=== PATIENT | male | born 1940 | race Caucasian/White ===

== ENCOUNTER → 2016-06-11 | Outpatient (CLI) | payer BC ==
[~2016-06-11] MED LIST: ACET325T96 PO; AMOX1TAB43 PO; AMOX500C3 PO; ASPI81TA28 PO; CPR500 PO; CRDCD300 PO; DIGO0.2518 PO; DIPH50CA PO; ERGO1CAP41 PO; FURO80TA63 PO; LISI-729 PO; LISI10TA PO; LNX25 PO; METO1TAB71 PO; SENN-65 PO; WARF2.5T8 PO; WARF5TAB7 PO
--- NOTE | 2016-06-11 13:11 | DIAGNOSTIC IMAGING REPORT ---
RIGHT KNEE 2 VIEWS CLINICAL HISTORY: Right knee pain. FINDINGS: AP and lateral views of the right knee are obtained. No prior studies are available for comparison at the time of dictation. The skeletal structures are osteopenic. No fracture is seen. There is mild tricompartmental degenerative joint space narrowing, greatest at the patellofemoral articulation. There are large patellar enthesophytes. A calcified fabella is incidentally noted. No joint effusion is identified. An 11 mm joint body is suspected inferior to the patella. Prepatellar soft tissue edema is noted. Advanced atherosclerotic calcification is noted in the popliteal artery. IMPRESSION: 1. Soft tissue edema with no acute bony abnormality seen in the right knee. 2. Osteopenia and mild arthritic change as above. 3. Suspect an 11 mm calcified joint body. Electronically signed by: Jake Maurice M.D. 06/11/2016 1:10 PM Dictated Date/Time: 06/11/2016 1:08 PM
--- NOTE | 2016-06-11 13:13 | DIAGNOSTIC IMAGING REPORT ---
LEFT HIP UNILATERAL 2 VIEWS CLINICAL HISTORY: Bilateral hip pain. COMPARISON STUDY: None. FINDINGS: No acute fracture or dislocation within the left hip. Soft tissues are unremarkable. There are surgical clips in the left inguinal region. This visualized pelvic bones are intact. Mild vascular calcifications. Moderate to severe cartilage space narrowing within the left hip. There are are marginal osteophytes at the left hip. IMPRESSION: 1. No fracture or dislocation within the left hip. 2. Moderate to severe left hip osteoarthritis. Electronically signed by: Al Madrid M.D. 06/11/2016 1:11 PM Dictated Date/Time: 06/11/2016 1:09 PM
--- NOTE | 2016-06-11 13:14 | DIAGNOSTIC IMAGING REPORT ---
LEFT KNEE 2 VIEWS HISTORY: BILATERAL KNEE PAIN COMPARISON: None. FINDINGS: There is no fracture or dislocation. Soft tissues are unremarkable. No radiopaque foreign bodies. Mild cartilage space narrowing within the medial compartment of the knee. Vascular calcifications are noted. No significant knee effusion. There is also mild cartilage space narrowing and small marginal osteophytes at the patellofemoral joint. Tiny marginal osteophytes at the lateral compartment of the knee. IMPRESSION: No fractures. Mild left knee osteoarthritis. Electronically signed by: Al Madrid M.D. 06/11/2016 1:13 PM Dictated Date/Time: 06/11/2016 1:11 PM
--- NOTE | 2016-06-11 13:17 | DIAGNOSTIC IMAGING REPORT ---
RIGHT HIP 2 VIEWS HISTORY: Right hip pain. COMPARISON: None. FINDINGS: There is no fracture or dislocation. Soft tissues are unremarkable. There is a right total hip arthroplasty. The hardware appears intact. There is there are 2 metallic anchors at the greater trochanter. Surgical clips seen within the right groin. The visualized pelvic bones are intact. There appears be a 1.6 cm focal lucency within the superior acetabulum. IMPRESSION: 1. No fracture or dislocation within the right hip. 2. Right total hip arthroplasty. The hardware appears intact. 3. A 1.6 cm focal lucency within the superior aspect of the acetabulum. This may represent foreign body reaction. Electronically signed by: Al Madrid M.D. 06/11/2016 1:15 PM Dictated Date/Time: 06/11/2016 1:13 PM
--- NOTE | 2016-06-11 13:24 | DIAGNOSTIC IMAGING REPORT ---
LUMBAR SPINE RADIOGRAPHS, INCLUDING FLEXION AND EXTENSION CLINICAL HISTORY: Ankylosing spondylitis. Lower back and bilateral hip pain. COMPARISON: None FINDINGS: There is mild levoscoliosis of the lumbar spine. No acute fracture is identified. There is slight retrolisthesis of L3 on L4 and slight anterolisthesis of L4 on L5 in neutral position. This does not significantly change with flexion or extension. There is moderate multilevel degenerative disc disease and severe multilevel facet arthrosis of the lumbar spine. A right hip arthroplasty is partially imaged. IMPRESSION: 1. Mild levoscoliosis of the lumbar spine, slight retrolisthesis of L3 on L4 and slight anterolisthesis of L4 and L5 with no change during flexion or extension. No evidence for lumbar spine instability. 2. Moderate multilevel degenerative disc disease and severe multilevel facet arthrosis. 3. No fracture. Electronically signed by: Johnny Trejo M.D. 06/11/2016 1:22 PM Dictated Date/Time: 06/11/2016 1:20 PM
[2016-06-11 17:19] LABS: PROSTATE SPECIFIC ANTIGEN < 0.010 ng/ml (0.000-4.000)
--- NOTE | 2016-06-17 06:52 | CODING QUERY MEDICAL NECESSITY ---
SUPPORTING DIAGNOSIS NEEDED Dr. Lowe, A supporting diagnosis is required for the test/procedure performed on this patient in order for us to be reimbursed by the patient's insurance. Please provide a supporting diagnosis for the following test/procedure listed below next to the test name along with your signature. *If there is no additional diagnosis for this patient that would support the following test/procedure please document that below next to the test/procedure. Test(s)/Procedure(s) that require a supporting diagnosis: * ([id number]) VITAMIN D ASSAY DIAGNOSIS: * [id number] PSA DIAGNOSIS: DATE OF SERVICE: 06/11/16 Provider Signature: Date: Thank you Barrett Buckner [facility] Once completed, please kindly fax back to [phone] For questions please call [phone]
== END | disposition home or self-care (01) ==
LOC: C.LABBC 12:18
PROVIDERS: ATTEND Internal Medicine
DX: M25.561 Pain in right knee (principal); M25.562 Pain in left knee; M45.9 Ankylosing spondylitis of unspecified sites in spine; M62.81 Muscle weakness (generalized)

== ENCOUNTER 2016-11-09 13:24 | Inpatient (IN) | payer BC, OTHER ==
[~2016-11-09] VITALS: Ht 185.4 cm; Wt 91.0 kg
[~2016-11-09 13:24] MED LIST changes: -AMOX1TAB43 PO; -ASPI81TA28 PO; -CPR500 PO; -CRDCD300 PO; -ERGO1CAP41 PO; -LISI-729 PO; -LNX25 PO; -SENN-65 PO
[2016-11-09] MEDS ORDERED: XYLOCAINE 1%/SOD BICARB 20 ML VIAL INFIL ONE (14:00)
[2016-11-09] MEDS ORDERED: SODIUM CHLORIDE 0.9% 1000ML 1,000 ML IV STA (14:18)
--- NOTE | 2016-11-09 14:18 | EMERGENCY ROOM VISIT NOTE ---
ED Visit Note First contact with patient: 13:42 This Patient was discussed with the physician Stitch Bonding Machine Operator, Di Bynum PA-C. The pertinent historical and physical exam findings were confirmed. I agree with the studies ordered and with the interpretations of these studies. I agree with the disposition and care plan.
[2016-11-09 15:09] LABS: BASO % 0.2 %; BASO ABS # 0.02 K/uL (0-0.2); COMPLETE YES; EOS % 2.2 %; HEMATOCRIT 39.8 % (42-52); IG% 0.2 %; LYMPH % 10.2 %; LYMPH ABS # 0.83 K/uL (1.2-3.4); MEAN CELL VOLUME 97.3 fL (80-100); MEAN CORPUSCULAR HEMOGLOBIN 34.5 pg (25-34); MEAN CORPUSCULAR HGB CONC 35.4 g/dl (32-36); MEAN PLATELET VOLUME 11.4 fL (7.4-10.4); MONO % 11.3 %; NEUT % 75.9 %; PLATELET COUNT 230 K/uL (130-400); RED BLOOD COUNT 4.09 M/uL (4.7-6.1); WHITE BLOOD COUNT 8.12 K/uL (4.8-10.8)
[2016-11-09 15:24] LABS: INR 2.6 (0.9-1.1); PARTIAL THROMBOPLASTIN RATIO 1.8; PROTHROMBIN TIME (PATIENT) 28.6 SECONDS (9.0-12.0)
[2016-11-09 15:27] LABS: BUN/CREATININE RATIO 21.9 (10-20); CALCIUM 8.7 mg/dl (8.5-10.1); CREATININE 0.98 mg/dl (0.60-1.40); POTASSIUM 3.3 mmol/L (3.5-5.1)
--- NOTE | 2016-11-09 15:33 | DIAGNOSTIC IMAGING REPORT ---
LEFT TIBIA/FIBULA 2 VIEWS ROUTINE CLINICAL HISTORY: left leg pain, swelling, redness, drainage COMPARISON: None. DISCUSSION: There is diffuse soft tissue swelling. No fractures are visualized. No destructive lesions are evident. Degenerative changes are present within the knee. Vascular calcifications are visualized. IMPRESSION: 1. Diffuse soft tissue edema 2. No evidence of fracture. No conventional radiographic evidence of osteomyelitis Electronically signed by: Wilmer Weinstein M.D. 11/09/2016 3:32 PM Dictated Date/Time: 11/09/2016 3:31 PM
--- NOTE | 2016-11-09 15:34 | DIAGNOSTIC IMAGING REPORT ---
LEFT FOOT MIN 3 VIEWS ROUTINE CLINICAL HISTORY: left foot pain, swelling, redness, drainage COMPARISON: None. DISCUSSION: Findings of osteopenia and potential bony destructive change involving the distal aspects of the fourth and fifth metatarsals. Cortical early similar changes base proximal phalanx fifth toe. Generalized degenerative change and osteopenia throughout all remaining osseous structures. Soft tissue vascular calcification. Soft tissue edema. IMPRESSION: Soft tissue edema and degenerative change. Diffuse osteopenia. Potential early osteomyelitis distal aspects of the fourth fifth and possibly distal third metatarsals. Potential early osteomyelitis proximal phalanx fifth toe. Electronically signed by: Sin Bryson M.D. 11/09/2016 3:33 PM Dictated Date/Time: 11/09/2016 3:31 PM
[2016-11-09] MEDS ORDERED: ERGO1CAP41 PO (16:01)
[2016-11-09] MEDS ORDERED: LNX25 PO (16:01)
[2016-11-09] MEDS ORDERED: SENN-65 PO (16:01)
[2016-11-09] MEDS ORDERED: LISI-729 PO (16:01)
[2016-11-09 16:37] LABS: URINE APPEARANCE CLEAR (CLEAR); URINE BILIRUBIN NEG (NEG); URINE COLOR YELLOW; URINE NITRITE NEG (NEG); URINE PH 5.5 (4.5-7.5); URINE SPECIFIC GRAVITY 1.013 (1.000-1.030); UROBILINOGEN NEG (NEG); ZZUR CULT IF INDIC CLEAN CATCH NO
[2016-11-09 16:41] LABS: MANUAL MICROSCOPIC REQUIRED? NO; REVIEW REQ? NO
[2016-11-09] MEDS ORDERED: DIPHTHERIA/TETANUS/PERTUSSIS 0.5 ML SYR/VIAL IM. ONE (16:45)
--- NOTE | 2016-11-09 17:58 | History and Physical ---
History & Physical Date & Time of Service: Nov 09, 2016 at 17:14 Chief Complaint: Feet Bleeding Primary Care Physician: Sharif Lowe M.D. History of Present Illness Source: patient, clinic records, hospital records This patient is a 76-year-old male that presented to the emergency department with a main complaint of bleeding from his left foot that started this morning. He is unsure of where it was coming from in particular. He was unable to control the bleeding at home, which prompted him to call his son to bring him to the emergency department. He denies any injury. The patient has a history of chronic venous insufficiency. His legs are significantly swollen. He reports that he takes Lasix 80 mg daily, which she has been taking as prescribed. The patient also notes a wound on the anterior aspect of the left renee. He denies any injury to the area. He denies any fever or chills. The left leg is somewhat painful. Of note, the patient is also complaining of diarrhea over the last week. He denies any nausea or abdominal pain. He denies any blood in his stool or dark stools. He was reportedly covered in feces upon arrival to the ED Past Medical/Surgical History chronic venous insufficiency diastolic CHF hx of bacterial endocarditis in 2016 with penicillin sensitive strep Sepsis 2016 from noted above Paroxysmal A. fib History of prostate cancer History of cataract surgery in the hip replacement Family History Hypertension Social History Smoking Status: Never Smoker Drug Use: none Marital Status: Housing status: lives with significant other Occupational Status: employed Immunizations History of Influenza Vaccine: N/A History of Tetanus Vaccine?: Yes History of Pneumococcal: No History of Hepatitis B Vaccine: No Multi-Drug Resistant Organisms History of MDRO: No Allergies Coded Allergies: Ceftriaxone (Verified Allergy, Unknown, UNKNOWN, 06/06/16) ROCEPHIN AND VANCO ALLERGY PER [facility] ORDER FORM FROM 09/25/15 Vancomycin (Verified Allergy, Unknown, UNKNOWN, 06/06/16) ROCEPHIN AND VANCO ALLERGY PER [facility] ORDER FORM FROM 09/25/15 Home Medications Scheduled Acetaminophen Tab (Tylenol), 650 MG PO DIRECTED Amoxicillin (Amoxil), 4 CAP PO DIRECTED Aspirin (Aspirin Ec), 81 MG PO DAILY Digoxin (Digoxin), 0.25 MG PO DAILY Diltiazem HCl (Diltiazem Cd), 300 MG PO DAILY Diphenhydramine Hcl (Diphenhydramine Hcl), 25 MG PO DIRECTED Ergocalciferol (Vitamin D 86808 Unit), 1 TAB PO WK Furosemide (Lasix), 80 MG PO QAM Lisinopril (Zestril), 5 MG PO DAILY Metoprolol Succinate (Toprolxl (Toprol-Xl), 200 MG PO DAILY Senna/Docusate Sod (Senokot S), 1 TAB PO DAILY Warfarin Sod ([place]), 5 MG PO TUESDAY Warfarin Sod ([place]), 2.5 MG PO DAILY Review of Systems 10 system review performed and negative unless noted in HPI or below Physical Exam Vital Signs Date Time Temp Pulse Resp B/P (MAP) Pulse Ox O2 Delivery O2 Flow Rate FiO2 11/09/16 16:37 57 20 139/96 95 Room Air 11/09/16 16:19 70 11/09/16 15:54 69 20 149/99 95 Room Air 11/09/16 13:28 36.3 89 20 145/93 97 Room Air General Appearance: no apparent distress Head: normocephalic Eyes: EOMI Neck: no JVD Respiratory/Chest: lungs clear Cardiovascular: + pertinent finding (occasionally irregular. No murmur auscultated.) Abdomen/GI: normal bowel sounds, non tender, soft Extremities/Musculoskelatal: + pertinent finding (nonpitting edema noted in the lower extremities bilaterally. Significant erythema, tenderness and warmth noted in the left lower extremity starting from the knee progressing distally to the toes. Foot is warm to touch. No open wounds noted on the foot. There is an approximately 4 cm x 3 cm circular superficial wound on the anterior aspect of the renee oozing serous fluid. Right lower extremity is not erythematous or warm.) Neurologic/Psych: no motor/sensory deficits, oriented x 3 Skin: warm/dry Diagnostics Laboratory Results Results Past 24 Hours Test 11/09/16 14:35 11/09/16 16:19 Range/Units White Blood Count 8.12 4.8-10.8 K/uL Red Blood Count 4.09 4.7-6.1 M/uL Hemoglobin 14.1 14.0-18.0 g/dL Hematocrit 39.8 42-52 % Mean Corpuscular Volume 97.3 80-100 fL Mean Corpuscular Hemoglobin 34.5 25-34 pg Mean Corpuscular Hemoglobin Concent 35.4 32-36 g/dl Platelet Count 230 130-400 K/uL Mean Platelet Volume 11.4 7.4-10.4 fL Neutrophils (%) (Auto) 75.9 % Lymphocytes (%) (Auto) 10.2 % Monocytes (%) (Auto) 11.3 % Eosinophils (%) (Auto) 2.2 % Basophils (%) (Auto) 0.2 % Neutrophils # (Auto) 6.15 1.4-6.5 K/uL Lymphocytes # (Auto) 0.83 1.2-3.4 K/uL Monocytes # (Auto) 0.92 0.11-0.59 K/uL Eosinophils # (Auto) 0.18 0-0.5 K/uL Basophils # (Auto) 0.02 0-0.2 K/uL RDW Standard Deviation 44.6 36.4-46.3 fL RDW Coefficient of Variation 12.7 11.5-14.5 % Immature Granulocyte % (Auto) 0.2 % Immature Granulocyte # (Auto) 0.02 0.00-0.02 K/uL Prothrombin Time 28.6 9.0-12.0 SECONDS Prothromb Time International Ratio 2.6 0.9-1.1 Activated Partial Thromboplast Time 46.1 21.0-31.0 SECONDS Partial Thromboplastin Ratio 1.8 Sodium Level 139 136-145 mmol/L Potassium Level 3.3 3.5-5.1 mmol/L Chloride Level 101 98-107 mmol/L Carbon Dioxide Level 31 21-32 mmol/L Anion Gap 7.0 3-11 mmol/L Blood Urea Nitrogen 21 7-18 mg/dl Creatinine 0.98 0.60-1.40 mg/dl Est Creatinine Clear Calc Drug Dose 74.7 ml/min Estimated GFR () 87.7 Estimated GFR (Non- 75.6 BUN/Creatinine Ratio 21.9 10-20 Random Glucose 110 70-99 mg/dl Calcium Level 8.7 8.5-10.1 mg/dl Total Bilirubin 0.7 0.2-1 mg/dl Aspartate Amino Transf (AST/SGOT) 18 15-37 U/L Alanine Aminotransferase (ALT/SGPT) 23 12-78 U/L Alkaline Phosphatase 112 45-117 U/L Total Protein 7.5 6.4-8.2 gm/dl Albumin 3.7 3.4-5.0 gm/dl Globulin 3.8 2.5-4.0 gm/dl Albumin/Globulin Ratio 1.0 0.9-2 Urine Color YELLOW Urine Appearance CLEAR CLEAR Urine pH 5.5 4.5-7.5 Urine Specific [place] 1.013 1.000-1.030 Urine Protein NEG NEG Urine Glucose (UA) NEG NEG Urine Ketones NEG NEG Urine Occult Blood NEG NEG Urine Nitrite NEG NEG Urine Bilirubin NEG NEG Urine Urobilinogen NEG NEG Urine Leukocyte Esterase NEG NEG Microbiology Results 11/09/16 Blood Culture, Received Pending 11/09/16 Blood Culture, Received Pending 11/09/16 Gram Stain, Received Pending 11/09/16 Wound Culture, Received Pending Diagnostic Radiology Patient: ARMEN COX Address1: [facility] Rec: [id number] Address2: Acct ID: [id number] [facility] Zip: [place] [address] Date: 1940 Sex: M Room/Bed: Ref Phy: Sharif Lowe M.D. SC: NATALIA Att Phy: Report #: [id number] Fidelina Phy: Sharif Lowe M.D. Test: TF Admit Phy: Identification Officer: LIZETTE Interpreting Phy: Wilmer Weinstein M.D. Diagnosis: FEET BLEEDING Ordering Phy: Ella Bynum PA-C Service Date: 11/09/16 Admit Date: 11/09/16 MNE: [id number] CONF: DICTATED BY: Wilmer Weinstein M.D.]] CC: Denys Romero, Sharif Prasad M.D. Royer, Elizabeth A., PA-C Endcc: [~ rep ct add3]] LEFT TIBIA/FIBULA 2 VIEWS ROUTINE CLINICAL HISTORY: left leg pain, swelling, redness, drainage COMPARISON: None. DISCUSSION: There is diffuse soft tissue swelling. No fractures are visualized. No destructive lesions are evident. Degenerative changes are present within the knee. Vascular calcifications are visualized. IMPRESSION: 1. Diffuse soft tissue edema 2. No evidence of fracture. No conventional radiographic evidence of osteomyelitis Electronically signed by: Wilmer Weinstein M.D. 11/09/2016 3:32 PM Dictated Date/Time: 11/09/2016 3:31 PM The status of this report is Signed. Draft = Not yet reviewed or approved by Radiologist. Signed = Reviewed and approved by Radiologist. <AttendingPhy></AttendingPhy> <FamilyPhy>Sharif Lowe M.D.</FamilyPhy> < PrimaryPhy>Sharif Lowe M.D.</PrimaryPhy> <UnitNumber>[id number]</UnitNumber> <VisitNumber>[id number]</VisitNumber> <PatientName>ARMEN COX</PatientName> <DateOfBirth>1940</DateOfBirth> <Location>[facility]</Location> <ServiceDate></ServiceDate> <MNE>ESINDI</ Patient: ARMEN COX Address1: [address] [address] [facility] Rec: [id number] Address2: Acct ID: [id number] [facility] Zip: [place] [address] Date: 1940 Sex: M Room/Bed: Ref Phy: Sharif Lowe M.D. SC: NATALIA Att Phy: Report #: [id number] Fidelina Phy: Sharif Lowe M.D. Test: FT Admit Phy: Identification Officer: LIZETTE Interpreting Phy: Sin Bryson M.D. Diagnosis: FEET BLEEDING Ordering Phy: Ella Bynum PA-C Service Date: 11/09/16 Admit Date: 11/09/16 MNE: [id number] CONF: DICTATED BY: Sin Bryson M.D.]] CC: Denys Romero, Sharif Prasad M.D. Royer, Elizabeth A., PA-C Endcc: [~ rep ct add3]] LEFT FOOT MIN 3 VIEWS ROUTINE CLINICAL HISTORY: left foot pain, swelling, redness, drainage COMPARISON: None. DISCUSSION: Findings of osteopenia and potential bony destructive change involving the distal aspects of the fourth and fifth metatarsals. Cortical early similar changes base proximal phalanx fifth toe. Generalized degenerative change and osteopenia throughout all remaining osseous structures. Soft tissue vascular calcification. Soft tissue edema. IMPRESSION: Soft tissue edema and degenerative change. Diffuse osteopenia. Potential early osteomyelitis distal aspects of the fourth fifth and possibly distal third metatarsals. Potential early osteomyelitis proximal phalanx fifth toe. Electronically signed by: Sin Bryson M.D. 11/09/2016 3:33 PM Dictated Date/Time: 11/09/2016 3:31 PM The status of this report is Signed. Draft = Not yet reviewed or approved by Radiologist. Impression Assessment and Plan 76-year-old male presented to emergency department with complaints of bleeding coming from somewhere on his left foot. The patient was apparently found to be soaked in feces from the knees down. Patient has a history of sepsis, endocarditis with penicillin strap in 2016. This was thought to be secondary to his chronic venous insufficiency in his legs. Foot x-rays consistent with early osteomyelitis. 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 However, in the setting of the patient's hip prosthesis we will start broad-spectrum antibiotics with aztreonam, daptomycin and Flagyl -Follow up blood cultures -Lymphedema/wound consult -Infectious disease consult -NPO after midnight in case of orthopedic procedure in the AM Diarrhea-r/o infectious cause -C diff, stool cx, stool WBC, FOB ordered Paroxysmal atrial fibrillation -Continue digoxin 250 g daily, diltiazem extended release 300 mg daily, metoprolol succinate 200 mg daily -Continue warfarin. Patient's typical home dose is 5 mg on and 2.5 mg every other day. We will start the patient on 2.5 mg daily given the amount of antibiotics will be initiated. History of diastolic CHF -Continue Lasix 80 mg daily for now DVT prophylaxis -Lovenox 40 mg subQ daily -TEDS, SCDs CODE STATUS -LEVEL I FULL CODE This chart was completed in part utilizing [employer] Speech Voice Recognition software. Attempts were made to minimize the grammatical errors, random word insertions, pronoun errors and incomplete sentences. Any formal questions or concerns about the content, text or information contained within the body of this dictation should be directly addressed to the provider for clarification. I personally and independently interviewed and examined the patient I reviewed labs and imaging I agree with above mentioned physical exam, History and ROS I discussed and formulated the assessment and plan with Mrs. Zhong 76-year-old male P/W B/L infected lower ext cellulitis/lymphedema rest of ROS is negative PE as above assessment: B/L infected lower ext cellulitis/lymphedema suspected left lower ext osteomyelitis A fib on coumadin Plan: wound care ID and ortho consult US lower ext R/O DVT despite of coumadin with therapeutic INR continue home meds Demetri [place] [facility] [place] Level of Care Med/Surg VTE Prophylaxis VTE Risk Assessment Done? Y/N: Yes Risk Level: Moderate Given or contraindicated: Enoxaparin (Lovenox)SQ, T.E.D. Stockings, SCD's
[2016-11-09] MEDS ORDERED: ONDANSETRON INJ 2 MG/ML 2 ML VIAL IV PRN (18:00)
[2016-11-09] MEDS ORDERED: MAGNESIUM HYDROXIDE SUSP 30 ML UDC PO PRN (18:00)
[2016-11-09] MEDS ORDERED: ENOXAPARIN 40 MG/0.4 ML SYR SQ SCH (18:00)
[2016-11-09] MEDS ORDERED: POLYETHYLENE (MIRALAX) 17 GM PACK PO PRN (18:00)
[2016-11-09] MEDS ORDERED: POTASSIUM CHLORIDE 10 MEQ TABCR ONE (18:27)
[2016-11-09 18:43] VITALS: BP 149/89; PULSE 77; TEMP 36.7; O2SAT 96
[2016-11-09 18:45] VITALS: BP 149/89; PULSE 77; TEMP 36.7; Ht 185.4 cm; Wt 91.0 kg
[2016-11-09] MEDS ORDERED: METRONIDAZOLE CONSULT ACTIVE PRN (20:00)
[2016-11-09] MEDS ORDERED: POTASSIUM CHLORIDE 10 MEQ TABCR PO ONE (20:00)
[2016-11-09] MEDS ORDERED: AZTREONAM CONSULT ACTIVE PRN ×2 (20:00)
--- NOTE | 2016-11-09 20:16 | DIAGNOSTIC IMAGING REPORT ---
BILATERAL LOWER EXTREMITY VENOUS DOPPLER HISTORY: bilateral LE edema venous insuff r/o DVT COMPARISON STUDY: None. FINDINGS: There is normal compressibility, flow, and augmentation within the bilateral lower extremity deep venous systems. IMPRESSION: No DVT within the right or left lower extremity. Electronically signed by: Al Madrid M.D. 11/09/2016 8:15 PM Dictated Date/Time: 11/09/2016 8:14 PM
--- NOTE | 2016-11-09 21:21 | EMERGENCY ROOM VISIT NOTE ---
History First contact with patient: 13:42 Chief Complaint: BLEEDING Stated Complaint: OSTEOMYELITIS OF ANKLE OR FOOT History of Present Illness The patient is a 76 year old male who presents to the Emergency Room with complaints of bleeding from the left leg and foot. The patient states that his foot began to bleed today. He does not know what the bleeding is coming from but states there was a significant amount of blood in his shoe. The patient denies any injury. The patient states that he got concerned and called his son who brought him to the emergency department. The patient reports significant lower extremity swelling and drainage. He states that this appears to be his baseline. When asked if his foot was not bleeding if he would have presented to the emergency department he states he would not have. He denies any fevers. He denies any pain in his chest or trouble breathing. He denies any abdominal pain, nausea or vomiting. The patient does not believe his tetanus is up to date. The patient stated he was concerned because in the past he has had infection in his leg which was thought to have caused bacterial endocarditis in 2015. The patient does have a history of atrial fibrillation and takes digitoxin and Coumadin. Review of Systems A 10 system review of systems was completed with positives and pertinent negatives listed in the HPI. Past Medical/Surgical History Medical Problems: (1) Cellulitis (2) Infectious endocarditis (3) Leukocytosis (4) Osteomyelitis of ankle or foot (5) SIRS (systemic inflammatory response syndrome) (6) Streptococcal sepsis Family History Hypertension Social History Smoking Status: Never Smoker Drug Use: none Marital Status: Housing Status: lives with family Occupation Status: employed Current/Historical Medications Scheduled Acetaminophen Tab (Tylenol), 650 MG PO DIRECTED Amoxicillin (Amoxil), 4 CAP PO DIRECTED Aspirin (Aspirin Ec), 81 MG PO DAILY Digoxin (Digoxin), 0.25 MG PO DAILY Diltiazem HCl (Diltiazem Cd), 300 MG PO DAILY Diphenhydramine Hcl (Diphenhydramine Hcl), 25 MG PO DIRECTED Ergocalciferol (Vitamin D 51680 Unit), 1 TAB PO WK Furosemide (Lasix), 80 MG PO QAM Lisinopril (Zestril), 5 MG PO DAILY Metoprolol Succinate (Toprolxl (Toprol-Xl), 200 MG PO DAILY Senna/Docusate Sod (Senokot S), 1 TAB PO DAILY Warfarin Sod (Jantoven), 5 MG PO TUESDAY Warfarin Sod ([place]), 2.5 MG PO DAILY Allergies Coded Allergies: Ceftriaxone (Verified Allergy, Unknown, UNKNOWN, 06/06/16) ROCEPHIN AND VANCO ALLERGY PER [facility] ORDER FORM FROM 09/25/15 Vancomycin (Verified Allergy, Unknown, UNKNOWN, 06/06/16) ROCEPHIN AND VANCO ALLERGY PER [facility] ORDER FORM FROM 09/25/15 Physical Exam Vital Signs Date Time Temp Pulse Resp B/P (MAP) Pulse Ox O2 Delivery O2 Flow Rate FiO2 11/09/16 18:45 36.7 77 16 149/89 Room Air 11/09/16 18:43 36.7 77 16 149/89 (109) 96 Room Air 11/09/16 18:37 63 20 163/84 94 Room Air 11/09/16 17:44 71 20 157/85 95 Room Air 11/09/16 16:37 57 20 139/96 95 Room Air 11/09/16 16:19 70 11/09/16 15:54 69 20 149/99 95 Room Air 11/09/16 13:28 36.3 89 20 145/93 97 Room Air Pain Rating (0-10): 3.0 Physical Exam VITALS: Vitals are noted on the nurse's note and reviewed by myself. Vital signs stable. The patient is afebrile. GENERAL: This is a 76-year-old male, in no acute distress, nondiaphoretic, well- developed well-nourished. SKIN: There are significant and severe venous stasis changes to the bilateral lower extremities. There is 3+ pitting edema to the lower extremities bilaterally from the feet to the knees. There is an open blister to the left anterior lower extremity that is draining serous sanguinous drainage. When the patient's feet were evaluated, they are incredibly malodorous. They were very dirty and seemed to be covered with fecal material. The bleeding seemed to be coming from the patient's left great toenail which seemed to be slightly disrupted but there was no obvious laceration or bleeding varicosity. HEAD: Normocephalic atraumatic. EARS: External auditory canals clear, tympanic membranes pearly baird without erythema or effusion bilaterally. EYES: Pupils equal round and reactive to light and accommodation. Conjunctivae without injection, sclerae without icterus. Extraocular movements intact. NOSE: Patent, turbinates without inflammation or discharge. MOUTH: Mucous membranes moist. Tonsils are not enlarged. Pharynx without erythema or exudate. Uvula midline. Airway patent. Tongue does not deviate. NECK: Supple without nuchal rigidity. No lymphadenopathy. No thyromegaly. Cervical spine is nontender. HEART: Irregularly irregular LUNGS: Diminished throughout. MUSCULOSKELETAL: Venous stasis changes and skin changes as above. Normal gait. Strength 5/5 throughout. NEURO: Patient was alert and oriented to person place and time. No focal neurological deficits. Medical Decision & Procedures ER Provider Diagnostic Interpretation: LEFT FOOT MIN 3 VIEWS ROUTINE CLINICAL HISTORY: left foot pain, swelling, redness, drainage COMPARISON: None. DISCUSSION: Findings of osteopenia and potential bony destructive change involving the distal aspects of the fourth and fifth metatarsals. Cortical early similar changes base proximal phalanx fifth toe. Generalized degenerative change and osteopenia throughout all remaining osseous structures. Soft tissue vascular calcification. Soft tissue edema. IMPRESSION: Soft tissue edema and degenerative change. Diffuse osteopenia. Potential early osteomyelitis distal aspects of the fourth fifth and possibly distal third metatarsals. Potential early osteomyelitis proximal phalanx fifth toe. Laboratory Results 11/09/16 14:35 Red Blood Count 4.09, Mean Corpuscular Volume 97.3, Mean Corpuscular Hemoglobin 34.5, Mean Corpuscular Hemoglobin Concent 35.4, Mean Platelet Volume 11.4, Neutrophils (%) (Auto) 75.9, Lymphocytes (%) (Auto) 10.2, Monocytes (%) (Auto) 11.3, Eosinophils (%) (Auto) 2.2, Basophils (%) (Auto) 0.2, Neutrophils # (Auto ) 6.15, Lymphocytes # (Auto) 0.83, Monocytes # (Auto) 0.92, Eosinophils # (Auto ) 0.18, Basophils # (Auto) 0.02 11/09/16 14:35 Test 11/09/16 14:35 11/09/16 16:19 White Blood Count 8.12 K/uL (4.8-10.8) Red Blood Count 4.09 M/uL (4.7-6.1) Hemoglobin 14.1 g/dL (14.0-18.0) Hematocrit 39.8 % (42-52) Mean Corpuscular Volume 97.3 fL (80-100) Mean Corpuscular Hemoglobin 34.5 pg (25-34) Mean Corpuscular Hemoglobin Concent 35.4 g/dl (32-36) Platelet Count 230 K/uL (130-400) Mean Platelet Volume 11.4 fL (7.4-10.4) Neutrophils (%) (Auto) 75.9 % Lymphocytes (%) (Auto) 10.2 % Monocytes (%) (Auto) 11.3 % Eosinophils (%) (Auto) 2.2 % Basophils (%) (Auto) 0.2 % Neutrophils # (Auto) 6.15 K/uL (1.4-6.5) Lymphocytes # (Auto) 0.83 K/uL (1.2-3.4) Monocytes # (Auto) 0.92 K/uL (0.11-0.59) Eosinophils # (Auto) 0.18 K/uL (0-0.5) Basophils # (Auto) 0.02 K/uL (0-0.2) RDW Standard Deviation 44.6 fL (36.4-46.3) RDW Coefficient of Variation 12.7 % (11.5-14.5) Immature Granulocyte % (Auto) 0.2 % Immature Granulocyte # (Auto) 0.02 K/uL (0.00-0.02) Prothrombin Time 28.6 SECONDS (9.0-12.0) Prothromb Time International Ratio 2.6 (0.9-1.1) Activated Partial Thromboplast Time 46.1 SECONDS (21.0-31.0) Partial Thromboplastin Ratio 1.8 Anion Gap 7.0 mmol/L (3-11) Est Creatinine Clear Calc Drug Dose 74.7 ml/min Estimated GFR () 87.7 Estimated GFR (Non- 75.6 BUN/Creatinine Ratio 21.9 (10-20) Calcium Level 8.7 mg/dl (8.5-10.1) Total Bilirubin 0.7 mg/dl (0.2-1) Aspartate Amino Transf (AST/SGOT) 18 U/L (15-37) Alanine Aminotransferase (ALT/SGPT) 23 U/L (12-78) Alkaline Phosphatase 112 U/L (45-117) Total Creatine Kinase 91 U/L (39-308) Total Protein 7.5 gm/dl (6.4-8.2) Albumin 3.7 gm/dl (3.4-5.0) Globulin 3.8 gm/dl (2.5-4.0) Albumin/Globulin Ratio 1.0 (0.9-2) Urine Color YELLOW Urine Appearance CLEAR (CLEAR) Urine pH 5.5 (4.5-7.5) Urine Specific [place] 1.013 (1.000-1.030) Urine Protein NEG (NEG) Urine Glucose (UA) NEG (NEG) Urine Ketones NEG (NEG) Urine Occult Blood NEG (NEG) Urine Nitrite NEG (NEG) Urine Bilirubin NEG (NEG) Urine Urobilinogen NEG (NEG) Urine Leukocyte Esterase NEG (NEG) Medications Administered Medications (Trade) Dose Ordered Sig/Sam Route Start Time Stop Time Status Last Admin Dose Admin Sodium Chloride 1,000 ml @ 125 mls/hr Q8H STAT IV 11/09/16 14:18 11/09/16 19:46 DC 11/09/16 15:33 125 MLS/HR Diphtheria/ Pertussis/Tetanus Vacc (Adacel Inj) 0.5 ml ONCE ONCE IM. 11/09/16 16:45 11/09/16 16:46 DC 11/09/16 17:25 0.5 ML Potassium Chloride (Klor-Con M10) 40 meq STK-MED ONCE .ROUTE 11/09/16 18:27 11/09/16 18:28 DC 11/09/16 18:30 40 MEQ ED Course The patient was seen and examined. Previous visits were reviewed. The patient does not have a fever or leukocytosis. He is not tachycardic or hypotensive. He does not have any significant electrolyte abnormalities. INR is 2.6. The patient does take Coumadin. Urinalysis is negative. The patient was very gently hydrated with normal saline He was given Adacel injection X-rays were obtained as above and are suspicious for osteomyelitis of the left foot and toes The patient presents to the emergency department with bleeding of the left lower extremity. He seemed to have some bleeding coming from beneath the left great toe. The nail seemed to be slightly dislodged there was no suturable laceration or varicosities.. The patient has significant onychomycosis of all of his nails. The patient seemed to have feces all over the bottom of both of his feet and between his toenails. When I asked the patient about this, he states that when he stands to urinate he often has incontinence of diarrhea. This is likely the cause of what appears to be fecal material on both of his feet. The patient's feet were cleaned as best as possible. Once the feet were cleaned, there didn't appear to be erythema to the bilateral lower extremities, left worse than right. The patient also has severe venous stasis changes in bilateral lower extremity edema. There is question of osteomyelitis on x-ray of the left foot. The patient's blood cultures are pending. A wound culture is pending. I had ordered a lactic acid. I was told that it was rejected by the machine and it would be redrawn. Upon review after the patient left the emergency department, it did not seem to be redrawn. I discussed the case with the hospitalist service and they will evaluate the patient. I did discuss choice of antibiotic within the emergency Department pharmacist and the hospitalist service. The hospitalist would like to defer antibiotics at this time until appropriate cultures are obtained. The patient was also seen and examined by Dr. Romero who agrees with the assessment and treatment plan. Medication Reconciliation: I attest that I have personally reviewed the patient' s current medication list. Blood pressure screening: The patient was found to have an elevated blood pressure and was referred to their primary care doctor for recheck and further treatment Medical Decision The differential diagnosis includes cellulitis, osteomyelitis, bleeding varicosity, CHF, DVT, PE, sepsis, among others Impression Primary Impression: Osteomyelitis of ankle or foot Departure Information Dispostion Admitted as an inpatient Condition FAIR Referrals Sharif Lowe M.D. (PCP) Forms HOME CARE DOCUMENTATION FORM, IMPORTANT VISIT INFORMATION Patient Instructions My [facility]
[2016-11-09] MEDS: METRONIDAZOLE / NSS 500 MG in PREMIXED NSS 100 ML IV SCH (21:42)
[2016-11-09] MEDS: KETOCONAZOLE 2% CR 15 GM TUBE EXT SCH (21:48)
[2016-11-09 22:52] VITALS: BP 162/80; PULSE 80; TEMP 36.6; O2SAT 95
[2016-11-09] MEDS: DAPTOmycin IV 500 MG in SODIUM CHLORIDE 0.9% 50ML 50 ML IV SCH (22:57)
[2016-11-09] MEDS: AZTREONAM IV 2,000 MG in DEXTROSE 5% 100ML 100 ML IV SCH (22:57)
[2016-11-09] MEDS ORDERED: ASPI81TA28 PO (22:58)
[2016-11-09] MEDS ORDERED: CRDCD300 PO (23:01)
[2016-11-10] MEDS: ACETAMINOPHEN 325 MG TAB PO PRN (00:15)
[2016-11-10] MEDS: AZTREONAM IV 2,000 MG in DEXTROSE 5% 100ML 100 ML IV SCH ×3 (04:28→22:03)
[2016-11-10] MEDS: METRONIDAZOLE / NSS 500 MG in PREMIXED NSS 100 ML IV SCH ×3 (04:28→22:03)
[2016-11-10 06:02] LABS: BASO % 0.1 %; BASO ABS # 0.01 K/uL (0-0.2); COMPLETE YES; EOS % 1.7 %; IG% 0.1 %; LYMPH % 11.4 %; LYMPH ABS # 0.93 K/uL (1.2-3.4); MEAN CELL VOLUME 98.9 fL (80-100); MEAN CORPUSCULAR HEMOGLOBIN 34.7 pg (25-34); MEAN CORPUSCULAR HGB CONC 35.1 g/dl (32-36); MEAN PLATELET VOLUME 10.7 fL (7.4-10.4); MONO % 20.3 %; NEUT % 66.4 %; PLATELET COUNT 185 K/uL (130-400); RED BLOOD COUNT 3.54 M/uL (4.7-6.1); WHITE BLOOD COUNT 8.14 K/uL (4.8-10.8)
[2016-11-10 06:11] LABS: INR 2.1 (0.9-1.1); PROTHROMBIN TIME (PATIENT) 23.7 SECONDS (9.0-12.0)
[2016-11-10 06:43] LABS: BUN/CREATININE RATIO 17.7 (10-20); CALCIUM 8.5 mg/dl (8.5-10.1); CREATININE 0.75 mg/dl (0.60-1.40); POTASSIUM 3.1 mmol/L (3.5-5.1)
[2016-11-10 07:43] VITALS: BP 151/68; PULSE 56; TEMP 36.3; O2SAT 98
[2016-11-10 08:21] VITALS: BP 161/78; PULSE 75
[2016-11-10] MEDS: KETOCONAZOLE 2% CR 15 GM TUBE EXT SCH ×2 (08:41→22:04)
--- NOTE | 2016-11-10 08:41 | Hospitalist Progress Note ---
Hospitalist Progress Note Date of Service Nov 10, 2016. (Marietta Stratton PA-C) Subjective Pt evaluation today including: conversation w/ patient, conversation w/ family , physical exam, chart review, lab review, review of studies Pain: None PO Intake: NPO Voiding: no voiding problems The patient was seen and examined this morning. Pt reports doing better today, and that he essentially has no pain. He notes the swelling in his bilateral LE is much imiproved today compared to yesterday. He has been ambulating with walker and denies much difficulty, he also notes his home is small and that he typically does not use anything to help him get around the home. Denies fevers , sweats or chills. Constitutional: No fever, No chills, No fatigue Eyes: No discharge, No diplopia ENT: No sore throat, No trouble swallowing Respiratory: No cough, No sputum, No wheezing, No shortness of breath Cardiovascular: No chest pain, No palpitations Abdomen: No pain, No nausea, No vomiting, No diarrhea, No constipation Musculoskeletal: No muscle pain, No swelling Male : No dysuria Neurologic: No weakness, No numbness/tingling Endo: No fatigue Skin: No rash, No itch (Marietta Stratton PA-C) Objective Vital Signs Date Time Temp Pulse Resp B/P (MAP) Pulse Ox O2 Delivery O2 Flow Rate FiO2 11/10/16 08:21 75 161/78 (105) 11/10/16 07:43 36.3 56 20 151/68 (95) 98 Room Air 11/10/16 00:05 Room Air 11/09/16 22:52 36.6 80 16 162/80 (107) 95 Room Air 11/09/16 18:45 36.7 77 16 149/89 Room Air 11/09/16 18:43 36.7 77 16 149/89 (109) 96 Room Air 11/09/16 18:37 63 20 163/84 94 Room Air 11/09/16 17:44 71 20 157/85 95 Room Air 11/09/16 16:37 57 20 139/96 95 Room Air 11/09/16 16:19 70 11/09/16 15:54 69 20 149/99 95 Room Air 11/09/16 13:28 36.3 89 20 145/93 97 Room Air (Marietta Stratton PA-C) Physical Exam General Appearance: WD/WN, no apparent distress Eyes: PERRL, EOMI ENT: hearing grossly normal, pharynx normal Neck: supple, no JVD Respiratory/Chest: chest non-tender, lungs clear, normal breath sounds Cardiovascular: no murmur, + irregularly irregular Abdomen: normal bowel sounds, non tender, soft, no organomegaly Extremities: non-tender, + pedal edema (2+ pitting edema, chronic venous stasis changes bilaterally, +erythema color up to level of knees bilaterally, Left foot appears red with foul smell, + blood blister over anterior tibial region.), + 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9 % 66.4 % Lymphocytes (%) (Auto) 10.2 % 11.4 % Monocytes (%) (Auto) 11.3 % 20.3 % Eosinophils (%) (Auto) 2.2 % 1.7 % Basophils (%) (Auto) 0.2 % 0.1 % Neutrophils # (Auto) 6.15 K/uL 5.40 K/uL Lymphocytes # (Auto) 0.83 K/uL 0.93 K/uL Monocytes # (Auto) 0.92 K/uL 1.65 K/uL Eosinophils # (Auto) 0.18 K/uL 0.14 K/uL Basophils # (Auto) 0.02 K/uL 0.01 K/uL RDW Standard Deviation 44.6 fL 46.1 fL RDW Coefficient of Variation 12.7 % 12.8 % Immature Granulocyte % (Auto) 0.2 % 0.1 % Immature Granulocyte # (Auto) 0.02 K/uL 0.01 K/uL Prothrombin Time 28.6 SECONDS 23.7 SECONDS Prothromb Time International Ratio 2.6 2.1 Activated Partial Thromboplast Time 46.1 SECONDS Partial Thromboplastin Ratio 1.8 Sodium Level 139 mmol/L 140 mmol/L Potassium Level 3.3 mmol/L 3.1 mmol/L Chloride Level 101 mmol/L 104 mmol/L Carbon Dioxide Level 31 mmol/L 29 mmol/L Anion Gap 7.0 mmol/L 7.0 mmol/L Blood Urea Nitrogen 21 mg/dl 13 mg/dl Creatinine 0.98 mg/dl 0.75 mg/dl Est Creatinine Clear Calc Drug Dose 74.7 ml/min 97.6 ml/min Estimated GFR () 87.7 104.7 Estimated GFR (Non- 75.6 90.4 BUN/Creatinine Ratio 21.9 17.7 Random Glucose 110 mg/dl 118 mg/dl Calcium Level 8.7 mg/dl 8.5 mg/dl Total Bilirubin 0.7 mg/dl Aspartate Amino Transf (AST/SGOT) 18 U/L Alanine Aminotransferase (ALT/SGPT) 23 U/L Alkaline Phosphatase 112 U/L Total Creatine Kinase 91 U/L Total Protein 7.5 gm/dl Albumin 3.7 gm/dl Globulin 3.8 gm/dl Albumin/Globulin Ratio 1.0 Urine Color YELLOW Urine Appearance CLEAR Urine pH 5.5 Urine Specific [place] 1.013 Urine Protein NEG Urine Glucose (UA) NEG Urine Ketones NEG Urine Occult Blood NEG Urine Nitrite NEG Urine Bilirubin NEG Urine Urobilinogen NEG Urine Leukocyte Esterase NEG (Marietta Stratton PA-C) Assessment and Plan 76 yo M with PMHX of diastolic CHF, paroxysmal afib on anticoagulation, hx of sepsis, endocarditis with staph in 2016 found to have early osteomyelitis of the left foot Cellulitis/osteomyelitis of the left foot likely chronic in nature -Orthopedic consult -ID on board and agree with broad spectrum abx including: aztreonam, daptomycin and Flagyl, in the setting of the patient's hip prosthesis -blood cultures in process -Lymphedema/wound consult -Infectious disease consult -Orderer MRI left foot to determine the level of osteomyelitis, will allow the pt a diet today and can make NPO after 2400 if need for procedure. Diarrhea-r/o infectious cause -C diff, stool cx, stool WBC, FOB ordered - Pt denies association with the types of foods he's eating. Paroxysmal atrial fibrillation - Currently irregular, rate controlled - Continue digoxin 250 g daily, diltiazem extended release 300 mg daily, metoprolol succinate 200 mg daily - Continue warfarin. Patient's typical home dose is 5 mg on and 2.5 mg every other day. We will start the patient on 2.5 mg daily given the amount of antibiotics will be initiated. History of diastolic CHF -Continue Lasix 80 mg daily for now DVT prophylaxis -Lovenox 40 mg subQ daily, -TEDS, SCDs CODE STATUS: LEVEL I FULL CODE Disposition: From home, lives with , anticipated discharge after possible surgical procedure in ?2 days. (Marietta Stratton, PARomainC) Attending Attestation: Chart reviewed in detail. Care plan d/w DHIRAJ Stratton. I agree w/ the montelongo components of her documentation. I attempted to see the patient several times this evening without success. Staff reported he was in MRI. Will see the patient tomorrow during bedside rounds. Naeem Coates MD (Naeem Coates MD)
[2016-11-10] MEDS: ASPIRIN 81 MG ECTAB PO SCH (08:42)
[2016-11-10] MEDS: DILTIAZEM HCL 300 MG CAPCR PO SCH (08:42)
[2016-11-10] MEDS: DIGOXIN 0.25 MG TAB PO SCH (08:42)
[2016-11-10] MEDS: METOPROLOL SUCC 50MG EXT REL TAB PO SCH (08:42)
[2016-11-10] MEDS ORDERED: POTASSIUM CHLORIDE 20 MEQ TABCR PO SCH (08:45)
[2016-11-10] MEDS ORDERED: NURSING VERBAL MED ORDER ONE ×2 (08:45→10:30)
[2016-11-10] MEDS ORDERED: POTASSIUM CHLORIDE 10 MEQ TABCR PO ONE (09:15)
--- NOTE | 2016-11-10 10:30 | Medical Consult ---
Consultation Date of Consultation: Nov 10, 2016. Attending Physician: Naeem Coates MD Reason for Consultation: Osteo L foot, hx endocarditis History of Present Illness Patient is a 76 yo male with history of chronic venous insufficiency of the bilateral lower extremities who presented to the ED with complaints of bleeding from his left foot. The patient states that he has chronic edema and dark discoloration of the bilateral lower extremities. Over the past 1 month, he states that the swelling in his left leg has gotten worse, and he has noted some drainage and odor to the leg as well. He began to have bleeding from his left leg though [employer] and his son recommended evaluation in the ED. Upon evaluation, the patient was noted to have nonpitting edema of the bilateral lower extremities and mild erythema of the left lower extremity. He was also noted to have drainage from his LLE and mild warmth to palpation. X-Ray of the left foot was completed and showed soft tissue edema and concern for early osteomyelitis of the 3rd thru 5th distal metatarsals along with possible osteo of the proximal 5th phalanx. Wound culture is pending, but gram stain shows GPB , GPC, and GNB. Blood cultures are also pending. This patient does also have history of endocarditis in 08/2015 with Group G Beta Strep. His WBC count on admission was 8.12. He was placed on IV Daptomycin, Aztreonam, and Flagyl. Past Medical/Surgical History Medical Problems: (1) [address] Status: Acute (2) Dizziness Status: Acute (3) Encephalitis Status: Acute (4) Multiple open wounds of lower extremity Status: Acute Medical Problems: (1) Cellulitis (2) Infectious endocarditis (3) Leukocytosis (4) Osteomyelitis of ankle or foot (5) SIRS (systemic inflammatory response syndrome) (6) Streptococcal sepsis Family History Hypertension Noncontributory Social History Smoking Status: Never Smoker Drug Use: none Marital Status: Housing Status: lives with family Occupation Status: employed Allergies Coded Allergies: Ceftriaxone (Verified Allergy, Unknown, UNKNOWN, 06/06/16) ROCEPHIN AND VANCO ALLERGY PER [facility] ORDER FORM FROM 09/25/15 Vancomycin (Verified Allergy, Unknown, UNKNOWN, 06/06/16) ROCEPHIN AND VANCO ALLERGY PER [facility] ORDER FORM FROM 09/25/15 Home Medications Reported Home Medications Medications Dose Route/Sig Max Daily Dose Days Date Category Dose Instructions Vitamin D 91463 Unit (Ergocalciferol) 50,000 Unit Cap 1 Tab PO WK 11/09/16 Reported Senokot S (Senna/Docusate Sodium) 1 Tab Tab 1 Tab PO DAILY 11/09/16 Reported Zestril (Lisinopril) 5 Mg Tab 5 Mg PO DAILY 11/09/16 Reported Digoxin 0.25 Mg Tab 0.25 Mg PO DAILY 11/09/16 Reported Amoxil (Amoxicillin) 500 Mg Cap 4 Cap PO DIRECTED 06/06/16 Reported TAKES FOUR CAPS PRIOR TO DENTAL APT Toprol-Xl (Metoprolol Succinate) 200 Mg Tabcr 200 Mg PO DAILY 06/06/16 Reported Lasix (Furosemide) 80 Mg Tab 80 Mg PO QAM 06/06/16 Reported Diphenhydramine Hcl 50 Mg Cap 25 Mg PO DIRECTED 30 09/28/15 Reported Tylenol (Acetaminophen) 325 Mg Tab 650 Mg PO DIRECTED 09/28/15 Reported Jantoven (Warfarin Sodium) 2.5 Mg Tab 2.5 Mg PO DAILY 09/28/15 Reported Jantoven (Warfarin Sodium) 5 Mg Tab 5 Mg PO Tuesday09/28/15 Reported Diltiazem Cd (Diltiazem HCl) 300 Mg Capcr 300 Mg PO DAILY 09/08/15 Reported Aspirin Ec (Aspirin) 81 Mg Tab 81 Mg PO DAILY 09/08/15 Reported Current Inpatient Medications Current Inpatient Medications Medications (Trade) Dose Ordered Sig/Sam Route Start Time Stop Time Status Last Admin Dose Admin Aztreonam 2000 mg/ Dextrose 110 ml @ 100 mls/hr Q8H IV 11/09/16 21:00 11/19/16 20:59 11/10/16 04:28 100 MLS/HR Metronidazole 500 mg/Prmx 100 ml @ 100 mls/hr Q8H IV 11/09/16 20:00 12/21/16 19:59 11/10/16 04:28 100 MLS/HR Daptomycin 500 mg/ Sodium Chloride 60 ml @ 100 mls/hr DAILY@2200 IV 11/09/16 22:00 12/21/16 21:59 11/09/16 22:57 100 MLS/HR Aspirin (Ecotrin Tab) 81 mg DAILY PO 11/10/16 09:00 12/10/16 08:59 11/10/16 08:42 81 MG Digoxin (Lanoxin Tab) 0.25 mg DAILY PO 11/10/16 09:00 12/10/16 08:59 11/10/16 08:42 0.25 MG Diltiazem HCl (Cardizem Cd Cap) 300 mg DAILY PO 11/10/16 09:00 12/10/16 08:59 11/10/16 08:42 300 MG Furosemide (Lasix Tab) 80 mg QAM PO 11/10/16 09:00 12/10/16 08:59 Future hold Lisinopril (Zestril Tab) 5 mg DAILY PO 11/10/16 09:00 12/10/16 08:59 Future hold Metoprolol Succinate (Toprol Xl Tab) 200 mg DAILY PO 11/10/16 09:00 12/10/16 08:59 11/10/16 08:42 200 MG Warfarin Sodium (Coumadin Tab) 2.5 mg DAILY@1600 PO 11/10/16 16:00 12/10/16 15:59 Acetaminophen (Tylenol Tab) 650 mg Q4H PRN PO 11/09/16 18:00 12/09/16 17:59 11/10/16 00:15 650 MG Magnesium Hydroxide (Milk Of Magnesia Susp) 30 ml Q6H PRN PO 11/09/16 18:00 12/09/16 17:59 Polyethylene (Miralax Powder Packet) 17 gm DAILY PRN PO 11/09/16 18:00 12/09/16 17:59 Ondansetron HCl (Zofran Inj) 4 mg Q6H PRN IV 11/09/16 18:00 12/09/16 17:59 Ketoconazole (Nizoral 2% Crm) 1 appln BID EXT 11/09/16 21:00 01/04/17 20:59 11/10/16 08:41 1 APPLN Aztreonam (Consult) 1 ea UD PRN N/A 11/09/16 20:00 12/09/16 19:59 Metronidazole (Consult) 1 ea UD PRN N/A 11/09/16 20:00 12/09/16 19:59 Review of Systems Constitutional: No fever, No chills, No sweats, No fatigue Eyes: No worsening of vision ENT: No hearing loss Respiratory: No cough, No shortness of breath Cardiovascular: + problem reported (Hx Afib), No chest pain, No palpitations Abdomen: + diarrhea, No pain, No vomiting Musculoskeletal: + swelling (b/l LE, L>R. Increased for last 1 month, chronic venous stasis) Genitourinary - Male: No hematuria, No dysuria, No urinary frequency Integumentary: + color change (increased erythema of LLE), No rash, No itch Physical Exam Date Time Temp Pulse Resp B/P (MAP) Pulse Ox O2 Delivery O2 Flow Rate FiO2 11/10/16 08:42 75 11/10/16 08:21 75 161/78 (105) 11/10/16 07:50 Room Air 11/10/16 07:43 36.3 56 20 151/68 (95) 98 Room Air 11/10/16 00:05 Room Air 11/09/16 22:52 36.6 80 16 162/80 (107) 95 Room Air 11/09/16 18:45 36.7 77 16 149/89 Room Air 11/09/16 18:43 36.7 77 16 149/89 (109) 96 Room Air 11/09/16 18:37 63 20 163/84 94 Room Air 11/09/16 17:44 71 20 157/85 95 Room Air 11/09/16 16:37 57 20 139/96 95 Room Air 11/09/16 16:19 70 11/09/16 15:54 69 20 149/99 95 Room Air 11/09/16 13:28 36.3 89 20 145/93 97 Room Air General Appearance: WD/WN, no apparent distress Head: normocephalic, atraumatic Eyes: normal inspection, sclerae normal ENT: hearing grossly normal Neck: supple, trachea midline Respiratory/Chest: chest non-tender, lungs clear, normal breath sounds, no respiratory distress, no accessory muscle use Cardiovascular: + systolic murmur (soft), + irregularly irregular Abdomen/GI: normal bowel sounds, non tender, + distended Back: normal inspection Extremities/Musculoskelatal: + swelling (b/l LE appears to have chronic edema, L>R. ) Neurologic/Psych: alert, normal mood/affect Skin: + pertinent finding (chronic bilateral lower extremity darkened skin, mild erythema of the LLE and foot. Drainage from multiple small wounds on LLE.) Laboratory Results Item Value Date Time Blood Culture Received 11/09/16 1445 Blood Pending Blood Culture Received 11/09/16 1435 Blood Pending Gram Stain - Final Resulted 11/09/16 1315 Cellulitis Foot Left LEFT FOOT MIN 3 VIEWS ROUTINE CLINICAL HISTORY: left foot pain, swelling, redness, drainage COMPARISON: None. DISCUSSION: Findings of osteopenia and potential bony destructive change involving the distal aspects of the fourth and fifth metatarsals. Cortical early similar changes base proximal phalanx fifth toe. Generalized degenerative change and osteopenia throughout all remaining osseous structures. Soft tissue vascular calcification. Soft tissue edema. IMPRESSION: Soft tissue edema and degenerative change. Diffuse osteopenia. Potential early osteomyelitis distal aspects of the fourth fifth and possibly distal third metatarsals. Potential early osteomyelitis proximal phalanx fifth toe. Last 24 Hours Test 11/09/16 14:35 11/09/16 16:19 11/10/16 05:43 11/10/16 09:12 White Blood Count 8.12 K/uL 8.14 K/uL Red Blood Count 4.09 M/uL 3.54 M/uL Hemoglobin 14.1 g/dL 12.3 g/dL Hematocrit 39.8 % 35.0 % Mean Corpuscular Volume 97.3 fL 98.9 fL Mean Corpuscular Hemoglobin 34.5 pg 34.7 pg Mean Corpuscular Hemoglobin Concent 35.4 g/dl 35.1 g/dl Platelet Count 230 K/uL 185 K/uL Mean Platelet Volume 11.4 fL 10.7 fL Neutrophils (%) (Auto) 75.9 % 66.4 % Lymphocytes (%) (Auto) 10.2 % 11.4 % Monocytes (%) (Auto) 11.3 % 20.3 % Eosinophils (%) (Auto) 2.2 % 1.7 % Basophils (%) (Auto) 0.2 % 0.1 % Neutrophils # (Auto) 6.15 K/uL 5.40 K/uL Lymphocytes # (Auto) 0.83 K/uL 0.93 K/uL Monocytes # (Auto) 0.92 K/uL 1.65 K/uL Eosinophils # (Auto) 0.18 K/uL 0.14 K/uL Basophils # (Auto) 0.02 K/uL 0.01 K/uL RDW Standard Deviation 44.6 fL 46.1 fL RDW Coefficient of Variation 12.7 % 12.8 % Immature Granulocyte % (Auto) 0.2 % 0.1 % Immature Granulocyte # (Auto) 0.02 K/uL 0.01 K/uL Prothrombin Time 28.6 SECONDS 23.7 SECONDS Prothromb Time International Ratio 2.6 2.1 Activated Partial Thromboplast Time 46.1 SECONDS Partial Thromboplastin Ratio 1.8 Sodium Level 139 mmol/L 140 mmol/L Potassium Level 3.3 mmol/L 3.1 mmol/L Chloride Level 101 mmol/L 104 mmol/L Carbon Dioxide Level 31 mmol/L 29 mmol/L Anion Gap 7.0 mmol/L 7.0 mmol/L Blood Urea Nitrogen 21 mg/dl 13 mg/dl Creatinine 0.98 mg/dl 0.75 mg/dl Est Creatinine Clear Calc Drug Dose 74.7 ml/min 97.6 ml/min Estimated GFR () 87.7 104.7 Estimated GFR (Non- 75.6 90.4 BUN/Creatinine Ratio 21.9 17.7 Random Glucose 110 mg/dl 118 mg/dl Calcium Level 8.7 mg/dl 8.5 mg/dl Total Bilirubin 0.7 mg/dl Aspartate Amino Transf (AST/SGOT) 18 U/L Alanine Aminotransferase (ALT/SGPT) 23 U/L Alkaline Phosphatase 112 U/L Total Creatine Kinase 91 U/L Total Protein 7.5 gm/dl Albumin 3.7 gm/dl Globulin 3.8 gm/dl Albumin/Globulin Ratio 1.0 Urine Color YELLOW Urine Appearance CLEAR Urine pH 5.5 Urine Specific [place] 1.013 Urine Protein NEG Urine Glucose (UA) NEG Urine Ketones NEG Urine Occult Blood NEG Urine Nitrite NEG Urine Bilirubin NEG Urine Urobilinogen NEG Urine Leukocyte Esterase NEG Magnesium Level 2.2 mg/dl Assessment & Plan Patient with Hx Afib and endocarditis (08/2015) now with probable early osteomyelitis of the left 3rd thru 5th distal metatarsals. He is currently on IV Daptomycin, Aztreonam, and Metronidazole. This is appropriate coverage pending wound culture and blood culture results. Recommend MRI of the left foot if he is able to have one- discussed this briefly with Eden Evans PA-C, and if not able, then recommend CT scan. Ortho consult pending. Patient likely will need long-term IV abx therapy and wound care for the LLE. Note C. Diff toxin pending with diarrhea x 1 month- await collection. We will follow. Case reviewed and agree with above assessment.
[2016-11-10 14:58] VITALS: BP 129/71; PULSE 52; TEMP 36.6; O2SAT 97
[2016-11-10] MEDS: WARFARIN SOD 2.5 MG TAB PO SCH (17:07)
--- NOTE | 2016-11-10 20:09 | CONSULTATION REPORT ---
DATE OF CONSULTATION: 11/10/2016 REASON FOR CONSULT: Osteomyelitis, left foot. HISTORY OF PRESENT ILLNESS: The patient is a 76-year-old white male who was admitted on 11/09/2016. He did initially had come into the Emergency Room because he was thought to have bleeding from his left foot. The patient states currently that he has several scabbed areas that were bleeding at home and were running down into his shoe which prompted a lot of it to come out from his shoe. He was seen by the ER staff and x-rays were taken where he had his scabbed areas over the tibia and there was no fracture; however, he had x-rays taken of his left foot which shows soft tissue edema, osteopenia and early osteomyelitis of the distal aspects of the fourth, fifth and possibly the third metatarsals and possibly early osteomyelitis of the proximal phalanx of the fifth toe. We have been asked to see this gentleman for this reason. PAST MEDICAL HISTORY: Chronic venous insufficiency, diastolic CHF, history of bacterial endocarditis in 2016 with penicillin sensitive strep, sepsis as noted from the 2016 visit from his endocarditis, paroxysmal atrial fibrillation on Coumadin therapy, history of prostate carcinoma. PAST SURGICAL HISTORY: Cataract surgery, total hip replacement on the right side done by Dr. Castro GREEN in 1998, corneal implants in 1992 and 1973. FAMILY HISTORY: Hypertension. SOCIAL HISTORY: Nonsmoker, who does not use alcohol, and is . MEDICATIONS: Tylenol 650 mg p.o. as directed, amoxicillin 4 caps p.o. as directed, aspirin 81 mg p.o. daily, digoxin 0.25 mg p.o. daily, diltiazem CD 300 mg p.o. daily, diphenhydramine 25 mg p.o. as directed, vitamin D 50,000 units 1 tab p.o. weekly, furosemide 80 mg p.o. q.a.m., lisinopril 20 mg p.o. daily, metoprolol XL 200 mg p.o. daily, Senokot-S 1 tab p.o. daily, warfarin 5 mg p.o. on and then 2.5 mg p.o. on the other days. REVIEW OF SYSTEMS: As per admitting history and physical. PHYSICAL EXAMINATION: EXTREMITIES: Focusing on the left lower extremity, he has noted chronic venous stasis changes and also what appears to be cellulitis. I removed the waffle boot from his left foot and I can find no areas of open sores and cuts, etc. There is an odor to the foot itself and he has moderate edema that goes from the foot up to the upper extremity and is just distal to the knee. He is able to move his foot and ankle with some discomfort but is not overly sensitive on palpation. Distal pulses are difficult to assess due to moderate edema. He does have 1 large area over the left anterior renee that is scabbed or crusted, that he states was draining or bleeding prior to him coming into the hospital. This wound has been seen by wound care and has been taken care of and has been addressed accordingly. NEUROLOGIC: No gross motor or sensory deficits seen at this time. X-RAY REVIEW: The patient's left foot was reviewed and noted of the mild osteomyelitis of the distal aspects of the fourth and fifth metatarsals and possibly the distal third with the question of proximal phalanx of the fifth toe. ASSESSMENT: Question osteomyelitis of 3-5 metatarsals with possible osteomyelitis of the proximal phalanx 5th toe. PLAN: The patient to continue IV antibiotics as per recommendations of medicine service and infectious disease service to help calm down his cellulitis and control his edema as much as possible as well. An MRI was ordered today of the left foot and we will review that to see what osteomyelitis he may have ongoing with his metatarsals and make recommendations at that point. The patient is currently on Coumadin and today's INR was 2.1. I discussed this with Eden Stratton PA-C, who will make plans to hold the Coumadin at this point in time pending the possible need for surgery. I will plan to discuss this case with Dr. Cowart as well, our foot and ankle specialist, for any further reconsiderations over the next several days. MAGALY
[2016-11-10] MEDS ORDERED: GADAVIST IV PRN (22:00)
[2016-11-10] MEDS: EUCERIN CR 120 GM JAR EXT SCH (22:03)
--- NOTE | 2016-11-10 22:13 | DIAGNOSTIC IMAGING REPORT ---
MRI OF THE LEFT MID AND FOREFOOT WITHOUT AND WITH GADOLINIUM CLINICAL HISTORY: Left foot pain, swelling, redness, drainage. Possible osteomyelitis. Abnormal conventional radiographs COMPARISON STUDY: Conventional radiographic study dated 11/09/2016 FINDINGS: Imaging was performed in sagittal, coronal, and axial planes. Imaging before and after administration of 9 cc of intravenous Gadavist was performed There are no areas of marrow edema to indicate osteomyelitis. There are no fluid collections to indicate a deep abscess. There is moderate dorsal soft tissue edema, consistent with a cellulitis. No intramuscular masses are visualized. The examination is moderately limited from a technical standpoint due to motion artifact. IMPRESSION: 1. Technically limited study secondary to motion artifact 2. No evidence of osteomyelitis 3. Soft tissue edema, consistent with the clinical history of cellulitis Electronically signed by: Wilmer Weinstein M.D. 11/10/2016 10:12 PM Dictated Date/Time: 11/10/2016 10:08 PM
[2016-11-10 23:02] VITALS: BP 140/69; PULSE 70; TEMP 36.8; O2SAT 97
[2016-11-10] MEDS: DAPTOmycin IV 500 MG in SODIUM CHLORIDE 0.9% 50ML 50 ML IV SCH (23:25)
[2016-11-11] VITALS (8 sets, daily range): BP systolic 146–170; BP diastolic 71–86; PULSE 62–85; TEMP 36.6–36.9; O2SAT 95–97
[2016-11-11] MEDS: METRONIDAZOLE / NSS 500 MG in PREMIXED NSS 100 ML IV SCH ×3 (04:10→20:25)
[2016-11-11] MEDS: AZTREONAM IV 2,000 MG in DEXTROSE 5% 100ML 100 ML IV SCH ×3 (05:31→20:28)
[2016-11-11 06:54] LABS: BASO % 0.2 %; BASO ABS # 0.02 K/uL (0-0.2); COMPLETE YES; EOS % 0.8 %; HEMATOCRIT 34.8 % (42-52); IG% 0.2 %; LYMPH % 7.7 %; LYMPH ABS # 1.01 K/uL (1.2-3.4); MEAN CELL VOLUME 98.3 fL (80-100); MEAN CORPUSCULAR HGB CONC 35.6 g/dl (32-36); MEAN PLATELET VOLUME 10.5 fL (7.4-10.4); MONO % 6.5 %; NEUT % 84.6 %; PLATELET COUNT 190 K/uL (130-400); RED BLOOD COUNT 3.54 M/uL (4.7-6.1); WHITE BLOOD COUNT 13.08 K/uL (4.8-10.8)
[2016-11-11 07:01] LABS: INR 1.9 (0.9-1.1); PROTHROMBIN TIME (PATIENT) 20.5 SECONDS (9.0-12.0)
[2016-11-11 07:31] LABS: BUN/CREATININE RATIO 19.1 (10-20); CALCIUM 8.2 mg/dl (8.5-10.1); CREATININE 0.67 mg/dl (0.60-1.40); POTASSIUM 3.2 mmol/L (3.5-5.1)
--- NOTE | 2016-11-11 07:37 | Hospitalist Progress Note ---
Hospitalist Progress Note Date of Service Nov 11, 2016. (Marietta Stratton PA-C) Subjective Pt evaluation today including: conversation w/ patient, physical exam, chart review, lab review, review of studies Pain: None PO Intake: Good Voiding: no voiding problems The patient was seen and examined this morning. Pt reports doing well today and that he has not acute complaints. He does mention the MRI overnight "took way too long, and that my back was killing me". After this though he was able to fall asleep. He denies difficulty with ambulating with the left foot. Swelling does not appear to have changed much to him today. He denies any fevers , sweats or chills. ROS: 6 point ROS reviewed and negative other than listed per HPI. (Marietta Stratton PA-C) Objective Vital Signs Date Time Temp Pulse Resp B/P (MAP) Pulse Ox O2 Delivery O2 Flow Rate FiO2 11/11/16 04:00 85 155/71 (99) 11/11/16 03:00 85 162/86 (111) 11/11/16 02:30 85 170/83 (112) 11/10/16 23:25 Room Air 11/10/16 23:02 36.8 70 16 140/69 (92) 97 Room Air 11/10/16 16:00 Room Air 11/10/16 14:58 36.6 52 18 129/71 (90) 97 Room Air 11/10/16 08:42 75 11/10/16 08:21 75 161/78 (105) 11/10/16 07:50 Room Air 11/10/16 07:43 36.3 56 20 151/68 (95) 98 Room Air (Marietta Stratton PA-C) Physical Exam Notes: General Appearance: WD/WN, no apparent distress Eyes: PERRL, EOMI ENT: hearing grossly normal, pharynx normal Neck: supple, no JVD Respiratory/Chest: chest non-tender, lungs clear, normal breath sounds Cardiovascular: no murmur, + irregularly irregular Abdomen: normal bowel sounds, non tender, soft, no organomegaly Extremities: non-tender, + pedal edema (2+ pitting edema, chronic venous stasis changes bilaterally, +erythema color up to level of knees bilaterally, Left foot appears red with foul smell, + blood blister over anterior tibial region.), + 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) Neurologic/Psychiatric: it professional II-XII nml as tested, alert, oriented x 3 Skin: normal color, warm/dry (Marietta Stratton PA-C) Laboratory Results Last 24 Hours Test 11/10/16 09:12 11/11/16 06:48 Magnesium Level 2.2 mg/dl White Blood Count 13.08 K/uL Red Blood Count 3.54 M/uL Hemoglobin 12.4 g/dL Hematocrit 34.8 % Mean Corpuscular Volume 98.3 fL Mean Corpuscular Hemoglobin 35.0 pg Mean Corpuscular Hemoglobin Concent 35.6 g/dl Platelet Count 190 K/uL Mean Platelet Volume 10.5 fL Neutrophils (%) (Auto) 84.6 % Lymphocytes (%) (Auto) 7.7 % Monocytes (%) (Auto) 6.5 % Eosinophils (%) (Auto) 0.8 % Basophils (%) (Auto) 0.2 % Neutrophils # (Auto) 11.06 K/uL Lymphocytes # (Auto) 1.01 K/uL Monocytes # (Auto) 0.85 K/uL Eosinophils # (Auto) 0.11 K/uL Basophils # (Auto) 0.02 K/uL RDW Standard Deviation 46.2 fL RDW Coefficient of Variation 12.7 % Immature Granulocyte % (Auto) 0.2 % Immature Granulocyte # (Auto) 0.03 K/uL Prothrombin Time 20.5 SECONDS Prothromb Time International Ratio 1.9 Sodium Level 139 mmol/L Potassium Level 3.2 mmol/L Chloride Level 107 mmol/L Carbon Dioxide Level 25 mmol/L Anion Gap 7.0 mmol/L Blood Urea Nitrogen 13 mg/dl Creatinine 0.67 mg/dl Est Creatinine Clear Calc Drug Dose 109.3 ml/min Estimated GFR () 109.7 Estimated GFR (Non- 94.7 BUN/Creatinine Ratio 19.1 Random Glucose 128 mg/dl Calcium Level 8.2 mg/dl (Marietta Stratton PA-C) Assessment and Plan 76 yo M with PMHX of diastolic CHF, paroxysmal afib on anticoagulation, hx of sepsis, endocarditis with staph in 2016 found to have early osteomyelitis of the left foot Cellulitis/osteomyelitis of the left foot likely chronic in nature - MRI of the foot w/wo Contrast 11/10/16 completed but ruled out osteomyelitis: so will plan on conservative treatment with IV antibiotics vs surgical procedure. Coumadin was held last night due to possibility of surgical procedure. Can resume today. IMPRESSION: 1. Technically limited study secondary to motion artifact 2. No evidence of osteomyelitis 3. Soft tissue edema, consistent with the clinical history of cellulitis -Orthopedic consult- appreciate -ID on board -appreciate recs- cont broad spectrum abx including: aztreonam, daptomycin and Flagyl, in the setting of the patient's hip prosthesis -blood cultures in process, wound culture growing G- rods, will follow -Lymphedema/wound consult Diarrhea-r/o infectious cause - C diff, stool cx, stool WBC, FOB ordered - follow results. - Pt denies complaints of loose stools today. - Pt denies association with the types of foods he's eating. Paroxysmal atrial fibrillation - Currently irregular, rate controlled - Continue digoxin 250 g daily, diltiazem extended release 300 mg daily, metoprolol succinate 200 mg daily - Held warfarin last night, can resume today at 2.5 dosing. Patient's typical home dose is 5 mg on and 2.5 mg every other day. History of diastolic CHF -Continue Lasix 80 mg daily for now DVT prophylaxis -Lovenox 40 mg subQ daily, -TEDS, SCDs CODE STATUS: LEVEL I FULL CODE Disposition: From home, lives with , dc in ~1-2 days pending ID recs for abx therapy. (Marietta Stratton, PRAKASH) Attending Attestation & Admission Note: Pt seen/examined, chart reviewed, and care plan d/w DHIRAJ Stratton. I agree w/ the montelongo components of her documentation except patient is NOT on lovenox for DVT proph. Pt c/o abdominal bloating and incomplete evacuation of bowel movements. C/o back pain. denies dyspnea. no fever. VSS afebrile o2 sats acceptable gen - nad neck - JVD present heart - RRR, s1, s2 lungs - scant rales bases abd - markedly distended with high-pitched bowel sounds, minimal tenderness to palpation, no HSM ext - significant stasis changes b/l vascular - pulses left foot<1+, right foot about 1+, popliteal pulses 2+ b/l cap refill left foot >2 sec both shins wrapped in large dressings cbc with mild leukocytosis bmp nl wound cx- GNR (2 types), bacillus, coag neg staph A/P: 1. cellulitis, LLE, along with wound of left renee - cont current antibiotics. follow cx. MRI left foot with NO osteomyelitis. appreciate wound care consult, ID consult, orthopedics. His exam is suspicious for PAD of distal LLE. ABIs support such. Arterial dopplers ordered. If this is abnormal then vascular consultation. 2. abdominal distension - check abdominal x-rays, r/o SBO, r/o ileus. 3. hypokalemia - replace, repeat BMP am. 4. chronic diastolic CHF - may be decompensated given his JVD. Check cxr. ON BB, lasix, etc. 5. HTN - controlled. 6. PAF - cont coumadin, daily INR, BB, dig, CCB. PT, OT consults Naeem Coates MD (Naeem Coates MD)
[2016-11-11] MEDS: EUCERIN CR 120 GM JAR EXT SCH ×2 (08:20→20:26)
[2016-11-11] MEDS: KETOCONAZOLE 2% CR 15 GM TUBE EXT SCH ×2 (08:20→20:26)
[2016-11-11] MEDS: ASPIRIN 81 MG ECTAB PO SCH (08:21)
[2016-11-11] MEDS: FUROSEMIDE 80 MG TAB PO SCH (08:23)
[2016-11-11] MEDS: DIGOXIN 0.25 MG TAB PO SCH (08:23)
[2016-11-11] MEDS: METOPROLOL SUCC 50MG EXT REL TAB PO SCH (08:24)
[2016-11-11] MEDS: LISINOPRIL 5 MG TAB PO SCH (08:24)
[2016-11-11] MEDS: DILTIAZEM HCL 300 MG CAPCR PO SCH (09:22)
[2016-11-11] MEDS: ACETAMINOPHEN 325 MG TAB PO PRN (13:08)
[2016-11-11] MEDS: POTASSIUM CHLORIDE 20 MEQ TABCR PO SCH ×2 (13:09→20:26)
--- NOTE | 2016-11-11 13:55 | Orthopedic Progress Note ---
Orthopedic Progress Note Date of Service Nov 11, 2016. Subjective Reports: feeling well Additional Notes: Pt awake, alert. No complaints. Feels that his feet look better today considering the swelling etc. Discussed that the MRI was negative for Osteomyelitis. Objective N/V intact, A&O x3, toes mobile Swelling seems to be down a bit on both feet compared to yesterday. He has a little less erythema. Multiple small dressings on the shins that don't appear to be draining through. Date Time Temp Pulse Resp B/P (MAP) Pulse Ox O2 Delivery O2 Flow Rate FiO2 11/11/16 08:23 74 11/11/16 08:15 97 Room Air 11/11/16 07:51 97 Room Air 11/11/16 07:47 36.8 72 18 156/72 (100) 97 Room Air 11/11/16 04:00 85 155/71 (99) 11/11/16 03:00 85 162/86 (111) 11/11/16 02:30 85 170/83 (112) 11/10/16 23:25 Room Air 11/10/16 23:02 36.8 70 16 140/69 (92) 97 Room Air 11/10/16 16:00 Room Air 11/10/16 14:58 36.6 52 18 129/71 (90) 97 Room Air Laboratory Results 24 Hours: Test 11/11/16 06:48 White Blood Count 13.08 K/uL Red Blood Count 3.54 M/uL Hemoglobin 12.4 g/dL Hematocrit 34.8 % Mean Corpuscular Volume 98.3 fL Mean Corpuscular Hemoglobin 35.0 pg Mean Corpuscular Hemoglobin Concent 35.6 g/dl Platelet Count 190 K/uL Mean Platelet Volume 10.5 fL Neutrophils (%) (Auto) 84.6 % Lymphocytes (%) (Auto) 7.7 % Monocytes (%) (Auto) 6.5 % Eosinophils (%) (Auto) 0.8 % Basophils (%) (Auto) 0.2 % Neutrophils # (Auto) 11.06 K/uL Lymphocytes # (Auto) 1.01 K/uL Monocytes # (Auto) 0.85 K/uL Eosinophils # (Auto) 0.11 K/uL Basophils # (Auto) 0.02 K/uL Prothromb Time International Ratio 1.9 Prothrombin Time 20.5 SECONDS Additional Notes: MRI RESULTS IMPRESSION: 1. Technically limited study secondary to motion artifact 2. No evidence of osteomyelitis 3. Soft tissue edema, consistent with the clinical history of cellulitis Assessment & Plan Assessment: Cellulitis bilateral LE's , Left > Right Plan: No Osteomyelitis noted on MRI. No need for any type of surgical intervention upon our part. Ok to restart Coumadin Antibx as per Med Service/ ID Service Ortho will sign off for now. Please call with any questions.
--- NOTE | 2016-11-11 16:37 | Infectious Disease Progress Nt ---
Progress Note Date of Service Nov 11, 2016. Subjective Pt evaluation today including: conversation w/ patient, physical exam, chart review, lab review, review of studies, conversation w/ corporate learning consultant, review of inpatient medication list The patient is feeling slightly improved today. He feels that his legs are looking slightly improved as well. He did an MRI of the lower extremity which showed tissue edema consistent with cellulitis, but no evidence of osteomyelitis. The patient's wound culture is growing gram-negative bacilli x2 , coag-negative, and bacillus species. Blood cultures are showing no growth. Stool culture is pending. The patient's white blood cell count today was 13.08. His creatinine was 0.67. He has been afebrile. I did discuss this patient briefly with Billy Dickson PA-C in ortho. All Other Systems: Reviewed and Negative Medications Current Inpatient Medications Medications (Trade) Dose Ordered Sig/Sam Route Start Time Stop Time Status Last Admin Dose Admin Aztreonam 2000 mg/ Dextrose 110 ml @ 100 mls/hr Q8H IV 11/09/16 21:00 12/21/16 20:59 11/11/16 13:54 100 MLS/HR Metronidazole 500 mg/Prmx 100 ml @ 100 mls/hr Q8H IV 11/09/16 20:00 12/21/16 19:59 11/11/16 12:19 100 MLS/HR Daptomycin 500 mg/ Sodium Chloride 60 ml @ 100 mls/hr DAILY@2200 IV 11/09/16 22:00 12/21/16 21:59 11/10/16 23:25 100 MLS/HR Aspirin (Ecotrin Tab) 81 mg DAILY PO 11/10/16 09:00 12/10/16 08:59 11/11/16 08:21 81 MG Digoxin (Lanoxin Tab) 0.25 mg DAILY PO 11/10/16 09:00 12/10/16 08:59 11/11/16 08:23 0.25 MG Diltiazem HCl (Cardizem Cd Cap) 300 mg DAILY PO 11/10/16 09:00 12/10/16 08:59 11/11/16 09:22 300 MG Furosemide (Lasix Tab) 80 mg QAM PO 11/10/16 09:00 12/10/16 08:59 Future hold 11/11/16 08:23 80 MG Lisinopril (Zestril Tab) 5 mg DAILY PO 11/10/16 09:00 12/10/16 08:59 Future hold 11/11/16 08:24 5 MG Metoprolol Succinate (Toprol Xl Tab) 200 mg DAILY PO 11/10/16 09:00 12/10/16 08:59 11/11/16 08:24 200 MG Warfarin Sodium (Coumadin Tab) 2.5 mg DAILY@1600 PO 11/10/16 16:00 12/10/16 15:59 Future hold 11/10/16 17:07 2.5 MG Acetaminophen (Tylenol Tab) 650 mg Q4H PRN PO 11/09/16 18:00 12/09/16 17:59 11/11/16 13:08 650 MG Magnesium Hydroxide (Milk Of Magnesia Susp) 30 ml Q6H PRN PO 11/09/16 18:00 12/09/16 17:59 Polyethylene (Miralax Powder Packet) 17 gm DAILY PRN PO 11/09/16 18:00 12/09/16 17:59 Ondansetron HCl (Zofran Inj) 4 mg Q6H PRN IV 11/09/16 18:00 12/09/16 17:59 Ketoconazole (Nizoral 2% Crm) 1 appln BID EXT 11/09/16 21:00 01/04/17 20:59 11/11/16 08:20 1 APPLN Aztreonam (Consult) 1 ea UD PRN N/A 11/09/16 20:00 12/09/16 19:59 Metronidazole (Consult) 1 ea UD PRN N/A 11/09/16 20:00 12/09/16 19:59 Multi-Ingredient Ointment (Eucerin Unscented Cr) 1 appln BID EXT 11/10/16 21:00 12/10/16 20:59 11/11/16 08:20 1 APPLN Gadobutrol (Gadavist) 9 mmol UD PRN IV 11/10/16 22:00 11/14/16 21:59 Potassium Chloride (Klor-Con Tab) 40 meq TID PO 11/11/16 14:00 12/11/16 13:59 11/11/16 13:09 40 MEQ Objective Vital Signs Date Time Temp Pulse Resp B/P (MAP) Pulse Ox O2 Delivery O2 Flow Rate FiO2 11/11/16 16:20 36.9 62 17 156/71 (99) 96 Room Air 11/11/16 08:23 74 11/11/16 08:15 97 Room Air 11/11/16 07:51 97 Room Air 11/11/16 07:47 36.8 72 18 156/72 (100) 97 Room Air 11/11/16 04:00 85 155/71 (99) 11/11/16 03:00 85 162/86 (111) 11/11/16 02:30 85 170/83 (112) 11/10/16 23:25 Room Air 11/10/16 23:02 36.8 70 16 140/69 (92) 97 Room Air Physical Exam General Appearance: WD/WN, no apparent distress Eyes: normal inspection, sclerae normal ENT: hearing grossly normal Neck: supple, trachea midline Respiratory/Chest: chest non-tender, lungs clear, no respiratory distress, no accessory muscle use Cardiovascular: + pertinent finding (regular rate) Abdomen: normal bowel sounds, non tender, soft Extremities: + swelling (moderately severe edema of the b/l LE. ) Neurologic/Psychiatric: alert, normal mood/affect Skin: + pertinent finding (Continued weeping of the left lower extremity. Erythema appears to be resolving. Continued foul odor) Laboratory Results MRI OF THE LEFT MID AND FOREFOOT WITHOUT AND WITH GADOLINIUM CLINICAL HISTORY: Left foot pain, swelling, redness, drainage. Possible osteomyelitis. Abnormal conventional radiographs COMPARISON STUDY: Conventional radiographic study dated 11/09/2016 FINDINGS: Imaging was performed in sagittal, coronal, and axial planes. Imaging before and after administration of 9 cc of intravenous Gadavist was performed There are no areas of marrow edema to indicate osteomyelitis. There are no fluid collections to indicate a deep abscess. There is moderate dorsal soft tissue edema, consistent with a cellulitis. No intramuscular masses are visualized. The examination is moderately limited from a technical standpoint due to motion artifact. IMPRESSION: 1. Technically limited study secondary to motion artifact 2. No evidence of osteomyelitis 3. Soft tissue edema, consistent with the clinical history of cellulitis Item Value Date Time C.difficile Toxin B Gene (PCR) - Final Complete 11/11/16 1155 Stool No C. difficile toxin B gene detected WBC Smear Received 11/11/16 1155 Stool Pending Blood Culture - Preliminary Resulted 11/09/16 1445 Blood NO GROWTH TO DATE. Blood Culture - Preliminary Resulted 11/09/16 1435 Blood NO GROWTH TO DATE. Gram Stain - Final Resulted 11/09/16 1315 Cellulitis Foot Left Last 24 Hours Test 11/11/16 06:48 11/11/16 12:15 White Blood Count 13.08 K/uL Red Blood Count 3.54 M/uL Hemoglobin 12.4 g/dL Hematocrit 34.8 % Mean Corpuscular Volume 98.3 fL Mean Corpuscular Hemoglobin 35.0 pg Mean Corpuscular Hemoglobin Concent 35.6 g/dl Platelet Count 190 K/uL Mean Platelet Volume 10.5 fL Neutrophils (%) (Auto) 84.6 % Lymphocytes (%) (Auto) 7.7 % Monocytes (%) (Auto) 6.5 % Eosinophils (%) (Auto) 0.8 % Basophils (%) (Auto) 0.2 % Neutrophils # (Auto) 11.06 K/uL Lymphocytes # (Auto) 1.01 K/uL Monocytes # (Auto) 0.85 K/uL Eosinophils # (Auto) 0.11 K/uL Basophils # (Auto) 0.02 K/uL RDW Standard Deviation 46.2 fL RDW Coefficient of Variation 12.7 % Immature Granulocyte % (Auto) 0.2 % Immature Granulocyte # (Auto) 0.03 K/uL Prothrombin Time 20.5 SECONDS Prothromb Time International Ratio 1.9 Sodium Level 139 mmol/L Potassium Level 3.2 mmol/L Chloride Level 107 mmol/L Carbon Dioxide Level 25 mmol/L Anion Gap 7.0 mmol/L Blood Urea Nitrogen 13 mg/dl Creatinine 0.67 mg/dl Est Creatinine Clear Calc Drug Dose 109.3 ml/min Estimated GFR () 109.7 Estimated GFR (Non- 94.7 BUN/Creatinine Ratio 19.1 Random Glucose 128 mg/dl Calcium Level 8.2 mg/dl Stool Occult Blood NEGATIVE Assessment and Plan Patient with Hx 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 He is currently on IV Daptomycin, Aztreonam, and Metronidazole. This is appropriate coverage pending wound culture. Osteomyelitis was not identified on left lower extremity MRI. Therefore, will continue IV antibiotic therapy pending wound culture results. I feel that this patient likely will need at least 1-2 weeks of IV antibiotic therapy until further improvement is seen. Will determine final antibiotics pending culture results. We will follow. Case reviewed and agree with above assessment.
[2016-11-11] MEDS: WARFARIN SOD 2.5 MG TAB PO SCH (17:10)
[2016-11-11] MEDS: DAPTOmycin IV 500 MG in SODIUM CHLORIDE 0.9% 50ML 50 ML IV SCH (22:24)
--- NOTE | 2016-11-11 22:24 | DIAGNOSTIC IMAGING REPORT ---
PA CHEST WITH ABDOMINAL SERIES CLINICAL HISTORY: Generalized abdominal pain. FINDINGS: A PA chest radiograph is compared to study dated 06/06/2016 and correlated with chest CT dated 09/09/2015. The examination is degraded by patient rotation. The heart is markedly enlarged and there is atherosclerotic calcification of the thoracic aorta. There is mild pulmonary vascular congestion. There is chronic elevation of the left hemidiaphragm and bibasilar airspace opacities. No large pleural effusion or pneumothorax is seen. The skeletal structures are osteopenic. Degenerative change is noted throughout the thoracic spine. Supine and erect abdominal radiographs are obtained. No prior studies are available for comparison at the time of dictation. Numerous surgical clips are seen in the pelvis. There is marked gaseous distention of the small bowel and colon. Scattered air-fluid levels are noted on the upright view. No evidence of intraperitoneal free air is seen. There are no abnormal abdominal calcifications. Advanced lumbosacral spondylosis and scoliosis is observed. A right hip arthroplasty is in place. IMPRESSION: 1. Cardiomegaly with evidence of mild congestive failure. 2. Bibasilar airspace opacities likely represent atelectasis. Cortical clinically for evidence of superimposed pneumonia. 3. There is marked gaseous distention of the small bowel and colon with scattered air-fluid levels. This could represent ileus or possibly colonic obstruction. Clinical correlation will be required. 4. No intraperitoneal free air is seen. Electronically signed by: Jake Maurice M.D. 11/11/2016 10:22 PM Dictated Date/Time: 11/11/2016 10:18 PM
[2016-11-12] MEDS: ACETAMINOPHEN 325 MG TAB PO PRN (00:04)
--- NOTE | 2016-11-12 00:14 | DIAGNOSTIC IMAGING REPORT ---
ULTRASOUND BILATERAL LOWER EXTREMITY ARTERIAL CLINICAL HISTORY: Peripheral vascular disease. Osteomyelitis. Nonhealing left renee ulcer. COMPARISON STUDY: No priors. TECHNIQUE: Real-time, grayscale, and color Doppler sonography of the arteries of the right and left lower extremities performed from the inguinal crease to the foot. Ankle-brachial indices could not be assessed due to lower extremity bandaging. FINDINGS: Right lower extremity: There is advanced atherosclerotic plaque and irregularity seen throughout the arteries of the right lower extremity. There are triphasic waveforms seen in the right common femoral artery with velocities measuring up to 56 cm/s. The right profunda femoris artery is patent with velocities measuring up to 41 cm/s. There are triphasic arterial waveforms seen throughout the superficial femoral artery. Velocities within the superficial femoral artery measure up to 66 cm/s. There are biphasic to triphasic waveforms seen in the right popliteal artery with velocities measuring up to 62 cm/s. There is three-vessel runoff to the foot. There are markedly elevated velocities within the right posterior tibial artery proximally measuring up to 187 cm/s. The distal arterial waveforms appear blunted. There are markedly elevated velocities in the proximal right anterior tibial artery measuring up to 251 cm/s. Velocities in the peroneal artery measure up to 77 cm/s. The dorsalis pedis artery cannot be assessed due to bandaging. Left lower externally: There are advanced atherosclerotic plaque and irregularity seen throughout the arteries of the left lower extremity. There are triphasic arterial waveforms in the left common femoral artery with velocities measuring up to 65 cm/s. The left profunda femoris artery is patent with velocities measuring up to 48 cm/s. There are triphasic waveforms seen in the superficial femoral artery. Velocities throughout the superficial femoral artery measure up to 109 cm/s. There are monophasic to biphasic arterial waveforms in the left popliteal artery with velocities measuring up to 51 cm/s. There is three-vessel runoff to the foot. Markedly elevated velocities are seen within the peroneal artery measuring up to 355 cm/s. There is blunting of the distal arterial waveforms. Markedly elevated velocities are seen within the anterior tibial artery which measure up to 272 cm/s. There is blunting of the distal arterial waveforms. Velocities throughout the posterior tibial artery measure up to 78 cm/s. IMPRESSION: 1. Advanced atherosclerotic plaque. No focal vessel cut-off is identified in the right or left lower extremity. 2. There are markedly elevated velocities with blunted distal arterial waveforms seen within several of the right and left lower extremity calf vessels as detailed above suggesting high-grade stenosis. Dictated: 11/11/2016 10:34 PM Transcribed: 11/12/2016 12:14 AM [place] Electronically signed by: Jake Maurice M.D. 11/12/2016 9:06 AM Dictated Date/Time: 11/11/2016 10:34 PM
[2016-11-12] MEDS: METRONIDAZOLE / NSS 500 MG in PREMIXED NSS 100 ML IV SCH (03:28)
[2016-11-12] MEDS: AZTREONAM IV 2,000 MG in DEXTROSE 5% 100ML 100 ML IV SCH (04:34)
[2016-11-12 06:55] LABS: BASO % 0.3 %; BASO ABS # 0.03 K/uL (0-0.2); COMPLETE YES; EOS % 4.1 %; HEMATOCRIT 37.6 % (42-52); IG% 0.3 %; LYMPH % 6.1 %; LYMPH ABS # 0.72 K/uL (1.2-3.4); MEAN CELL VOLUME 98.9 fL (80-100); MEAN CORPUSCULAR HEMOGLOBIN 34.2 pg (25-34); MEAN CORPUSCULAR HGB CONC 34.6 g/dl (32-36); MEAN PLATELET VOLUME 10.8 fL (7.4-10.4); MONO % 9.7 %; NEUT % 79.5 %; PLATELET COUNT 206 K/uL (130-400); WHITE BLOOD COUNT 11.81 K/uL (4.8-10.8)
[2016-11-12 06:59] LABS: INR 1.8 (0.9-1.1)
[2016-11-12 07:15] VITALS: BP 145/82; PULSE 70; TEMP 36.6; O2SAT 95
[2016-11-12 07:26] LABS: BUN/CREATININE RATIO 19.5 (10-20); CALCIUM 8.8 mg/dl (8.5-10.1); CREATININE 0.77 mg/dl (0.60-1.40); POTASSIUM 3.4 mmol/L (3.5-5.1)
[2016-11-12 07:35] VITALS: O2SAT 95
[2016-11-12] MEDS: METOPROLOL SUCC 50MG EXT REL TAB PO SCH (09:17)
[2016-11-12] MEDS: EUCERIN CR 120 GM JAR EXT SCH ×2 (09:17→21:07)
[2016-11-12] MEDS: KETOCONAZOLE 2% CR 15 GM TUBE EXT SCH ×2 (09:17→21:07)
[2016-11-12] MEDS: FUROSEMIDE 80 MG TAB PO SCH (09:18)
[2016-11-12] MEDS: DIGOXIN 0.25 MG TAB PO SCH (09:19)
[2016-11-12] MEDS: POTASSIUM CHLORIDE 20 MEQ TABCR PO SCH ×3 (09:19→21:04)
[2016-11-12] MEDS: DILTIAZEM HCL 300 MG CAPCR PO SCH (09:20)
[2016-11-12] MEDS: ASPIRIN 81 MG ECTAB PO SCH (09:20)
[2016-11-12] MEDS: LISINOPRIL 5 MG TAB PO SCH (09:20)
--- NOTE | 2016-11-12 11:05 | Hospitalist Progress Note ---
Hospitalist Progress Note Date of Service Nov 12, 2016. (Marietta Stratton PA-C) Subjective Pt evaluation today including: conversation w/ patient, physical exam, chart review, lab review, review of studies Pain: None PO Intake: Good Voiding: no voiding problems The patient was seen and examined this morning. Pt reports having multiple bowel movements yesterday after initiation of bowel movements. He was put on clears for bowel ileus found on KUB. Pt denies any abdominal pain, nausea, vomiting, and is tolerating a clear liquid diet without difficulty. He denies any fever, sweats or chills. He denies any pain in his lower legs or difficulty with ambulation. His swelling is improved and legs were re-bandaged overnight. We discussed getting up and walking more, and he is agreeable to this. He denies any chest pain, tightness or shortness of breath. Additional Comments: ROS: 6 point ROS reviewed and otherwise negative. (Marietta Stratton PA-C) Objective Vital Signs Date Time Temp Pulse Resp B/P (MAP) Pulse Ox O2 Delivery O2 Flow Rate FiO2 11/12/16 09:19 78 11/12/16 07:35 95 Room Air 11/12/16 07:15 36.6 70 16 145/82 (103) 95 Room Air 11/12/16 00:00 Room Air 11/11/16 22:52 36.6 73 18 146/79 (101) 95 Room Air 11/11/16 16:20 36.9 62 17 156/71 (99) 96 Room Air 11/11/16 16:10 Room Air (Marietta Stratton PA-C) Physical Exam Notes: General Appearance: WD/WN, no apparent distress Eyes: PERRL, EOMI ENT: hearing grossly normal, pharynx normal Neck: supple, no JVD Respiratory/Chest: chest non-tender, lungs clear, normal breath sounds Cardiovascular: no murmur, + irregularly irregular Abdomen: + pertinent finding (+tinkling bowel sounds in the LUQ and LLQ, + distension, non tender to palpation.) Extremities: non-tender, + pedal edema (1+ pitting edema, chronic venous stasis changes bilaterally, +erythema color up to level of knees bilaterally, Left foot appears red with foul smell, + blood blister over anterior tibial region, bandages are C/D/I, pulses in BLE weak, pedal pulses worse in L compared to R) + 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) Neurologic/Psychiatric: last model maker II-XII nml as tested, alert, oriented x 3 Skin: normal color, warm/dry (Marietta Stratton PA-C) Laboratory Results Last 24 Hours Test 11/11/16 12:15 11/12/16 06:38 11/12/16 06:45 Stool Occult Blood NEGATIVE White Blood Count 11.81 K/uL Red Blood Count 3.80 M/uL Hemoglobin 13.0 g/dL Hematocrit 37.6 % Mean Corpuscular Volume 98.9 fL Mean Corpuscular Hemoglobin 34.2 pg Mean Corpuscular Hemoglobin Concent 34.6 g/dl Platelet Count 206 K/uL Mean Platelet Volume 10.8 fL Neutrophils (%) (Auto) 79.5 % Lymphocytes (%) (Auto) 6.1 % Monocytes (%) (Auto) 9.7 % Eosinophils (%) (Auto) 4.1 % Basophils (%) (Auto) 0.3 % Neutrophils # (Auto) 9.40 K/uL Lymphocytes # (Auto) 0.72 K/uL Monocytes # (Auto) 1.15 K/uL Eosinophils # (Auto) 0.48 K/uL Basophils # (Auto) 0.03 K/uL RDW Standard Deviation 46.4 fL RDW Coefficient of Variation 12.7 % Immature Granulocyte % (Auto) 0.3 % Immature Granulocyte # (Auto) 0.03 K/uL Prothrombin Time 20.0 SECONDS Prothromb Time International Ratio 1.8 Sodium Level 141 mmol/L Potassium Level 3.4 mmol/L Chloride Level 106 mmol/L Carbon Dioxide Level 26 mmol/L Anion Gap 9.0 mmol/L Blood Urea Nitrogen 15 mg/dl Creatinine 0.77 mg/dl Est Creatinine Clear Calc Drug Dose 95.1 ml/min Estimated GFR () 103.6 Estimated GFR (Non- 89.4 BUN/Creatinine Ratio 19.5 Random Glucose 108 mg/dl Calcium Level 8.8 mg/dl (Marietta Stratton PA-C) Assessment and Plan 76 yo M with PMHX of diastolic CHF, paroxysmal afib on anticoagulation, hx of sepsis, endocarditis with staph in 2016 found to have early osteomyelitis of the left foot Cellulitis/osteomyelitis of the left foot likely chronic in nature - MRI of the foot w/wo contrast 11/10/16 completed but ruled out osteomyelitis: so will plan on conservative treatment with IV antibiotics vs surgical procedure. - ID on board -appreciate recs- cont broad spectrum abx including: aztreonam, daptomycin and Flagyl, in the setting of the patient's hip prosthesis Discussed antibiotic regimen with Trena Chambers PA-C; will do combination cipro/bactrim x 10 day course of antibiotics with planned 1 week f/u in the clinic. - Wound culture growing out proteus vulgaris and citrobacter koseri. - Lymphedema/wound consult - Vascular ultrasound on BLE completed last evening with impression below. Will consult vascular surg to assess and see if vascular intervention is warranted for wound healing. IMPRESSION: 1. Advanced atherosclerotic plaque. No focal vessel cut-off is identified in the right or left lower extremity. 2. There are markedly elevated velocities with blunted distal arterial waveforms seen within several of the right and left lower extremity calf vessels as detailed above suggesting high-grade stenosis. Bowel ileus - Pt had not had BM x 2 days, then developed ileus as per KUB with air fluid levels. He does have tinkling bowel sounds in the LUQ and LLQ. Abdomen is distended, but nontender to palpation and the pt is not symptomatic. He has multiple small and one large bowel movement last evening. - Cont clear liquid diet for now, likely can transition to regular diet later today or tomorrow if he continues to improve. - Diarrhea at time of admission is resolved - C diff negative. Other stool cultures still in process. Paroxysmal atrial fibrillation - Currently irregular, rate controlled - Continue digoxin 250 g daily, diltiazem extended release 300 mg daily, metoprolol succinate 200 mg daily - Held warfarin last night, can resume today at 2.5 dosing. Patient's typical home dose is 5 mg on and 2.5 mg every other day. History of diastolic CHF -Continue Lasix 80 mg daily for now DVT prophylaxis -Lovenox 40 mg subQ daily, -TEDS, SCDs CODE STATUS: LEVEL I FULL CODE Disposition: From home, lives with , dc in ~1 days pending ileus resolves (Marietta Stratton, PRAKASH) Attending Attestation & Admission Note: Pt seen/examined, chart reviewed, and care plan d/w DHIRAJ Stratton. I agree w/ the montelongo components of her documentation except patient is NOT on lovenox for DVT proph. No complaints today Passing several bowel movements; tolerating clears; no nausea/emesis VSS afebrile gen - nad neck - JVD improved today heart - RRR, s1, s2 lungs - CTA b/l abd - markedly distended with high-pitched bowel sounds, no tenderness to palpation, no HSM ext - significant stasis changes b/l vascular - pulses left foot<1+, right foot about 1+ both shins wrapped in large dressings K 3.4 wound cx- multiple pathogens A/P: 1. cellulitis, LLE, along with wound of left renee - defer abx selection to ID MRI left foot with NO osteomyelitis. appreciate wound care consult, ID consult, orthopedics. vascular consult done today - no intervention to arteries needed. they recommended treating his venous insufficiency. 2. ileus - 2nd to hypokalemia? clears repeat KUB x-rays in am replace K ambulate 3. hypokalemia - replace, repeat BMP am. 4. chronic diastolic CHF - appears compensated today. 5. HTN - controlled. 6. PAF - cont coumadin, daily INR, BB, dig, CCB. PT, OT consults appreciated likely can return home at d/c Naeem Coates MD (Naeem Coates MD)
--- NOTE | 2016-11-12 12:12 | Infectious Disease Progress Nt ---
Progress Note Date of Service Nov 12, 2016. Subjective Pt evaluation today including: conversation w/ patient, physical exam, chart review, lab review, review of studies, conversation w/ storage management consultant, review of inpatient medication list Patient continues to feel further improved today. His white blood cell count this morning was 11.81. His creatinine was 0.77. He continues on IV daptomycin , aztreonam, and Flagyl. He did have a chest/abdominal x-ray completed yesterday which showed marked gaseous distension of the small bowel and colon with scattered air-fluid levels consistent with possible ileus or colonic obstruction. Culture is growing Pansensitive Proteus vulgaris, Citrobacter Koseri, OIL DRILLER, Bacillus non-anthracis. Blood cultures continue to show no growth to date. C diff toxin was negative, and stool cultures negative. The patient has been afebrile. I did discuss this patient with Eden Evans PA-C. All Other Systems: Reviewed and Negative Medications Current Inpatient Medications Medications (Trade) Dose Ordered Sig/Sam Route Start Time Stop Time Status Last Admin Dose Admin Aspirin (Ecotrin Tab) 81 mg DAILY PO 11/10/16 09:00 12/10/16 08:59 11/12/16 09:20 81 MG Digoxin (Lanoxin Tab) 0.25 mg DAILY PO 11/10/16 09:00 12/10/16 08:59 11/12/16 09:19 0.25 MG Diltiazem HCl (Cardizem Cd Cap) 300 mg DAILY PO 11/10/16 09:00 12/10/16 08:59 11/12/16 09:20 300 MG Furosemide (Lasix Tab) 80 mg QAM PO 11/10/16 09:00 12/10/16 08:59 Future hold 11/12/16 09:18 80 MG Lisinopril (Zestril Tab) 5 mg DAILY PO 11/10/16 09:00 12/10/16 08:59 Future hold 11/12/16 09:20 5 MG Metoprolol Succinate (Toprol Xl Tab) 200 mg DAILY PO 11/10/16 09:00 12/10/16 08:59 11/12/16 09:17 200 MG Warfarin Sodium (Coumadin Tab) 2.5 mg DAILY@1600 PO 11/10/16 16:00 12/10/16 15:59 Future hold 6/23/17 15:36 2.5 MG Acetaminophen (Tylenol Tab) 650 mg Q4H PRN PO 11/09/16 18:00 12/09/16 17:59 11/12/16 00:04 650 MG Magnesium Hydroxide (Milk Of Magnesia Susp) 30 ml Q6H PRN PO 11/09/16 18:00 12/09/16 17:59 Polyethylene (Miralax Powder Packet) 17 gm DAILY PRN PO 11/09/16 18:00 12/09/16 17:59 Ondansetron HCl (Zofran Inj) 4 mg Q6H PRN IV 11/09/16 18:00 12/09/16 17:59 Ketoconazole (Nizoral 2% Crm) 1 appln BID EXT 11/09/16 21:00 01/04/17 20:59 11/12/16 09:17 1 APPLN Multi-Ingredient Ointment (Eucerin Unscented Cr) 1 appln BID EXT 11/10/16 21:00 12/10/16 20:59 11/12/16 09:17 1 APPLN Gadobutrol (Gadavist) 9 mmol UD PRN IV 11/10/16 22:00 11/14/16 21:59 Potassium Chloride (Klor-Con Tab) 40 meq TID PO 11/11/16 14:00 12/11/16 13:59 11/12/16 14:11 40 MEQ Amoxicillin/ Clavulanate Potassium (Augmentin Tab) 875 mg BIDM PO 11/12/16 17:45 11/22/16 17:44 Ciprofloxacin (Cipro Tab) 500 mg BID PO 11/12/16 21:00 11/22/16 20:59 Objective Vital Signs Date Time Temp Pulse Resp B/P (MAP) Pulse Ox O2 Delivery O2 Flow Rate FiO2 11/12/16 09:19 78 11/12/16 07:35 95 Room Air 11/12/16 07:15 36.6 70 16 145/82 (103) 95 Room Air 11/12/16 00:00 Room Air 11/11/16 22:52 36.6 73 18 146/79 (101) 95 Room Air 11/11/16 16:20 36.9 62 17 156/71 (99) 96 Room Air 11/11/16 16:10 Room Air Physical Exam General Appearance: WD/WN, no apparent distress Eyes: normal inspection, sclerae normal ENT: hearing grossly normal Neck: supple, trachea midline Respiratory/Chest: no respiratory distress, no accessory muscle use Cardiovascular: regular rate, rhythm Extremities: + pertinent finding (b/l LE wrapped with clean dressings. Continued mild to moderate edema of the LE's and feet) Neurologic/Psychiatric: alert, normal mood/affect Skin: warm/dry, no rash Laboratory Results Item Value Date Time C.difficile Toxin B Gene (PCR) - Final Complete 11/11/16 1155 Stool No C. difficile toxin B gene detected WBC Smear - Final Resulted 11/11/16 1155 Stool Blood Culture - Preliminary Resulted 11/09/16 1445 Blood NO GROWTH TO DATE. Blood Culture - Preliminary Resulted 11/09/16 1435 Blood NO GROWTH TO DATE. Last 24 Hours Test 11/11/16 12:15 11/12/16 06:38 11/12/16 06:45 Stool Occult Blood NEGATIVE White Blood Count 11.81 K/uL Red Blood Count 3.80 M/uL Hemoglobin 13.0 g/dL Hematocrit 37.6 % Mean Corpuscular Volume 98.9 fL Mean Corpuscular Hemoglobin 34.2 pg Mean Corpuscular Hemoglobin Concent 34.6 g/dl Platelet Count 206 K/uL Mean Platelet Volume 10.8 fL Neutrophils (%) (Auto) 79.5 % Lymphocytes (%) (Auto) 6.1 % Monocytes (%) (Auto) 9.7 % Eosinophils (%) (Auto) 4.1 % Basophils (%) (Auto) 0.3 % Neutrophils # (Auto) 9.40 K/uL Lymphocytes # (Auto) 0.72 K/uL Monocytes # (Auto) 1.15 K/uL Eosinophils # (Auto) 0.48 K/uL Basophils # (Auto) 0.03 K/uL RDW Standard Deviation 46.4 fL RDW Coefficient of Variation 12.7 % Immature Granulocyte % (Auto) 0.3 % Immature Granulocyte # (Auto) 0.03 K/uL Prothrombin Time 20.0 SECONDS Prothromb Time International Ratio 1.8 Sodium Level 141 mmol/L Potassium Level 3.4 mmol/L Chloride Level 106 mmol/L Carbon Dioxide Level 26 mmol/L Anion Gap 9.0 mmol/L Blood Urea Nitrogen 15 mg/dl Creatinine 0.77 mg/dl Est Creatinine Clear Calc Drug Dose 95.1 ml/min Estimated GFR () 103.6 Estimated GFR (Non- 89.4 BUN/Creatinine Ratio 19.5 Random Glucose 108 mg/dl Calcium Level 8.8 mg/dl Assessment and Plan Patient with Hx 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 He is currently on IV Daptomycin, Aztreonam, and Metronidazole. Cultures now growing Pansensitive Citrobacter, Proteus, and Coag negative staph along with bacillus species, not anthracis. Feel that he has had improvement over the past few days and likely can transition to PO Cipro and Augmentin x 10 days. We will follow up as outpatient prior to D/C of abx therapy. Thanks Case reviewed and agree iwth above assessment.
--- NOTE | 2016-11-12 13:35 | Surgery Consultation ---
Consultation Date of Service Nov 12, 2016. (Denisa Del Rio, PRAKASH) Chief Complaint BLE ulcers, PAD (Denisa Del Rio, PRAKASH) History of Present Illness The patient is a 76 year old male with hx of CAD, HTN, A fib, admitted to [facility] with possible osteomyelitis and ulcers of BLE, seen in consultation today for BLE calf and renee ulcerations and arterial disease. Pt known to Dr Cabrera, was seen in office within past 6 months to 1 year for arterial disease, although did not have ulcerations at that time. Pt states he has had some ulcerations for 2 months or so, but has not sought regular care for them. Has had difficulty with bathing and dressing wounds d/t back problems. Has not been wearing compression to BLE, although was given an rx for them at last appt with us. Denies injury, rest pain, or claudication. Denies MENDOZA, fever, chills, chest pain, SOB, abd pain, N/V, other complaints. Arterial US results demonstrate diffuse arterial disease without focal stenosis or occlusion. (Denisa Del Rio, INOCENTEC) Vitals Vital Signs Past 12 Hours Date Time Temp Pulse Resp B/P (MAP) Pulse Ox O2 Delivery O2 Flow Rate FiO2 11/12/16 09:19 78 11/12/16 07:35 95 Room Air 11/12/16 07:15 36.6 70 16 145/82 (103) 95 Room Air (Denisa Del Rio, DHIRAJ-C) Allergies Coded Allergies: Ceftriaxone (Verified Allergy, Unknown, UNKNOWN, 06/06/16) ROCEPHIN AND VANCO ALLERGY PER [facility] ORDER FORM FROM 09/25/15 Vancomycin (Verified Allergy, Unknown, UNKNOWN, 06/06/16) ROCEPHIN AND VANCO ALLERGY PER [facility] ORDER FORM FROM 09/25/15 Home Medications Scheduled Acetaminophen Tab (Tylenol), 650 MG PO DIRECTED Amoxicillin (Amoxil), 4 CAP PO DIRECTED Aspirin (Aspirin Ec), 81 MG PO DAILY Digoxin (Digoxin), 0.25 MG PO DAILY Diltiazem HCl (Diltiazem Cd), 300 MG PO DAILY Diphenhydramine Hcl (Diphenhydramine Hcl), 25 MG PO DIRECTED Ergocalciferol (Vitamin D 78225 Unit), 1 TAB PO WK Furosemide (Lasix), 80 MG PO QAM Lisinopril (Zestril), 5 MG PO DAILY Metoprolol Succinate (Toprolxl (Toprol-Xl), 200 MG PO DAILY Senna/Docusate Sod (Senokot S), 1 TAB PO DAILY Warfarin Sod ([place]), 5 MG PO TUESDAY Warfarin Sod ([place]), 2.5 MG PO DAILY Problem List Medical Problems: (1) Cellulitis (2) Infectious endocarditis (3) Leukocytosis (4) Osteomyelitis of ankle or foot (5) SIRS (systemic inflammatory response syndrome) (6) Streptococcal sepsis (Denisa Del Rio, INOCENTEC) Surgical / Medical History Hx Cardiac Surgery: No Hx Abdominal Surgery: No Hx Cancer Surgery: Yes (ptrostatectomy ) Hx Thoracic Surgery: No Hx Orthopedic: Yes (r. hip replacement, left knee ) Hx Urinary Tract Surgery: Yes (ptrostatectomy ) HX Other Surgery: Yes (tonsillectomy ) Past Medical/Surgical History: Heart Disease, High Cholesterol, Hypertension (Denisa Del Rio, INOCENTEC) Family History Hypertension (Denisa Del Rio, INOCENTEC) Hypertension (Pierce Cabrera M.D.) Social History Smoking Status: Never Smoker Hx Tobacco Use In Past Year?: No Hx Alcohol Use - Type & Amnt: Yes Hx Substance Use -Type & Amnt: No (Denisa Del Rio, DHIRAJ-C) Review of Systems Constitutional: No chills, No fever, No malaise Skin: + change in color Eyes: No visual changes ENMT: No sore throat Respiratory: No cough, No SHARP, No hemoptysis, No short of breath Cardiovascular: + edema, No chest pain, No palpitations, No intermittent claudication Gastrointestinal: No abdominal pain, No nausea, No vomiting Musculoskeletal: + back pain Neurologic: No weakness, No lethargy, No numbness, No tingling (Denisa Del Rio, PA-C) Physical Exam Constitutional: General Apperance: well-nourished, well-developed Level of Distress: NAD, chronically ill Psychiatric: Mental Status: active & alert, normal mood, normal affect Orientation: oriented except where noted, to time, to place, to person Memory: recent memory normal (vague, poor historian), remote memory normal Head: normocephalic, atraumatic Eyes: EOM: EOMI ENMT: normal ENT inspection, hearing grossly normal Neck: supple, trachea midline Lungs: Respiratory effort: no dyspnea Auscultation: no rales/crackles, no rhonchi, decreased breath sounds Cardiovascular: Apical Impulse: not displaced Heart Auscultation: no rubs, no gallops, pertinent finding (irregular) Peripheral Pulses: Pulses: full and equal, in all extremities except if noted Bruits: none appreciated Carotid Pulse: normal on the left, normal on the right Radial Pulse: normal on the left Femoral Pulse: normal on the left, normal on the right Posterior Tibialis Pulse: pertinent finding (+1 BLE) Dorsalis Pedis Pulse: pertinent finding (+1 BLE) Abdomen: Bowel Sounds: normal Inspection & Palpation: soft, non-distended, no tenderness, guarding & rebound Musculoskeletal: normal strength (5/5 throughout), normal tone Extremities: Upper Right: no cyanosis, no edema, no varicosities Upper Left: no cyanosis, no edema, no varicosities Lower Right: no cyanosis, no varicosities, edema (+2, improved from prior visit in office), ulcers (shallow ulcerations with pink base, serous drainage. feet with foul smell BL, appear soiled) Lower Left: no cyanosis, no varicosities, edema (+2, improved from prior office visit.), ulcers (shallow ulcers with pink base.), pertinent finding ( thickened skin with dark brown discoloration consistent with severe long standing venous insufficiency to BLE) Neurologic: Cranial Nerves: grossly intact Sensation: grossly intact (Denisa Del Rio, PA-C) Assessment and Plan ASSESSMENT and PLAN: Venous ulcerations Venous insufficiency PAD Pt with multiple venous ulcerations to BLE, recommend continued local wound care, including wound clinic referral as outpatient. Pt has difficulty caring for wounds at home d/t chronic problems, recommend home nursing for regular dressing changes in between wound clinic visits. Also recommend BLE at least knee high compression at 10-20mmHg, if able to be obtained, in order to control edema. Could also use ROEL hose if unable to obtain regular compression during this hospital stay, and obtain 10-20mmHg compression as outpt. Pt asymptomatic from PAD and US does not demonstrate any focal treatable lesions which would benefit pt for healing. No vascular surgical intervention recommended at this time. Please call if needed. (Denisa Del Rio, PA-C) Patient was seen, examined, and chart reviewed. Agree with exam and treatment plan of the Vascular PA. Thank you very much for letting me participate in the care of this patient. (Pierce Cabrera M.D.)
[2016-11-12 15:05] VITALS: BP 146/76; PULSE 71; TEMP 36.7; O2SAT 95
[2016-11-12] MEDS: WARFARIN SOD 2.5 MG TAB PO SCH (15:36)
[2016-11-12 15:40] VITALS: O2SAT 95
--- NOTE | 2016-11-12 17:50 | Orthopedic Progress Note ---
Orthopedic Progress Note Date of Service Nov 12, 2016. Subjective Denies: nausea / vomiting, light headedness Additional Notes: Left foot pain improved per the patient. No active fever or chills. Objective A&O x3 B LE edema. Dry Kerlix bandages L LE. No fluctuance or purulence left foot. Chronic venous stasis changes B LE. Date Time Temp Pulse Resp B/P (MAP) Pulse Ox O2 Delivery O2 Flow Rate FiO2 11/12/16 15:40 95 Room Air 11/12/16 15:05 36.7 71 16 146/76 (99) 95 Room Air 11/12/16 09:19 78 11/12/16 07:35 95 Room Air 11/12/16 07:15 36.6 70 16 145/82 (103) 95 Room Air 11/12/16 00:00 Room Air 11/11/16 22:52 36.6 73 18 146/79 (101) 95 Room Air Laboratory Results 24 Hours: Test 11/12/16 06:38 11/12/16 06:45 White Blood Count 11.81 K/uL Red Blood Count 3.80 M/uL Hemoglobin 13.0 g/dL Hematocrit 37.6 % Mean Corpuscular Volume 98.9 fL Mean Corpuscular Hemoglobin 34.2 pg Mean Corpuscular Hemoglobin Concent 34.6 g/dl Platelet Count 206 K/uL Mean Platelet Volume 10.8 fL Neutrophils (%) (Auto) 79.5 % Lymphocytes (%) (Auto) 6.1 % Monocytes (%) (Auto) 9.7 % Eosinophils (%) (Auto) 4.1 % Basophils (%) (Auto) 0.3 % Neutrophils # (Auto) 9.40 K/uL Lymphocytes # (Auto) 0.72 K/uL Monocytes # (Auto) 1.15 K/uL Eosinophils # (Auto) 0.48 K/uL Basophils # (Auto) 0.03 K/uL Prothromb Time International Ratio 1.8 Prothrombin Time 20.0 SECONDS Assessment & Plan Assessment: Cellulitis bilateral LE's , Left > Right-improving Currently nonoperative Plan: No Osteomyelitis noted on MRI. No need for any type of surgical intervention upon our part. Ok to restart Coumadin Antibx as per Med Service/ ID Service Nonoperative management currently F/U as outpatient prn Ortho will sign off. Please call with any questions. Thank you Bonita Cowart
[2016-11-12] MEDS: AMOXICILLIN/CLAVULANATE TAB 875 MG TAB PO SCH (17:58)
[2016-11-12] MEDS: CIPROFLOXACIN 500 MG TAB PO SCH (21:04)
[2016-11-12 23:04] VITALS: BP 169/80; PULSE 69; TEMP 36.4; O2SAT 94
[2016-11-13 06:35] LABS: CREATININE 0.57 mg/dl (0.60-1.40)
[2016-11-13 07:15] VITALS: BP 164/75; PULSE 72; TEMP 36.6; O2SAT 92
[2016-11-13 07:20] VITALS: O2SAT 94
[2016-11-13 07:33] LABS: POTASSIUM 3.8 mmol/L (3.5-5.1)
[2016-11-13] MEDS: EUCERIN CR 120 GM JAR EXT SCH ×2 (08:48→21:44)
[2016-11-13] MEDS: AMOXICILLIN/CLAVULANATE TAB 875 MG TAB PO SCH ×2 (08:48→17:44)
[2016-11-13] MEDS: DILTIAZEM HCL 300 MG CAPCR PO SCH (08:49)
[2016-11-13] MEDS: KETOCONAZOLE 2% CR 15 GM TUBE EXT SCH ×2 (08:49→21:45)
[2016-11-13] MEDS: CIPROFLOXACIN 500 MG TAB PO SCH ×2 (08:49→21:45)
[2016-11-13] MEDS: ASPIRIN 81 MG ECTAB PO SCH (08:49)
[2016-11-13] MEDS: FUROSEMIDE 80 MG TAB PO SCH (08:50)
[2016-11-13] MEDS: POTASSIUM CHLORIDE 20 MEQ TABCR PO SCH ×3 (08:50→21:46)
[2016-11-13] MEDS: METOPROLOL SUCC 50MG EXT REL TAB PO SCH (08:50)
[2016-11-13] MEDS: LISINOPRIL 5 MG TAB PO SCH (08:51)
[2016-11-13] MEDS: DIGOXIN 0.25 MG TAB PO SCH (08:51)
[2016-11-13] MEDS: ACETAMINOPHEN 325 MG TAB PO PRN (09:50)
--- NOTE | 2016-11-13 09:51 | DIAGNOSTIC IMAGING REPORT ---
ABDOMEN 2 VIEWS CLINICAL HISTORY: Ileus. FINDINGS: Supine and erect abdominal radiographs are compared to study dated 11/11/2016. There is unchanged appearance of distended and gas-filled loops of small bowel and colon as compared to 11/11/2016. Numerous air-fluid levels are identified on the upright view. No evidence of intraperitoneal free air is seen. Surgical clips are present in the pelvis. Skeletal structures are osteopenic. There is lumbar sacral spondylosis and scoliosis. A right hip arthroplasty is again noted. The heart is enlarged. IMPRESSION: 1. No significant change in the appearance of marked gaseous distention involving loops of both small bowel and colon with air-fluid levels. Differential considerations remain ileus versus colonic obstruction. 2. No evidence of intraperitoneal free air is seen. Electronically signed by: Jake Maurice M.D. 11/13/2016 9:50 AM Dictated Date/Time: 11/13/2016 9:47 AM
[2016-11-13] MEDS ORDERED: OPTIRAY 320 IV PRN (11:15)
--- NOTE | 2016-11-13 12:28 | DIAGNOSTIC IMAGING REPORT ---
CT SCAN OF THE ABDOMEN AND PELVIS WITH IV CONTRAST CLINICAL HISTORY: Abdominal distention. Clinical concern for ileus. COMPARISON STUDY: Abdominal radiographs dated 11/11/2016 and 11/13/2016. TECHNIQUE: Following the IV administration of 94 cc of Optiray 320, CT scan of the abdomen and pelvis is performed from the lung bases to the proximal femora. Images are reviewed in the axial, sagittal, and coronal planes. IV contrast was administered without complication. Automated dose control exposure was utilized. CT DOSE: 621.97 mGy.cm FINDINGS: Lung bases: The heart is markedly enlarged and without pericardial effusion. The coronary arteries are densely calcified. There is a tiny hiatal hernia. There are small pleural effusions with bibasilar atelectasis. Liver: The contrast-enhanced liver is normal in size, contour, and attenuation. There is no intrahepatic biliary ductal dilatation. The hepatic veins and portal veins are patent. Gallbladder: Unremarkable. Spleen: Normal in size and attenuation. Pancreas: Atrophic and grossly unremarkable. Adrenal glands: Unremarkable. Kidneys: The contrast enhanced kidneys demonstrate cortical atrophy and are without hydronephrosis. The kidneys enhance symmetrically. A 10 mm cyst is noted in the right kidney. Abdominal vasculature: The abdominal aorta is normal in course and caliber noting advanced atherosclerotic calcification. Bowel: There is diffuse gaseous distention of the colon which demonstrates air-fluid levels. No colonic wall thickening is identified and there is no pericolonic inflammation. There is only mild distention of the small bowel loops. There is a 2.5 cm focus of narrowing identified in the sigmoid colon on axial image #296. Mild wall thickening and hyperemia is suggested in the proximal duodenum. There is trace periduodenal fluid. The appendix is not identified. Peritoneum: There is no intraperitoneal free air or abdominal ascites. Lymphadenopathy: There are numerous subcentimeter upper abdominal and retroperitoneal lymph nodes. These are not clearly pathologically enlarged by size criteria.. Pelvic viscera: Evaluation of the pelvis is degraded by streak artifact from a right hip arthroplasty. The bladder is normal as visualized. The prostate gland is surgically absent. Numerous surgical clips are present in the pelvis. There is a tiny fat-containing right inguinal hernia. There is asymmetric atrophy of the right iliopsoas musculature as compared to left. Skeletal structures: The skeletal structures are osteopenic. There is moderate to advanced lumbosacral spondylosis. No lytic or blastic lesions are seen. A right hip arthroplasty is in place. Advanced arthritic changes seen in the left hip. Degenerative change and partial fusion is seen involving the sacroiliac joints and pubic symphysis. Soft tissues: There is mild body wall edema. IMPRESSION: 1. There is marked gaseous distention of the colon which demonstrates several air-fluid levels. There is no colonic wall thickening or pericolonic inflammation. There is only mild distention of the small bowel loops. This may represent ileus as clinically queried. 2. There is a 2.5 cm focus of narrowing suggested in the sigmoid colon. This may simply represent underdistention, with stricture or an obstructing mass lesion not excluded as this is not well assessed by CT. Clinical correlation will be required. Consider follow-up with colonoscopy when the patient is clinically able. 3. The proximal duodenum appears mildly thick-walled and hyperemic and there is trace periduodenal fluid. There is nonspecific. Correlate clinically for evidence of duodenitis or possibly ulcer disease. Endoscopy could be considered for further assessment. 4. Marked cardiomegaly and small pleural effusions. 5. Additional findings as above. Electronically signed by: Jake Maurice M.D. 11/13/2016 12:27 PM Dictated Date/Time: 11/13/2016 12:16 PM
[2016-11-13 14:59] VITALS: BP 175/87; PULSE 69; TEMP 36.4; O2SAT 94
[2016-11-13] MEDS: WARFARIN SOD 2.5 MG TAB PO SCH (15:45)
[2016-11-13 17:13] VITALS: BP 150/87; PULSE 74
[2016-11-13 22:44] VITALS: BP 157/88; PULSE 74; TEMP 36.6; O2SAT 95
--- NOTE | 2016-11-14 00:04 | Progress Note ---
Subjective Date of Service: Nov 13, 2016. Subjective Pt evaluation today including: conversation w/ patient, physical exam, chart review, lab review, review of studies (abd x-rays, CT abd/pelvis), conversation w/ senior product consultant (GI), review of inpatient medication list Pain: abd distension/bloating but no pain PO Intake: tolerating clears Voiding: no voiding problems patient with ongoing passage of flatus and stool but no change in the size of his abdominal girth denies cough or dyspnea overall feels good except for abdomen Problem List Medical Problems: (1) 55431 Status: Acute (2) Dizziness Status: Acute (3) Encephalitis Status: Acute (4) Multiple open wounds of lower extremity Status: Acute Review of Systems Constitutional: No fever Respiratory: No shortness of breath, No dyspnea on exertion Cardiac: No chest pain, No orthopnea Abdomen: + see HPI, No nausea, No vomiting Objective Vital Signs Date Time Temp Pulse Resp B/P (MAP) Pulse Ox O2 Delivery O2 Flow Rate FiO2 11/13/16 22:44 36.6 74 18 157/88 (111) 95 Room Air 11/13/16 17:13 74 150/87 (108) 11/13/16 15:30 Room Air 11/13/16 14:59 36.4 69 16 175/87 (116) 94 Room Air 11/13/16 08:51 72 11/13/16 07:20 94 Room Air 11/13/16 07:15 36.6 72 17 164/75 (104) 92 Room Air Physical Exam General Appearance: no apparent distress ENT: pharynx normal Neck: no JVD Respiratory/Chest: lungs clear, no respiratory distress, no accessory muscle use Cardiovascular: regular rate, rhythm, no gallop, no murmur Abdomen: no organomegaly, + abnormal bowel sounds (high pitched), + distended ( marked), + tenderness (scant ) Extremities: + pedal edema Neurologic/Psychiatric: alert, oriented x 3 Skin: + pertinent finding (large dressings in place from just below the knees to the feet ) Comments: pulses both feet <1+ b/l Laboratory Results Last 24 Hours Test 11/13/16 05:25 Potassium Level 3.8 mmol/L Creatinine 0.57 mg/dl Est Creatinine Clear Calc Drug Dose 128.5 ml/min Estimated GFR () 117.2 Estimated GFR (Non- 101.2 Magnesium Level 2.0 mg/dl Assessment and Plan 76yo male with: 1. cellulitis, LLE, along with wound of left renee - now on cipro & augmentin per recommendations of ID. Improving. MRI left foot with NO osteomyelitis. appreciate wound care consult, ID consult, orthopedics, and vascular consultations. 2. ileus - despite replacement of K, diet restriction, and time his exam and abdominal x-rays have not changed. CT abd/pelvis obtained - most of his ileus appears to be colonic in nature. There is a narrowing in the sigmoid colon on CT - could be a stricture, mass, etc. Spoke with Dr. Pittman from GI who will consult. will need colonoscopy. 3. hypokalemia - resolved; d/c supplementation. 4. chronic diastolic CHF - compensated; cont lasix, BB, etc. 5. HTN - controlled. 6. PAF - INR in am; hold coumadin in anticipation of upcoming colonoscopy. Cont BB, CCB, and digoxin. 7. DVT proph - to date - coumadin. 8. venous insuff - compression. 9. FEN - allow full liquids; repeat BMP am. update son tomorrow Continued [facility] stay due to: inadequate po fluid intake, multiple IV medications needed Discharge planning: home with home health
[2016-11-14 07:01] LABS: INR 2.6 (0.9-1.1); PROTHROMBIN TIME (PATIENT) 28.8 SECONDS (9.0-12.0)
[2016-11-14 07:20] VITALS: BP 168/87; PULSE 7; TEMP 36.4; O2SAT 94
[2016-11-14 07:34] LABS: BUN/CREATININE RATIO 22.6 (10-20); CREATININE 0.51 mg/dl (0.60-1.40); POTASSIUM 3.5 mmol/L (3.5-5.1)
[2016-11-14 07:51] LABS: CALCIUM 8.9 mg/dl (8.5-10.1)
[2016-11-14] MEDS: FUROSEMIDE 80 MG TAB PO SCH (08:44)
[2016-11-14] MEDS: AMOXICILLIN/CLAVULANATE TAB 875 MG TAB PO SCH ×2 (08:44→18:14)
[2016-11-14] MEDS: DILTIAZEM HCL 300 MG CAPCR PO SCH (08:44)
[2016-11-14] MEDS: CIPROFLOXACIN 500 MG TAB PO SCH ×2 (08:45→20:15)
[2016-11-14] MEDS: ASPIRIN 81 MG ECTAB PO SCH (08:45)
[2016-11-14] MEDS: METOPROLOL SUCC 50MG EXT REL TAB PO SCH (08:46)
[2016-11-14] MEDS: DIGOXIN 0.25 MG TAB PO SCH (08:48)
[2016-11-14] MEDS ORDERED: PHYTONADIONE 5 MG TAB PO STA (11:12)
[2016-11-14] MEDS: KETOCONAZOLE 2% CR 15 GM TUBE EXT SCH ×2 (11:16→20:07)
[2016-11-14] MEDS: EUCERIN CR 120 GM JAR EXT SCH ×2 (11:16→20:07)
[2016-11-14] MEDS: LISINOPRIL 10 MG TAB PO SCH (13:15)
[2016-11-14 15:10] VITALS: BP 144/84; PULSE 66; TEMP 36.5; O2SAT 95
--- NOTE | 2016-11-14 15:49 | GASTROINTESTINAL CONSULTATION ---
DATE OF CONSULTATION: 11/14/2016 AGE: 76. SEX: Male. RACE: . ATTENDING PHYSICIAN: Dr. Coates. CONSULTING PHYSICIAN: Dr. Pittman. REASON FOR CONSULTATION: Colonic ileus, questionable sigmoid colon narrowing and abnormal CT scan. HISTORY OF PRESENT ILLNESS: Arron Buckner is 76-year-old male who presented to the Department of Emergency Medicine on November 09 with complaints of left lower extremity pain. He was noted to have cellulitis of the left lower extremity. He also complained of diarrhea prior to his admission for the previous week. Stool studies thus far have been negative for C. diff or any enteric pathogens. He has been noted over the past few days to have abdominal distention and did undergo radiographic imaging on November 11 with an abdominal series, which showed marked gaseous distention of the small bowel and colon with scattered air fluid levels and a CT scan of the abdomen and pelvis on November 13 raised the possibility of a sigmoid narrowing with stricture versus an obstructing mass lesion versus ileus. We were asked to see the patient in consultation. I saw the patient at his bedside today. He was sitting up in his chair. He states that he has had significant abdominal distention over the past week and states "my stomach is much greater than usual." He states he has never undergone a colonoscopy in the past. He denies any significant abdominal pain, fevers, chills, nausea, vomiting, hematemesis, melena or hematochezia. Laboratory studies throughout this hospitalization have shown only a slight anemia with normocytic indices. His stool occult blood was negative on November 11. He has not received any narcotic analgesics throughout this hospitalization and denies any narcotic analgesic use at home. He has no other complaints including jaundice, acholic stools, dark urine, pruritus, or fatigue. He does note that his appetite has been decreased over the past week as well, though cannot tell me whether he has lost any weight or not. He denies any further complaints. PAST MEDICAL HISTORY: Significant for chronic venous insufficiency, diastolic heart failure, history of bacterial endocarditis in 2016, paroxysmal atrial fibrillation, and a history of prostate cancer. PAST SURGICAL HISTORY: Includes cataract surgery as well as hip replacement. ALLERGIES: CEFTRIAXONE AND VANCOMYCIN. MEDICATIONS: At the present time include Zestril 10 mg p.o. daily, Cipro 500 mg p.o. b.i.d., Augmentin 875 mg p.o. b.i.d., aspirin 81 mg p.o. daily, digoxin 0.25 mg p.o. daily, diltiazem 300 mg p.o. daily, Lasix 80 mg p.o. q.a.m., metoprolol 200 mg p.o. daily, milk of magnesia 30 mL p.o. q. 6 hours p.r.n. constipation, MiraLax 17 grams p.o. daily p.r.n. constipation, Zofran 4 mg IV q. 6 hours p.r.n. nausea, and Tylenol 650 mg p.o. q. 4 hours p.r.n. pain. SOCIAL HISTORY: He is . He denies any tobacco, alcohol or illicit drug use. FAMILY HISTORY: Negative for GI malignancy or inflammatory bowel disease. REVIEW OF SYSTEMS: Negative x10 system review other than pertinent positives listed in the HPI. PHYSICAL EXAMINATION: VITAL SIGNS: Temp 36.4, pulse 74, respirations 18, blood pressure 168/87, and pulse ox 94% on room air. GENERAL: Awake and cooperative, in no acute distress. HEAD: Normocephalic and atraumatic. EYES: Pupils equally round. Extraocular muscles are intact. ENT: External evaluation of ears and nose are normal. Oropharynx is clear. NECK: Soft and supple. There is no JVD or lymphadenopathy. CHEST: Clear to auscultation bilaterally. CARDIOVASCULAR SYSTEM: Regular rate and rhythm. ABDOMEN: Soft, distended, and nontender. There are tinkling bowel sounds. There is no appreciable hepatosplenomegaly or stigmata of chronic liver disease. EXTREMITIES: No clubbing, cyanosis, or edema. LABORATORY STUDIES: Today include a white blood cell count of 11.81, hemoglobin 13.0, hematocrit 37.6 and a platelet count of 206. His sodium is 140, potassium 3.5, chloride 109, bicarbonate 22, BUN 12, creatinine 0.5, and blood glucose 107. IMPRESSION: A 76-year-old male presenting with left lower extremity cellulitis. He was also noted to have diarrhea and abnormal CT imaging with questionable stricture versus mass in the sigmoid colon and has never undergone a colonoscopy in the past. PLAN: At the present time, I would recommend continuing current antibiotic coverage as per the primary team regarding his left lower extremity cellulitis. C. diff testing has been negative thus far. The patient will receive a GoLYTELY bowel prep tonight. He will be kept on clear liquids today and will be kept n.p.o. after midnight. I would recommend that he undergo colonoscopy tomorrow for further evaluation of his symptoms and to exclude a sigmoid stricture versus mass. I will make further recommendations following the above noted testing. Once again, thanks for allowing me to participate in the care of this patient. If you have any further questions, please do not hesitate in contacting me.
[2016-11-14] MEDS ORDERED: LAVAGE SOLUTION 4000ML PO SCH (20:00)
[2016-11-14] MEDS: ACETAMINOPHEN 325 MG TAB PO PRN (20:19)
--- NOTE | 2016-11-14 21:04 | Progress Note ---
Subjective Date of Service: Nov 14, 2016. Subjective Pt evaluation today including: conversation w/ patient, physical exam, chart review, lab review, review of studies (CT abd/pelvis), conversation w/ construction consultant (GI) Pain: no abdominal pain; no LE pain PO Intake: tolerating full liquids Voiding: no voiding problems having passage of flatus and stool but still very distended on physical exam no vomiting or nausea denies chest pain some mild dyspnea "because my belly is so bloated" Problem List Medical Problems: (1) 34254 Status: Acute (2) Dizziness Status: Acute (3) Encephalitis Status: Acute (4) Multiple open wounds of lower extremity Status: Acute Review of Systems Constitutional: No fever Respiratory: + see HPI, No cough Cardiac: No chest pain, No orthopnea Abdomen: No pain, No nausea, No vomiting Objective Vital Signs Date Time Temp Pulse Resp B/P (MAP) Pulse Ox O2 Delivery O2 Flow Rate FiO2 11/14/16 15:10 36.5 66 18 144/84 (104) 95 Room Air 11/14/16 08:48 84 11/14/16 07:58 Room Air 11/14/16 07:20 36.4 7 168/87 (114) 94 Room Air 11/14/16 00:45 Room Air 11/13/16 22:44 36.6 74 18 157/88 (111) 95 Room Air Physical Exam General Appearance: no apparent distress ENT: pharynx normal Neck: no JVD Respiratory/Chest: lungs clear, no respiratory distress, no accessory muscle use Cardiovascular: no gallop, no murmur, + irregularly irregular Abdomen: no organomegaly, + abnormal bowel sounds (high-pitched), + distended Extremities: + pedal edema (trace b/l ), + pertinent finding (significant stasis changes/hyperpigmentation both legs extending from feet to just below both knees) Neurologic/Psychiatric: alert, oriented x 3 Skin: + pertinent finding (3cm x 2cm ulceration on anterior renee, left leg - clean, pink base; 3 other ulcerations on left leg (2 on lateral aspect and 1 on medial aspect - all with pink base); 1 ulceration on right leg - also with pink base; none of the ulcers have purulent drainage) Comments: tinea pedis both feet Laboratory Results Last 24 Hours Test 11/14/16 06:10 11/14/16 19:00 Prothrombin Time 28.8 SECONDS Prothromb Time International Ratio 2.6 Sodium Level 140 mmol/L Potassium Level 3.5 mmol/L Chloride Level 109 mmol/L Carbon Dioxide Level 22 mmol/L Anion Gap 9.0 mmol/L Blood Urea Nitrogen 12 mg/dl Creatinine 0.51 mg/dl Est Creatinine Clear Calc Drug Dose 143.6 ml/min Estimated GFR () 122.7 Estimated GFR (Non- 105.9 BUN/Creatinine Ratio 22.6 Random Glucose 107 mg/dl Calcium Level 8.9 mg/dl Assessment and Plan 76yo male with: 1. cellulitis, LLE, along with multiple wounds of left renee - now on cipro & augmentin per recommendations of ID. Day #3 of each. Plan 10 days in total of cipro/augmentin. Improving. No signs of cellulitis on exam today. MRI left foot with NO osteomyelitis. appreciate wound care consult, ID consult, orthopedics, and vascular consultations. 2. ileus - despite replacement of K, diet restriction, and time his exam and abdominal x-rays have not changed. CT abd/pelvis obtained - most of his ileus appears to be colonic in nature. There is a narrowing in the sigmoid colon on CT - could be a stricture, mass, etc. Spoke with Dr. Pittman from GI who will perform colonoscopy tomorrow. INR is 2.6 today - give vitamin K now, repeat INR later tonight and give additional vitamin K if needed. 3. hypokalemia - resolved. 4. chronic diastolic CHF - compensated; cont lasix, BB, etc. 5. HTN - uncontrolled; increase lisinopril to 10mg daily. 6. PAF - holding coumadin in anticipation of upcoming colonoscopy. Cont BB, CCB, and digoxin. See above re: vitamin K. 7. DVT proph - coumadin. 8. venous insuff - compression. 9. FEN - clears today, NPO after MN tonight, lytes stable; repeat BMP am. 10. tinea pedis - ketoconazole cream BID. 11. PAD - b/l legs - vascular has seen - no Rx needed at this time. attempted to call pt's son at # listed in chart - no success in connecting with him Continued [facility] stay due to: inadequate po fluid intake, other (colonic ileus) Discharge planning: home with home health
[2016-11-14 21:16] LABS: INR 2.5 (0.9-1.1); PROTHROMBIN TIME (PATIENT) 28.1 SECONDS (9.0-12.0)
[2016-11-14] MEDS ORDERED: PHYTONADIONE 5 MG TAB PO ONE (22:00)
[2016-11-14 22:21] VITALS: TEMP 36.7
[2016-11-14 23:17] VITALS: BP 154/97; PULSE 83; TEMP 36.1; O2SAT 96
[2016-11-15 05:11] LABS: HEMATOCRIT 39.4 % (42-52); MEAN CELL VOLUME 96.6 fL (80-100); MEAN CORPUSCULAR HEMOGLOBIN 34.8 pg (25-34); MEAN PLATELET VOLUME 10.5 fL (7.4-10.4); PLATELET COUNT 258 K/uL (130-400); RED BLOOD COUNT 4.08 M/uL (4.7-6.1); WHITE BLOOD COUNT 8.03 K/uL (4.8-10.8)
[2016-11-15 05:19] LABS: INR 1.9 (0.9-1.1); PROTHROMBIN TIME (PATIENT) 21.4 SECONDS (9.0-12.0)
[2016-11-15 05:38] LABS: BUN/CREATININE RATIO 16.2 (10-20); CALCIUM 8.9 mg/dl (8.5-10.1); CREATININE 0.77 mg/dl (0.60-1.40); POTASSIUM 3.2 mmol/L (3.5-5.1)
[2016-11-15] MEDS: AMOXICILLIN/CLAVULANATE TAB 875 MG TAB PO SCH ×2 (06:53→17:32)
[2016-11-15] MEDS: ASPIRIN 81 MG ECTAB PO SCH (06:54)
[2016-11-15] MEDS: FUROSEMIDE 80 MG TAB PO SCH (06:54)
[2016-11-15] MEDS: CIPROFLOXACIN 500 MG TAB PO SCH ×2 (06:54→20:31)
[2016-11-15] MEDS: KETOCONAZOLE 2% CR 15 GM TUBE EXT SCH ×2 (07:52→20:31)
[2016-11-15] MEDS: METOPROLOL SUCC 50MG EXT REL TAB PO SCH (07:52)
[2016-11-15] MEDS: EUCERIN CR 120 GM JAR EXT SCH ×2 (07:52→20:31)
[2016-11-15] MEDS: DILTIAZEM HCL 300 MG CAPCR PO SCH (07:53)
[2016-11-15] MEDS: LISINOPRIL 10 MG TAB PO SCH (07:53)
[2016-11-15 07:55] VITALS: BP 133/74; PULSE 85; O2SAT 96
[2016-11-15] MEDS: DIGOXIN 0.25 MG TAB PO SCH (07:56)
[2016-11-15 08:27] VITALS: TEMP 36.3
[2016-11-15 10:35] VITALS: BP 133/74; PULSE 85; TEMP 36.3; O2SAT 96
[2016-11-15] MEDS ORDERED: ATROPINE SULFATE 0.1 MG/ML 5ML SYR IV PRN (11:00)
[2016-11-15] MEDS ORDERED: EpHEDrine SULFATE INJ 50 MG/ML AMP IV PRN (11:00)
--- NOTE | 2016-11-15 11:39 | Gastroenterology Progress Note ---
Progress Note Date of Service: Nov 15, 2016 Subjective Pt evaluation today including: conversation w/ patient, physical exam, chart review, lab review Patient tolerated bowel prep overnight. States his abdomen is less distended. Denies fevers, chills, nausea, vomiting, diarrhea, melena or hematochezia. No further complaints. Medications Current Inpatient Medications Medications (Trade) Dose Ordered Sig/Sam Route Start Time Stop Time Status Last Admin Dose Admin Aspirin (Ecotrin Tab) 81 mg DAILY PO 11/10/16 09:00 12/10/16 08:59 11/14/16 08:45 81 MG Digoxin (Lanoxin Tab) 0.25 mg DAILY PO 11/10/16 09:00 12/10/16 08:59 11/15/16 07:56 0.25 MG Diltiazem HCl (Cardizem Cd Cap) 300 mg DAILY PO 11/10/16 09:00 12/10/16 08:59 11/15/16 07:53 300 MG Furosemide (Lasix Tab) 80 mg QAM PO 11/10/16 09:00 12/10/16 08:59 Future hold 11/14/16 08:44 80 MG Metoprolol Succinate (Toprol Xl Tab) 200 mg DAILY PO 11/10/16 09:00 12/10/16 08:59 11/15/16 07:52 200 MG Warfarin Sodium (Coumadin Tab) 2.5 mg DAILY@1600 PO 11/10/16 16:00 12/10/16 15:59 Future Hold 11/13/16 15:45 2.5 MG Acetaminophen (Tylenol Tab) 650 mg Q4H PRN PO 11/09/16 18:00 12/09/16 17:59 11/14/16 20:19 650 MG Magnesium Hydroxide (Milk Of Magnesia Susp) 30 ml Q6H PRN PO 11/09/16 18:00 12/09/16 17:59 Polyethylene (Miralax Powder Packet) 17 gm DAILY PRN PO 11/09/16 18:00 12/09/16 17:59 Ondansetron HCl (Zofran Inj) 4 mg Q6H PRN IV 11/09/16 18:00 12/09/16 17:59 Ketoconazole (Nizoral 2% Crm) 1 appln BID EXT 11/09/16 21:00 01/04/17 20:59 11/15/16 07:52 1 APPLN Multi-Ingredient Ointment (Eucerin Unscented Cr) 1 appln BID EXT 11/10/16 21:00 12/10/16 20:59 11/15/16 07:52 1 APPLN Amoxicillin/ Clavulanate Potassium (Augmentin Tab) 875 mg BIDM PO 11/12/16 17:45 11/22/16 17:44 11/14/16 18:14 875 MG Ciprofloxacin (Cipro Tab) 500 mg BID PO 11/12/16 21:00 11/22/16 20:59 11/14/16 20:15 500 MG Ioversol (Optiray 320) 125 ml UD PRN IV 11/13/16 11:15 11/17/16 11:14 Lisinopril (Zestril Tab) 10 mg DAILY PO 11/14/16 09:15 12/14/16 09:14 11/14/16 13:15 10 MG Ephedrine Sulfate (EpHEDrine SULFATE INJ) 5 mg Q5M PRN IV 11/15/16 11:00 11/16/16 10:59 Atropine Sulfate (Atropine Sulfate 0.1MG/Ml Inj) 0.5 mg Q1M PRN IV 11/15/16 11:00 11/16/16 10:59 Objective Vital Signs Date Time Temp Pulse Resp B/P (MAP) Pulse Ox O2 Delivery O2 Flow Rate FiO2 11/15/16 10:46 36.6 82 20 159/79 (105) 97 Room Air 11/15/16 10:35 36.3 85 18 133/74 96 Room Air 11/15/16 08:28 Room Air 11/15/16 08:27 36.3 18 11/15/16 07:56 85 11/15/16 07:55 85 133/74 (93) 96 Room Air 11/14/16 23:40 Room Air 11/14/16 23:17 36.1 83 18 154/97 (116) 96 Room Air 11/14/16 22:21 36.7 11/14/16 16:30 Room Air 11/14/16 15:10 36.5 66 18 144/84 (104) 95 Room Air Physical Exam General Appearance: no apparent distress Respiratory/Chest: lungs clear, normal breath sounds Cardiovascular: regular rate, rhythm Abdomen: non tender, soft Laboratory Results Last 24 Hours Test 11/14/16 19:00 11/15/16 05:05 Prothrombin Time 28.1 SECONDS 21.4 SECONDS Prothromb Time International Ratio 2.5 1.9 White Blood Count 8.03 K/uL Red Blood Count 4.08 M/uL Hemoglobin 14.2 g/dL Hematocrit 39.4 % Mean Corpuscular Volume 96.6 fL Mean Corpuscular Hemoglobin 34.8 pg Mean Corpuscular Hemoglobin Concent 36.0 g/dl RDW Standard Deviation 43.7 fL RDW Coefficient of Variation 12.3 % Platelet Count 258 K/uL Mean Platelet Volume 10.5 fL Sodium Level 143 mmol/L Potassium Level 3.2 mmol/L Chloride Level 107 mmol/L Carbon Dioxide Level 29 mmol/L Anion Gap 7.0 mmol/L Blood Urea Nitrogen 12 mg/dl Creatinine 0.77 mg/dl Est Creatinine Clear Calc Drug Dose 95.1 ml/min Estimated GFR () 103.6 Estimated GFR (Non- 89.4 BUN/Creatinine Ratio 16.2 Random Glucose 110 mg/dl Calcium Level 8.9 mg/dl Assessment and Plan Assessment: 76 yo CM who has an abnormal CT abd showing questionable stricture/mass in the sigmoid colon for colonoscopy. Plan: Proceed with colonoscopy.
[2016-11-15] MEDS ORDERED: LIDOCAINE HCL 2% 2 ML VIAL (20MG/ML) ONE (11:55)
[2016-11-15] MEDS ORDERED: PROPOFOL IV EMULSION 10 MG/ML 20 ML VIAL IV ONE (11:55)
--- NOTE | 2016-11-15 11:56 | GI REPORT ---
Procedure Date: 11/15/2016 11:31 AM Procedure: Colonoscopy Indications: Abnormal CT of the GI tract Medicines: Monitored Anesthesia Care Complications: No immediate complications. Estimated Blood Loss: Estimated blood loss: none. Procedure: Pre-Anesthesia Assessment: - Prior to the procedure, a History and Physical was performed, and patient medications and allergies were reviewed. The patient's tolerance of previous anesthesia was also reviewed. The risks and benefits of the procedure and the sedation options and risks were discussed with the patient. All questions were answered, and informed consent was obtained. Prior Anticoagulants: The patient last took Coumadin (warfarin) 2 days prior to the procedure and last took aspirin on the day of the procedure. ASA Grade Assessment: IV - A patient with severe systemic disease that is a constant threat to life. After reviewing the risks and benefits, the patient was deemed in satisfactory condition to undergo the procedure. After I obtained informed consent, the scope was passed under direct vision. Throughout the procedure, the patient's blood pressure, pulse, and oxygen saturations were monitored continuously. The scope was introduced through the anus and advanced to the terminal ileum. The colonoscopy was performed without difficulty. The patient tolerated the procedure well. The quality of the bowel preparation was good. The terminal ileum, ileocecal valve, appendiceal orifice, and rectum were photographed. Findings: Non-bleeding internal hemorrhoids were found during retroflexion. The hemorrhoids were medium-sized. The exam was otherwise without abnormality. Impression: - Non-bleeding internal hemorrhoids. - The examination was otherwise normal. - No specimens collected. Recommendation: - [facility]. - Advance diet as tolerated. - Continue present medications. - No repeat colonoscopy due to age and the absence of advanced adenomas. Jose Daniel Pittman DO 11/15/2016 11:55:44 AM This report has been signed electronically. Note Initiated On: 11/15/2016 11:31 AM I attest to the content of the Intraoperative Record and orders documented therein, exceptions below
[2016-11-15] MEDS ORDERED: CPR500 PO (12:21)
[2016-11-15] MEDS ORDERED: AMOX1TAB43 PO (12:21)
--- NOTE | 2016-11-15 12:21 | Anesthesiology Progress Note ---
Anesthesia Post Op Note Date & Time Nov 15, 2016 at 12:21 Vital Signs Pain Intensity: 0 Vital Signs Past 12 Hours Date Time Temp Pulse Resp B/P (MAP) Pulse Ox O2 Delivery O2 Flow Rate FiO2 11/15/16 12:15 60 20 131/73 (92) 98 Room Air 11/15/16 12:00 66 20 118/59 (78) 98 Room Air 11/15/16 10:46 36.6 82 20 159/79 (105) 97 Room Air 11/15/16 10:35 36.3 85 18 133/74 96 Room Air 11/15/16 08:28 Room Air 11/15/16 08:27 36.3 18 11/15/16 07:56 85 11/15/16 07:55 85 133/74 (93) 96 Room Air Notes Mental Status: alert / awake / arousable, participated in evaluation Pt Amnestic to Procedure: Yes Nausea / Vomiting: adequately controlled Pain: adequately controlled Airway Patency, RR, SpO2: stable & adequate BP & HR: stable & adequate Hydration State: stable & adequate Anesthetic Complications: no major complications apparent
--- NOTE | 2016-11-15 12:28 | Discharge Instructions ---
Discharge Instructions Date of Service Nov 15, 2016. Admission Reason for Admission: Osteomyelitis Of Ankle Or Foot Discharge Discharge Diagnosis / Problem: cellulitis -- fortunately no osteomyelitis/bone infection Discharge Goals Goal(s): Diagnostic testing, Therapeutic intervention Activity Recommendations Activity Limitations: resume your previous activity . Instructions / Follow-Up Instructions / Follow-Up the cellulitis is improving, fortunately, despite initial concerns, there was no evidence of bone infection (osteomyelitis) once it was evaluated further -the infectious disease team would like you take another week (to round out about 10 days total) of antibiotics with cipro and augmentin -augmentin is usually tolerated well - the most common side effect is just an upset stomach, if you take it with food, this minimizes the chances of having problems -cipro is similarly tolerated to augmentin (again if it upsets your stomach take it with food), as an odd, more rare side effect, it can make you more prone to tendonitis or even tendon rupture - so we recommend you refrain from heavy lifting/overhead lifting/etc for the next month or so the questionable stricture in your colon was not seen on scope - making the CT more than likely a false positive, and the bowel distention either an ileus (a nonspecific entity where your bowels "go on strike" -- which could've happened simply from being sick) versus just a false positive CT from constipation -to protect against future constipation, try to have a bowel movement about once a day --> if you haven't, then consider using a dose of miralax ( polyethelyne glycol) once a day up to twice a day in order to get things moving. if you're having adequate bowel movements then you wouldn't need to use it at all Current Hospital Diet Patient's current hospital diet: Clear Liquid Diet Discharge Diet Recommended Diet: Regular Diet Procedures Procedures Performed: Colonoscopy Pending Studies Studies pending at discharge: no Medical Emergencies . Who to Call and When: Medical Emergencies: If at any time you feel your situation is an emergency, please call 911 immediately. . Non-Emergent Contact Non-Emergency issues call your: Primary Care Provider . . "Provider Documentation" section prepared by Marcos Hammonds. . VTE Core Measure Inpt VTE Proph given/why not?: Enoxaparin (Lovenox)JOSE, TVeronica Marino, SCD's
[2016-11-15 13:50] VITALS: O2SAT 78
--- NOTE | 2016-11-15 14:45 | Infectious Disease Progress Nt ---
Progress Note Date of Service Nov 15, 2016. Subjective Pt evaluation today including: conversation w/ patient, physical exam, chart review, lab review, review of studies, review of inpatient medication list Patient is feeling well today. He is s/p colonoscopy which upon review of the operative report was relatively unremarkable other than findings of internal hemorrhoids. The patient states that he has had many watery bowel movements over the past few days. He continues on PO Cipro and Augmetnin. WBC count today kimberly 8.03. Creatinine was 0.77. Abdominal/Pelvic CT scan over the weekend showed marked gaseous distention of the colon with several air-fluid levels along with concern for stricture or obstructing mass which is why the patient has colonoscopy. Final wound culture grew Proteus, Citrobacter, POULTRY PACKER, Bacillus species, and Clostridium. All Other Systems: Reviewed and Negative Medications Current Inpatient Medications Medications (Trade) Dose Ordered Sig/Sam Route Start Time Stop Time Status Last Admin Dose Admin Aspirin (Ecotrin Tab) 81 mg DAILY PO 11/10/16 09:00 12/10/16 08:59 11/14/16 08:45 81 MG Digoxin (Lanoxin Tab) 0.25 mg DAILY PO 11/10/16 09:00 12/10/16 08:59 11/15/16 07:56 0.25 MG Diltiazem HCl (Cardizem Cd Cap) 300 mg DAILY PO 11/10/16 09:00 12/10/16 08:59 11/15/16 07:53 300 MG Furosemide (Lasix Tab) 80 mg QAM PO 11/10/16 09:00 12/10/16 08:59 Future hold 11/14/16 08:44 80 MG Metoprolol Succinate (Toprol Xl Tab) 200 mg DAILY PO 11/10/16 09:00 12/10/16 08:59 11/15/16 07:52 200 MG Warfarin Sodium (Coumadin Tab) 2.5 mg DAILY@1600 PO 11/10/16 16:00 12/10/16 15:59 Future Hold 11/13/16 15:45 2.5 MG Acetaminophen (Tylenol Tab) 650 mg Q4H PRN PO 11/09/16 18:00 12/09/16 17:59 11/14/16 20:19 650 MG Magnesium Hydroxide (Milk Of Magnesia Susp) 30 ml Q6H PRN PO 11/09/16 18:00 12/09/16 17:59 Polyethylene (Miralax Powder Packet) 17 gm DAILY PRN PO 11/09/16 18:00 12/09/16 17:59 Ondansetron HCl (Zofran Inj) 4 mg Q6H PRN IV 11/09/16 18:00 12/09/16 17:59 Ketoconazole (Nizoral 2% Crm) 1 appln BID EXT 11/09/16 21:00 01/04/17 20:59 11/15/16 07:52 1 APPLN Multi-Ingredient Ointment (Eucerin Unscented Cr) 1 appln BID EXT 11/10/16 21:00 12/10/16 20:59 11/15/16 07:52 1 APPLN Amoxicillin/ Clavulanate Potassium (Augmentin Tab) 875 mg BIDM PO 11/12/16 17:45 11/22/16 17:44 11/14/16 18:14 875 MG Ciprofloxacin (Cipro Tab) 500 mg BID PO 11/12/16 21:00 11/22/16 20:59 11/14/16 20:15 500 MG Ioversol (Optiray 320) 125 ml UD PRN IV 11/13/16 11:15 11/17/16 11:14 Lisinopril (Zestril Tab) 10 mg DAILY PO 11/14/16 09:15 12/14/16 09:14 11/14/16 13:15 10 MG Ephedrine Sulfate (EpHEDrine SULFATE INJ) 5 mg Q5M PRN IV 11/15/16 11:00 11/16/16 10:59 Atropine Sulfate (Atropine Sulfate 0.1MG/Ml Inj) 0.5 mg Q1M PRN IV 11/15/16 11:00 11/16/16 10:59 Objective Vital Signs Date Time Temp Pulse Resp B/P (MAP) Pulse Ox O2 Delivery O2 Flow Rate FiO2 11/15/16 12:25 62 20 129/67 (87) 98 Room Air 11/15/16 12:15 60 20 131/73 (92) 98 Room Air 11/15/16 12:00 66 20 118/59 (78) 98 Room Air 11/15/16 10:46 36.6 82 20 159/79 (105) 97 Room Air 11/15/16 10:35 36.3 85 18 133/74 96 Room Air 11/15/16 08:28 Room Air 11/15/16 08:27 36.3 18 11/15/16 07:56 85 11/15/16 07:55 85 133/74 (93) 96 Room Air 11/14/16 23:40 Room Air 11/14/16 23:17 36.1 83 18 154/97 (116) 96 Room Air 11/14/16 22:21 36.7 11/14/16 16:30 Room Air 11/14/16 15:10 36.5 66 18 144/84 (104) 95 Room Air Physical Exam General Appearance: WD/WN, no apparent distress Eyes: normal inspection, sclerae normal ENT: hearing grossly normal Neck: supple, trachea midline Respiratory/Chest: lungs clear, normal breath sounds, no respiratory distress, no accessory muscle use Cardiovascular: + normal peripheral pulses (regular rate) Extremities: normal range of motion, + swelling (moderate edema of the b/l LE. Wrapped- C/D/I) Neurologic/Psychiatric: alert, normal mood/affect Skin: warm/dry, no rash Laboratory Results RUN DATE: 11/13/16 [facility] PAGE 1 RUN TIME: 829 Specimen Inquiry PATIENT: ARMEN COX LOC: JO U # : [id number] AGE/SX: 76/M ROOM: [facility] REG : 11/09/[address]: Naeem Coates MD : [id number] BED: 1 DIS : STATUS: ADM IN TLOC: SPEC #: [id number] VADIM: 11/09/16 STATUS: COMP REQ #: [id number] RECD: 11/09/[address]: Ella Bynum PA-C SOURCE: CELLULITIS ENTR: 11/09/[address]: Denys Moore M.D. SPDESC: FOOT LEFT Denys Romero DO Guillard, Paul, M.D. Moustafa Hussein, Wesam H., MD ORDERED: CARLEEN MCKEON CUL/KIN COMMENTS: Has Specimen Been Obtained/Collected? Y Procedure Result Verified Site GRAM STAIN Final 11/10/16 RESULT FEW EPITHELIAL CELLS MANY GRAM POSITIVE BACILLI FEW GRAM POSITIVE COCCI FEW GRAM NEGATIVE BACILLI NO WBCs SEEN CORRECTED REPORT Report corrected on 11/10/16 at 0707 by NICK. FEW GRAM NEGATIVE BACILLI previously reported as FEW GRAM VARIABLE BACILLI. Phoned corrected report to CHINA OSORIO on 11/10/16 at 0707 by Mindy Covarrubias. Results were verbalized back to NICK. * This is a corrected result. * A prior result that was reported as final has been changed. DEEP WOUND CULTURE Final 11/13/16-829 Organism 1 PROTEUS VULGARIS QUANITY MANY SENS SENSITIVITY TO FOLLOW Organism 2 CITROBACTER KOSERI QUANITY FEW SENS SENSITIVITY TO FOLLOW Organism 3 COAG NEG STAPHYLOCOCCUS QUANITY MODERATE SENS SENSITIVITY TO FOLLOW Organism 4 BACILLUS SPECIES NOT ANTHRACIS QUANITY RARE SENS NO SENSITIVITY TO FOLLOW Organism 5 CLOSTRIDIUM CLOSTRIDIIFORME QUANITY RARE SENS NO SENSITIVITY TO FOLLOW CONTINUED ON NEXT PAGE RUN DATE: 11/13/16 [facility] PAGE 2 RUN TIME: 829 Specimen Inquiry SPEC: [id number] PATIENT: ARMEN COX [id number] ( Continued) Procedure Result Verified Site DEEP WOUND CULTURE Final (continued) 11/13/16-829 PRO MARIA INES BOSWELL POULTRY PACKER M.I.C. RX M.I.C. RX M.I.C. RX --------- ------ --------- ------ --------- ------ TRIMET/SULFA <=2/38 S <=2/38 S <=0.5/9.5 S * OXACILLIN <=0.25 S AMPICILLIN/SUL <=8/4 S <=8/4 S CEFAZOLIN <=8 S CEFOTAXIME <=2 S <=2 S CEFTRIAXONE <=1 S <=1 S CEFEPIME <=4 S <=4 S CEFUROXIME 8 S IMIPENEM 2 I <=1 S VANCOMYCIN 2 S GENTAMICIN <=4 S <=4 S TOBRAMYCIN <=4 S <=4 S ERYTHROMYCIN <=0.5 S TETRACYCLINE <=4 S AMIKACIN <=16 S <=16 S CIPROFLOXACIN <=1 S <=1 S LEVOFLOXACIN <=2 S <=2 S CLINDAMYCIN <=0.5 S ERTAPENEM <=1 S <=1 S DAPTOMYCIN <=0.5 S PIP/TAZO <=16 S <=16 S 1. PROTEUS VULGARIS Target Route Dose RX AB Cost M.I.C. IQ ------ ----- ------ -- ------ -------- - ------ TRIMET/SULFA S <=2/38 AMPICILLIN/SUL S <=8/4 CEFOTAXIME S <=2 CEFTRIAXONE S <=1 CEFEPIME S <=4 IMIPENEM I 2 GENTAMICIN S <=4 TOBRAMYCIN S <=4 AMIKACIN S <=16 CIPROFLOXACIN S <=1 LEVOFLOXACIN S <=2 ERTAPENEM S <=1 PIP/TAZO S <=16 2. CITROBACTER KOSERI Target Route Dose RX AB Cost M.I.C. IQ ------ ----- ------ -- ------ -------- - ------ TRIMET/SULFA S <=2/38 AMPICILLIN/SUL S <=8/4 CEFAZOLIN S <=8 CEFOTAXIME S <=2 CONTINUED ON NEXT PAGE RUN DATE: 11/13/16 [facility] PAGE 3 RUN TIME: 0830 Specimen Inquiry SPEC: [id number] PATIENT: ARMEN COX [id number] ( Continued) Procedure Result Verified Site DEEP WOUND CULTURE Final (continued) 11/13/16-829 2. CITROBACTER KOSERI (continued) Target Route Dose RX AB Cost M.I.C. IQ ------ ----- ------ -- ------ -------- - ------ CEFTRIAXONE S <=1 CEFEPIME S <=4 CEFUROXIME S 8 IMIPENEM S <=1 GENTAMICIN S <=4 TOBRAMYCIN S <=4 AMIKACIN S <=16 CIPROFLOXACIN S <=1 LEVOFLOXACIN S <=2 ERTAPENEM S <=1 PIP/TAZO S <=16 3. COAG NEG STAPHYLOCOCCUS Target Route Dose RX AB Cost M.I.C. IQ ------ ----- ------ -- ------ -------- - ------ TRIMET/SULFA S <=0.5/ 9.5 * OXACILLIN S <=0.25 VANCOMYCIN S 2 ERYTHROMYCIN S <=0.5 TETRACYCLINE S <=4 CLINDAMYCIN S <=0.5 DAPTOMYCIN S <=0.5 S = SENSITIVE I = INTERMEDIATE R = RESISTANT CT SCAN OF THE ABDOMEN AND PELVIS WITH IV CONTRAST CLINICAL HISTORY: Abdominal distention. Clinical concern for ileus. COMPARISON STUDY: Abdominal radiographs dated 11/11/2016 and 11/13/2016. TECHNIQUE: Following the IV administration of 94 cc of Optiray 320, CT scan of the abdomen and pelvis is performed from the lung bases to the proximal femora. Images are reviewed in the axial, sagittal, and coronal planes. IV contrast was administered without complication. Automated dose control exposure was utilized. CT DOSE: 621.97 mGy.cm FINDINGS: Lung bases: The heart is markedly enlarged and without pericardial effusion. The coronary arteries are densely calcified. There is a tiny hiatal hernia. There are small pleural effusions with bibasilar atelectasis. Liver: The contrast-enhanced liver is normal in size, contour, and attenuation. There is no intrahepatic biliary ductal dilatation. The hepatic veins and portal veins are patent. Gallbladder: Unremarkable. Spleen: Normal in size and attenuation. Pancreas: Atrophic and grossly unremarkable. Adrenal glands: Unremarkable. Kidneys: The contrast enhanced kidneys demonstrate cortical atrophy and are without hydronephrosis. The kidneys enhance symmetrically. A 10 mm cyst is noted in the right kidney. Abdominal vasculature: The abdominal aorta is normal in course and caliber noting advanced atherosclerotic calcification. Bowel: There is diffuse gaseous distention of the colon which demonstrates air-fluid levels. No colonic wall thickening is identified and there is no pericolonic inflammation. There is only mild distention of the small bowel loops. There is a 2.5 cm focus of narrowing identified in the sigmoid colon on axial image #296. Mild wall thickening and hyperemia is suggested in the proximal duodenum. There is trace periduodenal fluid. The appendix is not identified. Peritoneum: There is no intraperitoneal free air or abdominal ascites. Lymphadenopathy: There are numerous subcentimeter upper abdominal and retroperitoneal lymph nodes. These are not clearly pathologically enlarged by size criteria.. Pelvic viscera: Evaluation of the pelvis is degraded by streak artifact from a right hip arthroplasty. The bladder is normal as visualized. The prostate gland is surgically absent. Numerous surgical clips are present in the pelvis. There is a tiny fat-containing right inguinal hernia. There is asymmetric atrophy of the right iliopsoas musculature as compared to left. Skeletal structures: The skeletal structures are osteopenic. There is moderate to advanced lumbosacral spondylosis. No lytic or blastic lesions are seen. A right hip arthroplasty is in place. Advanced arthritic changes seen in the left hip. Degenerative change and partial fusion is seen involving the sacroiliac joints and pubic symphysis. Soft tissues: There is mild body wall edema. IMPRESSION: 1. There is marked gaseous distention of the colon which demonstrates several air-fluid levels. There is no colonic wall thickening or pericolonic inflammation. There is only mild distention of the small bowel loops. This may represent ileus as clinically queried. 2. There is a 2.5 cm focus of narrowing suggested in the sigmoid colon. This may simply represent underdistention, with stricture or an obstructing mass lesion not excluded as this is not well assessed by CT. Clinical correlation will be required. Consider follow-up with colonoscopy when the patient is clinically able. 3. The proximal duodenum appears mildly thick-walled and hyperemic and there is trace periduodenal fluid. There is nonspecific. Correlate clinically for evidence of duodenitis or possibly ulcer disease. Endoscopy could be considered for further assessment. 4. Marked cardiomegaly and small pleural effusions. 5. Additional findings as above. Last 24 Hours Test 11/14/16 19:00 11/15/16 05:05 Prothrombin Time 28.1 SECONDS 21.4 SECONDS Prothromb Time International Ratio 2.5 1.9 White Blood Count 8.03 K/uL Red Blood Count 4.08 M/uL Hemoglobin 14.2 g/dL Hematocrit 39.4 % Mean Corpuscular Volume 96.6 fL Mean Corpuscular Hemoglobin 34.8 pg Mean Corpuscular Hemoglobin Concent 36.0 g/dl RDW Standard Deviation 43.7 fL RDW Coefficient of Variation 12.3 % Platelet Count 258 K/uL Mean Platelet Volume 10.5 fL Sodium Level 143 mmol/L Potassium Level 3.2 mmol/L Chloride Level 107 mmol/L Carbon Dioxide Level 29 mmol/L Anion Gap 7.0 mmol/L Blood Urea Nitrogen 12 mg/dl Creatinine 0.77 mg/dl Est Creatinine Clear Calc Drug Dose 95.1 ml/min Estimated GFR () 103.6 Estimated GFR (Non- 89.4 BUN/Creatinine Ratio 16.2 Random Glucose 110 mg/dl Calcium Level 8.9 mg/dl Assessment and Plan Patient with Hx 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 He is currently on PO Augmentin and Cipro and tolerating them well. I feel that this patient likely will need at least 10-14 more days of therapy since he is healing slowly. He should follow up with ID as an outpatient prior to discontinuation. Thanks Case reviewed and agree with above assessment.
--- NOTE | 2016-11-15 15:48 | Progress Note ---
Subjective Date of Service: Nov 15, 2016. Subjective Pt evaluation today including: conversation w/ patient, physical exam, chart review, lab review, review of inpatient medication list feeling better - notes bowel prep helped a lot. seen post colo as well on 2nd visit - feeling better eating well notes leg infection basically gone initially talks about wanting to go home but later notes he's OK w going to SNF for PT/OT purposes ROS otherwise negative except for as above Problem List Medical Problems: (1) 35697 Status: Acute (2) Dizziness Status: Acute (3) Encephalitis Status: Acute (4) Multiple open wounds of lower extremity Status: Acute Review of Systems ROS otherwise negative except for as above Objective Vital Signs Date Time Temp Pulse Resp B/P (MAP) Pulse Ox O2 Delivery O2 Flow Rate FiO2 11/15/16 15:25 Room Air 11/15/16 13:50 78 11/15/16 12:25 62 20 129/67 (87) 98 Room Air 11/15/16 12:15 60 20 131/73 (92) 98 Room Air 11/15/16 12:00 66 20 118/59 (78) 98 Room Air 11/15/16 10:46 36.6 82 20 159/79 (105) 97 Room Air 11/15/16 10:35 36.3 85 18 133/74 96 Room Air 11/15/16 08:28 Room Air 11/15/16 08:27 36.3 18 11/15/16 07:56 85 11/15/16 07:55 85 133/74 (93) 96 Room Air 11/14/16 23:40 Room Air 11/14/16 23:17 36.1 83 18 154/97 (116) 96 Room Air 11/14/16 22:21 36.7 11/14/16 16:30 Room Air Physical Exam General Appearance: no apparent distress Eyes: EOMI ENT: hearing grossly normal Neck: trachea midline Respiratory/Chest: no respiratory distress, no accessory muscle use Abdomen: non tender, soft Neurologic/Psychiatric: provider enrollment specialist II-XII nml as tested, alert, normal mood/affect Laboratory Results Last 24 Hours Test 11/14/16 19:00 11/15/16 05:05 Prothrombin Time 28.1 SECONDS 21.4 SECONDS Prothromb Time International Ratio 2.5 1.9 White Blood Count 8.03 K/uL Red Blood Count 4.08 M/uL Hemoglobin 14.2 g/dL Hematocrit 39.4 % Mean Corpuscular Volume 96.6 fL Mean Corpuscular Hemoglobin 34.8 pg Mean Corpuscular Hemoglobin Concent 36.0 g/dl RDW Standard Deviation 43.7 fL RDW Coefficient of Variation 12.3 % Platelet Count 258 K/uL Mean Platelet Volume 10.5 fL Sodium Level 143 mmol/L Potassium Level 3.2 mmol/L Chloride Level 107 mmol/L Carbon Dioxide Level 29 mmol/L Anion Gap 7.0 mmol/L Blood Urea Nitrogen 12 mg/dl Creatinine 0.77 mg/dl Est Creatinine Clear Calc Drug Dose 95.1 ml/min Estimated GFR () 103.6 Estimated GFR (Non- 89.4 BUN/Creatinine Ratio 16.2 Random Glucose 110 mg/dl Calcium Level 8.9 mg/dl Assessment and Plan 1. cellulitis, LLE, along with multiple wounds of left renee - now on cipro & augmentin per recommendations of ID. -fortunately no osteo on MRI -finish out 10 days abx (PO) -stable 2. ileus / sigmoid stricture? -fortunately scope was negative --- no stricture. improved with bowel prep - so quite possibly all constipation vs simple ileus that has since resolved. 3. hypokalemia - resolved. 4. chronic diastolic CHF - compensated; cont lasix, beta livia 5. HTN - better controlled, continue current meds 6. PAF - holding coumadin in anticipation of upcoming colonoscopy. Cont BB, CCB, and digoxin. See above re: vitamin K. 7. DVT proph - coumadin. 8. venous insuff - compression. 9. FEN - clears today, NPO after MN tonight, lytes stable; repeat BMP am. 10. tinea pedis - ketoconazole cream BID. 11. PAD - b/l legs - vascular has seen - no Rx needed at this time. Continued [facility] stay due to: inadequate po fluid intake, other (colonic ileus) Discharge planning: home with home health
[2016-11-15 23:25] VITALS: BP 147/81; PULSE 75; TEMP 36.6; O2SAT 95
[2016-11-16] MEDS: ACETAMINOPHEN 325 MG TAB PO PRN (00:02)
[2016-11-16 03:45] VITALS: BP 139/78; PULSE 66; TEMP 36.4; O2SAT 93
[2016-11-16 07:20] VITALS: BP 158/80; PULSE 61; TEMP 36.3; O2SAT 96
--- NOTE | 2016-11-16 08:38 | Gastroenterology Progress Note ---
Progress Note Date of Service: Nov 16, 2016 Subjective Pt evaluation today including: conversation w/ patient, physical exam, lab review Doing well today. Had a BM this AM. Tolerating PO intake. No further complaints. Review of Systems Constitutional: No fever, No chills Respiratory: No shortness of breath Cardiac: No chest pain Abdomen: No nausea, No vomiting, No diarrhea, No GI bleeding Medications Current Inpatient Medications Medications (Trade) Dose Ordered Sig/Sam Route Start Time Stop Time Status Last Admin Dose Admin Aspirin (Ecotrin Tab) 81 mg DAILY PO 11/10/16 09:00 12/10/16 08:59 11/14/16 08:45 81 MG Digoxin (Lanoxin Tab) 0.25 mg DAILY PO 11/10/16 09:00 12/10/16 08:59 11/15/16 07:56 0.25 MG Diltiazem HCl (Cardizem Cd Cap) 300 mg DAILY PO 11/10/16 09:00 12/10/16 08:59 11/15/16 07:53 300 MG Furosemide (Lasix Tab) 80 mg QAM PO 11/10/16 09:00 12/10/16 08:59 Future hold 11/14/16 08:44 80 MG Metoprolol Succinate (Toprol Xl Tab) 200 mg DAILY PO 11/10/16 09:00 12/10/16 08:59 11/15/16 07:52 200 MG Warfarin Sodium (Coumadin Tab) 2.5 mg DAILY@1600 PO 11/10/16 16:00 12/10/16 15:59 Future Hold 11/13/16 15:45 2.5 MG Acetaminophen (Tylenol Tab) 650 mg Q4H PRN PO 11/09/16 18:00 12/09/16 17:59 11/16/16 00:02 650 MG Magnesium Hydroxide (Milk Of Magnesia Susp) 30 ml Q6H PRN PO 11/09/16 18:00 12/09/16 17:59 Polyethylene (Miralax Powder Packet) 17 gm DAILY PRN PO 11/09/16 18:00 12/09/16 17:59 Ondansetron HCl (Zofran Inj) 4 mg Q6H PRN IV 11/09/16 18:00 12/09/16 17:59 Ketoconazole (Nizoral 2% Crm) 1 appln BID EXT 11/09/16 21:00 01/04/17 20:59 11/15/16 20:31 1 APPLN Multi-Ingredient Ointment (Eucerin Unscented Cr) 1 appln BID EXT 11/10/16 21:00 12/10/16 20:59 11/15/16 20:31 1 APPLN Amoxicillin/ Clavulanate Potassium (Augmentin Tab) 875 mg BIDM PO 11/12/16 17:45 11/22/16 17:44 11/15/16 17:32 875 MG Ciprofloxacin (Cipro Tab) 500 mg BID PO 11/12/16 21:00 11/22/16 20:59 11/15/16 20:31 500 MG Ioversol (Optiray 320) 125 ml UD PRN IV 11/13/16 11:15 11/17/16 11:14 Lisinopril (Zestril Tab) 10 mg DAILY PO 11/14/16 09:15 12/14/16 09:14 11/14/16 13:15 10 MG Ephedrine Sulfate (EpHEDrine SULFATE INJ) 5 mg Q5M PRN IV 11/15/16 11:00 11/16/16 10:59 Atropine Sulfate (Atropine Sulfate 0.1MG/Ml Inj) 0.5 mg Q1M PRN IV 11/15/16 11:00 11/16/16 10:59 Objective Vital Signs Date Time Temp Pulse Resp B/P (MAP) Pulse Ox O2 Delivery O2 Flow Rate FiO2 11/16/16 07:40 Room Air 11/16/16 07:20 36.3 61 19 158/80 (106) 96 Room Air 11/16/16 03:45 36.4 66 18 139/78 (98) 93 Room Air 11/15/16 23:55 Room Air 11/15/16 23:25 36.6 75 16 147/81 (103) 95 Room Air 11/15/16 15:25 Room Air 11/15/16 13:50 78 11/15/16 12:25 62 20 129/67 (87) 98 Room Air 11/15/16 12:15 60 20 131/73 (92) 98 Room Air 11/15/16 12:00 66 20 118/59 (78) 98 Room Air 11/15/16 10:46 36.6 82 20 159/79 (105) 97 Room Air 11/15/16 10:35 36.3 85 18 133/74 96 Room Air Physical Exam General Appearance: no apparent distress Respiratory/Chest: lungs clear Cardiovascular: regular rate, rhythm Abdomen: non tender, soft Assessment and Plan Assessment: 76 yo CM who has an abnormal CT abd showing questionable stricture/mass in the sigmoid colon for colonoscopy. Plan: Colonoscopy showed no evidence of stricture or mass in sigmoid colon. Patient feeling much better at this time. Recommend Metamucil 1 teaspoonful in 8 oz glass of water daily. Will sign off at this time. Please do not hesitate to contact me if you have any further questions.
[2016-11-16] MEDS: CIPROFLOXACIN 500 MG TAB PO SCH ×2 (08:49→21:03)
[2016-11-16] MEDS: AMOXICILLIN/CLAVULANATE TAB 875 MG TAB PO SCH ×2 (08:49→17:38)
[2016-11-16] MEDS: EUCERIN CR 120 GM JAR EXT SCH ×2 (08:49→21:02)
[2016-11-16] MEDS: LISINOPRIL 10 MG TAB PO SCH (08:49)
[2016-11-16] MEDS: ASPIRIN 81 MG ECTAB PO SCH (08:50)
[2016-11-16] MEDS: FUROSEMIDE 80 MG TAB PO SCH (08:50)
[2016-11-16] MEDS: DIGOXIN 0.25 MG TAB PO SCH (08:52)
[2016-11-16] MEDS: DILTIAZEM HCL 300 MG CAPCR PO SCH (08:52)
[2016-11-16] MEDS: METOPROLOL SUCC 50MG EXT REL TAB PO SCH (08:53)
[2016-11-16] MEDS: KETOCONAZOLE 2% CR 15 GM TUBE EXT SCH ×2 (08:53→21:03)
[2016-11-16 15:45] VITALS: BP 108/67; PULSE 60; TEMP 36.6; O2SAT 99
--- NOTE | 2016-11-16 19:01 | Progress Note ---
Subjective Date of Service: Nov 16, 2016. Subjective Pt evaluation today including: conversation w/ patient, physical exam, chart review, lab review, review of inpatient medication list feeling better belly ok just hasn't had BM nromal since colo foot doing ok for juniper tomorrow Problem List Medical Problems: (1) 22961 Status: Acute (2) Dizziness Status: Acute (3) Encephalitis Status: Acute (4) Multiple open wounds of lower extremity Status: Acute Review of Systems ROS otherwise negative except for as above Objective Vital Signs Date Time Temp Pulse Resp B/P (MAP) Pulse Ox O2 Delivery O2 Flow Rate FiO2 11/16/16 15:45 36.6 60 16 108/67 (81) 99 Room Air 11/16/16 08:52 68 11/16/16 07:40 Room Air 11/16/16 07:20 36.3 61 19 158/80 (106) 96 Room Air 11/16/16 03:45 36.4 66 18 139/78 (98) 93 Room Air 11/15/16 23:55 Room Air 11/15/16 23:25 36.6 75 16 147/81 (103) 95 Room Air Physical Exam General Appearance: no apparent distress Eyes: EOMI ENT: hearing grossly normal Neck: trachea midline Respiratory/Chest: no respiratory distress, no accessory muscle use Neurologic/Psychiatric: kelp gatherer II-XII nml as tested, alert Skin: normal color Assessment and Plan 1. cellulitis, LLE, along with multiple wounds of left renee - now on cipro & augmentin per recommendations of ID. -fortunately no osteo on MRI -finish out 10 days abx (PO) -stable 2. ileus / sigmoid stricture? -fortunately scope was negative --- no stricture. improved with bowel prep - so quite possibly all constipation vs simple ileus that has since resolved. 3. hypokalemia - resolved. 4. chronic diastolic CHF - compensated; cont lasix, beta livia 5. HTN - better controlled, continue current meds 6. PAF - holding coumadin in anticipation of upcoming colonoscopy. Cont BB, CCB, and digoxin. See above re: vitamin K. 7. DVT proph - coumadin. 8. venous insuff - compression. 9. FEN - clears today, NPO after MN tonight, lytes stable; repeat BMP am. 10. tinea pedis - ketoconazole cream BID. 11. PAD - b/l legs - vascular has seen - no Rx needed at this time. anticipate [facility] tomorrow
[2016-11-16 22:55] VITALS: BP 135/69; PULSE 68; TEMP 36.6; O2SAT 95
[2016-11-17 07:48] VITALS: BP 156/79; PULSE 68; TEMP 36.4; O2SAT 97
[2016-11-17] MEDS: AMOXICILLIN/CLAVULANATE TAB 875 MG TAB PO SCH (08:36)
[2016-11-17] MEDS: EUCERIN CR 120 GM JAR EXT SCH (08:36)
[2016-11-17] MEDS: KETOCONAZOLE 2% CR 15 GM TUBE EXT SCH (08:36)
[2016-11-17] MEDS: DILTIAZEM HCL 300 MG CAPCR PO SCH (08:36)
[2016-11-17] MEDS: DIGOXIN 0.25 MG TAB PO SCH (08:37)
[2016-11-17] MEDS: ASPIRIN 81 MG ECTAB PO SCH (08:37)
[2016-11-17] MEDS: CIPROFLOXACIN 500 MG TAB PO SCH (08:37)
[2016-11-17] MEDS: LISINOPRIL 10 MG TAB PO SCH (08:37)
[2016-11-17] MEDS: METOPROLOL SUCC 50MG EXT REL TAB PO SCH (08:38)
[2016-11-17] MEDS: FUROSEMIDE 80 MG TAB PO SCH (08:38)
--- NOTE | 2016-11-17 10:10 | Discharge Instructions ---
Discharge Instructions Date of Service Nov 17, 2016. Admission Reason for Admission: Osteomyelitis Of Ankle Or Foot Discharge Discharge Diagnosis / Problem: cellulitis (fortunately no osteomyelitis) Discharge Goals Goal(s): Diagnostic testing, Therapeutic intervention Activity Recommendations Activity Level: Assistance Required Therapies: Physical Therapy, Occupational Therapy . Additional Information Patient informed of condition: Yes Advance Directives: No DNR: No Level of Care: Skilled (rehab emphasis) Communicable Disease: No Prognosis: Improving Instructions / Follow-Up Instructions / Follow-Up finish out course of cipro and augmentin (10 more doses of both)(can extend course further if clinically warranted but 10 more doses//5 more days would complete 10 days total abx) had appearance of sigmoid obstruction on CT - had colo with no stricture/ stenosis/mass --> with hindsight likely was atypical appearance of constipation - so would simply be aggressive with bowel regimen Current Hospital Diet Patient's current hospital diet: Regular Diet Discharge Diet Recommended Diet: Regular Diet Procedures Procedures Performed: Colonoscopy Pending Studies Studies pending at discharge: no Medical Emergencies . Who to Call and When: Medical Emergencies: If at any time you feel your situation is an emergency, please call 911 immediately. . Non-Emergent Contact Non-Emergency issues call your: Primary Care Provider . . "Provider Documentation" section prepared by Marcos Hammonds. . Core Measure Problem Core Measures: None
[2016-11-17 10:49] VITALS: BP 156/79; PULSE 68; TEMP 36.4; O2SAT 97
--- NOTE | 2016-11-17 18:01 | Discharge Summary ---
Discharge Summary Date of Service Nov 17, 2016. Discharge Summary Admission Date: Nov 09, 2016 at 19:35 Discharge Date: Nov 15, 2016 [facility] Principal Diagnosis: foot cellulitis Immunizations: Have You Had Influenza Vaccine: N/A History of Tetanus Vaccine?: Yes History of Pneumococcal: No History of Hepatitis B Vaccine: No Procedures: Procedure Date: 11/15/2016 11:31 AM Procedure: Colonoscopy Indications: Abnormal CT of the GI tract Medicines: Monitored Anesthesia Care Complications: No immediate complications. Estimated Blood Loss: Estimated blood loss: none. Procedure: Pre-Anesthesia Assessment: - Prior to the procedure, a History and Physical was performed, and patient medications and allergies were reviewed. The patient's tolerance of previous anesthesia was also reviewed. The risks and benefits of the procedure and the sedation options and risks were discussed with the patient. All questions were answered, and informed consent was obtained. Prior Anticoagulants: The patient last took Coumadin (warfarin) 2 days prior to the procedure and last took aspirin on the day of the procedure. ASA Grade Assessment: IV - A patient with severe systemic disease that is a constant threat to life. After reviewing the risks and benefits, the patient was deemed in satisfactory condition to undergo the procedure. After I obtained informed consent, the scope was passed under direct vision. Throughout the procedure, the patient's blood pressure, pulse, and oxygen saturations were monitored continuously. The scope was introduced through the anus and advanced to the terminal ileum. The colonoscopy was performed without difficulty. The patient tolerated the procedure well. The quality of the bowel preparation was good. The terminal ileum, ileocecal valve, appendiceal orifice, and rectum were photographed. Findings: Non-bleeding internal hemorrhoids were found during retroflexion. The hemorrhoids were medium-sized. The exam was otherwise without abnormality. Impression: - Non-bleeding internal hemorrhoids. - The examination was otherwise normal. - No specimens collected. Recommendation: - [facility]. - Advance diet as tolerated. - Continue present medications. - No repeat colonoscopy due to age and the absence of advanced adenomas. Jose Daniel Pittman DO 11/15/2016 11:55:44 AM This report has been signed electronically. Note Initiated On: 11/15/2016 11:31 AM I attest to the content of the Intraoperative Record and orders documented therein, exceptions below CT SCAN OF THE ABDOMEN AND PELVIS WITH IV CONTRAST CLINICAL HISTORY: Abdominal distention. Clinical concern for ileus. COMPARISON STUDY: Abdominal radiographs dated 11/11/2016 and 11/13/2016. TECHNIQUE: Following the IV administration of 94 cc of Optiray 320, CT scan of the abdomen and pelvis is performed from the lung bases to the proximal femora. Images are reviewed in the axial, sagittal, and coronal planes. IV contrast was administered without complication. Automated dose control exposure was utilized. CT DOSE: 621.97 mGy.cm FINDINGS: Lung bases: The heart is markedly enlarged and without pericardial effusion. The coronary arteries are densely calcified. There is a tiny hiatal hernia. There are small pleural effusions with bibasilar atelectasis. Liver: The contrast-enhanced liver is normal in size, contour, and attenuation. There is no intrahepatic biliary ductal dilatation. The hepatic veins and portal veins are patent. Gallbladder: Unremarkable. Spleen: Normal in size and attenuation. Pancreas: Atrophic and grossly unremarkable. Adrenal glands: Unremarkable. Kidneys: The contrast enhanced kidneys demonstrate cortical atrophy and are without hydronephrosis. The kidneys enhance symmetrically. A 10 mm cyst is noted in the right kidney. Abdominal vasculature: The abdominal aorta is normal in course and caliber noting advanced atherosclerotic calcification. Bowel: There is diffuse gaseous distention of the colon which demonstrates air-fluid levels. No colonic wall thickening is identified and there is no pericolonic inflammation. There is only mild distention of the small bowel loops. There is a 2.5 cm focus of narrowing identified in the sigmoid colon on axial image #296. Mild wall thickening and hyperemia is suggested in the proximal duodenum. There is trace periduodenal fluid. The appendix is not identified. Peritoneum: There is no intraperitoneal free air or abdominal ascites. Lymphadenopathy: There are numerous subcentimeter upper abdominal and retroperitoneal lymph nodes. These are not clearly pathologically enlarged by size criteria.. Pelvic viscera: Evaluation of the pelvis is degraded by streak artifact from a right hip arthroplasty. The bladder is normal as visualized. The prostate gland is surgically absent. Numerous surgical clips are present in the pelvis. There is a tiny fat-containing right inguinal hernia. There is asymmetric atrophy of the right iliopsoas musculature as compared to left. Skeletal structures: The skeletal structures are osteopenic. There is moderate to advanced lumbosacral spondylosis. No lytic or blastic lesions are seen. A right hip arthroplasty is in place. Advanced arthritic changes seen in the left hip. Degenerative change and partial fusion is seen involving the sacroiliac joints and pubic symphysis. Soft tissues: There is mild body wall edema. IMPRESSION: 1. There is marked gaseous distention of the colon which demonstrates several air-fluid levels. There is no colonic wall thickening or pericolonic inflammation. There is only mild distention of the small bowel loops. This may represent ileus as clinically queried. 2. There is a 2.5 cm focus of narrowing suggested in the sigmoid colon. This may simply represent underdistention, with stricture or an obstructing mass lesion not excluded as this is not well assessed by CT. Clinical correlation will be required. Consider follow-up with colonoscopy when the patient is clinically able. 3. The proximal duodenum appears mildly thick-walled and hyperemic and there is trace periduodenal fluid. There is nonspecific. Correlate clinically for evidence of duodenitis or possibly ulcer disease. Endoscopy could be considered for further assessment. 4. Marked cardiomegaly and small pleural effusions. 5. Additional findings as above. Electronically signed by: Jake Maurice M.D. 11/13/2016 12:27 PM Dictated Date/Time: 11/13/2016 12:16 PM MRI OF THE LEFT MID AND FOREFOOT WITHOUT AND WITH GADOLINIUM CLINICAL HISTORY: Left foot pain, swelling, redness, drainage. Possible osteomyelitis. Abnormal conventional radiographs COMPARISON STUDY: Conventional radiographic study dated 11/09/2016 FINDINGS: Imaging was performed in sagittal, coronal, and axial planes. Imaging before and after administration of 9 cc of intravenous Gadavist was performed There are no areas of marrow edema to indicate osteomyelitis. There are no fluid collections to indicate a deep abscess. There is moderate dorsal soft tissue edema, consistent with a cellulitis. No intramuscular masses are visualized. The examination is moderately limited from a technical standpoint due to motion artifact. IMPRESSION: 1. Technically limited study secondary to motion artifact 2. No evidence of osteomyelitis 3. Soft tissue edema, consistent with the clinical history of cellulitis Electronically signed by: Wilmer Weinstein M.D. 11/10/2016 10:12 PM Dictated Date/Time: 11/10/2016 10:08 PM ULTRASOUND BILATERAL LOWER EXTREMITY ARTERIAL CLINICAL HISTORY: Peripheral vascular disease. Osteomyelitis. Nonhealing left renee ulcer. COMPARISON STUDY: No priors. TECHNIQUE: Real-time, grayscale, and color Doppler sonography of the arteries of the right and left lower extremities performed from the inguinal crease to the foot. Ankle-brachial indices could not be assessed due to lower extremity bandaging. FINDINGS: Right lower extremity: There is advanced atherosclerotic plaque and irregularity seen throughout the arteries of the right lower extremity. There are triphasic waveforms seen in the right common femoral artery with velocities measuring up to 56 cm/s. The right profunda femoris artery is patent with velocities measuring up to 41 cm/s. There are triphasic arterial waveforms seen throughout the superficial femoral artery. Velocities within the superficial femoral artery measure up to 66 cm/s. There are biphasic to triphasic waveforms seen in the right popliteal artery with velocities measuring up to 62 cm/s. There is three-vessel runoff to the foot. There are markedly elevated velocities within the right posterior tibial artery proximally measuring up to 187 cm/s. The distal arterial waveforms appear blunted. There are markedly elevated velocities in the proximal right anterior tibial artery measuring up to 251 cm/s. Velocities in the peroneal artery measure up to 77 cm/s. The dorsalis pedis artery cannot be assessed due to bandaging. Left lower externally: There are advanced atherosclerotic plaque and irregularity seen throughout the arteries of the left lower extremity. There are triphasic arterial waveforms in the left common femoral artery with velocities measuring up to 65 cm/s. The left profunda femoris artery is patent with velocities measuring up to 48 cm/s. There are triphasic waveforms seen in the superficial femoral artery. Velocities throughout the superficial femoral artery measure up to 109 cm/s. There are monophasic to biphasic arterial waveforms in the left popliteal artery with velocities measuring up to 51 cm/s. There is three-vessel runoff to the foot. Markedly elevated velocities are seen within the peroneal artery measuring up to 355 cm/s. There is blunting of the distal arterial waveforms. Markedly elevated velocities are seen within the anterior tibial artery which measure up to 272 cm/s. There is blunting of the distal arterial waveforms. Velocities throughout the posterior tibial artery measure up to 78 cm/s. IMPRESSION: 1. Advanced atherosclerotic plaque. No focal vessel cut-off is identified in the right or left lower extremity. 2. There are markedly elevated velocities with blunted distal arterial waveforms seen within several of the right and left lower extremity calf vessels as detailed above suggesting high-grade stenosis. Dictated: 11/11/2016 10:34 PM Transcribed: 11/12/2016 12:14 AM [place] BILATERAL LOWER EXTREMITY VENOUS DOPPLER HISTORY: bilateral LE edema venous insuff r/o DVT COMPARISON STUDY: None. FINDINGS: There is normal compressibility, flow, and augmentation within the bilateral lower extremity deep venous systems. IMPRESSION: No DVT within the right or left lower extremity. Electronically signed by: Al Madrid M.D. 11/09/2016 8:15 PM Dictated Date/Time: 11/09/2016 8:14 PM Last Resulted CBC 11/15/16 05:05 Last Resulted BMP 11/15/16 05:05 Consultations: GI ID vascular surgery Medication Reconciliation New Medications: Amoxicillin & Pot Clavulanate (Amoxicillin/Clavulanate P) 1 Tab Tab 875 MG PO BIDM, #14 TAB Ciprofloxacin (Ciprofloxacin HCl) 500 Mg Tab 500 MG PO BID, #14 TAB Continued Medications: Acetaminophen Tab (Tylenol) 325 Mg Tab 650 MG PO DIRECTED, TAB Amoxicillin (Amoxil) 500 Mg Cap 4 CAP PO DIRECTED, #21 CAP TAKES FOUR CAPS PRIOR TO DENTAL APT Aspirin (Aspirin Ec) 81 Mg Tab 81 MG PO DAILY Digoxin (Digoxin) 0.25 Mg Tab 0.25 MG PO DAILY Diltiazem HCl (Diltiazem Cd) 300 Mg Capcr 300 MG PO DAILY Diphenhydramine Hcl (Diphenhydramine Hcl) 50 Mg Cap 25 MG PO DIRECTED for 30 Days, #30 CAP 1 Refill Ergocalciferol (Vitamin D 09817 Unit) 50,000 Unit Cap 1 TAB PO WK, CAP Furosemide (Lasix) 80 Mg Tab 80 MG PO QAM, TAB Lisinopril (Zestril) 5 Mg Tab 5 MG PO DAILY, TAB Metoprolol Succinate (Toprolxl (Toprol-Xl) 200 Mg Tabcr 200 MG PO DAILY, TAB Senna/Docusate Sod (Senokot S) 1 Tab Tab 1 TAB PO DAILY, TAB Warfarin Sod (Jantoven) 5 Mg Tab 5 MG PO TUESDAY, TAB Warfarin Sod (Jantoven) 2.5 Mg Tab 2.5 MG PO DAILY, TAB Discharge Exam Physical Exam: General Appearance: no apparent distress Eyes: EOMI ENT: hearing grossly normal Neck: trachea midline Respiratory/Chest: no respiratory distress, no accessory muscle use Extremities: + pertinent finding (feet with chronic appearing skin discoloration and changes, no erythema no open lesions, onochomycosis) 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 cellulitis, LLE, along with multiple wounds of left renee - now on cipro & augmentin per recommendations of ID. -fortunately no osteo on MRI -finish out 10 days abx (PO) -local skin care 2. ileus / sigmoid stricture? -fortunately scope was negative --- no stricture. improved with bowel prep - so quite possibly all constipation vs simple ileus that has since resolved. bowel regimen 3. hypokalemia - resolved. 4. chronic diastolic CHF - compensated; cont lasix, beta livia 5. HTN - better controlled, continue current meds 6. PAF - resume coumadin (was held for colo --> so will need to follow INR more closely as it's restarted) Cont BB, CCB, and digoxin. 7. DVT proph - coumadin. 8. venous insuff - compression. (ok w vascular sugery - per consult note: Pt with multiple venous ulcerations to BLE, recommend continued local wound care, including wound clinic referral as outpatient. Pt has difficulty caring for wounds at home d/t chronic problems, recommend home nursing for regular dressing changes in between wound clinic visits. Also recommend BLE at least knee high compression at 10-20mmHg, if able to be obtained, in order to control edema. Could also use ROEL hose if unable to obtain regular compression during this hospital stay, and obtain 10-20mmHg compression as outpt. Pt asymptomatic from PAD and US does not demonstrate any focal treatable lesions which would benefit pt for healing. No vascular surgical intervention recommended at this time. Please call if needed. ) 9. FEN - tolerating PO 10. tinea pedis - ketoconazole cream BID. 11. PAD - b/l legs - vascular has seen - no interventions (see above) ongoign med management; could consider moderate to high potency statin as outpt for rehab at [facility] Total Time Spent: Less than 30 minutes This includes examination of the patient, discharge planning, medication reconciliation, and communication with other providers. Discharge Instructions Please refer to the electronic Patient Visit Report (Discharge Instructions) for additional information. Additional Copies To Denys Moore M.D.; Sharif Lowe M.D.
== END 2016-11-17 11:08 | DRG 603 ==
LOC: C.EDB 13:25 → ENRESERV 18:19 → C.MSW 19:35
PROVIDERS: ADMIT Internal Medicine; ATTEND Family Medicine
PROC: 0DJD8ZZ Inspection of Lower Intestinal Tract, Via Natural or Artificial Opening Endoscopic (ICD-10-PCS; principal; 2016-11-15 10:38)
DX: L03.116 Cellulitis of left lower limb (principal); I50.32 Chronic diastolic (congestive) heart failure; K56.7 Ileus, unspecified; I87.2 Venous insufficiency (chronic) (peripheral); I48.0 Paroxysmal atrial fibrillation; R19.7 Diarrhea, unspecified; I89.0 Lymphedema, not elsewhere classified; E87.6 Hypokalemia; I11.0 Hypertensive heart disease with heart failure; B35.3 Tinea pedis; I73.9 Peripheral vascular disease, unspecified; Z82.49 Family history of ischemic heart disease and other diseases of the circulatory system; Z85.46 Personal history of malignant neoplasm of prostate; Z96.649 Presence of unspecified artificial hip joint; Z79.82 Long term (current) use of aspirin; Z79.01 Long term (current) use of anticoagulants; B96.89 Other specified bacterial agents as the cause of diseases classified elsewhere

== ENCOUNTER → 2016-12-16 | Outpatient (CLI) | payer BC, OTHER ==
[~2016-12-16] MED LIST changes: +AMOX1TAB43 PO; +ASPI81TA28 PO; +CPR500 PO; +CRDCD300 PO; -DIGO0.2518 PO; +ERGO1CAP41 PO; +LISI-729 PO; -LISI10TA PO; +LNX25 PO; +SENN-65 PO
--- NOTE | 2016-12-16 12:50 | DIAGNOSTIC IMAGING REPORT ---
KUB CLINICAL HISTORY: ABD BLOATING distention COMPARISON STUDY: 11/13/2016 FINDINGS: Generalized colonic distention. This pattern is similar compared to the prior study. Maximum diameter of the ascending colon is 9 cm with maximum diameter of transverse colon at 10 cm. No significant distention of the rectum or cecal region. No evidence for pneumatosis or secondary signs of free air. IMPRESSION: Air distention of the colon similar in pattern compared to the prior study. No evidence for free air or pneumatosis. The above report was generated using voice recognition software. It may contain grammatical, syntax or spelling errors. Electronically signed by: Sin Bryson M.D. 12/16/2016 12:48 PM Dictated Date/Time: 12/16/2016 12:46 PM
[2016-12-16 14:04] LABS: BLOOD UREA NITROGEN 35 mg/dl (7-18); BUN/CREATININE RATIO 34.7 (10-20); CALCIUM 9.2 mg/dl (8.5-10.1); CARBON DIOXIDE 27 mmol/L (21-32); CHLORIDE 106 mmol/L (98-107); GLUCOSE 114 mg/dl (70-99); POTASSIUM 3.8 mmol/L (3.5-5.1); SODIUM 143 mmol/L (136-145)
== END | disposition home or self-care (01) ==
LOC: C.LABBC 12:03
PROVIDERS: ATTEND Physician Assistant Medical
DX: R14.0 Abdominal distension (gaseous) (principal)

== ENCOUNTER → 2017-01-31 | Outpatient (CLI) | payer BC ==
--- NOTE | 2017-01-31 16:02 | DIAGNOSTIC IMAGING REPORT ---
LEFT HAND MIN 3 VIEWS ROUTINE CLINICAL HISTORY: ANKYLOSING SPONDYLITIS, GENERALIZED OSTEOARTHRITIS COMPARISON: None. DISCUSSION: The bones are mildly osteopenic. There are no acute fractures. Moderate arthritic changes are present within the wrist. There are prominent subcutaneous chondral cysts involving the radius, navicular, trapezium, capitate, and lunate. There is joint space narrowing most pronounced at the level of the first and second metacarpal phalangeal joints, first carpometacarpal joint, and radiocarpal joint.. There is no evidence for soft tissue swelling. IMPRESSION: 1. Mild osteopenia 2. Moderate arthritic changes with prominent subchondral cyst within the carpal bones. There is joint space narrowing most pronounced the level of the first and second metacarpal phalangeal joints, first carpal metacarpal joint, and radiocarpal joint. Electronically signed by: Wilmer Weinstein M.D. 01/31/2017 4:01 PM Dictated Date/Time: 01/31/2017 3:54 PM
--- NOTE | 2017-01-31 16:03 | DIAGNOSTIC IMAGING REPORT ---
C-SPINE ROUTINE 4 OR 5 VIEWS HISTORY: Pain ANKYLOSING SPONDYLISTIS, GERNEALIZD OSTEOARTHRITIS COMPARISON: None. FINDINGS: The cervical spine is visualized from C1 through the superior endplate of T1. There is no fracture. There is evidence for degenerative fusion of the C4-C6 vertebral bodies. Extensive anterior and posterior calcification is present. There is no evidence for a compression deformity. C1-C2 complex is intact. There is osteophytic narrowing of the bulk of the neuroforamina bilaterally. Prevertebral soft tissues and the atlantodens interval are intact. 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 No evidence for an acute compression deformity. The above report was generated using voice recognition software. It may contain grammatical, syntax or spelling errors. Electronically signed by: Sin Bryson M.D. 01/31/2017 4:01 PM Dictated Date/Time: 01/31/2017 3:55 PM
--- NOTE | 2017-01-31 16:06 | DIAGNOSTIC IMAGING REPORT ---
RIGHT HAND MIN 3 VIEWS ROUTINE CLINICAL HISTORY: ANKYLOSING SPONDYLITIS, GERMANIZED OSTEOARTHRITIS Right pain COMPARISON: None. DISCUSSION: Severe degenerative change of the radiocarpal and ulnar carpal components. Severe degenerative change of the intercarpal as well as carpometacarpal joints. Degenerative sclerotic change of the bulk of the articular services. Moderate soft tissue edematous change. Moderate degenerative change of the interphalangeal joints. There is no evidence for soft tissue swelling. IMPRESSION: Severe degenerative change of the radiocarpal and intercarpal joints. 2. Moderate degenerative change of the interphalangeal joints. 3. Moderate soft tissue edema about the carpal region. The above report was generated using voice recognition software. It may contain grammatical, syntax or spelling errors. Electronically signed by: Sin Bryson M.D. 01/31/2017 4:04 PM Dictated Date/Time: 01/31/2017 4:02 PM
[2017-01-31 17:16] LABS: RHEUMATOID FACTOR < 10.0 U/mL (0-15); TOTAL IRON BINDING CAPACITY 298 mcg/dl (250-450)
== END | disposition home or self-care (01) ==
LOC: C.RAD1850 15:24
PROVIDERS: ATTEND Internal Medicine Rheumatology
DX: M45.9 Ankylosing spondylitis of unspecified sites in spine (principal); M15.9 Polyosteoarthritis, unspecified

== ENCOUNTER → 2017-07-05 | Outpatient (CLI) | payer BC ==
[~2017-07-05] MED LIST changes: +ACET-1693 PO; -ACET325T96 PO; -CRDCD300 PO; +DILT300C64 PO; -ERGO1CAP41 PO; +ERGO500011 PO; -METO1TAB71 PO; +METO200T32 PO
[2017-07-05 13:52] LABS: BASO % 0.4 %; BASO ABS # 0.03 K/uL (0-0.2); EOS % 1.5 %; EOS ABS # 0.12 K/uL (0-0.5); HEMATOCRIT 43.2 % (42-52); HEMOGLOBIN 15.7 g/dL (14.0-18.0); IG# 0.01 K/uL (0.00-0.02); LYMPH % 12.4 %; LYMPH ABS # 0.96 K/uL (1.2-3.4); MEAN CELL VOLUME 97.1 fL (80-100); MEAN CORPUSCULAR HEMOGLOBIN 35.3 pg (25-34); MEAN CORPUSCULAR HGB CONC 36.3 g/dl (32-36); MEAN PLATELET VOLUME 12.1 fL (7.4-10.4); MONO % 11.6 %; NEUT ABS # 5.73 K/uL (1.4-6.5); PLATELET COUNT 188 K/uL (130-400); RED CELL DISTRIBUTION WIDTH CV 12.7 % (11.5-14.5); WHITE BLOOD COUNT 7.75 K/uL (4.8-10.8)
[2017-07-05 15:36] LABS: ALBUMIN 4.4 gm/dl (3.4-5.0); ALT/SGPT 38 U/L (12-78); AST/SGOT 30 U/L (15-37); BLOOD UREA NITROGEN 16 mg/dl (7-18); CALCIUM 9.2 mg/dl (8.5-10.1); CARBON DIOXIDE 28 mmol/L (21-32); CREATININE 0.96 mg/dl (0.60-1.40); GLUCOSE 97 mg/dl (70-99); POTASSIUM 3.7 mmol/L (3.5-5.1); SODIUM 140 mmol/L (136-145)
[2017-07-05 15:47] LABS: ALKALINE PHOSPHATASE 94 U/L (45-117); CHOLESTEROL 143 mg/dl (0-200); LDL CHOLESTEROL CALCULATED 63 mg/dl; TOTAL PROTEIN 7.8 gm/dl (6.4-8.2)
== END | disposition home or self-care (01) ==
LOC: C.LABBC 12:05
PROVIDERS: ATTEND Internal Medicine
DX: I10 Essential (primary) hypertension (principal); I87.2 Venous insufficiency (chronic) (peripheral); I73.9 Peripheral vascular disease, unspecified; M15.9 Polyosteoarthritis, unspecified; I48.91 Unspecified atrial fibrillation; Z79.01 Long term (current) use of anticoagulants; G31.84 Mild cognitive impairment of uncertain or unknown etiology

== ENCOUNTER 2017-12-27 13:24 | Emergency (ER) | payer BC ==
[~2017-12-27] VITALS: Ht 182.9 cm; Wt 92.0 kg
[2017-12-27 13:26] VITALS: TEMP 36.7; Ht 182.9 cm; Wt 92.0 kg
[2017-12-27] MEDS ORDERED: LACTULOSE SYRUP 20 GM/30 ML UDC PO STA (13:37)
--- NOTE | 2017-12-27 13:43 | EMERGENCY ROOM VISIT NOTE ---
History Report prepared by Ever[place]: Maurizio Mccauley Under the Supervision of: Dr. Modesto Lorenzana M.D. First contact with patient: 13:29 Chief Complaint: CONSTIPATION Stated Complaint: NO BOWEL MOVEMENT History of Present Illness The patient is a 77 year old male with a past medical history of cellulitis, infectious endocarditis, leukocytosis, osteomyelitis of ankle or foot, SIRS, streptococcal sepsis who presents to the ED with a cc of constipation beginning the past two days. The patient states that his last bowel movement was two days ago and that he usually has one per day. He notes that there has been no recent changes in his diet or medications. He states that he has been drinking a lot of water to try to help the issue but he reports it is not working. Positive for flatulence. Negative for vomiting, abdominal pain, past abdominal surgeries Source of History: patient Onset: two days ago Position: abdomen Quality: other (constipation) Modifying Factors (Relieving): other (Flatulence) Associated Symptoms: No nausea, No vomiting, No abdominal pain Review of Systems See HPI for pertinent positives and negatives. A total of ten systems were reviewed and were otherwise negative. Past Medical & Surgical Medical Problems: (1) Cellulitis (2) Infectious endocarditis (3) Leukocytosis (4) Osteomyelitis of ankle or foot (5) SIRS (systemic inflammatory response syndrome) (6) Streptococcal sepsis Family History Hypertension Social History Smoking Status: Never Smoker Drug Use: none Marital Status: Housing Status: lives with family Occupation Status: employed Current/Historical Medications Scheduled Acetaminophen Tab (Tylenol), 650 MG PO DIRECTED Amoxicillin (Amoxil), 4 CAP PO DIRECTED Aspirin (Aspirin Ec), 81 MG PO DAILY Ciprofloxacin (Ciprofloxacin HCl), 500 MG PO BID Digoxin (Digoxin), 0.25 MG PO DAILY Diltiazem HCl (Diltiazem Cd), 300 MG PO DAILY Diphenhydramine Hcl (Diphenhydramine Hcl), 25 MG PO DIRECTED Ergocalciferol (Vitamin D 26215 Unit), 1 TAB PO WK Furosemide (Lasix), 80 MG PO QAM Lisinopril (Zestril), 5 MG PO DAILY Metoprolol Succinate (Toprolxl (Toprol-Xl), 200 MG PO DAILY Senna/Docusate Sod (Senokot S), 1 TAB PO DAILY Warfarin Sod (), 5 MG PO TUESDAY Warfarin Sod ([place]), 2.5 MG PO DAILY Allergies Coded Allergies: Ceftriaxone (Verified Allergy, Unknown, UNKNOWN, 06/06/16) ROCEPHIN AND VANCO ALLERGY PER [facility] ORDER FORM FROM 09/25/15 Vancomycin (Verified Allergy, Unknown, UNKNOWN, 06/06/16) ROCEPHIN AND VANCO ALLERGY PER [facility] ORDER FORM FROM 09/25/15 Physical Exam Vital Signs Date Time Temp Pulse Resp B/P (MAP) Pulse Ox O2 Delivery O2 Flow Rate FiO2 12/27/17 15:55 62 18 177/90 97 12/27/17 13:26 36.7 76 20 202/88 97 Room Air Physical Exam GENERAL: Awake, alert, well-appearing, NAD HENT: Normocephalic, atraumatic. EYES: Normal conjunctiva. Sclera non-icteric. PERRL. No anisocoria. NECK: Supple. No nuchal rigidity. FROM. RESPIRATORY: CTAB, no rhonchi, wheezing, crackles CARDIAC: RRR, no MRG ABDOMEN: Soft, NTND, BS+ MSK: No chest wall TTP, no LE edema NEURO: GCS 15, CN 2-12 intact, moves all 4s on command SKIN: No rash or jaundice noted. Vertical scar in lower abdomen. Medical Decision & Procedures ER Provider Diagnostic Interpretation: Radiology results as stated below per my review and radiologist interpretation: KUB CLINICAL HISTORY: Constipation. COMPARISON STUDY: CT of the abdomen and pelvis November 13, 2016 and KUB December 16, 2016. FINDINGS: Right hip arthroplasty is incidentally noted. There is no evidence for a bowel obstruction. A large amount of stool is noted within the rectum. A mild amount of stool is noted within the colon. IMPRESSION: 1. Large amount of stool within the rectum. Mild amount of stool within the colon. 2. No evidence for a bowel obstruction. Electronically signed by: Johnny Trejo M.D. 12/27/2017 2:20 PM Dictated Date/Time: 12/27/2017 2:19 PM Medications Administered Medications (Trade) Dose Ordered Sig/Sam Route Start Time Stop Time Status Last Admin Dose Admin Senna/Docusate Sodium (Senokot S Tab) 1 tab NOW ONCE PO 12/27/17 13:45 12/27/17 13:46 DC 12/27/17 13:58 1 TAB Lactulose (Chronulac Syrup) 30 gm NOW STAT PO 12/27/17 13:37 12/27/17 13:42 DC 12/27/17 13:58 30 GM Metoclopramide HCl (Reglan Tab) 10 mg NOW ONCE PO 12/27/17 13:45 12/27/17 13:46 DC 12/27/17 13:58 10 MG Miscellaneous (Soap Suds Enema) 1 ea ONE STAT CA 12/27/17 14:27 12/27/17 14:28 DC 12/27/17 14:49 1 EA ED Course 1331: The patient was evaluated in room C7. A complete history and physical exam was performed. 1427: I reevaluated the patient and he has yet to have a bowel movement, but he does feel fine. 1601: I reevaluated the patient. Discussed results and discharge instructions: He verbalized understanding and agreement. The patient is ready for discharge. Medical Decision Nursing notes reviewed. Ancillary studies and prior records reviewed. The patient is a 77 year old male with a past medical history of cellulitis, infectious endocarditis, leukocytosis, osteomyelitis of ankle or foot, SIRS, streptococcal sepsis who presents to the ED with a cc of constipation beginning the past two days. Differential diagnosis: Etiologies such as functional constipation, impaction, obstruction, volvulus, metabolic abnormality, infection, neurologic, as well as others were entertained. Patient was seen and evaluated the bedside. Patient states he has not had a bowel movement 2 days. Patient states he is not obstipated and is passing gas. Patient does state that he feels constipated and wants to use the restroom but he is not going. Patient denies any prior history of abdominal surgeries. The patient has a soft abdomen. Patient did have a KUB completed which did not show any evidence of bowel obstruction. I given the patient's well-appearing status, normal vital signs, and unremarkable abdominal exam I do not believe he requires any other imaging or blood work at this time. The patient was given medications to help move his bowels. Patient did not have a subsequent bowel movements the patient was given an enema. Patient was given strict follow-up, discharge, and return precautions. All questions were answered. Patient was deemed suitable for outpatient follow-up at this time. Patient agreed with the plan of care and was safely discharged home. Blood Pressure Screening Patient's blood pressure: Elevated blood pressure Blood pressure disposition: Referred to PCP Impression Primary Impression: Constipation Scribe Attestation The scribe's documentation has been prepared under my direction and personally reviewed by me in its entirety. I confirm that the note above accurately reflects all work, treatment, procedures, and medical decision making performed by me. Departure Information Dispostion Home / Self-Care Referrals No Doctor, Assigned (PCP) Forms HOME CARE DOCUMENTATION FORM, IMPORTANT VISIT INFORMATION Patient Instructions Diet High Fiber Dc, ED Constipation, My [facility] Additional Instructions Please return to the emergency department if you have worsening or recurrent symptoms not amenable to at-home treatment. Please call for a follow-up appointment with her primary care physician. Please take your medications as prescribed. If you have other concerns and/or complaints please feel free to also call your primary care physician's office or return the ED for further evaluation, management, and treatment. Take your medications as prescribed. For constipation please consider hydrating liberally with clear liquids, high- fiber diet, leafy greens. Please avoid antihistamines and narcotic medications. You may also consider stool softeners like docusate and senna, laxatives like magnesium citrate or lactulose, suppositories, and/or enemas. You have been examined and treated today on an emergency basis only. This is not a substitute for, or an effort to provide, complete comprehensive medical care. It is impossible to recognize and treat all injuries or illnesses in a single emergency department visit. It is therefore important that you follow up closely with [facility], your PCP, and/or your specialist(s). Call as soon as possible for an appointment. Thank you for your time and consideration. I look forward to speaking with you again soon. Please don't hesitate to call us if you have any questions. Problem Qualifiers Primary Impression: Constipation Constipation type: unspecified constipation type Qualified Codes: K59.00 - Constipation, unspecified
[2017-12-27] MEDS ORDERED: METOCLOPRAMIDE HCL 5 MG TAB PO ONE (13:45)
[2017-12-27] MEDS ORDERED: DOCUSATE SODIUM/SENNA 50/8.6MG TAB PO ONE (13:45)
--- NOTE | 2017-12-27 14:21 | DIAGNOSTIC IMAGING REPORT ---
AUDREY CLINICAL HISTORY: Constipation. COMPARISON STUDY: CT of the abdomen and pelvis November 13, 2016 and KUB December 16, 2016. FINDINGS: Right hip arthroplasty is incidentally noted. There is no evidence for a bowel obstruction. A large amount of stool is noted within the rectum. A mild amount of stool is noted within the colon. IMPRESSION: 1. Large amount of stool within the rectum. Mild amount of stool within the colon. 2. No evidence for a bowel obstruction. Electronically signed by: Johnny Trejo M.D. 12/27/2017 2:20 PM Dictated Date/Time: 12/27/2017 2:19 PM
[2017-12-27] MEDS ORDERED: SOAP SUDS ENEMA PR STA (14:27)
[2017-12-27 15:55] VITALS: BP 177/90; PULSE 62; O2SAT 97
== END 2017-12-27 16:01 | disposition home or self-care (01) ==
LOC: C.EDB 13:25 → C.EDC 16:01
DX: K59.00 Constipation, unspecified (principal); Z79.82 Long term (current) use of aspirin; Z79.01 Long term (current) use of anticoagulants; Z51.81 Encounter for therapeutic drug level monitoring; Z88.8 Allergy status to other drugs, medicaments and biological substances; Z79.899 Other long term (current) drug therapy

== ENCOUNTER 2017-12-31 22:19 | Emergency (ER) | payer BC ==
[~2017-12-31 22:19] MED LIST changes: -AMOX1TAB43 PO
[2017-12-31 22:21] VITALS: TEMP 36.5; Ht 182.9 cm
--- NOTE | 2017-12-31 22:41 | EMERGENCY ROOM VISIT NOTE ---
History Report prepared by Ever[place]: Galindo Hopkins Under the Supervision of: Dr. Dae Zamorano M.D. First contact with patient: 22:27 Chief Complaint: CONSTIPATION Stated Complaint: CONSTIPATION, ABDOMINAL PAIN History of Present Illness The patient is a 77 year old male who presents to the Emergency Room with complaints of constipation. The patient was seen here a x3 days ago for the same complaint. He states while here last time he was given medications, but is unsure what all he received. He also had an x-ray performed at that time. He notes he did have a manual disimpaction at that time, and was able to have a BM in the ED. He states he has not had a bowel movement since the one he had while he was here x3 days ago. He states he has no pain at this time. He denies a fever/chills. Source of History: patient Onset: 3 days Position: abdomen Symptom Intensity: moderate Timing: constant Associated Symptoms: No fevers, No chills, No chest pain, No SOB, No nausea , No vomiting, No diarrhea Review of Systems See HPI for pertinent positives & negatives. A total of 10 systems reviewed and were otherwise negative. Constitutional: No fever, No chills Respiratory: No shortness of breath Cardiovascular: No chest pain Abdomen: + constipation, No pain, No nausea, No vomiting, No diarrhea Integumentary: No rash Past Medical & Surgical Medical Problems: (1) Cellulitis (2) Infectious endocarditis (3) Leukocytosis (4) Osteomyelitis of ankle or foot (5) SIRS (systemic inflammatory response syndrome) (6) Streptococcal sepsis Family History Hypertension Social History Smoking Status: Never Smoker Drug Use: none Marital Status: Housing Status: lives with family Occupation Status: employed Current/Historical Medications Scheduled Aspirin (Aspirin Ec), 81 MG PO DAILY Digoxin (Digoxin), 0.25 MG PO DAILY Docusate Sodium (Colace), 1 CAP PO BID Furosemide (Lasix), 80 MG PO QAM Lisinopril (Zestril), 5 MG PO DAILY Metoprolol Succinate (Toprolxl (Toprol-Xl), 200 MG PO DAILY Potassium Chloride (K-Tab), 20 MEQ PO BID Sennosides (Senokot), 8.6 MG PO HS Warfarin Sod (Jantoven), 5 MG PO THURSDAY Warfarin Sod (Jantoven), 2.5 MG PO DAILY Scheduled PRN Acetaminophen Tab (Tylenol), 650 MG PO Q4 PRN for Mild Pain Amoxicillin (Amoxil), 4 CAP PO DIRECTED PRN for prior to dental or endoscopic Allergies Coded Allergies: Ceftriaxone (Verified Allergy, Unknown, UNKNOWN, 06/06/16) ROCEPHIN AND VANCO ALLERGY PER [facility] ORDER FORM FROM 09/25/15 Vancomycin (Verified Allergy, Unknown, UNKNOWN, 06/06/16) ROCEPHIN AND VANCO ALLERGY PER [facility] ORDER FORM FROM 09/25/15 Physical Exam Vital Signs Date Time Temp Pulse Resp B/P (MAP) Pulse Ox O2 Delivery O2 Flow Rate FiO2 01/01/18 02:53 55 18 155/87 97 Room Air 12/31/17 23:31 41 18 173/86 96 Room Air 12/31/17 23:05 49 12/31/17 22:21 36.5 69 18 214/97 95 Room Air Physical Exam GENERAL: Awake, alert, well-appearing, in no acute distress HENT: Normocephalic, atraumatic. Oropharynx unremarkable. EYES: Normal conjunctiva. Sclera non-icteric. NECK: Supple. No nuchal rigidity. FROM. No JVD. RESPIRATORY: Clear to auscultation. CARDIAC: Regular rate, normal rhythm. Extremities warm and well perfused. Pulses equal. ABDOMEN: Soft, non-distended. No tenderness to palpation. No rebound or guarding. No masses. RECTAL: Deferred. MUSCULOSKELETAL: Chest examination reveals no tenderness. The back is symmetrical on inspection without obvious abnormality. There is no CVA tenderness to palpation. No joint edema. LOWER EXTREMITIES: Calves are equal size bilaterally and non-tender. No edema. No discoloration. NEURO: Normal sensorium. No sensory or motor deficits noted. SKIN: No rash or jaundice noted. Medical Decision & Procedures ER Provider Diagnostic Interpretation: CT abdomen and pelvis with contrast: Comparison 11/13/2016 Findings: The lung bases are clear. The lingual liver and spleen are normal in size and free of mass lesions. The gallbladder, bile ducts and pancreas are normal. The adrenal gland are unremarkable. The kidneys are normal in size and contour. No lesion or hydronephrosis. Appendix is not adequately identified. There is significant retained stool noted in the rectum which is dilated 8.6 cm the findings may represent obstipation. Aorta is normal caliber. No adenopathy or extraluminal air. The osseous structures are normal Impression: Significant retained stool in the rectum which is dilated 8.6 cm. Findings are new compared to the prior study. CT of the head: Comparison 06/06/2016 Findings: No intracranial hemorrhage, abdominal intra-or extra-axial collections or parenchymal lesions are seen. There are involutional changes with prominence of the sulci, basal cisterns and ventricles. Scattered white matter hypoattenuation's are present, likely from small vessel disease. The baird-white differentiation is preserved. No evidence of mass-effect, midline shift or edema. The osseous structures are unremarkable. The visualized portions of the paranasal sinuses are clear. Impression: 1 no acute intracranial process. 2 involutional changes with small vessel disease. Stable appearance compared to prior study. Laboratory Results 12/31/17 22:45 Red Blood Count 4.25, Mean Corpuscular Volume 96.2, Mean Corpuscular Hemoglobin 34.8, Mean Corpuscular Hemoglobin Concent 36.2, Mean Platelet Volume 11.4, Neutrophils (%) (Auto) 71.4, Lymphocytes (%) (Auto) 15.4, Monocytes (%) (Auto) 10.9, Eosinophils (%) (Auto) 1.8, Basophils (%) (Auto) 0.4, Neutrophils # (Auto ) 5.28, Lymphocytes # (Auto) 1.14, Monocytes # (Auto) 0.81, Eosinophils # (Auto ) 0.13, Basophils # (Auto) 0.03 12/31/17 22:45 Test 12/31/17 22:45 01/01/18 01:10 White Blood Count 7.40 K/uL (4.8-10.8) Red Blood Count 4.25 M/uL (4.7-6.1) Hemoglobin 14.8 g/dL (14.0-18.0) Hematocrit 40.9 % (42-52) Mean Corpuscular Volume 96.2 fL (80-100) Mean Corpuscular Hemoglobin 34.8 pg (25-34) Mean Corpuscular Hemoglobin Concent 36.2 g/dl (32-36) Platelet Count 188 K/uL (130-400) Mean Platelet Volume 11.4 fL (7.4-10.4) Neutrophils (%) (Auto) 71.4 % Lymphocytes (%) (Auto) 15.4 % Monocytes (%) (Auto) 10.9 % Eosinophils (%) (Auto) 1.8 % Basophils (%) (Auto) 0.4 % Neutrophils # (Auto) 5.28 K/uL (1.4-6.5) Lymphocytes # (Auto) 1.14 K/uL (1.2-3.4) Monocytes # (Auto) 0.81 K/uL (0.11-0.59) Eosinophils # (Auto) 0.13 K/uL (0-0.5) Basophils # (Auto) 0.03 K/uL (0-0.2) RDW Standard Deviation 44.4 fL (36.4-46.3) RDW Coefficient of Variation 12.7 % (11.5-14.5) Immature Granulocyte % (Auto) 0.1 % Immature Granulocyte # (Auto) 0.01 K/uL (0.00-0.02) Prothrombin Time 38.1 SECONDS (9.0-12.0) Prothromb Time International Ratio 3.7 (0.9-1.1) Anion Gap 7.0 mmol/L (3-11) Estimated GFR () 105.8 Estimated GFR (Non- 91.3 BUN/Creatinine Ratio 21.1 (10-20) Calcium Level 8.4 mg/dl (8.5-10.1) Total Bilirubin 0.9 mg/dl (0.2-1) Direct Bilirubin 0.3 mg/dl (0-0.2) Aspartate Amino Transf (AST/SGOT) 31 U/L (15-37) Alanine Aminotransferase (ALT/SGPT) 38 U/L (12-78) Alkaline Phosphatase 74 U/L (45-117) Total Creatine Kinase 111 U/L (39-308) Creatine Kinase MB 2.8 ng/ml (0.5-3.6) Creatine Kinase MB Ratio 2.5 (0-3.0) Troponin I 0.017 ng/ml (0-0.045) Total Protein 7.2 gm/dl (6.4-8.2) Albumin 4.1 gm/dl (3.4-5.0) Lipase 165 U/L (73-393) Digoxin Level 0.8 ng/ml (0.8-2.0) Urine Color YELLOW Urine Appearance CLEAR (CLEAR) Urine pH 6.5 (4.5-7.5) Urine Specific [place] 1.021 (1.000-1.030) Urine Protein NEG (NEG) Urine Glucose (UA) NEG (NEG) Urine Ketones NEG (NEG) Urine Occult Blood NEG (NEG) Urine Nitrite NEG (NEG) Urine Bilirubin NEG (NEG) Urine Urobilinogen NEG (NEG) Urine Leukocyte Esterase NEG (NEG) Medications Administered Medications (Trade) Dose Ordered Sig/Sam Route Start Time Stop Time Status Last Admin Dose Admin Potassium Chloride (Klor-Con M10) 40 meq STK-MED ONCE .ROUTE 12/31/17 23:48 12/31/17 23:49 DC 12/31/17 23:52 40 MEQ Miscellaneous (Soap Suds Enema) 1 ea NOW STAT IN 01/01/18 02:27 01/01/18 02:30 DC 01/01/18 02:27 1 EA Magnesium Citrate (Citrate Of Magnesia Soln) 150 ml NOW STAT PO 01/01/18 02:27 01/01/18 02:30 DC 01/01/18 02:27 150 ML Procedure I performed a manual disimpaction of this patient. Patient tolerated the procedure well. 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 The patient does report he did have a bowel movement here in the emergency department but has since not had one. I reviewed the patient's recent visit and noted he had received a KUB. I recommended a CAT scan of the abdomen and pelvis to both patient and his son. The patient's son is concerned that the patient needs placement in a skilled nursing and for this reason I did get case management involved. They independently interviewed both the patient and son. They felt the patient could be returned home however with close follow-up with the primary care physician. The patient was sent for CAT scan the abdomen pelvis. This was concerning for significant amount of stool in the rectum. For this reason the patient was disimpacted by myself. I gave the patient several options including going home with magnesium [facility] along with enemas. The patient would like to have an enema here in the emergency department. I feel that this is reasonable. He was also started on magnesium [facility]. Medication Reconcilliation Current Medication List: was personally reviewed by me Blood Pressure Screening Patient's blood pressure: Elevated blood pressure Blood pressure disposition: Referred to PCP Impression Primary Impression: Constipation Additional Impression: Fecal impaction in rectum Scribe Attestation The scribe's documentation has been prepared under my direction and personally reviewed by me in its entirety. I confirm that the note above accurately reflects all work, treatment, procedures, and medical decision making performed by me. Departure Information Dispostion Home / Self-Care Prescriptions Docusate Sodium (COLACE) 100 Mg Cap 1 CAP PO BID for 30 Days, #60 CAP 2 Refills Prov: Dae Zamorano MD 01/01/18 Sennosides (SENOKOT) 8.6 Mg Tab 8.6 MG PO HS for 30 Days, #30 TAB Prov: Dae Zamorano MD 01/01/18 Referrals Sharif Lowe M.D. (PCP) Patient Instructions My [facility] Problem Qualifiers Primary Impression: Constipation Constipation type: unspecified constipation type Qualified Codes: K59.00 - Constipation, unspecified
[2017-12-31 22:56] LABS: BASO % 0.4 %; BASO ABS # 0.03 K/uL (0-0.2); EOS % 1.8 %; EOS ABS # 0.13 K/uL (0-0.5); HEMATOCRIT 40.9 % (42-52); HEMOGLOBIN 14.8 g/dL (14.0-18.0); IG# 0.01 K/uL (0.00-0.02); LYMPH % 15.4 %; LYMPH ABS # 1.14 K/uL (1.2-3.4); MEAN CELL VOLUME 96.2 fL (80-100); MEAN CORPUSCULAR HEMOGLOBIN 34.8 pg (25-34); MEAN CORPUSCULAR HGB CONC 36.2 g/dl (32-36); MEAN PLATELET VOLUME 11.4 fL (7.4-10.4); MONO % 10.9 %; MONO ABS # 0.81 K/uL (0.11-0.59); NEUT % 71.4 %; NEUT ABS # 5.28 K/uL (1.4-6.5); PLATELET COUNT 188 K/uL (130-400); RED CELL DISTRIBUTION WIDTH CV 12.7 % (11.5-14.5); RED CELL DISTRIBUTION WIDTH SD 44.4 fL (36.4-46.3)
--- NOTE | 2017-12-31 23:08 | DIAGNOSTIC IMAGING REPORT ---
SINGLE VIEW CHEST CLINICAL HISTORY: Change in mental status. FINDINGS: An AP, portable, upright chest radiograph is compared to study dated 11/11/2016 and correlated with chest CT dated 09/09/2015. The examination is degraded by portable technique and patient rotation. The heart is markedly enlarged and there is atherosclerotic calcification of the thoracic aorta. The pulmonary vasculature is noncongested. No focal airspace consolidation or large pleural effusion is identified. No pneumothorax is seen. The skeletal structures are osteopenic. The bony thorax is grossly intact. IMPRESSION: Cardiomegaly with no acute cardiopulmonary abnormality. Electronically signed by: Jake Maurice M.D. 12/31/2017 11:07 PM Dictated Date/Time: 12/31/2017 11:06 PM
[2017-12-31 23:18] LABS: ALBUMIN 4.1 gm/dl (3.4-5.0); ALKALINE PHOSPHATASE 74 U/L (45-117); ALT/SGPT 38 U/L (12-78); AST/SGOT 31 U/L (15-37); BLOOD UREA NITROGEN 15 mg/dl (7-18); CALCIUM 8.4 mg/dl (8.5-10.1); CARBON DIOXIDE 28 mmol/L (21-32); CKMB 2.8 ng/ml (0.5-3.6); CREATININE 0.72 mg/dl (0.60-1.40); GLUCOSE 109 mg/dl (70-99); LIPASE 165 U/L (73-393); POTASSIUM 3.3 mmol/L (3.5-5.1); SODIUM 139 mmol/L (136-145); TOTAL PROTEIN 7.2 gm/dl (6.4-8.2)
[2017-12-31] MEDS ORDERED: POTA1TAB97 PO (23:21)
[2017-12-31 23:26] LABS: INR 3.7 (0.9-1.1)
[2017-12-31] MEDS ORDERED: POTASSIUM CHLORIDE 20 MEQ TABCR PO STA (23:40)
[2017-12-31] MEDS ORDERED: POTASSIUM CHLORIDE 10 MEQ TABCR ONE (23:48)
[2018-01-01] MEDS ORDERED: OPTIRAY 320 IV PRN (00:45)
[2018-01-01] MEDS ORDERED: SOAP SUDS ENEMA PR STA (02:27)
[2018-01-01] MEDS ORDERED: MAGNESIUM CITRATE 296 ML/BTL PO STA (02:27)
[2018-01-01] MEDS ORDERED: SENN1TAB77 PO (02:41)
[2018-01-01] MEDS ORDERED: DOCU-94 PO (02:41)
[2018-01-01 02:53] VITALS: BP 155/87; PULSE 55; O2SAT 97
--- NOTE | 2018-01-01 07:33 | EMERGENCY ROOM VISIT NOTE ---
ED Visit Note 77 yr old male signed out to me by Dr Zamorano with planned discharge one he has enema. Large BM with this. On eval patient states feeling much better and wishes to go home. He was already given Mag Citrate and will finish this at home. Advised fluids, and reviewed symptoms requiring RTED. Stable and feeling well at discharge.
--- NOTE | 2018-01-01 07:43 | DIAGNOSTIC IMAGING REPORT ---
CT OF THE HEAD WITHOUT CONTRAST CLINICAL HISTORY: Altered mental status. COMPARISON STUDY: Head CT June 06, 2016. CT DOSE: 537.48 mGy.cm TECHNIQUE: Helical axial images of the head were obtained without IV contrast. Automated exposure control was utilized for the study. A dose lowering technique was utilized adhering to the principles of ALARA. 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 Ventricular system is stable. Basilar cisterns are patent. There are no extra axial collections. White matter hypodensity suggests small vessel disease or old infarct. These are unchanged. There are no findings to suggest acute dural sinus thrombosis or acute territorial infarct. There are no significant calvarial abnormalities. Visualized portions of the sinuses and mastoid air cells are clear. IMPRESSION: 1. 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 This may reflect a meningioma or schwannoma. An MRI of the brain IAC protocol is recommended on nonemergent basis. Findings discussed with Dr. Petty at time of dictation. 2. No acute intracranial findings. Electronically signed by: Johnny Trejo M.D. 01/01/2018 7:41 AM Dictated Date/Time: 01/01/2018 7:32 AM
--- NOTE | 2018-01-01 07:51 | DIAGNOSTIC IMAGING REPORT ---
CT OF THE ABDOMEN AND PELVIS WITH CONTRAST CLINICAL HISTORY: Diffuse abdominal pain. Constipation. COMPARISON STUDY: CT of the abdomen and pelvis November 13, 2016 and KUB December 27, 2017. TECHNIQUE: Following IV administration of 91 mL of Optiray-320, axial images of the abdomen and pelvis were obtained from the lung bases to the proximal femurs. Images were reviewed in the axial, sagittal, and coronal planes. IV contrast was administered without complication. A dose lowering technique was utilized adhering to the principles of ALARA. CT DOSE: 553.02 mGy.cm FINDINGS: Heart is moderately enlarged. No pneumatosis, free air or portal venous gas is present. Liver, spine spleen, adrenal glands, kidneys and pancreas are unremarkable with the exception of a cyst within the lower pole of the right kidney and several small left renal calculi. There is no hydronephrosis or hydroureter. There is no evidence for a bowel obstruction. Images of the pelvis are degraded by streak artifact from right hip arthroplasty. Large amount of stool is noted within the rectum. There is no suspicious osseous lesion. IMPRESSION: 1. Large amount of stool within the rectum. No evidence for a bowel obstruction. 2. Left-sided nephrolithiasis. No ureteral calculi or hydronephrosis. 3. Moderate distention of the bladder. Electronically signed by: Johnny Trejo M.D. 01/01/2018 7:49 AM Dictated Date/Time: 01/01/2018 7:44 AM
== END 2018-01-01 03:10 | disposition home or self-care (01) ==
LOC: C.EDB 22:20
DX: K56.41 Fecal impaction (principal); R03.0 Elevated blood-pressure reading, without diagnosis of hypertension; Z79.82 Long term (current) use of aspirin; Z79.01 Long term (current) use of anticoagulants; Z86.19 Personal history of other infectious and parasitic diseases; Z88.0 Allergy status to penicillin

== ENCOUNTER → 2018-01-12 | Outpatient (CLI) | payer BC ==
[~2018-01-12] MED LIST changes: -CPR500 PO; -DILT300C64 PO; -DIPH50CA PO; +DOCU-94 PO; -ERGO500011 PO; +GADAVIST IV PRN; +POTA1TAB97 PO; -SENN-65 PO; +SENN1TAB77 PO
--- NOTE | 2018-01-12 16:40 | DIAGNOSTIC IMAGING REPORT ---
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 TECHNIQUE: Multisequence, multiplanar MR imaging of the brain was performed before and after the administration of intravenous contrast. Dedicated sequences for evaluation of the internal auditory canals were also performed. IV contrast: 8.5 mL of Gadavist. COMPARISON: Noncontrast CT from 01/01/2018. FINDINGS: Localizer images: Unremarkable. T1 isointense, T2 isointense to slightly hyperintense mass centered at the right cerebellar pontine angle with a broad base interface with the dura. This minimally extends into the right internal auditory canal (series 6 image 7). The vast majority of the mass is not within the right IAC. There is associated contouring of the right brachium pontis and right aspect of the ferny. This results in slight medial displacement of the right 5th cranial nerve and posterior displacement of the right 7th and 8th nerves. There is avid homogenous enhancement of this mass on postcontrast imaging. The mass measures 20 x 12 x 20 mm. Proportional ventricular and sulcal prominence, likely age-related parenchymal volume loss. Periventricular and subcortical white matter T2/FLAIR hyperintensity, nonspecific but likely indicative of chronic small vessel ischemic change. No midline shift. No restricted diffusion to suggest acute ischemia. No hemorrhage. No extra-axial fluid collection. T2 skull base flow voids preserved. No abnormal parenchymal enhancement. Bone marrow signal intensity within the calvarium within normal limits. IMPRESSION: 1. Findings consistent with a 2 cm meningioma centered at the right cerebellar pontine angle with contouring and mass effect on surrounding structures as detailed above. 2. No acute intracranial pathology. Electronically signed by: Sharif Hennessy M.D. 01/12/2018 4:39 PM Dictated Date/Time: 01/12/2018 4:25 PM
== END | disposition home or self-care (01) ==
LOC: C.MRI 14:42
PROVIDERS: ATTEND Internal Medicine
DX: D32.0 Benign neoplasm of cerebral meninges (principal)

== ENCOUNTER 2018-06-26 18:02 | Inpatient (IN) ==
[2018-06-26 20:28] LABS: Basophils # (auto) 0.02 K/uL (0-0.2); Basophils % (auto) 0.2 %; Eosinophils # (auto) 0.23 K/uL (0-0.5); Eosinophils % (auto) 2.4 %; Hematocrit (blood only) 38.2 % (42-52); Hemoglobin 13.2 g/dL (14.0-18.0); Immature Granulocytes # (auto) 0.02 K/uL (0.00-0.02); Immature Granulocytes % (auto) 0.2 %; Lymphocytes # (auto) 0.82 K/uL (1.2-3.4); Lymphocytes % (auto) 8.6 %; Mean Corpuscular Hgb Conc 34.6 g/dL (32-36); Mean Corpuscular Volume 98.7 fL (80-100); Mean Platelet Volume 12.6 fL (7.4-10.4); Monocytes % (auto) 10.4 %; Neutrophils # (auto) 7.48 K/uL (1.4-6.5); Neutrophils % (auto) 78.2 %; Platelet Count 156 K/uL (130-400); RDW Coefficient of Variation 13.2 % (11.5-14.5); RDW Standard Deviation 46.9 fL (36.4-46.3); Red Blood Count 3.87 M/uL (4.7-6.1); White Blood Count 9.57 K/uL (4.8-10.8)
--- NOTE | 2018-06-26 20:30 | XRay Report ---
XR pelvis 1-2V routine, XR femur RT 2V routine HISTORY: 77 years-old Male fall acute pelvic and right hip pain status post fall COMPARISON: CT abdomen and pelvis 01/01/2018 TECHNIQUE: Single AP view the pelvis with 2 views of the right femur, right hip radiographs 06/11/2016 FINDINGS: PELVIS: Right hip total joint arthroplasty. Severe left hip osteoarthritis. Demineralized appearance of the b ones without acute fracture or dislocation. Surgical clips project of the central pelvis. Degenerativ e changes about the lumbar spine. RIGHT FEMUR: Linear corticated 1.7 cm ossification is noted on lateral aspect of the proximal femoral metadiaphys is which appears new from prior study suggesting a heterotopic ossification. Right hip total joint ar throplasty. No evidence of hardware complication, acute fracture or dislocation. Mid and distal porti ons of the right femur also appear intact. Degenerative changes about the right knee. Peripheral sarah rial calcifications are noted. IMPRESSION: 1. No acute fracture or dislocation. 2. Right hip total joint arthroplasty without evidence of hardware complication. The above report was generated using voice recognition software. It may contain grammatical, syntax o r spelling errors. Electronically signed by: Harrison Quevedo M.D. 06/26/2018 8:29 PM
[2018-06-26 20:34] LABS: INR 2.4 (0.9-1.1); Partial Thromboplastin Ratio 1.6; Partial Thromboplastin Time 40.9 Seconds (21.0-31.0)
[2018-06-26 20:37] LABS: Alanine Aminotransferase 31 U/L (12-78); Albumin Level 3.7 gm/dl (3.4-5.0); Aspartate Aminotransferase 30 U/L (15-37); BUN Creatinine Ratio 22.4 (10-20); Bilirubin Direct 0.2 mg/dl (0-0.2); Blood Urea Nitrogen 18 mg/dl (7-18); Calcium 8.7 mg/dl (8.5-10.1); Carbon Dioxide 30 mmol/L (21-32); Chloride 104 mmol/L (98-107); Est GFR (African American) 100.3; Est GFR (Non-African American) 86.5; Glucose 104 mg/dl (70-99); Potassium 3.3 mmol/L (3.5-5.1); Sodium 140 mmol/L (136-145)
[2018-06-26 20:42] LABS: Alkaline Phosphatase 84 U/L (45-117); Bilirubin,Total 0.8 mg/dl (0.2-1); NT Pro B Type Natriuretic Pept 2518 pg/ml (0-900); Total Protein 7.2 gm/dl (6.4-8.2); Troponin I 0.033 ng/ml (0-0.045)
--- NOTE | 2018-06-26 20:45 | XRay Report ---
XR chest 2V routine HISTORY: 77 years-old Male Chest Pain acute atypical chest pain with cough COMPARISON: Chest radiograph 12/31/2017 TECHNIQUE: Portable AP and lateral views of the chest FINDINGS: Cardiac silhouette is mildly enlarged. Lungs are hypoinflated with bronchovascular crowding. Calcific ation the thoracic aortic arch. Ill-defined opacity about the left lung apex redemonstrated measuring up to 2.3 cm, no correlate on the lateral view. Degenerative changes of the shoulders and spine. IMPRESSION: 1. Cardiomegaly without acute process. 2. Hypoinflation with bronchovascular crowding. 3. Ill-defined 2.3 cm opacity about the left lung apex may be secondary to summation artifact with ad jacent anterior left first rib. Underlying pulmonary nodule is considered less likely. This could be correlated with a follow-up nonemergent CT of the chest if of further clinical concern. The above report was generated using voice recognition software. It may contain grammatical, syntax o r spelling errors. Electronically signed by: Harrison Quevedo M.D. 06/26/2018 8:44 PM
[2018-06-26] MEDS ORDERED: FUROSEMIDE 40 MG/4 ML VIAL IV STA (20:51)
[2018-06-26] MEDS ORDERED: POTASSIUM CHLORIDE 20 MEQ TABCR PO STA (21:21)
[2018-06-26 21:28] LABS: Appearance Urine Clear (Clear); Bilirubin Urine Negative (Negative); Color Urine Yellow; Glucose Urine UA Negative (Negative); Ketones Urine Negative (Negative); Leukocyte Esterase Urine Negative (Negative); Nitrite Urine Negative (Negative); Protein Urine Negative (Negative); Specific Gravity Urine 1.017 (1.000-1.030); Urobilinogen Urine Negative (Negative); pH Urine 6.5 (4.5-7.5)
[2018-06-26 22:01] LABS: Magnesium 2.1 mg/dl (1.8-2.4)
--- NOTE | 2018-06-27 00:21 | Emergency Department Note ---
Entered by Liu Lobato acting as a scribe for Vincent Wade History of Present Illness General Chief complaint: Swelling/Edema to Extremity Stated complaint: SWELLING Time Seen by Provider: 06/26/18 19:07 Source: patient History of Present Illness Onset (ago): day(s) 3 Location: lower extremity, left and right Pain Consistency: + other (worsening) Quality: + other (swelling) Associated symptoms: + other (6lbs weight gain); no chest pain and no shortness of breath The patient is a 77 year old male who presents to the Emergency Room with complaints of worsening swelling to his bilateral lower extremities beginning three days ago. The patient states he fell on his right hip on Tuesday. He reports he had pain in his hip and was supposed to have an x-ray this week. The patient notes he developed swelling in his lower extremities that is worsening, and he has gained 6lbs since Tuesday. He states he takes Coumadin for his heart history. The patient reports he has chronic discoloration of his legs. He notes he is in assisted living. He denies chest pain, shortness of breath, hitting his head, and a history of CHF. Home Medications Home Medications Medication Instructions Recorded Confirmed Type acetaminophen [Tylenol] 650 mg PO Q4H PRN 06/26/18 06/26/18 History amoxicillin 2,000 mg PO UD 06/26/18 06/26/18 History aspirin [Aspir-81] 81 mg PO DAILY 06/26/18 06/26/18 History cholecalciferol (vitamin D3) 5,000 unit PO DAILY 06/26/18 06/26/18 History digoxin 0.25 mg PO DAILY 06/26/18 06/26/18 History docusate sodium 100 mg PO BID 06/26/18 06/26/18 History furosemide 80 mg PO QAM 06/26/18 06/26/18 History lisinopril 5 mg PO BID 06/26/18 06/26/18 History metoprolol succinate 200 mg PO DAILY 06/26/18 06/26/18 History sennosides-docusate sodium 2 tab PO QPM 06/26/18 06/26/18 History [Senna-S] warfarin 2.5 mg PO 2XWK 06/26/18 06/26/18 History warfarin 5 mg PO 5XWK 06/26/18 06/26/18 History Allergies Allergy/AdvReac Type Severity Reaction Status Date / Time ceftriaxone Allergy Unknown UNKNOWN Verified 06/26/18 21:30 vancomycin Allergy Unknown UNKNOWN Verified 06/06/16 09:06 Past Med/Surg History Medical History Stasis dermatitis of both legs (Chronic) SIRS (systemic inflammatory response syndrome) (Chronic) Streptococcal sepsis (Resolved) Family History Other FHx: hypertension Social History Feels Safe at Home: Yes Smoking Status: Never smoker Preferred Language: Khmer Review of Systems See HPI for pertinent positives & negatives. and A total of 10 systems reviewed and were otherwise negative Physical Exam Vital Signs Vital Signs - 24 hr 06/26/18 18:27 06/26/18 19:45 06/26/18 21:01 Temperature 36.9 C Temperature Source Oral Sepsis Recent Fever Within 48 Hours No Sepsis New/Unexplained Change in Mental Status No Sepsis Action Taken by Nursing No Action Required Pulse Rate 65 61 Pulse Rate [Apical] 66 61 Pulse Rhythm Regular Irregular Pulse Rhythm [Apical] Irregular Irregular Pulse Strength Normal Pulse Strength [Apical] Normal Normal Respiratory Rate 20 20 20 Respiratory Effort / Characteristics Non-Labored Spontaneous Non-Labored Spontaneous Non-Labored Spontaneous Respiratory Depth Normal Normal Normal Respiratory Pattern Regular Regular Regular Blood Pressure 180/83 H Blood Pressure [Left Arm] 174/84 H 157/79 H Blood Pressure Mean 115 Blood Pressure Mean [Left Arm] 114 105 Blood Pressure Position Sitting Blood Pressure Position [Left Arm] Sitting Sitting Pulse Oximetry 97 97 97 Oxygen Delivery Method Room Air Room Air Room Air 06/26/18 22:16 Temperature Temperature Source Sepsis Recent Fever Within 48 Hours Sepsis New/Unexplained Change in Mental Status Sepsis Action Taken by Nursing Pulse Rate Pulse Rate [Apical] 76 Pulse Rhythm Pulse Rhythm [Apical] Regular Pulse Strength Pulse Strength [Apical] Normal Respiratory Rate 20 Respiratory Effort / Characteristics Non-Labored Spontaneous Respiratory Depth Normal Respiratory Pattern Regular Blood Pressure Blood Pressure [Left Arm] 171/101 H Blood Pressure Mean Blood Pressure Mean [Left Arm] 124 Blood Pressure Position Blood Pressure Position [Left Arm] Sitting Pulse Oximetry 95 Oxygen Delivery Method Room Air GENERAL: He is oriented to person, place, and time. He appears well-developed and well-nourished. He does not appear distressed. HENT: Exam performed. Head: Normocephalic and atraumatic. Right Ear: External ear normal. No mastoid tenderness. Left Ear: External ear normal. No mastoid tenderness. Mouth/Throat: The oropharynx is clear and moist. No trismus in the jaw. No dental abscesses or uvula swelling. No oropharyngeal exudate or tonsillar abscesses. EYES: Conjunctivae and EOM are normal. Pupils are equal, round, and reactive to light. Right eye exhibits no discharge. Left eye exhibits no discharge. No scleral icterus. NECK: Normal range of motion. Neck supple. No JVD present. No spinous process tenderness present. No carotid bruit present. No rigidity. No tracheal deviation and normal range of motion present. No Brudzinski's sign and no Kernig 's sign noted. CV: Normal rate, regular rhythm, normal heart sounds and intact distal pulses. Palpable radial pulses bue. PULM/CHEST: Effort normal and breath sounds normal. No respiratory distress. No stridor. He has no wheezes. He has no rales. Chest Wall: He exhibits no tenderness. ABD: The abdomen is soft. Bowel sounds are normal. He has no distension. No mass is present. There is no tenderness. There is no rebound, no guarding, no Frost's sign and no tenderness at McBurney's point. Rovsig negative MUSC/SKEL: Normal range of motion. There is 2+ pitting edema to the bilateral lower extremities. There is no tenderness or deformity. Palpable DP/PT pulses bilaterally. LYMPH: No cervical adenopathy. NEURO: He is alert and oriented to person, place, and time. He has normal strength. No cranial nerve deficit or sensory deficit. Coordination and gait normal. GCS eye subscore is 4. GCS verbal subscore is 5. GCS motor subscore is 6. cerbellar tests wnl. SKIN: Skin is warm and dry. He is not diaphoretic. Stasis dermatitis. PSYCH: He has a normal mood and affect. His behavior is normal. Judgment and thought content normal. Course 1909: Past medical records reviewed. The patient was evaluated in room A09A, and a complete history and physical examination were performed. 2056: Vital signs stable. Imaging wnl. Labs wnl with the exception of a BNP of 2518. Patient and family state no history of CHF. Pt was given a dose of Lasix and will be admitted to the hospital. I reviewed the patient's case with Dr. Morin, [facility] Hospitalist. He will evaluate the patient for further management. Administered Medications Discontinued Medications Furosemide (Lasix) 40 mg IV NOW STA Stop: 06/26/18 20:52 Last Admin: 06/26/18 21:01 Dose: 40 mg Medical Decision Making Medical Records Attestation: I reviewed the patient's medical records. Home Medications Current Medication List: was personally reviewed by me Laboratory Data Attestation: I reviewed the patient's lab results. Result diagrams: 06/26/18 19:36 06/26/18 19:36 Lab Results 06/26/18 06/26/18 06/26/18 Range/Units 19:23 19:36 19:36 WBC 9.57 (4.8-10.8) K/uL RBC 3.87 L (4.7-6.1) M/uL Hgb 13.2 L (14.0-18.0) g/dL Hct 38.2 L (42-52) % MCV 98.7 (80-100) fL MCH 34.1 H (25-34) pg MCHC 34.6 (32-36) g/dL RDW Std Deviation 46.9 H (36.4-46.3) fL RDW Coeff of Elmo 13.2 (11.5-14.5) % Plt Count 156 (130-400) K/uL MPV 12.6 H (7.4-10.4) fL Immature Gran % (Auto) 0.2 % Neut % (Auto) 78.2 % Lymph % (Auto) 8.6 % Holmes % (Auto) 10.4 % Eos % (Auto) 2.4 % Baso % (Auto) 0.2 % Immature Gran # (Auto) 0.02 (0.00-0.02) K/uL Neut # (Auto) 7.48 H (1.4-6.5) K/uL Lymph # (Auto) 0.82 L (1.2-3.4) K/uL Holmes # (Auto) 1.00 H (0.11-0.59) K/uL Eos # (Auto) 0.23 (0-0.5) K/uL Baso # (Auto) 0.02 (0-0.2) K/uL PT (9.0-12.0) Seconds INR (0.9-1.1) APTT (21.0-31.0) Seconds PTT Ratio Sodium 140 (136-145) mmol/L Potassium 3.3 L (3.5-5.1) mmol/L Chloride 104 (98-107) mmol/L Carbon Dioxide 30 (21-32) mmol/L Anion Gap 7.0 (3-11) BUN 18 (7-18) mg/dl Creatinine 0.82 (0.6-1.4) mg/dl Est Cr Clr Drug Dosing Not Reportable Est GFR ( Amer) 100.3 Est GFR (Non-Af Amer) 86.5 BUN/Creatinine Ratio 22.4 H (10-20) Glucose 104 H (70-99) mg/dl Calcium 8.7 (8.5-10.1) mg/dl Magnesium 2.1 (1.8-2.4) mg/dl Total Bilirubin 0.8 (0.2-1) mg/dl Direct Bilirubin 0.2 (0-0.2) mg/dl AST 30 (15-37) U/L ALT 31 (12-78) U/L Alkaline Phosphatase 84 (45-117) U/L Troponin I 0.033 (0-0.045) ng/ml NT-Pro-B Natriuret Pep 2518 H (0-900) pg/ml Total Protein 7.2 (6.4-8.2) gm/dl Albumin 3.7 (3.4-5.0) gm/dl Lipase 141 (73-393) U/L Urine Color Yellow Urine Appearance Clear (Clear) Urine pH 6.5 (4.5-7.5) Ur Specific Trade 1.017 (1.000-1.030) Urine Protein Negative (Negative) Urine Glucose (UA) Negative (Negative) Urine Ketones Negative (Negative) Urine Blood Negative (Negative) Urine Nitrite Negative (Negative) Urine Bilirubin Negative (Negative) Urine Urobilinogen Negative (Negative) Ur Leukocyte Esterase Negative (Negative) Digoxin (0.8-2.0) ng/ml 06/26/18 06/26/18 Range/Units 19:36 22:21 WBC (4.8-10.8) K/uL RBC (4.7-6.1) M/uL Hgb (14.0-18.0) g/dL Hct (42-52) % MCV (80-100) fL MCH (25-34) pg MCHC (32-36) g/dL RDW Std Deviation (36.4-46.3) fL RDW Coeff of Elmo (11.5-14.5) % Plt Count (130-400) K/uL MPV (7.4-10.4) fL Immature Gran % (Auto) % Neut % (Auto) % Lymph % (Auto) % Holmes % (Auto) % Eos % (Auto) % Baso % (Auto) % Immature Gran # (Auto) (0.00-0.02) K/uL Neut # (Auto) (1.4-6.5) K/uL Lymph # (Auto) (1.2-3.4) K/uL Holmes # (Auto) (0.11-0.59) K/uL Eos # (Auto) (0-0.5) K/uL Baso # (Auto) (0-0.2) K/uL PT 23.0 H (9.0-12.0) Seconds INR 2.4 H (0.9-1.1) APTT 40.9 H (21.0-31.0) Seconds PTT Ratio 1.6 Sodium (136-145) mmol/L Potassium (3.5-5.1) mmol/L Chloride (98-107) mmol/L Carbon Dioxide (21-32) mmol/L Anion Gap (3-11) BUN (7-18) mg/dl Creatinine (0.6-1.4) mg/dl Est Cr Clr Drug Dosing Est GFR ( Amer) Est GFR (Non-Af Amer) BUN/Creatinine Ratio (10-20) Glucose (70-99) mg/dl Calcium (8.5-10.1) mg/dl Magnesium (1.8-2.4) mg/dl Total Bilirubin (0.2-1) mg/dl Direct Bilirubin (0-0.2) mg/dl AST (15-37) U/L ALT (12-78) U/L Alkaline Phosphatase (45-117) U/L Troponin I (0-0.045) ng/ml NT-Pro-B Natriuret Pep (0-900) pg/ml Total Protein (6.4-8.2) gm/dl Albumin (3.4-5.0) gm/dl Lipase (73-393) U/L Urine Color Urine Appearance (Clear) Urine pH (4.5-7.5) Ur Specific Trade (1.000-1.030) Urine Protein (Negative) Urine Glucose (UA) (Negative) Urine Ketones (Negative) Urine Blood (Negative) Urine Nitrite (Negative) Urine Bilirubin (Negative) Urine Urobilinogen (Negative) Ur Leukocyte Esterase (Negative) Digoxin 0.7 L (0.8-2.0) ng/ml Imaging Data Radiologist's Impression: Radiology results as stated below per my review and the radiologist's interpretation: XR pelvis 1-2V routine, XR femur RT 2V routine HISTORY: 77 years-old Male fall acute pelvic and right hip pain status post fall COMPARISON: CT abdomen and pelvis 01/01/2018 TECHNIQUE: Single AP view the pelvis with 2 views of the right femur, right hip radiographs 06/11/2016 FINDINGS: PELVIS: Right hip total joint arthroplasty. Severe left hip osteoarthritis. Demineralized appearance of the bones without acute fracture or dislocation. Surgical clips project of the central pelvis. Degenerative changes about the lumbar spine. RIGHT FEMUR: Linear corticated 1.7 cm ossification is noted on lateral aspect of the proximal femoral metadiaphysis which appears new from prior study suggesting a heterotopic ossification. Right hip total joint arthroplasty. No evidence of hardware complication, acute fracture or dislocation. Mid and distal portions of the right femur also appear intact. Degenerative changes about the right knee. Peripheral arterial calcifications are noted. IMPRESSION: 1. No acute fracture or dislocation. 2. Right hip total joint arthroplasty without evidence of hardware complication. The above report was generated using voice recognition software. It may contain grammatical, syntax or spelling errors. Electronically signed by: Harrison Quevedo M.D. 06/26/2018 8:29 PM XR chest 2V routine HISTORY: 77 years-old Male Chest Pain acute atypical chest pain with cough COMPARISON: Chest radiograph 12/31/2017 TECHNIQUE: Portable AP and lateral views of the chest FINDINGS: Cardiac silhouette is mildly enlarged. Lungs are hypoinflated with bronchovascular crowding. Calcification the thoracic aortic arch. Ill-defined opacity about the left lung apex redemonstrated measuring up to 2.3 cm, no correlate on the lateral view. Degenerative changes of the shoulders and spine. IMPRESSION: 1. Cardiomegaly without acute process. 2. Hypoinflation with bronchovascular crowding. 3. Ill-defined 2.3 cm opacity about the left lung apex may be secondary to summation artifact with adjacent anterior left first rib. Underlying pulmonary nodule is considered less likely. This could be correlated with a follow-up nonemergent CT of the chest if of further clinical concern. The above report was generated using voice recognition software. It may contain grammatical, syntax or spelling errors. Electronically signed by: Harrison Quevedo M.D. 06/26/2018 8:44 PM ECG Data Attestation: I personally reviewed and interpreted this ECG as follows: Indication: other (arrhythmia) Rate (beats per minute): 66 Rhythm: sinus rhythm Findings: + other (CA, QRS, and QTc intervals are wnl.); no ST depression and no ST elevation Blood Pressure Blood Pressure Findings: Elevated blood pressure Blood Pressure Disposition: further management by hospitalist MDM Narrative Vital signs stable. Imaging wnl. Labs wnl with the exception of a BNP of 2518. Patient and family state no history of CHF. Pt was given a dose of Lasix and will be admitted to the hospital. I reviewed the patient's case with Dr. Morin , [facility] Hospitalist. He will evaluate the patient for further management. Impression & Plan New onset of congestive heart failure Discharge Plan Visit Data Chief Complaint: Swelling/Edema to Extremity Stated Complaint: SWELLING ED Provider: Vincent Wade Discharge Problem: New onset of congestive heart failure Patient Disposition: Being Evaluated by Hospitalist Forms Stand Alone Forms: [facility] [employer] Prescriptions Prescriptions: No Action digoxin 250 mcg Tablet 0.25 mg PO DAILY RF: 0 sennosides-docusate sodium [Senna-S] 8.6-50 mg Tablet 2 tab PO QPM RF: 0 warfarin 5 mg tablet 5 mg PO 5XWK RF: 0 warfarin 2.5 mg tablet 2.5 mg PO 2XWK RF: 0 cholecalciferol (vitamin D3) 5,000 unit Tablet 5,000 unit PO DAILY RF: 0 lisinopril 5 mg tablet 5 mg PO BID RF: 0 docusate sodium 100 mg Capsule 100 mg PO BID RF: 0 metoprolol succinate 200 mg tablet extended release 24 hr 200 mg PO DAILY RF: 0 furosemide 80 mg tablet 80 mg PO QAM RF: 0 aspirin [Aspir-81] 81 mg Tablet,Delayed Release (Dr/Ec) 81 mg PO DAILY RF: 0 acetaminophen [Tylenol] 325 mg Tablet 650 mg PO Q4H PRN (Reason: Fever Or Pain) RF: 0 amoxicillin 500 mg Capsule 2,000 mg PO UD RF: 0 [facility]errals [facility] - The scribe's documentation has been prepared under my direction and personally reviewed by me in its entirety. I confirm that the note above accurately reflects all work, treatment, procedures, and medical decision making performed by me.
[2018-06-27] MEDS ORDERED: LISINOPRIL 5 MG TAB PO STA (00:25)
--- NOTE | 2018-06-27 00:41 | History & Physical Report ---
Date of Service June 27, 2018 Assessment & Plan (1) Acute decompensated heart failure: hx chronic diastolic heart failure(EF 55-60%, TTE 2016) ? Uncontrolled BP as precipitant A. fib on Coumadin, rate controlled, INR therapeutic PAD as per records prostate cancer as per records New onset anemia Abnormal CXR , possible left lung opacity PCU Diuretic regimen Titrate antihypertensive medications Strict I/Os, daily weights, CHF education TTE, Cardiology consult RE decompensated heart failure Anemia workup, transfuse PRBC if hemoglobin less than 8 (hx PVD as per records) Nonemergent CT chest in a.m. (RE possible lung nodule) DVT prophylaxis. Coumadin INR goal between 2 and 3 Full code Patient son requesting updates from providers. Mr. You Buckner, contact numbers [phone]. History of Present Illness Chief Complaint: Weight gain, leg swelling Primary Care Provider: Dr. Duvall History obtained from patient and records. Medical history significant for chronic diastolic heart failure(EF 55-60%, TTE 2016), paroxysmal A. fib on Coumadin, hypertension, PAD as per records, history of endocarditis as per records, prostate cancer as per records Recent confinement October 2016 for cellulitis left lower extremity. 3 days history of increased bilateral leg swelling and weight gain of 6 pounds. Patient denies chest pain, S OB. Patient feels bloated. Right hip pain resulting from a recent mechanical fall at the personal halfway. At the ER, IV Lasix given for CHF. 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 resident Allergies Allergy/AdvReac Type Severity Reaction Status Date / Time ceftriaxone Allergy Unknown UNKNOWN Verified 06/26/18 21:30 vancomycin Allergy Unknown UNKNOWN Verified 06/06/16 09:06 Home Medications Home Medications Medication Instructions Recorded Confirmed Type acetaminophen [Tylenol] 650 mg PO Q4H PRN 06/26/18 06/26/18 History amoxicillin 2,000 mg PO UD 06/26/18 06/26/18 History aspirin [Aspir-81] 81 mg PO DAILY 06/26/18 06/26/18 History cholecalciferol (vitamin D3) 5,000 unit PO DAILY 06/26/18 06/26/18 History digoxin 0.25 mg PO DAILY 06/26/18 06/26/18 History docusate sodium 100 mg PO BID 06/26/18 06/26/18 History furosemide 80 mg PO QAM 06/26/18 06/26/18 History lisinopril 5 mg PO BID 06/26/18 06/26/18 History metoprolol succinate 200 mg PO DAILY 06/26/18 06/26/18 History sennosides-docusate sodium 2 tab PO QPM 06/26/18 06/26/18 History [Senna-S] warfarin 2.5 mg PO 2XWK 06/26/18 06/26/18 History warfarin 5 mg PO 5XWK 06/26/18 06/26/18 History Past Med/Surg History Medical History Stasis dermatitis of both legs (Chronic) SIRS (systemic inflammatory response syndrome) (Chronic) Streptococcal sepsis (Resolved) Family History Other FHx: hypertension Social History marital status: Current Living Situation: Personal Care Facility Other Information That Helps Us Care for You: Yes Feels Safe at Home: Yes Safety Concerns: Feels Safe At This Time Smoking Status: Never smoker Do You Dip or Chew Tobacco: No Hx Alcohol Use: Yes Alcohol Intake Frequency: holidays/special occasions only Hx Substance Use: No Beliefs That Will Affect Care: None Communication Ability: Effective Review of Systems As per HPI, all 10 systems reviewed, all other ROS negative Physical Exam 2 Vital Signs (Past 24 Hours): Last Vital Signs Temp 36.9 C 06/26/18 18:27 Pulse 85 06/27/18 00:16 Resp 27 H 06/27/18 00:16 BP 178/80 H 06/27/18 00:16 Pulse Ox 96 06/27/18 00:16 Physical Exam: GENERAL: Comfortable, pleasant, slightly hard of hearing, no respiratory distress SKIN: Pallor , warm HEENT: Alopecia, pale palpebral conjunctivae, no ptosis, dry buccal mucosa NECK : Supple, no tenderness CHEST : Decreased breath sounds, no tenderness HEART : Irregular, systolic murmur ABDOMEN: Some distention, nontender EXTREMITIES : Chronic venous stasis LE, no tenderness, no other conspicuous deformities noted NEUROLOGIC : Coherent, no facial asymmetry, no other gross focality except for mild hearing impairment, gait and stance not assessed Results & Data Laboratory Results Laboratory Results WBC 9.57 K/uL (4.8-10.8) 06/26/18 19:36 RBC 3.87 M/uL (4.7-6.1) L 06/26/18 19:36 Hgb 13.2 g/dL (14.0-18.0) L 06/26/18 19:36 Hct 38.2 % (42-52) L 06/26/18 19:36 MCV 98.7 fL (80-100) 06/26/18 19:36 MCH 34.1 pg (25-34) H 06/26/18 19:36 MCHC 34.6 g/dL (32-36) 06/26/18 19:36 RDW Std Deviation 46.9 fL (36.4-46.3) H 06/26/18 19:36 RDW Coeff of Elmo 13.2 % (11.5-14.5) 06/26/18 19:36 Plt Count 156 K/uL (130-400) 06/26/18 19:36 MPV 12.6 fL (7.4-10.4) H 06/26/18 19:36 Immature Gran % (Auto) 0.2 % 06/26/18 19:36 Neut % (Auto) 78.2 % 06/26/18 19:36 Lymph % (Auto) 8.6 % 06/26/18 19:36 [place] % (Auto) 10.4 % 06/26/18 19:36 Eos % (Auto) 2.4 % 06/26/18 19:36 Baso % (Auto) 0.2 % 06/26/18 19:36 Immature Gran # (Auto) 0.02 K/uL (0.00-0.02) 06/26/18 19:36 Neut # (Auto) 7.48 K/uL (1.4-6.5) H 06/26/18 19:36 Lymph # (Auto) 0.82 K/uL (1.2-3.4) L 06/26/18 19:36 [place] # (Auto) 1.00 K/uL (0.11-0.59) H 06/26/18 19:36 Eos # (Auto) 0.23 K/uL (0-0.5) 06/26/18 19:36 Baso # (Auto) 0.02 K/uL (0-0.2) 06/26/18 19:36 PT 23.0 Seconds (9.0-12.0) H 06/26/18 19:36 INR 2.4 (0.9-1.1) H 06/26/18 19:36 APTT 40.9 Seconds (21.0-31.0) H 06/26/18 19:36 PTT Ratio 1.6 06/26/18 19:36 Sodium 140 mmol/L (136-145) 06/26/18 19:36 Potassium 3.3 mmol/L (3.5-5.1) L 06/26/18 19:36 Chloride 104 mmol/L (98-107) 06/26/18 19:36 Carbon Dioxide 30 mmol/L (21-32) 06/26/18 19:36 Anion Gap 7.0 (3-11) 06/26/18 19:36 BUN 18 mg/dl (7-18) 06/26/18 19:36 Creatinine 0.82 mg/dl (0.6-1.4) 06/26/18 19:36 Est Cr Clr Drug Dosing Not Reportable 06/26/18 19:36 Est GFR ( Amer) 100.3 06/26/18 19:36 Est GFR (Non-Af Amer) 86.5 06/26/18 19:36 BUN/Creatinine Ratio 22.4 (10-20) H 06/26/18 19:36 Glucose 104 mg/dl (70-99) H 06/26/18 19:36 Calcium 8.7 mg/dl (8.5-10.1) 06/26/18 19:36 Magnesium 2.1 mg/dl (1.8-2.4) 06/26/18 19:36 Total Bilirubin 0.8 mg/dl (0.2-1) 06/26/18 19:36 Direct Bilirubin 0.2 mg/dl (0-0.2) 06/26/18 19:36 AST 30 U/L (15-37) 06/26/18 19:36 ALT 31 U/L (12-78) 06/26/18 19:36 Alkaline Phosphatase 84 U/L (45-117) 06/26/18 19:36 Troponin I 0.033 ng/ml (0-0.045) 06/26/18 19:36 NT-Pro-B Natriuret Pep 2518 pg/ml (0-900) H 06/26/18 19:36 Total Protein 7.2 gm/dl (6.4-8.2) 06/26/18 19:36 Albumin 3.7 gm/dl (3.4-5.0) 06/26/18 19:36 Lipase 141 U/L (73-393) 06/26/18 19:36 Urine Color Yellow 06/26/18 19:23 Urine Appearance Clear (Clear) 06/26/18 19:23 Urine pH 6.5 (4.5-7.5) 06/26/18 19:23 Ur Specific [place] 1.017 (1.000-1.030) 06/26/18 19:23 Urine Protein Negative (Negative) 06/26/18 19:23 Urine Glucose (UA) Negative (Negative) 06/26/18 19:23 Urine Ketones Negative (Negative) 06/26/18 19:23 Urine Blood Negative (Negative) 06/26/18 19:23 Urine Nitrite Negative (Negative) 06/26/18 19:23 Urine Bilirubin Negative (Negative) 06/26/18 19:23 Urine Urobilinogen Negative (Negative) 06/26/18 19:23 Ur Leukocyte Esterase Negative (Negative) 06/26/18 19:23 Digoxin 0.7 ng/ml (0.8-2.0) L 06/26/18 22:21 Diagnostic Findings Chest x-ray: 1. Cardiomegaly without acute process. 2. Hypoinflation with bronchovascular crowding. 3. Ill-defined 2.3 cm opacity about the left lung apex may be secondary to summation artifact with adjacent anterior left first rib. Underlying pulmonary nodule is considered less likely. This could be correlated with a follow-up nonemergent CT of the chest if of further clinical concern. Right femoral x-ray : 1. No acute fracture or dislocation. 2. Right hip total joint arthroplasty without evidence of hardware complication. EKG as per my interpretation: Rate 75, A. fib, LAD, LAFB, incomplete LBBB, T wave flattening lateral leads, PVCs
[2018-06-27] MEDS ORDERED: NITROGLYCERIN SL 0.4 MG/TAB TAB SL PRN (02:19)
[2018-06-27] MEDS ORDERED: PROCHLORPERAZINE 5 MG in SYRINGE 4 ML IV PRN (02:19)
[2018-06-27] MEDS ORDERED: ACETAMINOPHEN 325 MG TAB PO PRN (02:19)
[2018-06-27] MEDS ORDERED: MoRPHine SULFATE 4 MG/ML 1 ML CARP\\VIAL IV PRN (02:19)
[2018-06-27] MEDS: ACETAMINOPHEN 325 MG TAB PO PRN (05:41)
[2018-06-27 07:11] LABS: Basophils # (auto) 0.01 K/uL (0-0.2); Basophils % (auto) 0.1 %; Eosinophils # (auto) 0.08 K/uL (0-0.5); Hemoglobin 12.8 g/dL (14.0-18.0); Immature Granulocytes # (auto) 0.02 K/uL (0.00-0.02); Immature Granulocytes % (auto) 0.3 %; Lymphocytes # (auto) 0.59 K/uL (1.2-3.4); Lymphocytes % (auto) 7.6 %; Mean Corpuscular Hgb Conc 34.6 g/dL (32-36); Mean Corpuscular Volume 98.1 fL (80-100); Mean Platelet Volume 11.9 fL (7.4-10.4); Monocytes # (auto) 1.07 K/uL (0.11-0.59); Monocytes % (auto) 13.8 %; Neutrophils # (auto) 5.96 K/uL (1.4-6.5); Neutrophils % (auto) 77.2 %; Platelet Count 135 K/uL (130-400); RDW Standard Deviation 46.5 fL (36.4-46.3); Red Blood Count 3.77 M/uL (4.7-6.1); Reticulocyte % 1.4 % (0.5-2.0); Reticulocytes # 0.05 10^6/uL (0.02-0.10); White Blood Count 7.73 K/uL (4.8-10.8)
[2018-06-27 07:24] LABS: INR 1.9 (0.9-1.1); Prothrombin Time 18.2 Seconds (9.0-12.0)
[2018-06-27] MEDS: TRAMADOL HCL 50 MG TABLET PO PRN ×2 (07:38→15:50)
[2018-06-27] MEDS: METOPROLOL SUCC 50MG EXT REL TAB PO SCH (07:40)
[2018-06-27] MEDS: LISINOPRIL 5 MG TAB PO SCH ×2 (07:40→19:14)
[2018-06-27] MEDS: POTASSIUM CHLORIDE 20 MEQ TABCR PO SCH (07:40)
[2018-06-27] MEDS: FUROSEMIDE 80 MG in SYRINGE 0 ML IV SCH ×2 (07:41→19:14)
[2018-06-27] MEDS: ASPIRIN 81 MG ECTAB PO SCH (07:41)
[2018-06-27] MEDS: DOCUSATE SODIUM/SENNA 50/8.6MG TAB PO SCH ×2 (07:42→19:14)
[2018-06-27 07:45] LABS: BUN Creatinine Ratio 18.4 (10-20); Calcium 8.5 mg/dl (8.5-10.1); Creatinine Clr Calc Pharmacy 104.5 ml/min; Est GFR (African American) 105.2; Est GFR (Non-African American) 90.7; Potassium 3.1 mmol/L (3.5-5.1)
[2018-06-27 07:52] LABS: Ferritin 334.7 ng/ml (8-388)
[2018-06-27 08:12] LABS: Folate (Folic Acid) 14.25 ng/ml (>5.38)
[2018-06-27] MEDS ORDERED: FUROSEMIDE 40 MG/4 ML VIAL IV SCH (09:00)
--- NOTE | 2018-06-27 11:08 | Cardiology Consultation ---
Date of Consultation June 27, 2018 Assessment & Plan (1) Acute on chronic diastolic CHF (congestive heart failure): Suspect the patient's recent decompensation is related to dietary indiscretion with salt. He has improved with intravenous diuresis. Continue current management for now. (2) Permanent atrial fibrillation: Would continue with rate control and long-term anticoagulation as you are. (3) Essential hypertension: Adequate control on current medical regimen. 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 The patient completed 6 weeks of outpatient intravenous antibiotics. History of Present Illness Attending Physician: Jim Rowland MD History of Present Illness Mr. Buckner is a 77-year-old male admitted yesterday with acute on chronic diastolic CHF. This consultation was ordered to assist his cardiac management. Of note, the patient is well known to me from the outpatient setting. The patient was in his usual state of health until approximately 3 days prior to presentation when he began to note increasing lower extremity edema , exertional dyspnea, and several episodes of paroxysmal nocturnal dyspnea. At no time did he experience exertional chest pain. The patient does carry history of permanent atrial fibrillation and is tolerating rate control and long-term anticoagulation without difficulty. Currently, patient is resting comfortably in bed without complaints. Past medical and surgical history 1. Hypertension 2. Chronic diastolic CHF 3. Permanent atrial fibrillation 4. Peripheral vascular disease 5. Chronic venous stasis 6. Left cerebellar pontine angle meningioma 7. DJD 8. History of aortic valve SBE-group G strep, August 2015 9. Dementia 10. Right THR 11. Bilateral interocular lens implants 12. Vitamin-D deficiency 13. Ankylosing spondylitis 14. History of prostate carcinoma Social history , but resides in [facility] No tobacco occasional alcohol Family history Noncontributory Review of systems a 10 point review of systems was undertaken and negative except for that described above. Allergies Allergy/AdvReac Type Severity Reaction Status Date / Time ceftriaxone Allergy Unknown UNKNOWN Verified 06/26/18 21:30 vancomycin Allergy Unknown UNKNOWN Verified 06/06/16 09:06 Home Medications Home Medications Medication Instructions Recorded Confirmed Type acetaminophen [Tylenol] 650 mg PO Q4H PRN 06/26/18 06/26/18 History amoxicillin 2,000 mg PO UD 06/26/18 06/26/18 History aspirin [Aspir-81] 81 mg PO DAILY 06/26/18 06/26/18 History cholecalciferol (vitamin D3) 5,000 unit PO DAILY 06/26/18 06/26/18 History digoxin 0.25 mg PO DAILY 06/26/18 06/26/18 History docusate sodium 100 mg PO BID 06/26/18 06/26/18 History furosemide 80 mg PO QAM 06/26/18 06/26/18 History lisinopril 5 mg PO BID 06/26/18 06/26/18 History metoprolol succinate 200 mg PO DAILY 06/26/18 06/26/18 History sennosides-docusate sodium 2 tab PO QPM 06/26/18 06/26/18 History [Senna-S] warfarin 2.5 mg PO 2XWK 06/26/18 06/26/18 History warfarin 5 mg PO 5XWK 06/26/18 06/26/18 History Patient History Medical History Stasis dermatitis of both legs (Chronic) SIRS (systemic inflammatory response syndrome) (Chronic) Streptococcal sepsis (Resolved) Family History Other FHx: hypertension Social History Current Living Situation: Personal Care Facility Other Information That Helps Us Care for You: Yes Feels Safe at Home: Yes Safety Concerns: Feels Safe At This Time Smoking Status: Never smoker Do You Dip or Chew Tobacco: No Hx Alcohol Use: Yes Alcohol Intake Frequency: holidays/special occasions only Hx Substance Use: No Beliefs That Will Affect Care: None Preferred Language: Telugu Communication Ability: Effective Physical Exam 2 Vital Signs (Past 24 Hours): Last Vital Signs Temp 36.7 C 06/27/18 07:00 Pulse 66 06/27/18 08:00 Resp 16 06/27/18 07:00 BP 173/75 H 06/27/18 07:00 Pulse Ox 96 06/27/18 07:00 Physical Exam: In general is well-developed well-nourished white male seated in a bedside chair without complaints. HEENT exam is negative. Neck is supple full carotid upstrokes. No obvious bruits. Jugular venous pressure is flat at 90 degrees. There is no thyromegaly. Cardiovascular exam reveals an irregular regular rhythm with distant heart sounds. No obvious murmurs. Lungs are clear without rales, rhonchi or wheezes. Abdomen is obese without bruits. Extremities reveal intact radial artery pulses bilaterally. Trace pretibial edema is noted. Hyperpigmentation changes noted the distal lower extremities bilaterally. Results & Data Laboratory Results CBC notes a hemoglobin 12.8, hematocrit 37.0, white count 7.73, and a platelet count of [id number]. electrolytes on a sodium of 141, potassium 3.1, chloride 103, bicarb 31, BUN 13, creatinine 0.73, glucose of 113. BNP is elevated 2518. troponin I level 0.033. INR is 1.9. Diagnostic Findings EKG notes atrial fibrillation with a controlled ventricular response. PVCs or aberrant beats are noted. There is a nonspecific ST T-wave abnormality. 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 Chest x-ray notes cardiomegaly and mild changes of CHF.
[2018-06-27] MEDS: DIGOXIN 0.25 MG TAB PO SCH (16:07)
--- NOTE | 2018-06-27 19:59 | Hospitalist Progress Note ---
Date of Service June 27, 2018 Assessment & Plan (1) Acute on chronic diastolic CHF (congestive heart failure): Presented with CHF. Seen in consultation by Dr. Moore. Acute on chronic left ventricular diastolic heart failure. Continue diuretics. (2) Permanent atrial fibrillation: Continue rate control with metoprolol and digoxin. Continue anticoagulation with warfarin. (3) Essential hypertension: Continue metoprolol and lisinopril. (4) Urinary frequency: Portable US revealed postvoid residual of > 900 ml. Urinary retention could be contributing to CHF. Straight caths. Start tamsulosin and finasteride. Consult Urology. (5) Abnormal chest x-ray: Chest x-ray demonstrated KRYSTA density, ? summation artifact. Needs CT without contrast once cardiopulmonary status improved. (6) DVT prophylaxis: Continue warfarin. Ambulate. (7) Discharge planning issues: Anticipated return to [facility] under care of Dr. Duvall. Subjective Recheck for CHF and other problems. Pt seen in his room. He feels better. No chest pain. Less SOB. Dependent edema about the same. No fever. No nausea or vomiting. Chronic urinary hesitancy and frequency. Physical Exam 2 Vital Signs (Past 24 Hours): Last Vital Signs Temp 36.5 C 06/27/18 19:09 Pulse 76 06/27/18 19:09 Resp 18 06/27/18 19:09 BP 162/86 H 06/27/18 19:09 Pulse Ox 96 06/27/18 19:09 Constitutional: no acute distress Respiratory: no respiratory distress Auscultation: lungs clear to auscultation bilaterally Cardiovascular: Rate/Rhythm: + abnormal rhythm (irregularly irregular) Heart Sounds: no gallop Vessels: no JVD Extremities: + edema (1+ pretibial ); no calf tenderness Gastrointestinal (Abdomen): normal bowel sounds, soft, nontender, no hepatosplenomegaly Skin: + rash (chronic venous stasis lower extremities) Psychiatric: Orientation: alert Results & Data Laboratory Results Laboratory Results - last 24 hr 06/27/18 06/27/18 06/27/18 06:56 06:56 06:56 WBC 7.73 RBC 3.77 L Hgb 12.8 L Hct 37.0 L MCV 98.1 MCH 34.0 MCHC 34.6 RDW Std Deviation 46.5 H RDW Coeff of Elmo 13.0 Plt Count 135 MPV 11.9 H Immature Gran % (Auto) 0.3 Neut % (Auto) 77.2 Lymph % (Auto) 7.6 [place]ha % (Auto) 13.8 Eos % (Auto) 1.0 Baso % (Auto) 0.1 Reticulocyte % (Auto) 1.4 Immature Gran # (Auto) 0.02 Neut # (Auto) 5.96 Lymph # (Auto) 0.59 L Desha # (Auto) 1.07 H Eos # (Auto) 0.08 Baso # (Auto) 0.01 Reticulocyte # 0.05 PT 18.2 H INR 1.9 H Sodium 141 Potassium 3.1 L Chloride 103 Carbon Dioxide 31 Anion Gap 7.0 BUN 13 Creatinine 0.73 Est Cr Clr Drug Dosing 104.5 Est GFR ( Amer) 105.2 Est GFR (Non-Af Amer) 90.7 BUN/Creatinine Ratio 18.4 Glucose 113 H Calcium 8.5 Iron 47 TIBC 214 L Transferrin 175 L Ferritin 334.7 Vitamin B12 Folate 06/27/18 06:56 WBC RBC Hgb Hct MCV MCH MCHC RDW Std Deviation RDW Coeff of Elmo Plt Count MPV Immature Gran % (Auto) Neut % (Auto) Lymph % (Auto) Desha % (Auto) Eos % (Auto) Baso % (Auto) Reticulocyte % (Auto) Immature Gran # (Auto) Neut # (Auto) Lymph # (Auto) Desha # (Auto) Eos # (Auto) Baso # (Auto) Reticulocyte # PT INR Sodium Potassium Chloride Carbon Dioxide Anion Gap BUN Creatinine Est Cr Clr Drug Dosing Est GFR ( Amer) Est GFR (Non-Af Amer) BUN/Creatinine Ratio Glucose Calcium Iron TIBC Transferrin Ferritin Vitamin B12 450 Folate 14.25
[2018-06-28] MEDS: TRAMADOL HCL 50 MG TABLET PO PRN (02:22)
[2018-06-28 07:24] LABS: INR 1.4 (0.9-1.1); Prothrombin Time 13.7 Seconds (9.0-12.0)
[2018-06-28 07:45] LABS: BUN Creatinine Ratio 26.9 (10-20); Calcium 8.4 mg/dl (8.5-10.1); Creatinine Clr Calc Pharmacy 90.9 ml/min; Est GFR (African American) 100.3; Est GFR (Non-African American) 86.5
[2018-06-28] MEDS: METOPROLOL SUCC 50MG EXT REL TAB PO SCH (08:33)
[2018-06-28] MEDS: FINASTERIDE 5 MG TAB PO SCH (08:34)
[2018-06-28] MEDS: POTASSIUM CHLORIDE 20 MEQ TABCR PO SCH (08:34)
[2018-06-28] MEDS: ASPIRIN 81 MG ECTAB PO SCH (08:34)
[2018-06-28] MEDS: DOCUSATE SODIUM/SENNA 50/8.6MG TAB PO SCH ×2 (08:35→21:13)
[2018-06-28] MEDS: LISINOPRIL 5 MG TAB PO SCH ×2 (08:35→20:39)
--- NOTE | 2018-06-28 11:47 | Cardiology Progress Note ---
Date of Service June 28, 2018 Assessment & Plan (1) Acute on chronic diastolic CHF (congestive heart failure): Has lost a total of 4 kg with diuresis. Furosemide currently on hold. May require a low-dose diuretic as an outpatient. (2) Permanent atrial fibrillation: Continue with rate control and long-term anticoagulation. (3) Essential hypertension: Adequate control on current medical regimen. 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 Subjective Mr. Buckner is resting comfortably in bed without complaints of chest pain or dyspnea. Physical Exam 2 Vital Signs (Past 24 Hours): Last Vital Signs Temp 36.3 C L 06/28/18 06:50 Pulse 60 06/28/18 06:50 Resp 18 06/28/18 06:50 BP 161/79 H 06/28/18 06:50 Pulse Ox 96 06/28/18 06:50 Physical Exam: In general is well-developed well-nourished white male seated in a bedside chair without complaints. HEENT exam is negative. Neck is supple full carotid upstrokes. No obvious bruits. Jugular venous pressure is flat at 90 degrees. There is no thyromegaly. Cardiovascular exam reveals an irregular regular rhythm with distant heart sounds. No obvious murmurs. Lungs are clear without rales, rhonchi or wheezes. Abdomen is obese without bruits. Extremities reveal intact radial artery pulses bilaterally. Trace pretibial edema is noted. Hyperpigmentation changes noted the distal lower extremities bilaterally. Results & Data Laboratory Results Laboratory Results - last 24 hr 06/28/18 06/28/18 07:00 07:00 PT 13.7 H INR 1.4 H Sodium 141 Potassium 3.0 L Chloride 104 Carbon Dioxide 32 Anion Gap 5.0 BUN 22 H D Creatinine 0.82 Est Cr Clr Drug Dosing 90.9 Est GFR ( Amer) 100.3 Est GFR (Non-Af Amer) 86.5 BUN/Creatinine Ratio 26.9 H Glucose 110 H Calcium 8.4 L Diagnostic Findings threat monitoring analyst notes atrial fibrillation with a controlled ventricular response.
[2018-06-28] MEDS ORDERED: POTASSIUM CHLORIDE 20 MEQ TABCR PO STA (14:36)
[2018-06-28] MEDS: DIGOXIN 0.25 MG TAB PO SCH (15:30)
[2018-06-28] MEDS: WARFARIN SOD 5 MG TAB PO SCH (15:32)
--- NOTE | 2018-06-28 18:10 | Hospitalist Progress Note ---
Date of Service June 28, 2018 Assessment & Plan (1) Discharge planning issues: Anticipated return to [facility] under care of Dr. Duvall. (2) Acute on chronic diastolic CHF (congestive heart failure): presented with vol overload , SOB Seen in consultation by Dr. Moore. Acute on chronic left ventricular diastolic heart failure. clinically improved with IV lasix (3) Urinary retention: possible chronic Portable US revealed postvoid residual of > 900 ml. required intermittent straight cath UA negative pt denies of any urinary symptom Started tamsulosin and finasteride. Consulted Urology. Present on Admission?: Yes (4) Permanent atrial fibrillation: Continue rate control with metoprolol and digoxin. Continue anticoagulation with warfarin. (5) Essential hypertension: Continue metoprolol and lisinopril. (6) Urinary frequency: (7) Abnormal chest x-ray: Chest x-ray demonstrated KRYSTA density, ? summation artifact. Needs CT without contrast once cardiopulmonary status improved. (8) DVT prophylaxis: Continue warfarin. Ambulate. Subjective pt found sitting on chair denies of any discomfort blair catheter placed for urinary retention /large amount of post void urine requiring multiple straight cath pt denies of any dysuria or discomfort /bladder fullness no complain of SOB , no orthopnea no fever or chills Physical Exam 2 Vital Signs (Past 24 Hours): Last Vital Signs Temp 36.4 C L 06/28/18 16:03 Pulse 51 L 06/28/18 16:03 Resp 18 06/28/18 16:03 BP 155/73 H 06/28/18 16:03 Pulse Ox 100 06/28/18 16:03 Physical Exam: GENERAL: No sign of distress, HEENT: Sclera nonicteric, pi Normal oral mucosa, neck: No JVD, no thyromegaly, trachea midline Lungs: Clear to auscultate, no wheeze or rales Cardiovascular: Regular S1 and S2, no murmur or gallop, no JVD, trace bilat lower extremity edema Abdomen: Soft, nontender, bowel sounds active, Extremities: No rash or deformity, normal joint, Neuro: No focal neurological deficit, no dysarthria, no facial droop Psych: Alert awake oriented x3: Euthymic Skin: No rash
--- NOTE | 2018-06-28 19:54 | Urology Consultation ---
Date of Consultation June 28, 2018 Assessment & Plan (1) Urinary retention: I think this urinary retention is long standing. He has a very large distended but thin walled bladder on the ct scan december 2017 from ER [facility]. He has no subjective symptoms from the retention. I dont think he senses bladder fullness. He gives a history of radical prostatectomy and there are surgical clips in the obturator fossa like one would see with a radical prostatectomy. There is streak artifact from the hip replacement but I dont clearly see any prostate tissue on the CT scan. Additionally his psa from december 2017 was 0. There is a prostate biopsy from Dr Lennon 1998 with several cores of [place] 6 prostate cancer. He might have had his prostate cancer surgery elsewhere. The blair placed tonight went in easily, So I dont think he is obstructed. We can hold off on finasteride for now We need to watch his blood pressure with the flomax. 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 Keep the blair in for the indefinite future. Present on Admission?: Yes History of Present Illness Reason for Consultation: urinary retention Requesting Physician: Dr Jacques Attending Physician: Angela Jacques MD History of Present Illness I am asked by Dr Jacques to evaluate and treat patient for urinary retention. He is admitted for chf. He has complex cardiac disease. He is a very poor historian due to memory problems. he does not know why he is hospitalized. He denies any urinary problems. He does report intermittent severe constipation requiring ER trips. He has had last few days high residual urines. He has been straight cathed for up to 900 and has had several scans to 500mL. He had a blair placed this evening 16 fr coude went in easily and drained 500mL nicole urine. He has some pain from cathter placement mild. He is on no prior meds for BPH. He says he had surgery for prostate cancer here at [facility] many years ago. he has not followed with a urologist for many years. Allergies Allergy/AdvReac Type Severity Reaction Status Date / Time ceftriaxone Allergy Unknown UNKNOWN Verified 06/26/18 21:30 vancomycin Allergy Unknown UNKNOWN Verified 06/06/16 09:06 Home Medications Home Medications Medication Instructions Recorded Confirmed Type acetaminophen [Tylenol] 650 mg PO Q4H PRN 06/26/18 06/26/18 History amoxicillin 2,000 mg PO UD 06/26/18 06/26/18 History aspirin [Aspir-81] 81 mg PO DAILY 06/26/18 06/26/18 History cholecalciferol (vitamin D3) 5,000 unit PO DAILY 06/26/18 06/26/18 History digoxin 0.25 mg PO DAILY 06/26/18 06/26/18 History docusate sodium 100 mg PO BID 06/26/18 06/26/18 History furosemide 80 mg PO QAM 06/26/18 06/26/18 History lisinopril 5 mg PO BID 06/26/18 06/26/18 History metoprolol succinate 200 mg PO DAILY 06/26/18 06/26/18 History sennosides-docusate sodium 2 tab PO QPM 06/26/18 06/26/18 History [Senna-S] warfarin 2.5 mg PO 2XWK 06/26/18 06/26/18 History warfarin 5 mg PO 5XWK 06/26/18 06/26/18 History Patient History Medical History Stasis dermatitis of both legs (Chronic) SIRS (systemic inflammatory response syndrome) (Chronic) Streptococcal sepsis (Resolved) Family History Other FHx: hypertension Social History marital status: Current Living Situation: Personal Care Facility Other Information That Helps Us Care for You: Yes Feels Safe at Home: Yes Safety Concerns: Feels Safe At This Time Smoking Status: Never smoker Do You Dip or Chew Tobacco: No Hx Alcohol Use: Yes Alcohol Intake Frequency: holidays/special occasions only Hx Substance Use: No Beliefs That Will Affect Care: None Communication Ability: Effective Review of Systems PMH- severe cardiac dz osteoarthritis cognitive deficit PSH- left knee replacement, left hip replacement, possible prosatectomy? Soc- lives in [place], retired, no tobacco, rare ETOH ROS_ he denies chest pain, SOB, constipation, rash, seizure, or urinary difficulty, appetite fine, no nausea or emesis, no fever or chills. I am uncertain of the accuracy of his self reported ROS due to altered cognition Physical Exam 2 Vital Signs (Past 24 Hours): Last Vital Signs Temp 36.7 C 06/28/18 19:28 Pulse 57 L 06/28/18 19:28 Resp 16 06/28/18 19:28 BP 163/86 H 06/28/18 19:28 Pulse Ox 96 06/28/18 19:28 Constitutional: WD/WN, vitals as above well developed, well nourished and + thin Eyes: PERRL, conjunctivae normal, anicteric sclerae Respiratory: able to speak in complete sentences Gastrointestinal (Abdomen): normal bowel sounds, soft, nontender, no hepatosplenomegaly He has an old well healed infraumbilical midline incision Skin: very dark hemosiderin staining of bilateral lower extremities Psychiatric: answers questions but admits his memory is poor , knows he is in [facility] but not why Genitourinary: bladder normal to palpation Normal penis, normal meatus, blair draining nicole urine no blood or sediment. Anal sphincter tone normal, no palpable prostate tissue but prostate fossa firm , perhaps scar? or catheter?, no stool in anal canal.
[2018-06-28] MEDS: HEPARIN SOD 5,000 UNIT/0.5 ML VIAL SQ SCH (20:38)
[2018-06-28] MEDS: TAMSULOSIN HCL 0.4 MG CAP PO SCH (20:40)
[2018-06-29] MEDS: HEPARIN SOD 5,000 UNIT/0.5 ML VIAL SQ SCH ×3 (05:24→20:26)
[2018-06-29 07:18] LABS: INR 1.3 (0.9-1.1); Prothrombin Time 12.7 Seconds (9.0-12.0)
[2018-06-29 07:24] LABS: BUN Creatinine Ratio 29.9 (10-20); Calcium 8.4 mg/dl (8.5-10.1); Creatinine Clr Calc Pharmacy 90.8 ml/min; Est GFR (African American) 99.3; Est GFR (Non-African American) 85.7; Magnesium 2.1 mg/dl (1.8-2.4); Potassium 3.2 mmol/L (3.5-5.1)
[2018-06-29] MEDS: ASPIRIN 81 MG ECTAB PO SCH (08:57)
[2018-06-29] MEDS: FINASTERIDE 5 MG TAB PO SCH (08:58)
[2018-06-29] MEDS: METOPROLOL SUCC 50MG EXT REL TAB PO SCH (08:59)
[2018-06-29] MEDS: DOCUSATE SODIUM/SENNA 50/8.6MG TAB PO SCH ×2 (08:59→19:25)
[2018-06-29] MEDS: LISINOPRIL 5 MG TAB PO SCH ×2 (09:00→19:26)
--- NOTE | 2018-06-29 09:20 | Cardiology Progress Note ---
Date of Service June 29, 2018 Assessment & Plan (1) Acute on chronic diastolic CHF (congestive heart failure): The patient diuresed well with intravenous furosemide. Medications currently on hold. He may require a low-dose diuretic as an outpatient. (2) Permanent atrial fibrillation: Continue with rate control and long-term anticoagulation. (3) Essential hypertension: Adequate control on current medical regimen. 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 Subjective Mr. Buckner is resting comfortably in bed without complaints of chest pain, dyspnea, or palpitations. Physical Exam 2 Vital Signs (Past 24 Hours): Last Vital Signs Temp 37 C 06/29/18 08:00 Pulse 57 L 06/29/18 08:47 Resp 18 06/29/18 08:00 BP 162/69 H 06/29/18 08:00 Pulse Ox 96 06/29/18 08:00 Physical Exam: In general is well-developed well-nourished white male seated in a bedside chair without complaints. HEENT exam is negative. Neck is supple full carotid upstrokes. No obvious bruits. Jugular venous pressure is flat at 90 degrees. There is no thyromegaly. Cardiovascular exam reveals an irregular regular rhythm with distant heart sounds. No obvious murmurs. Lungs are clear without rales, rhonchi or wheezes. Abdomen is obese without bruits. Extremities reveal intact radial artery pulses bilaterally. Trace pretibial edema is noted. Hyperpigmentation changes noted the distal lower extremities bilaterally. Results & Data Laboratory Results Laboratory Results - last 24 hr 06/29/18 06/29/18 06:40 06:40 PT 12.7 H INR 1.3 H Sodium 140 Potassium 3.2 L Chloride 104 Carbon Dioxide 31 Anion Gap 5.0 BUN 25 H Creatinine 0.84 Est Cr Clr Drug Dosing 90.8 Est GFR ( Amer) 99.3 Est GFR (Non-Af Amer) 85.7 BUN/Creatinine Ratio 29.9 H Glucose 124 H Calcium 8.4 L Magnesium 2.1 Diagnostic Findings athletic monitor notes rate controlled atrial fibrillation.
[2018-06-29] MEDS: POTASSIUM CHLORIDE 20 MEQ TABCR PO SCH (10:03)
[2018-06-29] MEDS ORDERED: POTASSIUM CHLORIDE 20 MEQ TABCR PO STA (14:33)
[2018-06-29] MEDS: WARFARIN SOD 5 MG TAB PO SCH (15:54)
[2018-06-29] MEDS: DIGOXIN 0.25 MG TAB PO SCH (16:14)
--- NOTE | 2018-06-29 17:18 | Hospitalist Progress Note ---
Date of Service June 29, 2018 Assessment & Plan (1) Discharge planning issues: Anticipated return to [facility] under care of Dr. Duvall. (2) Acute on chronic diastolic CHF (congestive heart failure): compensated , presented with vol overload , SOB Acute on chronic left ventricular diastolic heart failure. diuresed well with IV Lasix appreciate input from Cardiology Dr Teresa Worley has been on hold may require low dose loop diuretic as out pt will D/w Cardiology (3) Urinary retention: with hx of prostate CA possible chronic appreciate input from urology CT abdomen /pelvis on 2007 shows large distended Urinary bladder will need chronic Pizarro PSA on December 2017 : 0 hx of prostate ca : prostate biopsy in 1998 mary 6 prostate ca s/p radical prostatectomy pt will be discharged on Pizarro D/c Finsteride cont Flomax as per urology out pt follow up with Dr Burgos (4) Permanent atrial fibrillation: Continue rate control with metoprolol and digoxin. Continue anticoagulation with warfarin. (5) Essential hypertension: Continue metoprolol and lisinopril. (6) Urinary frequency: (7) Abnormal chest x-ray: Chest x-ray demonstrated KRYSTA density, ? summation artifact. ordered CT chest without contrast in am (8) DVT prophylaxis: Continue warfarin. Ambulate. DISCHARGE PLANNING : lives at personal alf [facility] Pt/OT bria requested return to [facility] in next 1-2 days Subjective complains of epigastric discomfort , abdominal bloating resolved after Maalox no complain of SOB or SHARP no cougn Physical Exam 2 Vital Signs (Past 24 Hours): Last Vital Signs Temp 36.6 C 06/29/18 15:42 Pulse 53 L 06/29/18 16:14 Resp 18 06/29/18 15:42 BP 163/82 H 06/29/18 15:42 Pulse Ox 100 06/29/18 15:42 Physical Exam: GENERAL: No sign of distress, HEENT: Sclera nonicteric, pink-purple bilateral equal reactive to light extraocular muscle intact Normal oral mucosa, neck: No JVD, no thyromegaly, trachea midline Lungs: Clear to auscultate, no wheeze or rales Cardiovascular: Regular S1 and S2, no murmur or gallop, no JVD, improved lower ext edema Abdomen: Soft, nontender, bowel sounds active, Extremities: No rash or deformity, normal joint, Neuro: No focal neurological deficit, no dysarthria, no facial droop Psych: Alert awake oriented x person , baseline dementia Skin: No rash LYMPH NODES: No cervical lymphadenopathy
[2018-06-29] MEDS ORDERED: ONDANSETRON INJ 2 MG/ML 2 ML VIAL IV PRN (17:19)
[2018-06-29] MEDS ORDERED: ALUMINUM/MAGNESIUM SUSP 30 ML UDC PO PRN (17:19)
[2018-06-29] MEDS ORDERED: ALUMINUM/MAGNESIUM SUSP 30 ML UDC ONE (17:20)
[2018-06-29] MEDS: TAMSULOSIN HCL 0.4 MG CAP PO SCH (19:26)
[2018-06-30] MEDS: TRAMADOL HCL 50 MG TABLET PO PRN (00:32)
[2018-06-30] MEDS ORDERED: HydrALAZINE HCL 20 MG/ML VIAL IV ONE (01:36)
[2018-06-30] MEDS ORDERED: METOPROLOL TARTRATE 1 MG/ML VIAL IV PRN (04:21)
[2018-06-30] MEDS ORDERED: METOPROLOL TARTRATE 1 MG/ML VIAL IV ONE (04:24)
[2018-06-30] MEDS ORDERED: dilTIAZem HCl 5 MG/ML 5 ML VIAL IV STA (04:57)
[2018-06-30] MEDS: HEPARIN SOD 5,000 UNIT/0.5 ML VIAL SQ SCH ×3 (06:02→20:41)
[2018-06-30 07:14] LABS: INR 1.4 (0.9-1.1)
[2018-06-30 07:37] LABS: BUN Creatinine Ratio 30.4 (10-20); Calcium 8.2 mg/dl (8.5-10.1); Est GFR (African American) 112.5; Magnesium 2.2 mg/dl (1.8-2.4); Potassium 3.4 mmol/L (3.5-5.1)
[2018-06-30 07:42] LABS: Prostate Specific Antigen 0.05 ng/ml (0-4)
[2018-06-30] MEDS: ASPIRIN 81 MG ECTAB PO SCH (07:47)
[2018-06-30] MEDS: POTASSIUM CHLORIDE 20 MEQ TABCR PO SCH (07:47)
[2018-06-30] MEDS: DOCUSATE SODIUM/SENNA 50/8.6MG TAB PO SCH ×2 (07:48→20:40)
[2018-06-30] MEDS: METOPROLOL SUCC 50MG EXT REL TAB PO SCH (07:48)
[2018-06-30] MEDS: LISINOPRIL 5 MG TAB PO SCH (07:48)
[2018-06-30] MEDS ORDERED: POTASSIUM CHLORIDE 10 MEQ TABCR PO STA (10:08)
--- NOTE | 2018-06-30 10:17 | Cardiology Progress Note ---
Date of Service June 30, 2018 Assessment & Plan (1) Acute on chronic diastolic CHF (congestive heart failure): The patient diuresed well with several doses of intravenous furosemide. He may require a low-dose diuretic as an outpatient. (2) Permanent atrial fibrillation: Continue with rate control and long-term anticoagulation. (3) Essential hypertension: Blood pressure control not optimal. Would increase lisinopril to 10 mg b.i.d.. 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 Subjective Mr. Buckner is resting comfortably in bed without complaints of chest pain or dyspnea. Physical Exam 2 Vital Signs (Past 24 Hours): Last Vital Signs Temp 36.7 C 06/30/18 07:45 Pulse 105 H 06/30/18 07:45 Resp 16 06/30/18 07:45 BP 161/95 H 06/30/18 07:45 Pulse Ox 92 06/30/18 07:45 Physical Exam: In general is well-developed well-nourished white male seated in a bedside chair without complaints. HEENT exam is negative. Neck is supple full carotid upstrokes. No obvious bruits. Jugular venous pressure is flat at 90 degrees. There is no thyromegaly. Cardiovascular exam reveals an irregular regular rhythm with distant heart sounds. No obvious murmurs. Lungs are clear without rales, rhonchi or wheezes. Abdomen is obese without bruits. Extremities reveal intact radial artery pulses bilaterally. Trace pretibial edema is noted. Hyperpigmentation changes noted the distal lower extremities bilaterally. Results & Data Laboratory Results Electrolytes notes a sodium of 130, potassium 3.4, chloride 107, bicarb 25 occurred BUN 19, creatinine 0.62, glucose 4. INR is subtherapeutic at 1.4. Diagnostic Findings library monitor notes atrial fibrillation with a controlled ventricular response.
[2018-06-30] MEDS: DIGOXIN 0.25 MG TAB PO SCH (16:03)
[2018-06-30] MEDS: WARFARIN SOD 6 MG TAB PO SCH (16:04)
--- NOTE | 2018-06-30 19:13 | Hospitalist Progress Note ---
Date of Service June 30, 2018 Assessment & Plan (1) Acute on chronic diastolic CHF (congestive heart failure): compensated , presented with vol overload , SOB Acute on chronic left ventricular diastolic heart failure. diuresed well with IV Lasix appreciate input from Cardiology Dr Teresa Worley has been on hold Will be discharged on low dose loop diuretic as out pt Present on Admission?: Yes (2) Urinary retention: with hx of prostate CA possible chronic appreciate input from urology CT abdomen /pelvis on 2007 shows large distended Urinary bladder will need chronic Pizarro PSA on December 2017 : 0 hx of prostate ca : prostate biopsy in 1998 mary 6 prostate ca s/p radical prostatectomy pt will be discharged on Pizarro D/c Finsteride cont Flomax as per urology out pt follow up with Dr Burgos (3) Permanent atrial fibrillation: Had episode of rapid A. fib RVR at around 4 AM Required IV Lopressor, IV Cardizem Heart rate remains rate controlled A. fib Discussed with cardiology Dr. Moore Recommend continue with current dose of Toprol-XL 200 mg daily And digoxin Given patient's dementia, advanced age, further titration of AV castillo livia can lead to bradycardic episode/fall Continue rate control with metoprolol and digoxin. Continue anticoagulation with warfarin. (4) Essential hypertension: Continue metoprolol Noted to have hypertensive episodes, possible leading to rapid A. fib question Discussed with cardiology Lisinopril dose increased to 10 mg p.o. twice daily Present on Admission?: Yes (5) Urinary frequency: On Pizarro catheter secondary to urinary retention Outpatient follow-up with your (6) Abnormal chest x-ray: Chest x-ray demonstrated KRYSTA density, ? summation artifact. Check CT chest without contrast in am (7) DVT prophylaxis: Continue warfarin. Ambulate. DISCHARGE PLANNING : lives at personal [place] [facility] Pt/OT bria requested return to [facility] in next 1-2 days (8) Discharge planning issues: Plan is to to [facility] possible tomorrow under care of Dr. Duvall. update given to patient's Son Paul Buckner Subjective Had episode of rapid A. fib RVR overnight, at present on controlled atrial fibrillation, Patient remains baseline confused, dementia Offers no complaints, no cough fever Physical Exam 2 Vital Signs (Past 24 Hours): Last Vital Signs Temp 36.3 C L 06/30/18 15:36 Pulse 102 H 06/30/18 16:03 Resp 16 06/30/18 15:36 BP 153/101 H 06/30/18 15:36 Pulse Ox 98 06/30/18 15:36 Constitutional: WD/WN, vitals as above no acute distress Eyes: + anicteric sclerae ENMT: external ear and nose normal, oropharynx normal Neck: trachea midline, no thyromegaly Respiratory: normal respiratory effort, lungs clear to auscultation Cardiovascular: RRR, no murmur, no edema Gastrointestinal (Abdomen): normal bowel sounds, soft, nontender, no hepatosplenomegaly Musculoskeletal: Head/Neck/Chest: normocephalic and head atraumatic Neurologic: PERRL, EOMI, accommodation nl, no face palsy, no dysarthria Psychiatric: Orientation: alert and oriented to person Baseline dementia
[2018-06-30] MEDS ORDERED: LORazepam 2 MG/4 ML VIAL ONE (19:24)
[2018-06-30] MEDS: TAMSULOSIN HCL 0.4 MG CAP PO SCH (20:39)
[2018-06-30] MEDS: LISINOPRIL 10 MG TAB PO SCH (20:41)
[2018-07-01] MEDS: TRAMADOL HCL 50 MG TABLET PO PRN (02:16)
[2018-07-01] MEDS: HEPARIN SOD 5,000 UNIT/0.5 ML VIAL SQ SCH ×3 (06:11→19:43)
[2018-07-01 07:18] LABS: INR 1.8 (0.9-1.1); Prothrombin Time 17.9 Seconds (9.0-12.0)
[2018-07-01] MEDS: ASPIRIN 81 MG ECTAB PO SCH (08:13)
[2018-07-01] MEDS: DOCUSATE SODIUM/SENNA 50/8.6MG TAB PO SCH ×2 (08:14→19:43)
[2018-07-01] MEDS: METOPROLOL SUCC 50MG EXT REL TAB PO SCH (08:14)
[2018-07-01] MEDS: POTASSIUM CHLORIDE 20 MEQ TABCR PO SCH (08:14)
[2018-07-01] MEDS: LISINOPRIL 10 MG TAB PO SCH ×2 (08:15→19:44)
[2018-07-01] MEDS: ACETAMINOPHEN 325 MG TAB PO PRN (08:17)
--- NOTE | 2018-07-01 09:06 | CT Scan Report ---
CT SCAN OF THE CHEST WITHOUT IV CONTRAST CLINICAL HISTORY: Abnormal chest x-ray. Left upper lobe density. COMPARISON STUDY: Chest x-ray dated 06/26/2018. Chest CT dated 09/09/2015. TECHNIQUE: CT scan of the thorax was performed from the thoracic inlet to the upper abdomen. Images are reviewed in the axial, sagittal, and coronal planes. IV contrast was not administered for this ex amination as per the referring clinician. A dose lowering technique was utilized adhering to the sergo adan of CABRERA. The examination is modestly degraded by motion artifact. CT DOSE: 429.78 mGy.cm FINDINGS: Thyroid: Imaged portions of the thyroid gland are normal in size and attenuation. Thoracic aorta: There is atherosclerotic calcification of the thoracic aorta, which is normal in katie marisol and demonstrates bovine variant arch anatomy. Heart: The heart is enlarged and there is trace pericardial fluid. There are scattered coronary arter y calcifications. Lungs and pleural spaces: Evaluation of the lung parenchyma is modestly degraded by motion artifact. There is no airspace consolidation or pleural effusion. Mild bibasilar scarring/atelectasis is observ ed. There are scattered calcified granulomas. The trachea and central airways are patent. Mild mucus plugging is noted in the lower lobe bronchi. No concerning pulmonary lesion is identified. Mediastinum: There is no mediastinal lymphadenopathy. Cinthya: Not well assessed without IV contrast. Axillae: There is no axillary lymphadenopathy. Upper abdomen: Partially visualized upper abdominal viscera is grossly unremarkable. Skeletal structures: The skeletal structures are osteopenic. Degenerative change and hyperkyphosis ar e noted in the thoracic spine. No lytic or blastic bony lesions are seen. IMPRESSION: 1. There is no airspace consolidation or pleural effusion. 2. There is no concerning pulmonary lesion identified. The radiographic abnormality likely represents overgrowth at the first costochondral junction. 3. Cardiomegaly. 4. Mucus plugging is noted in the lower lobe airways. 5. Additional findings as above. Electronically signed by: Jake Maurice M.D. 07/01/2018 9:04 AM
[2018-07-01] MEDS: WARFARIN SOD 6 MG TAB PO SCH (16:51)
[2018-07-01] MEDS: DIGOXIN 0.25 MG TAB PO SCH (16:51)
[2018-07-01] MEDS: TAMSULOSIN HCL 0.4 MG CAP PO SCH (19:44)
--- NOTE | 2018-07-01 23:53 | Hospitalist Progress Note ---
Date of Service July 01, 2018 Assessment & Plan (1) Acute on chronic diastolic CHF (congestive heart failure): compensated , presented with vol overload , SOB Acute on chronic left ventricular diastolic heart failure. diuresed well with IV Lasix appreciate input from Cardiology Dr Teresa Worley has been on hold Will be discharged on low dose loop diuretic as out pt (2) Urinary retention: with hx of prostate CA possible chronic appreciate input from urology CT abdomen /pelvis on 2007 shows large distended Urinary bladder will need chronic Pizarro PSA on December 2017 : 0 hx of prostate ca : prostate biopsy in 1998 mary 6 prostate ca s/p radical prostatectomy pt will be discharged on Pizarro D/c Finsteride cont Flomax as per urology out pt follow up with Dr Burgos (3) Permanent atrial fibrillation: Heart rate remains rate controlled A. fib Discussed with cardiology Dr. Moore Recommend continue with current dose of Toprol-XL 200 mg daily And digoxin Given patient's dementia, advanced age, further titration of AV castillo livia can lead to bradycardic episode/fall Continue rate control with metoprolol and digoxin. Continue anticoagulation with warfarin. (4) Essential hypertension: Continue metoprolol Noted to have hypertensive episodes, possible leading to rapid A. fib question Discussed with cardiology Lisinopril dose increased to 10 mg p.o. twice daily (5) Urinary frequency: On Pizarro catheter secondary to urinary retention Outpatient follow-up with your (6) Abnormal chest x-ray: Chest x-ray demonstrated KRYSTA density, ? summation artifact. Check CT chest without contrast in am (7) DVT prophylaxis: Continue warfarin. Ambulate. DISCHARGE PLANNING : lives at personal alf [facility] Pt/OT bria requested return to [facility] tomorrow (8) Discharge planning issues: Plan is to to [facility] possible tomorrow under care of Dr. Duvall. update given to patient's Son Paul Buckner Subjective Hr remains stable rate controlled afib no complain of SOB dementia , oriented to person only very pleasant Physical Exam 2 Vital Signs (Past 24 Hours): Last Vital Signs Temp 36.5 C 07/01/18 23:25 Pulse 52 L 07/01/18 23:25 Resp 16 07/01/18 23:25 BP 135/67 07/01/18 23:25 Pulse Ox 99 07/01/18 23:25 Constitutional: WD/WN, vitals as above no acute distress Eyes: + anicteric sclerae ENMT: external ear and nose normal, oropharynx normal Neck: trachea midline, no thyromegaly Respiratory: normal respiratory effort, lungs clear to auscultation Cardiovascular: RRR, no murmur, no edema Gastrointestinal (Abdomen): normal bowel sounds, soft, nontender, no hepatosplenomegaly Musculoskeletal: Head/Neck/Chest: normocephalic and head atraumatic Neurologic: PERRL, EOMI, accommodation nl, no face palsy, no dysarthria Psychiatric: Orientation: alert and oriented to person
[2018-07-02] MEDS: TRAMADOL HCL 50 MG TABLET PO PRN (06:13)
[2018-07-02] MEDS: HEPARIN SOD 5,000 UNIT/0.5 ML VIAL SQ SCH (06:14)
[2018-07-02 07:08] LABS: INR 2.4 (0.9-1.1); Prothrombin Time 23.2 Seconds (9.0-12.0)
[2018-07-02] MEDS: DOCUSATE SODIUM/SENNA 50/8.6MG TAB PO SCH (08:20)
[2018-07-02] MEDS: POTASSIUM CHLORIDE 20 MEQ TABCR PO SCH (08:20)
[2018-07-02] MEDS: ASPIRIN 81 MG ECTAB PO SCH (08:20)
[2018-07-02] MEDS: METOPROLOL SUCC 50MG EXT REL TAB PO SCH (08:21)
[2018-07-02] MEDS: LISINOPRIL 10 MG TAB PO SCH (08:21)
--- NOTE | 2018-07-03 07:19 | Discharge Summary ---
Date of Service July 03, 2018 Admission HPI Per Admitting Provider History obtained from patient and records. Medical history significant for chronic diastolic heart failure(EF 55-60%, TTE 2016), paroxysmal A. fib on Coumadin, hypertension, PAD as per records, history of endocarditis as per records, prostate cancer as per records Recent confinement October 2016 for cellulitis left lower extremity. 3 days history of increased bilateral leg swelling and weight gain of 6 pounds. Patient denies chest pain, S OB. Patient feels bloated. Right hip pain resulting from a recent mechanical fall at the personal [facility]. At the ER, IV Lasix given for CHF. 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 Principal Diagnosis CONGESTIVE HEART FAILURE /URINARY RETENTION Discharge Exam Constitutional WD/WN, vitals as above no acute distress Eyes + anicteric sclerae ENMT external ear and nose normal, oropharynx normal Neck trachea midline, no thyromegaly Respiratory normal respiratory effort, lungs clear to auscultation Cardiovascular RRR, no murmur, no edema Gastrointestinal (Abdomen) normal bowel sounds, soft, nontender, no hepatosplenomegaly Musculoskeletal Head/Neck/Chest: normocephalic and head atraumatic Neurologic PERRL, EOMI, accommodation nl, no face palsy, no dysarthria Psychiatric Orientation: alert and oriented to person Discharge Data Allergies Allergy/AdvReac Type Severity Reaction Status Date / Time ceftriaxone Allergy Unknown UNKNOWN Verified 06/26/18 21:30 vancomycin Allergy Unknown UNKNOWN Verified 06/06/16 09:06 Consultations 06/26/18 20:58 ED Decision to Admit Stat 06/27/18 02:19 Consult Cardiology Routine 06/28/18 17:15 Consult Urology Routine Ordered Studies 07/01/18 09:00 CT chest wo con Routine Hospital Course (1) Acute on chronic diastolic CHF (congestive heart failure): compensated , presented with vol overload , SOB Acute on chronic left ventricular diastolic heart failure. diuresed well with IV Lasix appreciate input from Cardiology Dr Teresa Worley has been on hold ( was on 80 mg pO daily ) will be discharged on lower dose Lasix 20 mg daily (2) Urinary retention: with hx of prostate CA possible chronic appreciate input from urology CT abdomen /pelvis on 2007 shows large distended Urinary bladder will need chronic Gavin PSA on December 2017 : 0 hx of prostate ca : prostate biopsy in 1998 mary 6 prostate ca s/p radical prostatectomy pt will be discharged on Gavin D/c [place] cont Flomax as per urology out pt follow up with Dr Macias (3) Permanent atrial fibrillation: Heart rate remains rate controlled A. fib Discussed with cardiology Dr. Moore Recommend continue with current dose of Toprol-XL 200 mg daily And digoxin Given patient's dementia, advanced age, further titration of AV castillo livia can lead to bradycardic episode/fall Continue rate control with metoprolol and digoxin. Continue anticoagulation with warfarin. (4) Essential hypertension: Continue metoprolol Noted to have hypertensive episodes, possible leading to rapid A. fib question Discussed with cardiology Lisinopril dose increased to 10 mg p.o. twice daily BP remains well controlled (5) Urinary frequency: On Gavin catheter secondary to urinary retention Outpatient follow-up with your (6) Abnormal chest x-ray: Chest x-ray demonstrated KRYSTA density, ? summation artifact. CT chest without contrast IMPRESSION: 1. There is no airspace consolidation or pleural effusion. 2. There is no concerning pulmonary lesion identified. The radiographic abnormality likely represents overgrowth at the first costochondral junction. 3. Cardiomegaly. 4. Mucus plugging is noted in the lower lobe airways. (7) DVT prophylaxis: Continue warfarin. Ambulate. DISCHARGE PLANNING : lives at personal intermediate [facility] stable to return to [facility] (8) Discharge planning issues: return to [facility] under care of Dr. Duvall. referrral made for [facility] Total Time Total Time Spent Total Time Spent (In Minutes): approx 35 min Total Time Includes: Discharge Planning and Medication Reconciliation Discharge Plan Discharge Items Patient Disposition: Home - Home Health Services Reason For Visit: CHF Discharge Diagnosis: CONGESTIVE HEART FAILURE /URINARY RETENTION Discharge Goals: Decrease discomfort and Therapeutic intervention Activity: Resume your previous activity Non-emergency contact: Primary Care Provider Call non-emergency contact if: you have any medication questions Follow-up/Referrals: Latisha Macias MD [Physician] - (IN 2-3 WEEKS PLEASE CALL OFFICE FOR APPOINTMENT ) Diet: Heart Healthy Addtl Provider Instructions: CONTINUE GAVIN CATHETER FOLLOW UP WITH UROLOGY DR MACIAS IN CLINIC Call your Primary Care doctor if any of the following symptoms or problems start or get worse: * Shortness of breath or difficulty breathing * Wake up at night short of breath * Chest pain * Cough * Swelling of your hands, feet, or legs * More fatigued or tired with your normal activity * Palpitations - sudden fast heart beats WEIGHT * Weigh yourself every morning after using the bathroom. * Use the same scale. * Wear the same amount of clothing. * Write your weight down on a chart. * Call your Primary Care doctor if you gain more than 2-3 pounds in 1-2 days. MEDICATIONS * Use this discharge instruction sheet for medication instructions. * Take your medications at the time your doctor ordered. * Do not skip a dose of your medicines. * If you miss a dose of medicine, take it as soon as possible, but DO NOT DOUBLE A DOSE. * Read your medicine information when you get home. * Know all of the side effects of your medicine. If in doubt, ask your pharmacist * Call your Primary Care doctor's office if you have any side effects. * Be sure all of your doctors know what medicine and herbs you take (including cold, flu, and herbal medicine). Take the following with you to your follow-up doctor appointments: * Weight Chart * Medication List * List of questions Do not drink excessive alcohol, beer or wine. Prescriptions: New tamsulosin 0.4 mg Capsule 0.4 mg PO HS 30 Days Qty: 30 RF: 3 lisinopril [Zestril] 10 mg Tablet 10 mg PO BID 30 Days Qty: 60 RF: 3 furosemide [Lasix] 20 mg tablet 20 mg PO DAILY Qty: 30 RF: 3 Continue digoxin 250 mcg Tablet 0.25 mg PO DAILY RF: 0 sennosides-docusate sodium [Senna-S] 8.6-50 mg Tablet 2 tab PO QPM RF: 0 warfarin 5 mg tablet 5 mg PO 5XWK RF: 0 warfarin 2.5 mg tablet 2.5 mg PO 2XWK RF: 0 cholecalciferol (vitamin D3) 5,000 unit Tablet 5,000 unit PO DAILY RF: 0 docusate sodium 100 mg Capsule 100 mg PO BID RF: 0 metoprolol succinate 200 mg tablet extended release 24 hr 200 mg PO DAILY RF: 0 aspirin [Aspir-81] 81 mg Tablet,Delayed Release (Dr/Ec) 81 mg PO DAILY RF: 0 acetaminophen [Tylenol] 325 mg Tablet 650 mg PO Q4H PRN (Reason: Fever Or Pain) RF: 0 amoxicillin 500 mg Capsule 2,000 mg PO UD RF: 0 Discontinued lisinopril 5 mg tablet 5 mg PO BID RF: 0 furosemide 80 mg tablet 80 mg PO QAM RF: 0 Stand-Alone Forms: [facility] Discharge Orders: Discharge Order (Routine); Ordered 07/02/18 Ordered By: Angela Jacques Admission Data Admit Date/Time: 06/27/18 00:41 Attending Provider: Angela Jacques Admit Provider: Santi Morin Primary Care Provider: [employer] [facility] [employer] Other Providers: Santi Morin ; Denys Moore ; Jim Rowland ; Latisha Macias Service: Telemetry Other Interventions: Discharge Summary Assessment (RN) Last Done: 07/02/18 13:37 DC Date/Time DO NOT enter until pt leaves facility: 07/02/18 14:50
== END 2018-07-02 14:50 | disposition home health service (06) | DRG 698 ==
LOC: ED 18:02 → SUATTDRO 06-27 00:41 → 2S 06-27 00:41

== ENCOUNTER 2018-09-11 14:54 | Inpatient (IN) ==
[2018-09-11] MEDS ORDERED: PIPERACILLIN/TAZOBACTAM 4.5 GM/120 ML BAG IV ONE (15:22)
[2018-09-11] MEDS ORDERED: DAPTOmycin 450 MG in SYRINGE 0 ML IV ONE (15:22)
[2018-09-11] MEDS ORDERED: PIPERACILL/TAZOBAC CONSULT ACTIVE PRN ×2 (15:22→19:36)
[2018-09-11] MEDS ORDERED: SODIUM CHLORIDE 0.9% 1000ML 1,000 ML IV ONE ×2 (15:26→15:28)
[2018-09-11] MEDS ORDERED: dilTIAZem HCl 5 MG/ML 5 ML VIAL IV STA (15:26)
[2018-09-11 15:50] LABS: Basophils # (auto) 0.03 K/uL (0-0.2); Basophils % (auto) 0.2 %; Eosinophils # (auto) 0.03 K/uL (0-0.5); Eosinophils % (auto) 0.2 %; Hematocrit (blood only) 42.6 % (42-52); Hemoglobin 15.4 g/dL (14.0-18.0); Immature Granulocytes # (auto) 0.07 K/uL (0.00-0.02); Immature Granulocytes % (auto) 0.4 %; Lymphocytes # (auto) 0.89 K/uL (1.2-3.4); Lymphocytes % (auto) 5.4 %; Mean Corpuscular Hgb Conc 36.2 g/dL (32-36); Mean Corpuscular Volume 96.4 fL (80-100); Mean Platelet Volume 11.8 fL (7.4-10.4); Monocytes # (auto) 1.11 K/uL (0.11-0.59); Monocytes % (auto) 6.7 %; Neutrophils # (auto) 14.46 K/uL (1.4-6.5); Neutrophils % (auto) 87.1 %; Platelet Count 174 K/uL (130-400); RDW Coefficient of Variation 12.7 % (11.5-14.5); RDW Standard Deviation 44.5 fL (36.4-46.3); Red Blood Count 4.42 M/uL (4.7-6.1); White Blood Count 16.59 K/uL (4.8-10.8)
[2018-09-11 16:02] LABS: INR 2.9 (0.9-1.1); Partial Thromboplastin Ratio 1.3; Partial Thromboplastin Time 34.6 Seconds (21.0-31.0); Prothrombin Time 27.8 Seconds (9.0-12.0)
[2018-09-11 16:06] LABS: Albumin Level 3.9 gm/dl (3.4-5.0); BUN Creatinine Ratio 17.2 (10-20); Calcium 8.6 mg/dl (8.5-10.1); Creatinine Clr Calc Pharmacy 69.5 ml/min; Est GFR (African American) 79.2; Est GFR (Non-African American) 68.3; Potassium 2.9 mmol/L (3.5-5.1)
[2018-09-11 16:07] LABS: Appearance Urine Cloudy (Clear); Bilirubin Urine Negative (Negative); Blood Urine 3+ (Negative); Color Urine Yellow; Glucose Urine UA Negative (Negative); Ketones Urine Trace (Negative); Leukocyte Esterase Urine 3+ (Negative); Nitrite Urine Positive (Negative); Urobilinogen Urine Negative (Negative); pH Urine 8.5 (4.5-7.5)
[2018-09-11] MEDS ORDERED: ACETAMINOPHEN 500 MG TAB ONE (16:07)
[2018-09-11 16:08] LABS: Protein Urine 1+ (Negative)
[2018-09-11 16:11] LABS: Bacteria Urine 2+ (Negative)
[2018-09-11 16:15] LABS: Albumin Globulin Ratio 1.1 (0.9-2); Bilirubin,Total 0.6 mg/dl (0.2-1); Creatine Kinase MB 2.2 ng/ml (0.5-3.6); Globulin 3.6 gm/dl (2.5-4.0); Total Protein 7.5 gm/dl (6.4-8.2); Troponin I 0.055 ng/ml (0-0.045)
--- NOTE | 2018-09-11 16:20 | XRay Report ---
XR chest 1V portable HISTORY: Sepsis COMPARISON: Chest 07/09/2018. FINDINGS: The heart is enlarged. There is mild interstitial pulmonary edema. No pleural effusions. No pneumothorax. There are low lung volumes. IMPRESSION: Cardiomegaly with mild interstitial pulmonary edema. Electronically signed by: Al Madrid M.D. 09/11/2018 4:18 PM
[2018-09-11] MEDS ORDERED: ACETAMINOPHEN 500 MG TAB PO STA (16:21)
[2018-09-11] MEDS ORDERED: MoRPHine SULFATE 4 MG/ML 1 ML CARP\\VIAL IV STA (16:30)
[2018-09-11] MEDS ORDERED: ONDANSETRON INJ 2 MG/ML 2 ML VIAL IV STA (16:30)
[2018-09-11 16:59] LABS: Influenza A virus by PCR Neg for Influ A (Neg); Influenza B virus by PCR Neg for Influ B (Neg)
[2018-09-11] MEDS ORDERED: POTASSIUM CHLORIDE 20 MEQ TABCR PO STA ×2 (17:00→22:13)
[2018-09-11] MEDS ORDERED: IOVERSOL 100ml IV PRN (17:31)
[2018-09-11] MEDS: POTASSIUM CHLORIDE / WTR 10 MEQ/100 ML PLCT IV SCH ×4 (17:41→23:28)
--- NOTE | 2018-09-11 17:48 | CT Scan Report ---
CT head/brain wo con CLINICAL HISTORY: 77 years-old Male presenting with Pt c/o AMS. TECHNIQUE: Multidetector CT imaging of the head was performed without the use of intravenous contrast . IV contrast: None. One or more dose lowering techniques were used consistent with the principles of ALARA (as low as reasonably achievable), including automatic exposure control, mA or kV adjustment t o individual patient size, and/or use of iterative reconstruction. COMPARISON: 01/01/2018. CT DOSE (mGy.cm): The estimated cumulative dose is 638.56 mGycm. FINDINGS: Rcis topogram: Unremarkable. Proportional ventricular and sulcal prominence with the exception of the vertex, which demonstrates r elative sulcal effacement and gyral crowding. The appearance is unchanged. No hemorrhage. Old lacunar infarct in the right basal ganglia suggested, unchanged. Periventricular white matter hypoattenuatio n suggests chronic small vessel ischemic change. No acute territorial infarct. Redemonstration of the nearly 2 cm extra-axial right cerebellar pontine angle mass, similar to prior exam with similar mass effect on the subjacent right brachium pontis. No extra-axial fluid collection. Paranasal sinuses an d mastoid air cells clear. Calvarium intact. IMPRESSION: 1. Chronic small vessel ischemic change. No acute intracranial abnormality. 2. Findings borderline for normal pressure hydrocephalus though the appearance is unchanged several prior examinations. 3. 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 Electronically signed by: Sharif Hennessy M.D. 09/11/2018 5:47 PM
--- NOTE | 2018-09-11 18:12 | CT Scan Report ---
CT abd pelvis IV con only CLINICAL HISTORY: 77 years-old Male presenting with Pt c/o AMS. TECHNIQUE: Multidetector CT of the abdomen and pelvis was performed after the administration of intra venous contrast. IV contrast: 90 mL of Optiray 320. One or more dose lowering techniques were used co nsistent with the principles of ALARA (as low as reasonably achievable), including automatic exposure control, mA or kV adjustment to individual patient size, and/or use of iterative reconstruction. COMPARISON: 08/14/2018. CT DOSE (mGy.cm): The estimated cumulative dose is 1218.46 mGycm. FINDINGS: Patent Lawyer topogram: Total right hip arthroplasty. Pelvic surgical clips. Severe degenerative changes of t he left hip. Image quality is degraded by positioning of the arms at the sides. Mildly negatively affects diagnost ic sensitivity the exam. Lung bases: Multichamber enlargement of the heart. Coronary artery and aortic valve calcification. No pericardial or pleural effusion. Respiratory motion artifact limits evaluation of the lung bases. Al lowing for this, peribronchovascular bundle thickening with interlobular septal thickening suggested. Liver: Macronodular lobular contour of the liver suggested. No focal lesion. Patent hepatic vasculatu re. Biliary: No intrahepatic or extrahepatic biliary ductal dilatation. Normal gallbladder. Pancreas: Mild parenchymal atrophy. Spleen: Normal. Adrenal glands: Normal. Kidneys and ureters: Well-defined hypodensity at the lower pole the right kidney likely simple cyst. Nonobstructing calculi at the lower pole of the left kidney. Moderate bilateral nonspecific perinephr ic fat infiltration. No hydronephrosis. Subtle urothelial thickening may be present, left greater juan n right. Ureters nondistended. Bladder: Significant wall thickening and bladder wall irregularity. Mild perivesicular fat infiltrati on. The urinary bladder is partially decompressed with a Pizarro catheter. Pelvic organs: The patient may be status post prostatectomy with surgical clips in the region of the seminal vesicle bed. Bowel: Circumferential wall thickening of the mid to lower rectum, nonspecific and possibly posttreat ment/post radiation related. No bowel obstruction. Few diverticula in the proximal sigmoid colon with out associated inflammatory change. Prior colonic distention has resolved. The appendix is not well v isualized. Peritoneal cavity: Trace extraperitoneal pelvic fluid as well as trace free fluid in the pelvis. No f ree intraperitoneal gas. Lymph nodes: Scattered subcentimeter predominantly retroperitoneal lymph nodes, nonspecific. Bilatera l external iliac lymph nodes measure up to 8 mm in the short axis and are nonspecific. Additional sub centimeter prominent inguinal lymph nodes noted. Vasculature: Atherosclerosis of the normal caliber abdominal aorta. IVC patent. Abdominal wall: Postsurgical changes of the lower abdominal wall. Musculoskeletal: Postsurgical changes of total right hip arthroplasty. Advanced degenerative changes of the left hip. Degenerative changes of the spine and sacroiliac joints also noted. IMPRESSION: Image quality is degraded by positioning of the arms at the sides. Mildly negatively affects diagnost ic sensitivity the exam. 1. Allowing for limitations, findings suggest prior chronic bladder outlet obstruction. The presence of mild perivesicular fat infiltration and urothelial thickening raises concern for cystitis with up per tract inflammation. This could be sterile in setting of prior chronic reflux or infectious. Corre late with urinalysis. 2. Postsurgical changes of prostatectomy. No convincing evidence of metastatic disease in the abdome n or pelvis. Borderline pelvic lymphadenopathy, which is nonspecific and may be reactive. Changes in the pelvis may also suggest a history of external beam radiation. Correlate clinically. 3. Underlying developing liver fibrosis not excluded. 4. Cardiomegaly. Electronically signed by: Sharif Hennessy M.D. 09/11/2018 6:11 PM
[2018-09-11] MEDS ORDERED: ALUMINUM/MAGNESIUM SUSP 30 ML UDC PO PRN (19:36)
[2018-09-11] MEDS ORDERED: MAGNESIUM HYDROXIDE SUSP 30 ML UDC PO PRN (19:36)
[2018-09-11] MEDS ORDERED: ACETAMINOPHEN 325 MG TAB PO PRN (19:36)
[2018-09-11] MEDS ORDERED: ONDANSETRON INJ 2 MG/ML 2 ML VIAL IV PRN (19:36)
--- NOTE | 2018-09-11 19:45 | History & Physical Report ---
Date of Service September 11, 2018 Assessment & Plan (1) Sepsis: Patient meets criteria for sepsis as per CMS guideline Presented with fever, tachycardia, elevated lactic acid more than 3, Source of infection, complicated UTI in the setting of chronic indwelling catheter Patient is given IV fluid resuscitation as per sepsis protocol Empiric antibiotic with IV Zosyn, vancomycin 2 sets blood culture, urine culture ordered Urine grossly positive, Pizarro draining large amount of sediments, pus CT abdomen pelvis: Shows chronic urine retention, fat infiltration around the bladder, suggestive of cystitis ID evaluation requested Present on Admission?: Yes (2) Complicated UTI (urinary tract infection): Chronic urinary retention, on Pizarro catheter Developed bladder outlet obstruction/Pizarro catheter blockage secondary to large amount of sediment, debris, pus and infected urine/bowel bladder Pizarro catheter change in ER, Large amount of urine was drained Empiric antibiotic as outlined above IV fluid resuscitation Continue to monitor in telemetry Present on Admission?: Yes (3) Chronic indwelling Pizarro catheter: History of prostatic cancer, chronic bladder outlet obstruction Patient was seen by urology team and last admission on 07/2018 Recommend chronic indwelling Pizarro catheter Patient is not a surgical candidate for any other urologic intervention Resents with complicated UTI/sepsis related to Pizarro catheter Present on Admission?: Yes (4) Atrial fibrillation with RVR: History of chronic A. fib, on beta-livia, digoxin, anticoagulation with Coumadin Developed A. fib RVR, secondary to acute illness, sepsis, dehydration Corrected to sinus with rate control with IV diltiazem given in ER Patient is continued with metoprolol, digoxin On Coumadin for chronic anticoagulation Follows with cardiology: Dr. Moore/cardiology team consulted Present on Admission?: Yes (5) Elevated troponin: Mild elevation of troponin, possible in the setting of A. fib RVR, dehydration, sepsis Patient denies of any anginal symptoms, no shortness of breath, no dyspnea on exertion or orthopnea Chest x-ray shows mild pulmonary vascular congestion Will follow serial troponin Monitoring telemetry Resting echocardiogram ordered to assess any new evidence of wall motion abnormality Cardiology consulted Patient will be continued with aspirin beta-livia, Present on Admission?: Yes (6) Hypokalemia: Secondary to dehydration, no report of diarrhea, no nausea vomiting Potassium replaced Repeat PRP at 2100 Given presents with cardiac arrhythmia rapid A. fib, patient's electrolytes especially potassium and magnesium will be monitored closely and replaced as needed Present on Admission?: Yes (7) Dehydration: Presented with acute dehydration secondary to sepsis, getting UTI WBC elevated more than 15: Hemoglobins concentration Elevated BUN Order for IV fluids, hold Lasix and lisinopril Monitor volume status (8) Metabolic encephalopathy: Presents with worsening of confusion, baseline dementia Metabolic encephalopathy in the setting of sepsis, infection, dehydration CT head shows no evidence of acute intracranial pathology Correction of dehydration, infection as outlined above Fall precaution Caution for sundowning/delirium High risk given advanced age acute illness, baseline dementia Order" precaution, bed and chair alarm Present on Admission?: Yes (9) Dementia: Baseline dementia, presents with worsening of confusion secondary to sepsis/dehydration Present on Admission?: Yes (10) Chronic congestive heart failure with left ventricular diastolic dysfunction: History of chronic CHF with diastolic dysfunction, EF 55-60% Presents with clinically dehydration, Order for IV fluids resuscitation as per sepsis protocol Hold Lasix, SHANT inhibitor Monitor volume status very closely, order for daily weight, input output Repeat echocardiogram Cardiology following CODE STATUS: Full code discussed with patient DVT prophylaxis: On Coumadin, INR therapeutic Disposition: Resident at [facility] PT OT evaluation will be ordered when medically appropriate Return back to [facility] when medically stable Social service consulted to assist in discharge planning Patient's son Mr. You Buckner phone number: [phone] given update over phone Present on Admission?: Yes History of Present Illness Chief Complaint: Generalized weakness, poor urine output [facility] This is a 77-year-old male with past medical history of breast cancer, status post prostatectomy, chronic diastolic failure (EF 55-60%, TTE 2016), paroxysmal A. fib on Coumadin, hypertension, peripheral vascular disease, history of endocarditis, history of chronic urinary retention/bladder outlet obstruction and chronic Pizarro catheter Sent from [facility] as patient sustained a's fall earlier Patient is a very poor historian, most of the information obtained from patient's son Mr. You Buckner over phone, As per the son: Patient has not been feeling well for the past few days, had very poor appetite, lack of energy, nursing staff noted poor urine output in the Pizarro bag, with foul-smelling/dark urine. Patient also complained of severe lower abdominal pain/cramps Son was asked to bring the patient to [facility] ER for evaluation this morning. Before Son's arrival to personal longterm, around 2:30 PM :patient fell, hit his head on TV: Patient was sent to [facility] ER via ambulance In the ER, catheter was found to be blocked, new catheter was placed, large amount of foul-smelling purulent urine was drained Patient reports relief of lower abdominal pain Developed A. fib RVR with heart rate in 140s Given Cardizem 2.5 mg IV x1 Converted to sinus with rate controlled Lab shows WBC 16,000/ hemoglobin 15.4 /hematocrit 42.6, /INR 2.9 /potassium 2.9 /lactic acid elevated 3.5 /troponin 0.055/ pro calcitonin less than 0.05 UA shows cloudy urine with positive urine nitrate leukocyte james H, large amount of bacteria Influenza PCR negative Chest x-ray showed cardiomegaly with mild interstitial pulmonary edema. CT head noncontrast: 1. Chronic small vessel ischemic change. No acute intracranial abnormality no hemorrhage 2. Findings borderline for normal pressure hydrocephalus to the appearance is unchanged compared to several prior CT scan Patient will be admitted to PCU/telemetry, for sepsis secondary to complicated UTI with chronic Pizarro catheter, A. fib RVR Allergies Allergy/AdvReac Type Severity Reaction Status Date / Time ceftriaxone Allergy Unknown ON [place] Verified 08/14/18 10:06 [facility] vancomycin Allergy Unknown ON [place] Verified 08/14/18 10:06 [facility] Home Medications Home Medications Medication Instructions Recorded Confirmed Type acetaminophen [Tylenol] 650 mg PO Q4H PRN 06/26/18 09/11/18 History cholecalciferol (vitamin D3) 5,000 unit PO QAM 06/26/18 09/11/18 History docusate sodium 100 mg PO BID 06/26/18 09/11/18 History sennosides-docusate sodium 2 tab PO QPM 06/26/18 09/11/18 History [Senna-S] warfarin 2.5 mg PO 2XWK 06/26/18 09/11/18 History warfarin 5 mg PO 5XWK 06/26/18 09/11/18 History lisinopril [Zestril] 10 mg PO BID 30 Days #60 tab 07/02/18 09/11/18 Rx tamsulosin 0.4 mg PO HS 30 Days #30 cap 07/02/18 09/11/18 Rx digoxin 0.125 mg PO QAM 07/24/18 09/11/18 History metoprolol succinate 50 mg PO QAM 07/24/18 09/11/18 History metoprolol succinate 100 mg PO QAM 07/24/18 09/11/18 History nystatin [Nystop] 1 applic TOPICAL BID PRN 07/24/18 09/11/18 History aspirin 81 mg PO QAM 08/14/18 09/11/18 History furosemide 80 mg PO DAILY 08/14/18 09/11/18 History Past Med/Surg History Social History Preferred Language: Lebanese Communication Ability: Effective Visual Impairment: No Limitations Roll Cutter Required: No Beliefs That Will Affect Care: None marital status: Current Living Situation: [facility] Other Information That Helps Us Care for You: No Feels Safe at Home: Yes Safety Concerns: Feels Safe At This Time Smoking Status: Unknown if ever smoked Hx Alcohol Use: No Hx Substance Use: No Physical Exam Constitutional: + acute distress and + altered mental status (Confused, oriented to person only) Elderly male, ill-appearing, no apparent distr ess/appears to be very dehydrated, Eyes: + anicteric sclerae ENMT: Mouth: + lip abnormality (Very dry) and + oral mucosal abnormality (Very dry) Dry oral mucosa Neck: trachea midline, no thyromegaly Respiratory: normal respiratory effort, lungs clear to auscultation Cardiovascular: Irregular, Gastrointestinal (Abdomen): Inspection/Auscultation: abdomen normal to inspection and normal bowel sounds Percussion/Palpation: abdomen soft; abdomen nontender Bowel sounds active Musculoskeletal: Chronic venous stasis change, with darkening skin on left lower leg Right leg was wrapped with compression stocking,-no skin lesions, no skin breakdown noted underneath the compression stocking Neurologic: + focal motor deficit No focal neurological deficit/baseline dementia, worsened with confusion Psychiatric: Orientation: alert Oriented to person only, confused Results & Data Vital Signs (Past 12 Hours) Vital Signs Temp Pulse Resp BP Pulse Ox 09/11/18 19:16 78 22 145/65 H 99 09/11/18 18:20 86 21 99 09/11/18 18:15 88 22 151/89 H 99 09/11/18 18:10 82 18 98 09/11/18 18:00 90 23 159/72 H 98 09/11/18 17:50 85 22 98 09/11/18 17:45 86 23 151/71 H 95 09/11/18 17:41 79 25 H 95 09/11/18 17:39 75 24 148/68 H 95 09/11/18 17:33 37.6 C H 82 19 09/11/18 17:10 83 23 96 09/11/18 17:00 84 30 H 128/67 94 09/11/18 16:55 93 09/11/18 16:50 93 H 36 H 91 09/11/18 16:49 39 H 91 09/11/18 16:47 85 36 H 85 L 09/11/18 16:46 93 H 31 H 161/64 H 86 L 09/11/18 16:40 87 23 09/11/18 16:31 114 H 39 H 205/134 H 09/11/18 16:30 130 H 28 H 09/11/18 16:20 110 H 17 09/11/18 16:16 130 H 25 H 202/101 H 09/11/18 16:10 108 H 24 09/11/18 16:02 91 H 26 H 91 09/11/18 16:01 111 H 30 H 194/90 H 09/11/18 16:00 121 H 18 09/11/18 15:52 158 H 31 H 202/137 H 09/11/18 15:50 138 H 34 H 09/11/18 15:43 38.2 C H 09/11/18 15:41 135 H 18 237/113 H 09/11/18 15:40 133 H 29 H 09/11/18 15:30 128 H 27 H 09/11/18 15:26 92 09/11/18 15:20 139 H 28 H 09/11/18 15:10 146 H 23 09/11/18 15:08 36.8 C 138 H 26 H 218/121 H 92 09/11/18 15:05 146 H 31 H 89 L 09/11/18 15:02 140 H 21 218/121 H 91 Code Status & VTE Plan Code Status Full code: Discussed with patient VTE Prophylaxis Plan VTE Prophylaxis will be ordered: No Reason for no VTE drug order: Treatment not indicated (On Coumadin INR therapeutic) (1) Sepsis Sepsis type: sepsis due to unspecified organism Qualified Code(s): A41.9 - Sepsis, unspecified organism (2) Dementia Dementia type: unspecified type Dementia behavioral disturbance: without behavioral disturbance Qualified Code(s): F03.90 - Unspecified dementia without behavioral disturbance
[2018-09-11] MEDS ORDERED: DAPTOMYCIN CONSULT ACTIVE PRN (19:49)
[2018-09-11] MEDS ORDERED: NYSTATIN POWDER 15GM BTL EXT PRN (19:53)
[2018-09-11] MEDS: LACTATED RINGER'S 1,000 ML IV SCH (20:01)
[2018-09-11] MEDS: TAMSULOSIN HCL 0.4 MG CAP PO SCH (20:53)
[2018-09-11] MEDS: DIGOXIN 0.125 MG TAB PO SCH (20:53)
[2018-09-11] MEDS: DOCUSATE SODIUM 100 MG CAP PO SCH (20:53)
[2018-09-11] MEDS: DOCUSATE SODIUM/SENNA 50/8.6MG TAB PO SCH (20:54)
[2018-09-11] MEDS: PIPERACILLIN/TAZOBACTAM 3.375 GM in DEXTROSE 5% 100 ML IV SCH (20:54)
--- NOTE | 2018-09-11 20:57 | XRay Report ---
XR chest 2V routine CLINICAL HISTORY: 77 years-old Male presenting with SEPSIS. TECHNIQUE: Portable upright AP view of the chest was obtained. COMPARISON: 09/11/2018. FINDINGS: Atherosclerosis of the aortic arch. Cardiac silhouette enlarged. Pulmonary vasculature is slightly le ss prominent on the current exam in comparison to prior. Bronchial wall thickening is again evident t simi again bronchial wall cuffing less apparent than on prior. No focal opacity. No large effusion o r pneumothorax. Degenerative changes of the thoracic spine. Upper abdomen normal. IMPRESSION: 1. Cardiomegaly with decreasing volume overload and congestive change. No focal infiltrate to sugges t pneumonia or aroldo pulmonary edema. Electronically signed by: Sharif Hennessy M.D. 09/11/2018 8:56 PM
[2018-09-11 21:36] LABS: BUN Creatinine Ratio 15.9 (10-20); Blood Urea Nitrogen 16 mg/dl (7-18); C Reactive Protein 2.59 mg/dl (0-0.29); Calcium 8.3 mg/dl (8.5-10.1); Carbon Dioxide 27 mmol/L (21-32); Chloride 107 mmol/L (98-107); Est GFR (Non-African American) 70.7; Glucose 143 mg/dl (70-99); Potassium 2.9 mmol/L (3.5-5.1); Sodium 142 mmol/L (136-145)
[2018-09-11 21:44] LABS: Creatine Kinase MB 2.3 ng/ml (0.5-3.6); NT Pro B Type Natriuretic Pept 4598 pg/ml (0-900); Phosphorus 2.8 mg/dl (2.5-4.9); Troponin I 0.513 ng/ml (0-0.045)
[2018-09-12 03:01] LABS: Basophils # (auto) 0.02 K/uL (0-0.2); Basophils % (auto) 0.1 %; Eosinophils # (auto) 0.05 K/uL (0-0.5); Eosinophils % (auto) 0.3 %; Hematocrit (blood only) 35.9 % (42-52); Hemoglobin 12.7 g/dL (14.0-18.0); Immature Granulocytes # (auto) 0.02 K/uL (0.00-0.02); Immature Granulocytes % (auto) 0.1 %; Lymphocytes # (auto) 1.17 K/uL (1.2-3.4); Lymphocytes % (auto) 7.8 %; Mean Corpuscular Hgb Conc 35.4 g/dL (32-36); Mean Corpuscular Volume 94.7 fL (80-100); Mean Platelet Volume 11.6 fL (7.4-10.4); Monocytes # (auto) 1.33 K/uL (0.11-0.59); Monocytes % (auto) 8.9 %; Neutrophils # (auto) 12.42 K/uL (1.4-6.5); Neutrophils % (auto) 82.8 %; Platelet Count 133 K/uL (130-400); RDW Standard Deviation 45.1 fL (36.4-46.3); Red Blood Count 3.79 M/uL (4.7-6.1); White Blood Count 15.01 K/uL (4.8-10.8)
[2018-09-12 03:28] LABS: INR 2.9 (0.9-1.1)
[2018-09-12 03:29] LABS: BUN Creatinine Ratio 19.1 (10-20); Calcium 8.2 mg/dl (8.5-10.1); Creatinine Clr Calc Pharmacy 82.9 ml/min; Est GFR (African American) 100.3; Est GFR (Non-African American) 86.5; Potassium 3.5 mmol/L (3.5-5.1); Troponin I 0.338 ng/ml (0-0.045)
[2018-09-12] MEDS: PIPERACILLIN/TAZOBACTAM 3.375 GM in DEXTROSE 5% 100 ML IV SCH ×3 (03:38→19:33)
[2018-09-12] MEDS: LACTATED RINGER'S 1,000 ML IV SCH ×3 (04:36→19:40)
[2018-09-12] MEDS ORDERED: PERFLUTREN LIPID MICROSPHERE (DEFINITY) IV ONE (06:37)
[2018-09-12] MEDS: METOPROLOL SUCC 50MG EXT REL TAB PO SCH (08:37)
[2018-09-12] MEDS: ASPIRIN 81 MG CHEW PO SCH (08:37)
[2018-09-12] MEDS: CHOLECALCIFEROL 1,000 UNITS TAB PO SCH (08:38)
[2018-09-12] MEDS: DOCUSATE SODIUM 100 MG CAP PO SCH ×2 (08:39→19:41)
[2018-09-12] MEDS ORDERED: METOPROLOL SUCC 50MG EXT REL TAB PO SCH (09:00)
--- NOTE | 2018-09-12 10:18 | Infectious Disease Consult ---
Date of Consultation September 12, 2018 Assessment & Plan (1) Sepsis: 77-year-old male with sepsis with probable urinary tract infection in the setting of chronic indwelling Pizarro catheter with encephalopathy. Patient appears to be improving on current antibiotics, so would continue on daptomycin and Zosyn pending final culture results. Length and type of IV antibiotics will be determined by culture results and clinical response. Will follow. (2) UTI (urinary tract infection): (3) Metabolic encephalopathy: History of Present Illness Reason for Consultation: Sepsis Attending Physician: Angela Jacques MD History of Present Illness 77-year-old male with history of chronic diastolic congestive, dementia, atrial fibrillation, hypertension, prior history of endocarditis, chronic urinary retention with indwelling Pizarro catheter, who reportedly developed several days of progressively worsening weakness and fatigue and then fever, cloudy urine with some purulence and worsening mental status with confusion. Was eventually brought to the hospital and found to have evidence of sepsis with leukocytosis and elevated lactate. Started empirically on daptomycin and Zosyn. Has improved overnight with decrease in white blood cell count, with improvement in mental status. Currently afebrile. Denies any other specific complaints. Cultures are pending. Allergies Allergy/AdvReac Type Severity Reaction Status Date / Time ceftriaxone Allergy Unknown ON [place] Verified 08/14/18 10:06 [employer] [facility] [facility] vancomycin Allergy Unknown ON [place] Verified 08/14/18 10:06 [facility] Home Medications Home Medications Medication Instructions Recorded Confirmed Type acetaminophen [Tylenol] 650 mg PO Q4H PRN 06/26/18 09/11/18 History cholecalciferol (vitamin D3) 5,000 unit PO QAM 06/26/18 09/11/18 History docusate sodium 100 mg PO BID 06/26/18 09/11/18 History sennosides-docusate sodium 2 tab PO QPM 06/26/18 09/11/18 History [Senna-S] warfarin 2.5 mg PO 2XWK 06/26/18 09/11/18 History warfarin 5 mg PO 5XWK 06/26/18 09/11/18 History lisinopril [Zestril] 10 mg PO BID 30 Days #60 tab 07/02/18 09/11/18 Rx tamsulosin 0.4 mg PO HS 30 Days #30 cap 07/02/18 09/11/18 Rx digoxin 0.125 mg PO QAM 07/24/18 09/11/18 History metoprolol succinate 50 mg PO QAM 07/24/18 09/11/18 History metoprolol succinate 100 mg PO QAM 07/24/18 09/11/18 History nystatin [Nystop] 1 applic TOPICAL BID PRN 07/24/18 09/11/18 History aspirin 81 mg PO QAM 08/14/18 09/11/18 History furosemide 80 mg PO DAILY 08/14/18 09/11/18 History Patient History Medical History Aortic valve disorder Acute on chronic diastolic CHF (congestive heart failure) Stasis dermatitis of both legs (Chronic) Cellulitis 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 SIRS (systemic inflammatory response syndrome) (Chronic) Streptococcal sepsis (Resolved) Chronic indwelling Pizarro catheter Family History Other FHx: hypertension Social History Preferred Language: Filipino Communication Ability: Effective Visual Impairment: No Limitations 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 Beliefs That Will Affect Care: None marital status: Current Living Situation: [facility] Other Information That Helps Us Care for You: No Feels Safe at Home: Yes Safety Concerns: Feels Safe At This Time Smoking Status: Unknown if ever smoked Hx Alcohol Use: No Hx Substance Use: No Review of Systems Review of Systems: All systems reviewed & are unremarkable except as noted in HPI & below Physical Exam Constitutional: WD/WN, vitals as above comfortable; no acute distress Eyes: PERRL, conjunctivae normal, anicteric sclerae ENMT: external ear and nose normal, oropharynx normal Neck: trachea midline, no thyromegaly neck nontender Respiratory: normal respiratory effort, lungs clear to auscultation normal percussion; does not use accessory muscles Cardiovascular: Rate/Rhythm: + irregularly irregular Heart Sounds: normal S1 and normal S2; no gallop, no murmur and no cardiac rub Vessels: normal peripheral pulses; no JVD Gastrointestinal (Abdomen): normal bowel sounds, soft, nontender, no hepatosplenomegaly Musculoskeletal: no cyanosis or clubbing, extremities motor strength 5/5 Spine: thoracic spine normal to inspection and lumbar spine normal to inspection; no cervical spinal tenderness Skin: normal turgor; no rashes Chronic purplish discoloration of both lower extremities below knee Neurologic: patellar DTR's 2+ bilat, sensation intact no focal motor deficits Psychiatric: A+Ox3, euthymic affect Orientation: cooperative Genitourinary: Pizarro catheter draining orangish urine Lymphatic: no cervical or axillary lymphadenopathy no inguinal lymphadenopathy Results & Data Vital Signs (Past 12 Hours) Vital Signs Temp Pulse Pulse Resp BP Pulse Ox 09/12/18 08:00 48 L 09/12/18 07:42 36.6 C 53 L 18 130/74 100 09/12/18 03:05 36.6 C 46 L 16 133/66 98 09/11/18 23:46 50 L 09/11/18 22:44 36.6 C 58 L 16 123/66 98 Laboratory Results Short CBC 09/11/18 09/12/18 Range/Units 15:38 02:49 WBC 16.59 H 15.01 H (4.8-10.8) K/uL Hgb 15.4 12.7 L (14.0-18.0) g/dL Hct 42.6 35.9 L (42-52) % Plt Count 174 133 (130-400) K/uL BMP 09/11/18 09/11/18 09/11/18 15:38 21:01 21:01 Sodium 141 142 Cancelled Potassium 2.9 L 2.9 L Cancelled Chloride 105 107 Cancelled Carbon Dioxide 29 27 Cancelled BUN 18 16 Cancelled Creatinine 1.06 1.03 Cancelled Glucose 152 H 143 H Cancelled Calcium 8.6 8.3 L Cancelled 09/12/18 02:49 Sodium 141 Potassium 3.5 D Chloride 108 H Carbon Dioxide 29 BUN 16 Creatinine 0.82 Glucose 120 H Calcium 8.2 L Cardiac Enzymes 09/11/18 09/11/18 09/11/18 Range/Units 15:38 21:01 21:01 Total Creatine Kinase 103 (39-308) U/L CK-MB (CK-2) 2.2 2.3 (0.5-3.6) ng/ml Troponin I 0.055 H* 0.513 H* Cancelled (0-0.045) ng/ml 09/12/18 Range/Units 02:49 Total Creatine Kinase (39-308) U/L CK-MB (CK-2) (0.5-3.6) ng/ml Troponin I 0.338 H* (0-0.045) ng/ml Liver Function 09/11/18 Range/Units 15:38 Total Bilirubin 0.6 (0.2-1) mg/dl AST 24 (15-37) U/L ALT 29 (12-78) U/L Alkaline Phosphatase 94 (45-117) U/L Albumin 3.9 (3.4-5.0) gm/dl Urine 09/11/18 Range/Units 15:36 Urine Color Yellow Urine Appearance Cloudy H (Clear) Urine pH 8.5 H (4.5-7.5) Ur Specific [place] 1.020 (1.000-1.030) Urine Protein 1+ H (Negative) Urine Glucose (UA) Negative (Negative) Diagnostic Findings CT abd pelvis IV con only CLINICAL HISTORY: 77 years-old Male presenting with Pt c/o AMS. TECHNIQUE: Multidetector CT of the abdomen and pelvis was performed after the administration of intravenous contrast. IV contrast: 90 mL of Optiray 320. One or more dose lowering techniques were used consistent with the principles of ALARA (as low as reasonably achievable), including automatic exposure control, mA or kV adjustment to individual patient size, and/or use of iterative reconstruction. COMPARISON: 08/14/2018. CT DOSE (mGy.cm): The estimated cumulative dose is 1218.46 mGycm. FINDINGS: Network Technical Analyst topogram: Total right hip arthroplasty. Pelvic surgical clips. Severe degenerative changes of the left hip. Image quality is degraded by positioning of the arms at the sides. Mildly negatively affects diagnostic sensitivity the exam. Lung bases: Multichamber enlargement of the heart. Coronary artery and aortic valve calcification. No pericardial or pleural effusion. Respiratory motion artifact limits evaluation of the lung bases. Allowing for this, peribronchovascular bundle thickening with interlobular septal thickening suggested. Liver: Macronodular lobular contour of the liver suggested. No focal lesion. Patent hepatic vasculature. Biliary: No intrahepatic or extrahepatic biliary ductal dilatation. Normal gallbladder. Pancreas: Mild parenchymal atrophy. Spleen: Normal. Adrenal glands: Normal. Kidneys and ureters: Well-defined hypodensity at the lower pole the right kidney likely simple cyst. Nonobstructing calculi at the lower pole of the left kidney. Moderate bilateral nonspecific perinephric fat infiltration. No hydronephrosis. Subtle urothelial thickening may be present, left greater than right. Ureters nondistended. Bladder: Significant wall thickening and bladder wall irregularity. Mild perivesicular fat infiltration. The urinary bladder is partially decompressed with a Pizarro catheter. Pelvic organs: The patient may be status post prostatectomy with surgical clips in the region of the seminal vesicle bed. Bowel: Circumferential wall thickening of the mid to lower rectum, nonspecific and possibly posttreatment/post radiation related. No bowel obstruction. Few diverticula in the proximal sigmoid colon without associated inflammatory change. Prior colonic distention has resolved. The appendix is not well visualized. Peritoneal cavity: Trace extraperitoneal pelvic fluid as well as trace free fluid in the pelvis. No free intraperitoneal gas. Lymph nodes: Scattered subcentimeter predominantly retroperitoneal lymph nodes, nonspecific. Bilateral external iliac lymph nodes measure up to 8 mm in the short axis and are nonspecific. Additional subcentimeter prominent inguinal lymph nodes noted. Vasculature: Atherosclerosis of the normal caliber abdominal aorta. IVC patent. Abdominal wall: Postsurgical changes of the lower abdominal wall. Musculoskeletal: Postsurgical changes of total right hip arthroplasty. Advanced degenerative changes of the left hip. Degenerative changes of the spine and sacroiliac joints also noted. IMPRESSION: Image quality is degraded by positioning of the arms at the sides. Mildly negatively affects diagnostic sensitivity the exam. 1. Allowing for limitations, findings suggest prior chronic bladder outlet obstruction. The presence of mild perivesicular fat infiltration and urothelial thickening raises concern for cystitis with upper tract inflammation. This could be sterile in setting of prior chronic reflux or infectious. Correlate with urinalysis. 2. Postsurgical changes of prostatectomy. No convincing evidence of metastatic disease in the abdomen or pelvis. Borderline pelvic lymphadenopathy, which is nonspecific and may be reactive. Changes in the pelvis may also suggest a history of external beam radiation. Correlate clinically. 3. Underlying developing liver fibrosis not excluded. 4. Cardiomegaly. Electronically signed by: Sharif Hennessy M.D. 09/11/2018 6:11 PM Dictated: 09/11/181801 Transcribed: 09/11/181801 (1) Sepsis Sepsis type: sepsis due to unspecified organism Qualified Code(s): A41.9 - Sepsis, unspecified organism (2) UTI (urinary tract infection) Hematuria presence: without hematuria Urinary tract infection type: site unspecified Qualified Code(s): N39.0 - Urinary tract infection, site not specified
--- NOTE | 2018-09-12 10:25 | Cardiology Consultation ---
Date of Consultation September 12, 2018 Assessment & Plan (1) Atrial fibrillation with RVR: The patient has a known history of permanent atrial fibrillation. Suspect that his elevated ventricular response at the time of his presentation yesterday was related to his sepsis syndrome and dehydration. Ventricular response is now well controlled, off of the diltiazem drip. Would continue metoprolol succinate at 150 mg daily and digoxin 0.125 mg daily. Would also continue with Coumadin. (2) Elevated troponin: This is likely secondary to a supply demand mismatch, and not coronary ischemia. The patient has known left ventricle hypertrophy and had a rapid ventricular response to his atrial fibrillation at the time of presentation. (3) Chronic congestive heart failure with left ventricular diastolic dysfunction: The patient is well compensated at this time. Would use intravenous hydration with care. (4) Essential hypertension: Controlled on current regimen. History of Present Illness Attending Physician: Angela Jacques MD History of Present Illness Mr. Buckner is a 77-year-old male admitted yesterday with sepsis from a urinary source. This consultation was ordered as the patient was in atrial fibrillation with rapid ventricular response and had an elevated troponin at the time of his presentation. Of note, the patient is well known to me from the inpatient and outpatient settings. The patient was in his usual state of health until 2-3 days prior to presentation. He complained to his son that his appetite was poor and he was noticing significant fatigue. On the day of presentation, he was complaining of significant abdominal discomfort. It was noted that his urine output was reduced and that the urine in the Pizarro bag was dark and foul-smelling. On arrival to the ER, it was discovered that the patient's Pizarro catheter was obstructed. When replaced, a large amount purulent foul-smelling urine was obtained. The patient was also noted to be in atrial fibrillation with a rapid ventricular response was initially evaluated. He was placed on an intravenous diltiazem drip with control of his ventricular response. Initial troponin was mildly elevated at 0.055. The patient has not experienced any recent chest discomfort. He further denies dyspnea, syncope, presyncope, PND, orthopnea, changes lower extremity edema, and claudication. The patient carries a history of permanent atrial fibrillation. He is tolerating rate control and long-term anticoagulation without difficulty. Currently, patient is resting comfortably in bed without complaints. Past medical and surgical history 1. Hypertension 2. Mild LVH 3. Chronic diastolic CHF 4. Permanent atrial fibrillation 5. Mild aortic insufficiency 6. Peripheral vascular disease 7. Chronic venous stasis 8. Right cerebellopontine angle meningioma 9. DJD 10. History of aortic valve SBE-group G strep, August 2015 11. Dementia 12. Ankylosing spondylitis 13. Vitamin-D deficiency 14. Right THR 15. Bilateral interocular lens implants 16. History of prostate carcinoma Social history , but a resident at [facility] No tobacco One beer every day Family history Noncontributory Review of systems A 10 point review of systems was undertaken and negative except for that described above. Allergies Allergy/AdvReac Type Severity Reaction Status Date / Time ceftriaxone Allergy Unknown ON [place] Verified 08/14/18 10:06 [facility] LIST vancomycin Allergy Unknown ON [place] Verified 08/14/18 10:06 [facility] Home Medications Home Medications Medication Instructions Recorded Confirmed Type acetaminophen [Tylenol] 650 mg PO Q4H PRN 06/26/18 09/11/18 History cholecalciferol (vitamin D3) 5,000 unit PO QAM 06/26/18 09/11/18 History docusate sodium 100 mg PO BID 06/26/18 09/11/18 History sennosides-docusate sodium 2 tab PO QPM 06/26/18 09/11/18 History [Senna-S] warfarin 2.5 mg PO 2XWK 06/26/18 09/11/18 History warfarin 5 mg PO 5XWK 06/26/18 09/11/18 History lisinopril [Zestril] 10 mg PO BID 30 Days #60 tab 07/02/18 09/11/18 Rx tamsulosin 0.4 mg PO HS 30 Days #30 cap 07/02/18 09/11/18 Rx digoxin 0.125 mg PO QAM 07/24/18 09/11/18 History metoprolol succinate 50 mg PO QAM 07/24/18 09/11/18 History metoprolol succinate 100 mg PO QAM 07/24/18 09/11/18 History nystatin [Nystop] 1 applic TOPICAL BID PRN 07/24/18 09/11/18 History aspirin 81 mg PO QAM 08/14/18 09/11/18 History furosemide 80 mg PO DAILY 08/14/18 09/11/18 History Patient History Medical History Aortic valve disorder Acute on chronic diastolic CHF (congestive heart failure) Stasis dermatitis of both legs (Chronic) Cellulitis 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 SIRS (systemic inflammatory response syndrome) (Chronic) Streptococcal sepsis (Resolved) Chronic indwelling Pizarro catheter Family History Other FHx: hypertension Social History Preferred Language: German Communication Ability: Effective Visual Impairment: No Limitations 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 HEENT exam is negative. Neck is supple with full carotid upstrokes. No obvious bruits. Jugular venous pressure is flat at 90 degrees. There is no thyromegaly. Cardiovascular exam reveals an irregularly irregular rhythm with distant heart sounds. A 1/6 basal systolic ejection murmur is noted. No S3. Lungs are clear without rales, rhonchi wheezes. Abdomen is soft without bruits. Extremities reveal intact radial artery pulses bilaterally. Trace to 1+ pretibial edema is noted. Hyperpigmentation changes also noted. Results & Data Vital Signs (Past 12 Hours) Vital Signs Temp Pulse Pulse Resp BP Pulse Ox 09/12/18 08:00 48 L 09/12/18 07:42 36.6 C 53 L 18 130/74 100 09/12/18 03:05 36.6 C 46 L 16 133/66 98 09/11/18 23:46 50 L 09/11/18 22:44 36.6 C 58 L 16 123/66 98 Laboratory Results CBC notes a hemoglobin of 12.7, hematocrit 35.9, white count 15.01, and platelet count of [id number]. Electrolytes notice sodium of 141, potassium 3.5, chloride 108, bicarb 29, BUN 16, creatinine 0.82, glucose 120. Initial troponin was 0.055 follow-up eyes is 0.513 and 0.338. Urine culture notes Pseudomonas and Proteus. CT scan of the head notes a 2 centimeter right cerebellopontine mass consistent with a meningioma. Diagnostic Findings CT scan of the head notes a 2 centimeter right cerebellopontine mass consistent with a meningioma. There is borderline normal pressure hydrocephalus. Chest x- ray notes cardiomegaly but no acute disease. EKG notes atrial fibrillation and T-wave abnormality in inferior and anterolateral leads. Echocardiogram performed yesterday noted normal left ventricular systolic function with an ejection fraction of 50-55%. There is evidence of mild left ventricular hypertrophy and mild aortic insufficiency.
[2018-09-12] MEDS ORDERED: WARFARIN SOD 2.5 MG TAB PO SCH (16:00)
[2018-09-12] MEDS: DIGOXIN 0.125 MG TAB PO SCH (17:22)
[2018-09-12] MEDS: DAPTOmycin 450 MG in SYRINGE 0 ML IV SCH (17:22)
[2018-09-12] MEDS: DOCUSATE SODIUM/SENNA 50/8.6MG TAB PO SCH (19:40)
[2018-09-12] MEDS: TAMSULOSIN HCL 0.4 MG CAP PO SCH (19:40)
--- NOTE | 2018-09-12 20:33 | Emergency Department Note ---
Entered by Judith Cardenas acting as a scribe for History of Present Illness General Chief complaint: Infection Time Seen by Provider: 09/11/18 15:15 Source: patient Mode of arrival: ambulatory Limitations: altered mental status History of Present Illness Provider complaint: shortness of breath Associated symptoms: + other (+stomach pain) The patient is a 77 year old male who presents to the Emergency Room with complaints of shortness of breath. The patient states that he has stomach pain. Per nurse, the patient has a history of atrial fibrillation. The HPI and ROS are limited due to the patient's altered mental status. Home Medications Home Medications Medication Instructions Recorded Confirmed Type acetaminophen [Tylenol] 650 mg PO Q4H PRN 06/26/18 09/11/18 History cholecalciferol (vitamin D3) 5,000 unit PO QAM 06/26/18 09/11/18 History docusate sodium 100 mg PO BID 06/26/18 09/11/18 History sennosides-docusate sodium 2 tab PO QPM 06/26/18 09/11/18 History [Senna-S] warfarin 2.5 mg PO 2XWK 06/26/18 09/11/18 History warfarin 5 mg PO 5XWK 06/26/18 09/11/18 History lisinopril [Zestril] 10 mg PO BID 30 Days #60 tab 07/02/18 09/11/18 Rx tamsulosin 0.4 mg PO HS 30 Days #30 cap 07/02/18 09/11/18 Rx digoxin 0.125 mg PO QAM 07/24/18 09/11/18 History metoprolol succinate 50 mg PO QAM 07/24/18 09/11/18 History metoprolol succinate 100 mg PO QAM 07/24/18 09/11/18 History nystatin [Nystop] 1 applic TOPICAL BID PRN 07/24/18 09/11/18 History aspirin 81 mg PO QAM 08/14/18 09/11/18 History furosemide 80 mg PO DAILY 08/14/18 09/11/18 History Allergies Allergy/AdvReac Type Severity Reaction Status Date / Time ceftriaxone Allergy Unknown ON CROW Verified 08/14/18 10:06 REDDY'S LIST vancomycin Allergy Unknown ON CROW Verified 08/14/18 10:06 REDDY'S LIST Past Med/Surg History Medical History Aortic valve disorder Acute on chronic diastolic CHF (congestive heart failure) Stasis dermatitis of both legs (Chronic) Cellulitis 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 SIRS (systemic inflammatory response syndrome) (Chronic) Streptococcal sepsis (Resolved) Chronic indwelling Pizarro catheter Family History Other FHx: hypertension Social History Preferred Language: Polish Communication Ability: Effective Visual Impairment: No Limitations Account Management Specialist Required: No Beliefs That Will Affect Care: None marital status: Current Living Situation: [facility]dc Other Information That Helps Us Care for You: No Feels Safe at Home: Yes Safety Concerns: Feels Safe At This Time Smoking Status: Unknown if ever smoked Hx Alcohol Use: No Hx Substance Use: No Review of Systems The ROS is limited due to the patient's altered mental status. Physical Exam Vital Signs Vital Signs - 24 hr 09/11/18 20:53 09/11/18 22:44 09/11/18 23:46 Temperature 36.6 C Temperature Source Oral Pulse Rate 68 50 L Pulse Rate [Finger] 58 L Pulse Rhythm [Finger] Pulse Strength [Finger] Respiratory Rate 16 Respiratory Effort / Characteristics Non-Labored Spontaneous Respiratory Depth Normal Respiratory Pattern Regular Blood Pressure [Left Arm] 123/66 Blood Pressure [Right Arm] Blood Pressure Mean [Left Arm] 85 Blood Pressure Mean [Right Arm] Blood Pressure Position [Left Arm] Lying Blood Pressure Position [Right Arm] Pulse Oximetry 98 Oxygen Delivery Method Room Air Nasal Cannula Oxygen Flow Rate 2 09/12/18 03:05 09/12/18 07:42 09/12/18 08:00 Temperature 36.6 C 36.6 C Temperature Source Oral Oral Pulse Rate 48 L Pulse Rate [Finger] 46 L 53 L Pulse Rhythm [Finger] Pulse Strength [Finger] Respiratory Rate 16 18 Respiratory Effort / Characteristics Non-Labored Spontaneous Respiratory Depth Respiratory Pattern Blood Pressure [Left Arm] 133/66 130/74 Blood Pressure [Right Arm] Blood Pressure Mean [Left Arm] 88 92 Blood Pressure Mean [Right Arm] Blood Pressure Position [Left Arm] Lying Blood Pressure Position [Right Arm] Pulse Oximetry 98 100 Oxygen Delivery Method Nasal Cannula Nasal Cannula Oxygen Flow Rate 09/12/18 11:49 09/12/18 15:57 09/12/18 17:22 Temperature 37.1 C 36.8 C Temperature Source Oral Oral Pulse Rate 62 Pulse Rate [Finger] 60 67 Pulse Rhythm [Finger] Regular Pulse Strength [Finger] Normal Respiratory Rate 18 18 Respiratory Effort / Characteristics Non-Labored Respiratory Depth Normal Respiratory Pattern Blood Pressure [Left Arm] 158/76 H Blood Pressure [Right Arm] 163/71 H Blood Pressure Mean [Left Arm] 103 Blood Pressure Mean [Right Arm] 101 Blood Pressure Position [Left Arm] Lying Blood Pressure Position [Right Arm] Sitting Pulse Oximetry 99 93 Oxygen Delivery Method Nasal Cannula Room Air Oxygen Flow Rate 2 09/12/18 19:28 Temperature 37.0 C Temperature Source Oral Pulse Rate Pulse Rate [Finger] 76 Pulse Rhythm [Finger] Regular Pulse Strength [Finger] Normal Respiratory Rate 19 Respiratory Effort / Characteristics Non-Labored Respiratory Depth Normal Respiratory Pattern Blood Pressure [Left Arm] 173/94 H Blood Pressure [Right Arm] Blood Pressure Mean [Left Arm] 120 Blood Pressure Mean [Right Arm] Blood Pressure Position [Left Arm] Lying Blood Pressure Position [Right Arm] Pulse Oximetry 93 Oxygen Delivery Method Room Air Oxygen Flow Rate GENERAL: Awake, alert, well-appearing, in no acute distress HENT: Normocephalic, atraumatic. Oropharynx unremarkable. EYES: Normal conjunctiva. Sclera non-icteric. NECK: Supple. No nuchal rigidity. FROM. No JVD. RESPIRATORY: Clear to auscultation. CARDIAC: Regular rate, normal rhythm. Extremities warm and well perfused. Pulses equal. ABDOMEN: Soft, non-distended. No tenderness to palpation. No rebound or guarding. No masses. RECTAL: Deferred. MUSCULOSKELETAL: Chest examination reveals no tenderness. The back is symmetrical on inspection without obvious abnormality. There is no CVA t enderness to palpation. No joint edema. LOWER EXTREMITIES: Calves are equal size bilaterally and non-tender. No edema. No discoloration. NEURO: Not oriented to place or time. SKIN: No rash or jaundice noted. Course 1518: The patient was evaluated in room B11, and a complete history and physical examination were performed. 1651: I checked on the patient and updated him on his results. 1806: [facility] She will evaluate the patient for further management. Consultations Consultation #1: Ofe Jeffrey Hospitalist Time: 18:05 Administered Medications Acetaminophen (Tylenol) 650 mg PO Q4H PRN PRN Reason: Pain or Fever Stop: 10/11/18 19:35 Last Admin: 09/11/18 23:29 Dose: 650 mg Documented by: [id number] Aspirin (Aspirin Chew) 81 mg PO QAM [facility] Stop: 10/12/18 08:59 Last Admin: 09/12/18 08:37 Dose: 81 mg Documented by: [id number] Digoxin (Lanoxin) 0.125 mg PO DAILY@1600 [facility] Stop: 10/11/18 19:59 Last Admin: 09/12/18 17:22 Dose: 0.125 mg Documented by: [id number] Admin: 09/11/18 20:53 Dose: 0.125 mg Documented by: [id number] Docusate Sodium (Colace) 100 mg PO BID [facility] Stop: 10/11/18 20:59 Last Admin: 09/12/18 19:41 Dose: 100 mg Documented by: [id number] Admin: 09/12/18 08:39 Dose: 100 mg Documented by: [id number] Admin: 09/11/18 20:53 Dose: Not Given Documented by: [id number] Lactated Ringer's (Lr) 1,000 mls @ 125 mls/hr IV .Q8H [facility] Stop: 10/11/18 19:14 Last Admin: 09/12/18 19:40 Dose: 125 mls/hr Documented by: [id number] Infusion: 09/12/18 19:40 Dose: 125 mls/hr Documented by: [id number] Admin: 09/12/18 12:11 Dose: 125 mls/hr Documented by: [id number] Infusion: 09/12/18 12:11 Dose: 0 mls/hr Documented by: [id number] Admin: 09/12/18 04:36 Dose: 125 mls/hr Documented by: [id number] Infusion: 09/12/18 04:36 Dose: 125 mls/hr Documented by: [id number] Infusion: 09/12/18 00:39 Dose: 125 mls/hr Documented by: [id number] Infusion: 09/11/18 23:30 Dose: 0 mls/hr Documented by: [id number] Admin: 09/11/18 20:01 Dose: 125 mls/hr Documented by: [id number] Daptomycin 450 mg/ Syringe 9 mls @ 4.5 mls/min IV Q24H [facility]; Protocol Stop: 09/21/18 15:59 Last Admin: 09/12/18 17:22 Dose: 4.5 mls/min Documented by: [id number] Piperacillin Sod/Tazobactam (Sod 3.375 gm/ Dextrose) 115 mls @ 28 mls/hr IV Q8H [facility]; Protocol Stop: 09/21/18 19:59 Last Admin: 09/12/18 19:33 Dose: 28 mls/hr Documented by: [id number] Infusion: 09/12/18 15:54 Dose: 0 mls/hr Documented by: [id number] Admin: 09/12/18 12:12 Dose: 28 mls/hr Documented by: [id number] Infusion: 09/12/18 07:45 Dose: 0 mls/hr Documented by: [id number] Admin: 09/12/18 03:38 Dose: 28 mls/hr Documented by: [id number] Infusion: 09/12/18 00:39 Dose: 0 mls/hr Documented by: [id number] Admin: 09/11/18 20:54 Dose: 28 mls/hr Documented by: [id number] Ioversol (Optiray 320 100ml) 90 ml IV ONCE PRN PRN Reason: Interaction Checking Stop: 09/15/18 17:30 Last Admin: 09/11/18 17:32 Dose: 90 ml Documented by: [id number] Metoprolol Succinate (Toprol Xl) 150 mg PO QAM [facility] Stop: 10/12/18 08:59 Last Admin: 09/12/18 08:37 Dose: 150 mg Documented by: [id number] Senna/Docusate Sodium (Senokot S) 2 tab PO QPM [facility] Stop: 10/11/18 20:59 Last Admin: 09/12/18 19:40 Dose: 2 tab Documented by: [id number] Admin: 09/11/18 20:54 Dose: Not Given Documented by: [id number] Tamsulosin HCl (Flomax) 0.4 mg PO HS [facility] Stop: 10/11/18 20:59 Last Admin: 09/12/18 19:40 Dose: 0.4 mg Documented by: [id number] Admin: 09/11/18 20:53 Dose: 0.4 mg Documented by: [id number] Vitamin D (Vitamin D3) 5,000 units PO QAM [facility] Stop: 10/12/18 08:59 Last Admin: 09/12/18 08:38 Dose: 5,000 units Documented by: [id number] Discontinued Medications Acetaminophen (Tylenol) Confirm Administered Dose 1,000 mg .ROUTE .STK-MED ONE Stop: 09/11/18 16:08 Last Admin: 09/11/18 16:19 Dose: 1,000 mg Documented by: [id number] Acetaminophen (Tylenol) 1,000 mg PO NOW STA Stop: 09/11/18 16:22 Last Admin: 09/11/18 16:27 Dose: Not Given Documented by: [id number] Diltiazem HCl (Cardizem) 22.5 mg IV NOW STA Stop: 09/11/18 15:27 Last Admin: 09/11/18 15:50 Dose: 22.5 mg Documented by: [id number] Cosigned by: [id number] Piperacillin Sod/Tazobactam Sod (Zosyn) 4.5 gm in 120 mls @ 240 mls/hr IV NOW ONE Stop: 09/11/18 15:51 Last Infusion: 09/11/18 16:50 Dose: 0 mls/hr Documented by: [id number] Admin: 09/11/18 15:55 Dose: 240 mls/hr Documented by: [id number] Daptomycin 450 mg/ Syringe 9 mls @ 4.5 mls/min IV NOW ONE Stop: 09/11/18 15:23 Last Admin: 09/11/18 16:28 Dose: 4.5 mls/min Documented by: [id number] Sodium Chloride (Nss 1000ml) 1,000 mls @ 999 mls/hr IV .Q1H1M ONE Stop: 09/11/18 16:26 Last Infusion: 09/11/18 16:50 Dose: 0 mls/hr Documented by: [id number] Admin: 09/11/18 15:43 Dose: 999 mls/hr Documented by: [id number] Sodium Chloride (Nss 1000ml) 1,000 mls @ 999 mls/hr IV .Q1H1M ONE Stop: 09/11/18 16:28 Last Infusion: 09/11/18 16:50 Dose: 0 mls/hr Documented by: [id number] Admin: 09/11/18 15:43 Dose: 999 mls/hr Documented by: [id number] Potassium Chloride (K Thomas / Wtr) 10 meq in 100 mls @ 100 mls/hr IV Q1H [facility] Stop: 09/11/18 18:59 Last Infusion: 09/11/18 20:25 Dose: 0 mls/hr Documented by: [id number] Admin: 09/11/18 18:55 Dose: 100 mls/hr Documented by: [id number] Infusion: 09/11/18 18:55 Dose: 0 mls/hr Documented by: [id number] Admin: 09/11/18 17:41 Dose: 100 mls/hr Documented by: [id number] Potassium Chloride (K Thomas / Wtr) 10 meq in 100 mls @ 100 mls/hr IV Q1H [facility] Stop: 09/12/18 00:12 Last Infusion: 09/12/18 00:39 Dose: 0 mls/hr Documented by: [id number] Admin: 09/11/18 23:28 Dose: 100 mls/hr Documented by: [id number] Infusion: 09/11/18 23:28 Dose: 100 mls/hr Documented by: [id number] Admin: 09/11/18 22:29 Dose: 100 mls/hr Documented by: [id number] Morphine Sulfate (Morphine Sulfate) 4 mg IV NOW STA Stop: 09/11/18 16:31 Last Admin: 09/11/18 16:49 Dose: 4 mg Documented by: [id number] Ondansetron HCl (Zofran) 4 mg IV NOW STA Stop: 09/11/18 16:31 Last Admin: 09/11/18 16:49 Dose: 4 mg Documented by: [id number] Perflutren Lipid Microsphere (Definity) 1.5 ml IV ONCE ONE Stop: 09/12/18 06:38 Last Admin: 09/12/18 06:38 Dose: 1.5 ml Documented by: [id number] Potassium Chloride (Klor-Con M20) 40 meq PO NOW STA Stop: 09/11/18 17:01 Last Admin: 09/11/18 17:39 Dose: 40 meq Documented by: [id number] Potassium Chloride (Klor-Con M20) 40 meq PO NOW STA Stop: 09/11/18 22:14 Last Admin: 09/11/18 22:29 Dose: 40 meq Documented by: [id number] Medical Decision Making Differential Diagnosis Differential diagnosis: Etiologies such as infections, reactive airway disease, COPD, pneumonia, pleural effusion, pulmonary edema, ARDS, pneumothorax, CHF, cardiac ischemia, cardiac tamponade, dysrhythmia, anemia, pulmonary embolism, musculoskeletal, gastrointestinal process, as well as others were entertained. Medical Records Attestation: I reviewed the patient's medical records. Home Medications Current Medication List: was personally reviewed by me Laboratory Data Attestation: I reviewed the patient's lab results. Result diagrams: 09/12/18 02:49 09/12/18 02:49 Lab Results 09/11/18 09/11/18 09/11/18 Range/Units 15:36 15:38 15:38 WBC 16.59 H (4.8-10.8) K/uL RBC 4.42 L (4.7-6.1) M/uL Hgb 15.4 (14.0-18.0) g/dL Hct 42.6 (42-52) % MCV 96.4 (80-100) fL MCH 34.8 H (25-34) pg MCHC 36.2 H (32-36) g/dL RDW Std Deviation 44.5 (36.4-46.3) fL RDW Coeff of Elmo 12.7 (11.5-14.5) % Plt Count 174 (130-400) K/uL MPV 11.8 H (7.4-10.4) fL Immature Gran % (Auto) 0.4 % Neut % (Auto) 87.1 % Lymph % (Auto) 5.4 % Ellsworth % (Auto) 6.7 % Eos % (Auto) 0.2 % Baso % (Auto) 0.2 % Immature Gran # (Auto) 0.07 H (0.00-0.02) K/uL Neut # (Auto) 14.46 H (1.4-6.5) K/uL Lymph # (Auto) 0.89 L (1.2-3.4) K/uL Ellsworth # (Auto) 1.11 H (0.11-0.59) K/uL Eos # (Auto) 0.03 (0-0.5) K/uL Baso # (Auto) 0.03 (0-0.2) K/uL ESR (0-14) mm/hr PT 27.8 H (9.0-12.0) Seconds INR 2.9 H (0.9-1.1) APTT 34.6 H (21.0-31.0) Seconds PTT Ratio 1.3 Sodium (136-145) mmol/L Potassium (3.5-5.1) mmol/L Chloride (98-107) mmol/L Carbon Dioxide (21-32) mmol/L Anion Gap (3-11) BUN (7-18) mg/dl Creatinine (0.6-1.4) mg/dl Est Cr Clr Drug Dosing ml/min Est GFR ( Amer) Est GFR (Non-Af Amer) BUN/Creatinine Ratio (10-20) Glucose (70-99) mg/dl Lactate (0.4-2.0) mmol/L Calcium (8.5-10.1) mg/dl Phosphorus (2.5-4.9) mg/dl Magnesium (1.8-2.4) mg/dl Total Bilirubin (0.2-1) mg/dl AST (15-37) U/L ALT (12-78) U/L Alkaline Phosphatase (45-117) U/L Total Creatine Kinase (39-308) U/L CK-MB (CK-2) (0.5-3.6) ng/ml CK/CKMB % Calc (0-3.0) Troponin I (0-0.045) ng/ml C-Reactive Protein (0-0.29) mg/dl NT-Pro-B Natriuret Pep (0-900) pg/ml Total Protein (6.4-8.2) gm/dl Albumin (3.4-5.0) gm/dl Globulin (2.5-4.0) gm/dl Albumin/Globulin Ratio (0.9-2) Lipase (73-393) U/L Procalcitonin (0-0.5) ng/ml Urine Color Yellow Urine Appearance Cloudy H (Clear) Urine pH 8.5 H (4.5-7.5) Ur Specific Economy 1.020 (1.000-1.030) Urine Protein 1+ H (Negative) Urine Glucose (UA) Negative (Negative) Urine Ketones Trace H (Negative) Urine Blood 3+ H (Negative) Urine Nitrite Positive H (Negative) Urine Bilirubin Negative (Negative) Urine Urobilinogen Negative (Negative) Ur Leukocyte Esterase 3+ H (Negative) Urine RBC 10-30 H (0-4) /hpf Urine WBC 10-30 H (0-5) /hpf Ur Epithelial Cells 10-20 H (0-5) /lpf Urine Bacteria 2+ H (Negative) Nasal Screen MRSA (PCR) (Negative) Digoxin (0.8-2.0) ng/ml Influenza Type A (PCR) (Neg) Influenza Type B (PCR) (Neg) 09/11/18 09/11/18 09/11/18 Range/Units 15:38 15:38 15:38 WBC (4.8-10.8) K/uL RBC (4.7-6.1) M/uL Hgb (14.0-18.0) g/dL Hct (42-52) % MCV (80-100) fL MCH (25-34) pg MCHC (32-36) g/dL RDW Std Deviation (36.4-46.3) fL RDW Coeff of Elmo (11.5-14.5) % Plt Count (130-400) K/uL MPV (7.4-10.4) fL Immature Gran % (Auto) % Neut % (Auto) % Lymph % (Auto) % Ellsworth % (Auto) % Eos % (Auto) % Baso % (Auto) % Immature Gran # (Auto) (0.00-0.02) K/uL Neut # (Auto) (1.4-6.5) K/uL Lymph # (Auto) (1.2-3.4) K/uL Ellsworth # (Auto) (0.11-0.59) K/uL Eos # (Auto) (0-0.5) K/uL Baso # (Auto) (0-0.2) K/uL ESR (0-14) mm/hr PT (9.0-12.0) Seconds INR (0.9-1.1) APTT (21.0-31.0) Seconds PTT Ratio Sodium 141 (136-145) mmol/L Potassium 2.9 L (3.5-5.1) mmol/L Chloride 105 (98-107) mmol/L Carbon Dioxide 29 (21-32) mmol/L Anion Gap 7.0 (3-11) BUN 18 (7-18) mg/dl Creatinine 1.06 (0.6-1.4) mg/dl Est Cr Clr Drug Dosing 69.5 ml/min Est GFR ( Amer) 79.2 Est GFR (Non-Af Amer) 68.3 BUN/Creatinine Ratio 17.2 (10-20) Glucose 152 H (70-99) mg/dl Lactate 3.5 H* (0.4-2.0) mmol/L Calcium 8.6 (8.5-10.1) mg/dl Phosphorus (2.5-4.9) mg/dl Magnesium (1.8-2.4) mg/dl Total Bilirubin 0.6 (0.2-1) mg/dl AST 24 (15-37) U/L ALT 29 (12-78) U/L Alkaline Phosphatase 94 (45-117) U/L Total Creatine Kinase 103 (39-308) U/L CK-MB (CK-2) 2.2 (0.5-3.6) ng/ml CK/CKMB % Calc 2.1 (0-3.0) Troponin I 0.055 H* (0-0.045) ng/ml C-Reactive Protein (0-0.29) mg/dl NT-Pro-B Natriuret Pep (0-900) pg/ml Total Protein 7.5 (6.4-8.2) gm/dl Albumin 3.9 (3.4-5.0) gm/dl Globulin 3.6 (2.5-4.0) gm/dl Albumin/Globulin Ratio 1.1 (0.9-2) Lipase (73-393) U/L Procalcitonin < 0.05 (0-0.5) ng/ml Urine Color Urine Appearance (Clear) Urine pH (4.5-7.5) Ur Specific Economy (1.000-1.030) Urine Protein (Negative) Urine Glucose (UA) (Negative) Urine Ketones (Negative) Urine Blood (Negative) Urine Nitrite (Negative) Urine Bilirubin (Negative) Urine Urobilinogen (Negative) Ur Leukocyte Esterase (Negative) Urine RBC (0-4) /hpf Urine WBC (0-5) /hpf Ur Epithelial Cells (0-5) /lpf Urine Bacteria (Negative) Nasal Screen MRSA (PCR) (Negative) Digoxin (0.8-2.0) ng/ml Influenza Type A (PCR) (Neg) Influenza Type B (PCR) (Neg) 09/11/18 09/11/18 09/11/18 Range/Units 15:38 16:02 21:01 WBC (4.8-10.8) K/uL RBC (4.7-6.1) M/uL Hgb (14.0-18.0) g/dL Hct (42-52) % MCV (80-100) fL MCH (25-34) pg MCHC (32-36) g/dL RDW Std Deviation (36.4-46.3) fL RDW Coeff of Elmo (11.5-14.5) % Plt Count (130-400) K/uL MPV (7.4-10.4) fL Immature Gran % (Auto) % Neut % (Auto) % Lymph % (Auto) % Ellsworth % (Auto) % Eos % (Auto) % Baso % (Auto) % Immature Gran # (Auto) (0.00-0.02) K/uL Neut # (Auto) (1.4-6.5) K/uL Lymph # (Auto) (1.2-3.4) K/uL Ellsworth # (Auto) (0.11-0.59) K/uL Eos # (Auto) (0-0.5) K/uL Baso # (Auto) (0-0.2) K/uL ESR 7 (0-14) mm/hr PT (9.0-12.0) Seconds INR (0.9-1.1) APTT (21.0-31.0) Seconds PTT Ratio Sodium (136-145) mmol/L Potassium (3.5-5.1) mmol/L Chloride (98-107) mmol/L Carbon Dioxide (21-32) mmol/L Anion Gap (3-11) BUN (7-18) mg/dl Creatinine (0.6-1.4) mg/dl Est Cr Clr Drug Dosing ml/min Est GFR ( Amer) Est GFR (Non-Af Amer) BUN/Creatinine Ratio (10-20) Glucose (70-99) mg/dl Lactate (0.4-2.0) mmol/L Calcium (8.5-10.1) mg/dl Phosphorus (2.5-4.9) mg/dl Magnesium 1.9 (1.8-2.4) mg/dl Total Bilirubin (0.2-1) mg/dl AST (15-37) U/L ALT (12-78) U/L Alkaline Phosphatase (45-117) U/L Total Creatine Kinase (39-308) U/L CK-MB (CK-2) (0.5-3.6) ng/ml CK/CKMB % Calc (0-3.0) Troponin I (0-0.045) ng/ml C-Reactive Protein (0-0.29) mg/dl NT-Pro-B Natriuret Pep (0-900) pg/ml Total Protein (6.4-8.2) gm/dl Albumin (3.4-5.0) gm/dl Globulin (2.5-4.0) gm/dl Albumin/Globulin Ratio (0.9-2) Lipase (73-393) U/L Procalcitonin (0-0.5) ng/ml Urine Color Urine Appearance (Clear) Urine pH (4.5-7.5) Ur Specific Economy (1.000-1.030) Urine Protein (Negative) Urine Glucose (UA) (Negative) Urine Ketones (Negative) Urine Blood (Negative) Urine Nitrite (Negative) Urine Bilirubin (Negative) Urine Urobilinogen (Negative) Ur Leukocyte Esterase (Negative) Urine RBC (0-4) /hpf Urine WBC (0-5) /hpf Ur Epithelial Cells (0-5) /lpf Urine Bacteria (Negative) Nasal Screen MRSA (PCR) (Negative) Digoxin (0.8-2.0) ng/ml Influenza Type A (PCR) Neg for Influ A (Neg) Influenza Type B (PCR) Neg for Influ B (Neg) 09/11/18 09/11/18 09/11/18 Range/Units 21:01 21:01 21:01 WBC (4.8-10.8) K/uL RBC (4.7-6.1) M/uL Hgb (14.0-18.0) g/dL Hct (42-52) % MCV (80-100) fL MCH (25-34) pg MCHC (32-36) g/dL RDW Std Deviation (36.4-46.3) fL RDW Coeff of Elmo (11.5-14.5) % Plt Count (130-400) K/uL MPV (7.4-10.4) fL Immature Gran % (Auto) % Neut % (Auto) % Lymph % (Auto) % [place] % (Auto) % Eos % (Auto) % Baso % (Auto) % Immature Gran # (Auto) (0.00-0.02) K/uL Neut # (Auto) (1.4-6.5) K/uL Lymph # (Auto) (1.2-3.4) K/uL [place] # (Auto) (0.11-0.59) K/uL Eos # (Auto) (0-0.5) K/uL Baso # (Auto) (0-0.2) K/uL ESR (0-14) mm/hr PT (9.0-12.0) Seconds INR (0.9-1.1) APTT (21.0-31.0) Seconds PTT Ratio Sodium 142 Cancelled (136-145) mmol/L Potassium 2.9 L Cancelled (3.5-5.1) mmol/L Chloride 107 Cancelled (98-107) mmol/L Carbon Dioxide 27 Cancelled (21-32) mmol/L Anion Gap 8.0 Cancelled (3-11) BUN 16 Cancelled (7-18) mg/dl Creatinine 1.03 Cancelled (0.6-1.4) mg/dl Est Cr Clr Drug Dosing 66.0 Cancelled ml/min Est GFR ( Amer) 82.0 Cancelled Est GFR (Non-Af Amer) 70.7 Cancelled BUN/Creatinine Ratio 15.9 Cancelled (10-20) Glucose 143 H Cancelled (70-99) mg/dl Lactate 2.8 H* (0.4-2.0) mmol/L Calcium 8.3 L Cancelled (8.5-10.1) mg/dl Phosphorus 2.8 (2.5-4.9) mg/dl Magnesium (1.8-2.4) mg/dl Total Bilirubin (0.2-1) mg/dl AST (15-37) U/L ALT (12-78) U/L Alkaline Phosphatase (45-117) U/L Total Creatine Kinase (39-308) U/L CK-MB (CK-2) 2.3 (0.5-3.6) ng/ml CK/CKMB % Calc (0-3.0) Troponin I 0.513 H* Cancelled (0-0.045) ng/ml C-Reactive Protein 2.59 H (0-0.29) mg/dl NT-Pro-B Natriuret Pep 4598 H (0-900) pg/ml Total Protein (6.4-8.2) gm/dl Albumin (3.4-5.0) gm/dl Globulin (2.5-4.0) gm/dl Albumin/Globulin Ratio (0.9-2) Lipase 91 (73-393) U/L Procalcitonin (0-0.5) ng/ml Urine Color Urine Appearance (Clear) Urine pH (4.5-7.5) Ur Specific Economy (1.000-1.030) Urine Protein (Negative) Urine Glucose (UA) (Negative) Urine Ketones (Negative) Urine Blood (Negative) Urine Nitrite (Negative) Urine Bilirubin (Negative) Urine Urobilinogen (Negative) Ur Leukocyte Esterase (Negative) Urine RBC (0-4) /hpf Urine WBC (0-5) /hpf Ur Epithelial Cells (0-5) /lpf Urine Bacteria (Negative) Nasal Screen MRSA (PCR) (Negative) Digoxin (0.8-2.0) ng/ml Influenza Type A (PCR) (Neg) Influenza Type B (PCR) (Neg) 09/11/18 09/11/18 09/12/18 Range/Units 21:01 Unknown 02:49 WBC 15.01 H (4.8-10.8) K/uL RBC 3.79 L (4.7-6.1) M/uL Hgb 12.7 L (14.0-18.0) g/dL Hct 35.9 L (42-52) % MCV 94.7 (80-100) fL MCH 33.5 (25-34) pg MCHC 35.4 (32-36) g/dL RDW Std Deviation 45.1 (36.4-46.3) fL RDW Coeff of Elmo 13.0 (11.5-14.5) % Plt Count 133 (130-400) K/uL MPV 11.6 H (7.4-10.4) fL Immature Gran % (Auto) 0.1 % Neut % (Auto) 82.8 % Lymph % (Auto) 7.8 % [place] % (Auto) 8.9 % Eos % (Auto) 0.3 % Baso % (Auto) 0.1 % Immature Gran # (Auto) 0.02 (0.00-0.02) K/uL Neut # (Auto) 12.42 H (1.4-6.5) K/uL Lymph # (Auto) 1.17 L (1.2-3.4) K/uL Ellsworth # (Auto) 1.33 H (0.11-0.59) K/uL Eos # (Auto) 0.05 (0-0.5) K/uL Baso # (Auto) 0.02 (0-0.2) K/uL ESR (0-14) mm/hr PT (9.0-12.0) Seconds INR (0.9-1.1) APTT (21.0-31.0) Seconds PTT Ratio Sodium (136-145) mmol/L Potassium (3.5-5.1) mmol/L Chloride (98-107) mmol/L Carbon Dioxide (21-32) mmol/L Anion Gap (3-11) BUN (7-18) mg/dl Creatinine (0.6-1.4) mg/dl Est Cr Clr Drug Dosing ml/min Est GFR ( Amer) Est GFR (Non-Af Amer) BUN/Creatinine Ratio (10-20) Glucose (70-99) mg/dl Lactate (0.4-2.0) mmol/L Calcium (8.5-10.1) mg/dl Phosphorus (2.5-4.9) mg/dl Magnesium (1.8-2.4) mg/dl Total Bilirubin (0.2-1) mg/dl AST (15-37) U/L ALT (12-78) U/L Alkaline Phosphatase (45-117) U/L Total Creatine Kinase (39-308) U/L CK-MB (CK-2) (0.5-3.6) ng/ml CK/CKMB % Calc (0-3.0) Troponin I (0-0.045) ng/ml C-Reactive Protein (0-0.29) mg/dl NT-Pro-B Natriuret Pep (0-900) pg/ml Total Protein (6.4-8.2) gm/dl Albumin (3.4-5.0) gm/dl Globulin (2.5-4.0) gm/dl Albumin/Globulin Ratio (0.9-2) Lipase (73-393) U/L Procalcitonin (0-0.5) ng/ml Urine Color Urine Appearance (Clear) Urine pH (4.5-7.5) Ur Specific Economy (1.000-1.030) Urine Protein (Negative) Urine Glucose (UA) (Negative) Urine Ketones (Negative) Urine Blood (Negative) Urine Nitrite (Negative) Urine Bilirubin (Negative) Urine Urobilinogen (Negative) Ur Leukocyte Esterase (Negative) Urine RBC (0-4) /hpf Urine WBC (0-5) /hpf Ur Epithelial Cells (0-5) /lpf Urine Bacteria (Negative) Nasal Screen MRSA (PCR) Negative (Negative) Digoxin 0.6 L (0.8-2.0) ng/ml Influenza Type A (PCR) (Neg) Influenza Type B (PCR) (Neg) 09/12/18 09/12/18 09/12/18 Range/Units 02:49 02:49 02:49 WBC (4.8-10.8) K/uL RBC (4.7-6.1) M/uL Hgb (14.0-18.0) g/dL Hct (42-52) % MCV (80-100) fL MCH (25-34) pg MCHC (32-36) g/dL RDW Std Deviation (36.4-46.3) fL RDW Coeff of Elmo (11.5-14.5) % Plt Count (130-400) K/uL MPV (7.4-10.4) fL Immature Gran % (Auto) % Neut % (Auto) % Lymph % (Auto) % [place] % (Auto) % Eos % (Auto) % Baso % (Auto) % Immature Gran # (Auto) (0.00-0.02) K/uL Neut # (Auto) (1.4-6.5) K/uL Lymph # (Auto) (1.2-3.4) K/uL [place] # (Auto) (0.11-0.59) K/uL Eos # (Auto) (0-0.5) K/uL Baso # (Auto) (0-0.2) K/uL ESR (0-14) mm/hr PT 28.0 H (9.0-12.0) Seconds INR 2.9 H (0.9-1.1) APTT (21.0-31.0) Seconds PTT Ratio Sodium 141 (136-145) mmol/L Potassium 3.5 D (3.5-5.1) mmol/L Chloride 108 H (98-107) mmol/L Carbon Dioxide 29 (21-32) mmol/L Anion Gap 4.0 (3-11) BUN 16 (7-18) mg/dl Creatinine 0.82 (0.6-1.4) mg/dl Est Cr Clr Drug Dosing 82.9 ml/min Est GFR ( Amer) 100.3 Est GFR (Non-Af Amer) 86.5 BUN/Creatinine Ratio 19.1 (10-20) Glucose 120 H (70-99) mg/dl Lactate 1.8 (0.4-2.0) mmol/L Calcium 8.2 L (8.5-10.1) mg/dl Phosphorus (2.5-4.9) mg/dl Magnesium (1.8-2.4) mg/dl Total Bilirubin (0.2-1) mg/dl AST (15-37) U/L ALT (12-78) U/L Alkaline Phosphatase (45-117) U/L Total Creatine Kinase (39-308) U/L CK-MB (CK-2) (0.5-3.6) ng/ml CK/CKMB % Calc (0-3.0) Troponin I 0.338 H* (0-0.045) ng/ml C-Reactive Protein (0-0.29) mg/dl NT-Pro-B Natriuret Pep (0-900) pg/ml Total Protein (6.4-8.2) gm/dl Albumin (3.4-5.0) gm/dl Globulin (2.5-4.0) gm/dl Albumin/Globulin Ratio (0.9-2) Lipase (73-393) U/L Procalcitonin (0-0.5) ng/ml Urine Color Urine Appearance (Clear) Urine pH (4.5-7.5) Ur Specific Economy (1.000-1.030) Urine Protein (Negative) Urine Glucose (UA) (Negative) Urine Ketones (Negative) Urine Blood (Negative) Urine Nitrite (Negative) Urine Bilirubin (Negative) Urine Urobilinogen (Negative) Ur Leukocyte Esterase (Negative) Urine RBC (0-4) /hpf Urine WBC (0-5) /hpf Ur Epithelial Cells (0-5) /lpf Urine Bacteria (Negative) Nasal Screen MRSA (PCR) (Negative) Digoxin (0.8-2.0) ng/ml Influenza Type A (PCR) (Neg) Influenza Type B (PCR) (Neg) 09/12/18 Range/Units 19:21 WBC (4.8-10.8) K/uL RBC (4.7-6.1) M/uL Hgb (14.0-18.0) g/dL Hct (42-52) % MCV (80-100) fL MCH (25-34) pg MCHC (32-36) g/dL RDW Std Deviation (36.4-46.3) fL RDW Coeff of Elmo (11.5-14.5) % Plt Count (130-400) K/uL MPV (7.4-10.4) fL Immature Gran % (Auto) % Neut % (Auto) % Lymph % (Auto) % [place] % (Auto) % Eos % (Auto) % Baso % (Auto) % Immature Gran # (Auto) (0.00-0.02) K/uL Neut # (Auto) (1.4-6.5) K/uL Lymph # (Auto) (1.2-3.4) K/uL [place] # (Auto) (0.11-0.59) K/uL Eos # (Auto) (0-0.5) K/uL Baso # (Auto) (0-0.2) K/uL ESR (0-14) mm/hr PT (9.0-12.0) Seconds INR (0.9-1.1) APTT (21.0-31.0) Seconds PTT Ratio Sodium (136-145) mmol/L Potassium (3.5-5.1) mmol/L Chloride (98-107) mmol/L Carbon Dioxide (21-32) mmol/L Anion Gap (3-11) BUN (7-18) mg/dl Creatinine (0.6-1.4) mg/dl Est Cr Clr Drug Dosing ml/min Est GFR ( Amer) Est GFR (Non-Af Amer) BUN/Creatinine Ratio (10-20) Glucose (70-99) mg/dl Lactate (0.4-2.0) mmol/L Calcium (8.5-10.1) mg/dl Phosphorus (2.5-4.9) mg/dl Magnesium (1.8-2.4) mg/dl Total Bilirubin (0.2-1) mg/dl AST (15-37) U/L ALT (12-78) U/L Alkaline Phosphatase (45-117) U/L Total Creatine Kinase (39-308) U/L CK-MB (CK-2) (0.5-3.6) ng/ml CK/CKMB % Calc (0-3.0) Troponin I (0-0.045) ng/ml C-Reactive Protein (0-0.29) mg/dl NT-Pro-B Natriuret Pep (0-900) pg/ml Total Protein (6.4-8.2) gm/dl Albumin (3.4-5.0) gm/dl Globulin (2.5-4.0) gm/dl Albumin/Globulin Ratio (0.9-2) Lipase (73-393) U/L Procalcitonin 0.62 H (0-0.5) ng/ml Urine Color Urine Appearance (Clear) Urine pH (4.5-7.5) Ur Specific Economy (1.000-1.030) Urine Protein (Negative) Urine Glucose (UA) (Negative) Urine Ketones (Negative) Urine Blood (Negative) Urine Nitrite (Negative) Urine Bilirubin (Negative) Urine Urobilinogen (Negative) Ur Leukocyte Esterase (Negative) Urine RBC (0-4) /hpf Urine WBC (0-5) /hpf Ur Epithelial Cells (0-5) /lpf Urine Bacteria (Negative) Nasal Screen MRSA (PCR) (Negative) Digoxin (0.8-2.0) ng/ml Influenza Type A (PCR) (Neg) Influenza Type B (PCR) (Neg) Imaging Data Radiologist's Impression: Radiology results as stated below per my review and the radiologist's interpretation: XR chest 1V portable HISTORY: Sepsis COMPARISON: Chest 07/09/2018. FINDINGS: The heart is enlarged. There is mild interstitial pulmonary edema. No pleural effusions. No pneumothorax. There are low lung volumes. IMPRESSION: Cardiomegaly with mild interstitial pulmonary edema. Electronically signed by: Al Madrid M.D. 09/11/2018 4:[address] head/brain wo con CLINICAL HISTORY: 77 years-old Male presenting with Pt c/o AMS. TECHNIQUE: Multidetector CT imaging of the head was performed without the use of intravenous contrast. IV contrast: None. One or more dose lowering techniques were used consistent with the principles of ALARA (as low as reasonably achievable), including automatic exposure control, mA or kV adjustment to individual patient size, and/or use of iterative reconstruction. COMPARISON: 01/01/2018. CT DOSE (mGy.cm): The estimated cumulative dose is 638.56 mGycm. FINDINGS: Mobile Architect topogram: Unremarkable. Proportional ventricular and sulcal prominence with the exception of the vertex, which demonstrates relative sulcal effacement and gyral crowding. The appearance is unchanged. No hemorrhage. Old lacunar infarct in the right basal ganglia suggested, unchanged. Periventricular white matter hypoattenuation suggests chronic small vessel ischemic change. No acute territorial infarct. Redemonstration of the nearly 2 cm extra-axial right cerebellar pontine angle mass, similar to prior exam with similar mass effect on the subjacent right brachium pontis. No extra-axial fluid collection. Paranasal sinuses and mastoid air cells clear. Calvarium intact. IMPRESSION: 1. Chronic small vessel ischemic change. No acute intracranial abnormality. 2. Findings borderline for normal pressure hydrocephalus though the appearance is unchanged several prior examinations. 3. 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 Electronically signed by: Sharif Hennessy M.D. 09/11/2018 5:[address] abd pelvis IV con only CLINICAL HISTORY: 77 years-old Male presenting with Pt c/o AMS. TECHNIQUE: Multidetector CT of the abdomen and pelvis was performed after the administration of intravenous contrast. IV contrast: 90 mL of Optiray 320. One or more dose lowering techniques were used consistent with the principles of ALARA (as low as reasonably achievable), including automatic exposure control, mA or kV adjustment to individual patient size, and/or use of iterative reconstruction. COMPARISON: 08/14/2018. CT DOSE (mGy.cm): The estimated cumulative dose is 1218.46 mGycm. FINDINGS: Mobile Architect topogram: Total right hip arthroplasty. Pelvic surgical clips. Severe degenerative changes of the left hip. Image quality is degraded by positioning of the arms at the sides. Mildly negatively affects diagnostic sensitivity the exam. Lung bases: Multichamber enlargement of the heart. Coronary artery and aortic valve calcification. No pericardial or pleural effusion. Respiratory motion artifact limits evaluation of the lung bases. Allowing for this, peribronchovascular bundle thickening with interlobular septal thickening suggested. Liver: Macronodular lobular contour of the liver suggested. No focal lesion. Patent hepatic vasculature. Biliary: No intrahepatic or extrahepatic biliary ductal dilatation. Normal gallbladder. Pancreas: Mild parenchymal atrophy. Spleen: Normal. Adrenal glands: Normal. Kidneys and ureters: Well-defined hypodensity at the lower pole the right kidney likely simple cyst. Nonobstructing calculi at the lower pole of the left kidney. Moderate bilateral nonspecific perinephric fat infiltration. No hydronephrosis. Subtle urothelial thickening may be present, left greater than right. Ureters nondistended. Bladder: Significant wall thickening and bladder wall irregularity. Mild perivesicular fat infiltration. The urinary bladder is partially decompressed with a Pizarro catheter. Pelvic organs: The patient may be status post prostatectomy with surgical clips in the region of the seminal vesicle bed. Bowel: Circumferential wall thickening of the mid to lower rectum, nonspecific and possibly posttreatment/post radiation related. No bowel obstruction. Few diverticula in the proximal sigmoid colon without associated inflammatory change. Prior colonic distention has resolved. The appendix is not well visualized. Peritoneal cavity: Trace extraperitoneal pelvic fluid as well as trace free fluid in the pelvis. No free intraperitoneal gas. Lymph nodes: Scattered subcentimeter predominantly retroperitoneal lymph nodes, nonspecific. Bilateral external iliac lymph nodes measure up to 8 mm in the short axis and are nonspecific. Additional subcentimeter prominent inguinal lymph nodes noted. Vasculature: Atherosclerosis of the normal caliber abdominal aorta. IVC patent. Abdominal wall: Postsurgical changes of the lower abdominal wall. Musculoskeletal: Postsurgical changes of total right hip arthroplasty. Advanced degenerative changes of the left hip. Degenerative changes of the spine and sacroiliac joints also noted. IMPRESSION: Image quality is degraded by positioning of the arms at the sides. Mildly negatively affects diagnostic sensitivity the exam. 1. Allowing for limitations, findings suggest prior chronic bladder outlet obstruction. The presence of mild perivesicular fat infiltration and urothelial thickening raises concern for cystitis with upper tract inflammation. This could be sterile in setting of prior chronic reflux or infectious. Correlate with urinalysis. 2. Postsurgical changes of prostatectomy. No convincing evidence of metastatic disease in the abdomen or pelvis. Borderline pelvic lymphadenopathy, which is nonspecific and may be reactive. Changes in the pelvis may also suggest a history of external beam radiation. Correlate clinically. 3. Underlying developing liver fibrosis not excluded. 4. Cardiomegaly. Electronically signed by: Sharif Hennessy M.D. 09/11/2018 6:11 PM ECG Data Attestation: I personally reviewed and interpreted this ECG as follows: Indication: SOB/dyspnea Rate (beats per minute): 134 Rhythm: atrial fibrillation Findings: no ST depression and no ST elevation Blood Pressure Blood Pressure Findings: Normal blood pressure MDM Narrative This is a 77-year-old male who presents emergency department complaining of fever as well as A. fib with RVR. The patient was given Cardizem as well as a fluid bolus. He is having pus coming out of his Pizarro therefore the Pizarro was changed in the emergency department. The patient was started on antibiotics here including Zosyn and daptomycin. I did discuss his case with the hospitalist service. Patient was given morphine for his pain as well as Tylenol. Patient was in agreement with the treatment plan. Patient was found to have an elevation in his white blood cell count as well as his lactate. Impression & Plan Fever, UTI (urinary tract infection) Critical Care Time I have personally spent greater than 90 minutes of critical care time in the direct management of this patient. This includes bedside care, interpretation of diagnostic studies, and testing, discussion with consultants, patient, and family members, and other required patient management activities. This 90 minutes is in excess of all separately billable procedures. Discharge Plan Visit Data *Final* Discharge Date/Time: 09/11/18 19:16 Chief Complaint: Infection ED Provider: Dae Zamorano Discharge Problem: Fever, UTI (urinary tract infection) Patient Disposition: Admitted As Inpatient Discharge Instructions Interventions: ED Discharge Assessment Last Done: 09/11/18 19:16 Discharge Problem: Fever Qualifiers: Fever type: unspecified Qualified Code(s): R50.9 - Fever, unspecified UTI (urinary tract infection) Qualifiers: Urinary tract infection type: site unspecified Hematuria presence: without hematuria Qualified Code(s): N39.0 - Urinary tract infection, site not specified The scribe's documentation has been prepared under my direction and personally reviewed by me in its entirety. I confirm that the note above accurately reflects all work, treatment, procedures, and medical decision making performed by me.
--- NOTE | 2018-09-12 22:08 | Hospitalist Progress Note ---
Date of Service September 12, 2018 Assessment & Plan (1) Sepsis: addmitted with epsis as per CMS guideline Presented with fever, tachycardia, elevated lactic acid more than 3, Source of infection, complicated UTI in the setting of chronic indwelling catheter Patient is given IV fluid resuscitation as per sepsis protocol Empiric antibiotic with IV Zosyn, vancomycin 2 sets blood culture, urine culture ordered CT abdomen pelvis: Shows chronic urine retention, fat infiltration around the bladder, suggestive of cystitis ID evaluation requested (2) Complicated UTI (urinary tract infection): Chronic urinary retention, on Pizarro catheter Developed bladder outlet obstruction/Pizarro catheter blockage secondary to large amount of sediment, debris, pus and infected urine/bowel bladder Empiric antibiotic as outlined above IV fluid resuscitation Continue to monitor in telemetry (3) Chronic indwelling Pizarro catheter: History of prostatic cancer, chronic bladder outlet obstruction Patient was seen by urology team and last admission on 07/2018 Recommend chronic indwelling Pizarro catheter Patient is not a surgical candidate for any other urologic intervention presents with complicated UTI/sepsis related to Pizarro catheter (4) Atrial fibrillation with RVR: History of chronic A. fib, on beta-livia, digoxin, anticoagulation with Coumadin Developed A. fib RVR, secondary to acute illness, sepsis, dehydration given iv cardizem continued with metoprolol, digoxin On Coumadin for chronic anticoagulation Follows with cardiology: Dr. Moore/cardiology team consulted (5) Elevated troponin: Mild elevation of troponin, possible in the setting of A. fib RVR, dehydration, sepsis no evidence of CS Resting echocardiogram shows new evidence of wall motion abnormality Cardiology consulted Patient will be continued with aspirin beta-livia, (6) Hypokalemia: corrected (7) Dehydration: Order for IV fluids, hold Lasix and lisinopril Monitor volume status (8) Metabolic encephalopathy: Presents with worsening of confusion, baseline dementia Metabolic encephalopathy in the setting of sepsis, infection, dehydration CT head shows no evidence of acute intracranial pathology Correction of dehydration, infection as outlined above Fall precaution Caution for sundowning/delirium High risk given advanced age acute illness, baseline dementia (9) Dementia: Baseline dementia, presents with worsening of confusion secondary to sepsis/dehydration (10) Chronic congestive heart failure with left ventricular diastolic dysfunction: History of chronic CHF with diastolic dysfunction, EF 55-60% Presents with clinically dehydration, Order for IV fluids resuscitation as per sepsis protocol Hold Lasix, SHANT inhibitor Monitor volume status very closely, order for daily weight, input output Repeat echocardiogram Cardiology following CODE STATUS: Full code discussed with patient DVT prophylaxis: On Coumadin, [facility] will be ordered when medically appropriate Return back to [facility] when medically stable Social service consulted to assist in discharge planning Physical Exam Constitutional: + altered mental status (Confused, oriented to person only); no acute distress Eyes: + anicteric sclerae Neck: trachea midline, no thyromegaly Respiratory: normal respiratory effort, lungs clear to auscultation Gastrointestinal (Abdomen): Inspection/Auscultation: abdomen normal to inspection and normal bowel sounds Percussion/Palpation: abdomen soft; abdomen nontender Neurologic: + focal motor deficit Psychiatric: Orientation: alert Results & Data Vital Signs (Past 12 Hours) Vital Signs Temp Pulse Pulse Resp BP BP Pulse Ox 09/12/18 19:28 37.0 C 76 19 173/94 H 93 09/12/18 17:22 62 09/12/18 15:57 36.8 C 67 18 163/71 H 93 09/12/18 11:49 37.1 C 60 18 158/76 H 99 (1) Dementia Dementia behavioral disturbance: without behavioral disturbance Dementia type: unspecified type Qualified Code(s): F03.90 - Unspecified dementia without behavioral disturbance (2) Sepsis Sepsis type: sepsis due to unspecified organism Qualified Code(s): A41.9 - Sepsis, unspecified organism
[2018-09-13] MEDS: LACTATED RINGER'S 1,000 ML IV SCH (03:17)
[2018-09-13] MEDS: PIPERACILLIN/TAZOBACTAM 3.375 GM in DEXTROSE 5% 100 ML IV SCH ×3 (03:17→19:30)
[2018-09-13] MEDS: cloNIDine HCl 0.1 MG TAB PO PRN ×2 (05:10→20:58)
[2018-09-13] MEDS: LISINOPRIL 10 MG TAB PO SCH ×3 (05:11→19:47)
[2018-09-13 06:03] LABS: Basophils # (auto) 0.02 K/uL (0-0.2); Basophils % (auto) 0.1 %; Eosinophils # (auto) 0.16 K/uL (0-0.5); Eosinophils % (auto) 1.1 %; Hemoglobin 12.3 g/dL (14.0-18.0); Immature Granulocytes # (auto) 0.04 K/uL (0.00-0.02); Immature Granulocytes % (auto) 0.3 %; Lymphocytes # (auto) 0.59 K/uL (1.2-3.4); Lymphocytes % (auto) 4.2 %; Mean Corpuscular Hgb Conc 35.1 g/dL (32-36); Mean Corpuscular Volume 94.9 fL (80-100); Mean Platelet Volume 11.7 fL (7.4-10.4); Monocytes # (auto) 0.97 K/uL (0.11-0.59); Monocytes % (auto) 6.8 %; Neutrophils # (auto) 12.42 K/uL (1.4-6.5); Neutrophils % (auto) 87.5 %; Nucleated RBC # (auto) 0.03 K/uL (0-0); Nucleated RBC % (auto) 0.2 %; Platelet Count 114 K/uL (130-400); RDW Coefficient of Variation 12.8 % (11.5-14.5); RDW Standard Deviation 44.3 fL (36.4-46.3); Red Blood Count 3.69 M/uL (4.7-6.1)
[2018-09-13 06:13] LABS: INR 2.1 (0.9-1.1); Prothrombin Time 20.8 Seconds (9.0-12.0)
[2018-09-13 06:31] LABS: BUN Creatinine Ratio 23.2 (10-20); Calcium 8.4 mg/dl (8.5-10.1); Creatinine Clr Calc Pharmacy 107.9 ml/min; Est GFR (African American) 111.7; Est GFR (Non-African American) 96.4; Potassium 3.2 mmol/L (3.5-5.1)
[2018-09-13] MEDS: METOPROLOL SUCC 50MG EXT REL TAB PO SCH (08:08)
[2018-09-13] MEDS: DOCUSATE SODIUM 100 MG CAP PO SCH ×2 (08:08→19:48)
[2018-09-13] MEDS: ASPIRIN 81 MG CHEW PO SCH (08:08)
[2018-09-13] MEDS: CHOLECALCIFEROL 1,000 UNITS TAB PO SCH (08:08)
[2018-09-13] MEDS ORDERED: POTASSIUM CHLORIDE 10 MEQ TABCR PO ONE (09:00)
[2018-09-13] MEDS ORDERED: POLYETHYLENE (MIRALAX) 17 GM PACK PO PRN (10:17)
--- NOTE | 2018-09-13 12:53 | Cardiology Progress Note ---
Date of Service September 13, 2018 Assessment & Plan (1) Atrial fibrillation with RVR: The patient has a known history of permanent atrial fibrillation. Ventricular response is now well controlled on metoprolol succinate at 150 mg daily and digoxin 0.125 mg daily. Would also continue with Coumadin. (2) Elevated troponin: This is likely secondary to a supply demand mismatch. The patient has known left ventricle hypertrophy and had a rapid ventricular response to his atrial fibrillation at the time of presentation. (3) Chronic congestive heart failure with left ventricular diastolic dysfunction: The patient is well compensated at this time. Would discontinue intravenous hydration. (4) Essential hypertension: Controlled on current regimen. Subjective The patient is resting comfortably in the bedside chair without complaints of chest pain, dyspnea, or palpitations. Physical Exam Physical Exam: In general this is a well-developed well-nourished male in no acute distress. HEENT exam is negative. Neck is supple with full carotid upstrokes. No obvious bruits. Jugular venous pressure is flat at 90 degrees. There is no thyromegaly. Cardiovascular exam reveals an irregularly irregular rhythm with distant heart sounds. A 1/6 basal systolic ejection murmur is noted. No S3. Lungs are clear without rales, rhonchi wheezes. Abdomen is soft without bruits. Extremities reveal intact radial artery pulses bilaterally. Trace to 1+ pretibial edema is noted. Hyperpigmentation changes also noted. Results & Data Vital Signs (Past 12 Hours) Vital Signs Temp Pulse Resp BP Pulse Ox 09/13/18 11:13 36.4 C L 76 17 140/73 93 09/13/18 07:23 36.8 C 87 19 168/98 H 96 09/13/18 03:30 36.9 C 105 H 18 175/98 H 92 Diagnostic Findings insurance claims assistant notes rate controlled atrial fibrillation.
[2018-09-13] MEDS: DAPTOmycin 450 MG in SYRINGE 0 ML IV SCH (15:31)
[2018-09-13] MEDS: DIGOXIN 0.125 MG TAB PO SCH (15:32)
[2018-09-13] MEDS ORDERED: WARFARIN SOD 5 MG TAB PO SCH (16:00)
[2018-09-13] MEDS ORDERED: WARFARIN SOD 2 MG TAB PO SCH (16:00)
--- NOTE | 2018-09-13 16:25 | Hospitalist Progress Note ---
Date of Service September 13, 2018 Assessment & Plan (1) Sepsis: Sepsis Complicated UTI Likely due to chronic indwelling catheter CT abdomen pelvis: Shows chronic urine retention, fat infiltration around the bladder, suggestive of cystitis Received IV fluids Urine Culture: Gram negative bacilli Blood Culture: No growth to rosalba e Continue IV Zosyn, Daptomycin Appreciate ID recommendations (2) Complicated UTI (urinary tract infection): Chronic urinary retention, on Pizarro catheter Developed bladder outlet obstruction/Pizraro catheter blockage secondary to large amount of sediment, debris, pus and infected urine/bowel bladder Management as above (3) Chronic indwelling Pizarro catheter: H/O prostatic cancer, chronic bladder outlet obstruction H/O radical prostatectomy Patient was seen by urology team and last admission on 07/2018 Recommend chronic indwelling Pizarro catheter Patient is not a surgical candidate for any other urologic intervention FU Urology as outpatient (4) Atrial fibrillation with RVR: H/O Chronic A. fib Likely due to acute illness, sepsis, dehydration IV Cardizem discontinued Currently rate controlled Continue Metoprolol, Digoxin Coumadin restarted Monitor INR: 2.1 Appreciate Cardiology Input (5) Elevated troponin: Mild elevation of troponin, possible in the setting of A. fib RVR, dehydration, sepsis Likely due to demand ischemia no evidence of ACS ECHO:No LV wall motion abnormality Appreciate Cardiology Input (6) Hypokalemia: Replace and monitor electrolytes as needed (7) Dehydration: Resolved Received IV fluids hold Lasix for now (8) Metabolic encephalopathy: Presents with worsening of confusion, baseline dementia Metabolic encephalopathy Likely due to acute infection CT head: No acute changes Mental status improving Reorient frequently to prevent delirium (9) Dementia: Baseline dementia, presents with worsening of confusion secondary to sepsis/dehydration (10) Chronic congestive heart failure with left ventricular diastolic dysfunction: H/o chronic CHF with diastolic dysfunction, EF 55-60% Presented with dehydration Currently compensated Resume Lasix as able Cardiology following DVT Px: On Coumadin Code Status Full Code [facility] Subjective Patient is seen and examined at bedside Has low grade fever today Offers no complaints Cultures pending Denies chest pain, SOB, dizziness, abd pain Review of Systems Review of Systems: All systems reviewed & are unremarkable except as noted in HPI & below Physical Exam Physical Exam: Physical Exam: Vitals signs as noted above General Appearance:Moderately built and nourished, no apparent distress Head: normocephalic, Atraumatic Eyes: normal inspection, EOMI Neck: supple, Trachea midline Respiratory/Chest: Normal breath sounds, CTA Cardiovascular: Irregularly Irregular, No murmur Abdomen/GI:Soft, Non tender, Bowel sounds present Extremities/Musculoskelatal:normal inspection, + chronic venous stasis, 2+ B/L LE edema Neurologic/Psych:AA, grossly no focal neurological deficits Skin: normal color, warm Results & Data Vital Signs (Past 12 Hours) Vital Signs Temp Pulse Pulse Resp BP Pulse Ox 09/13/18 15:32 92 H 09/13/18 15:07 37.7 C H 70 19 167/86 H 91 09/13/18 11:13 36.4 C L 76 17 140/73 93 09/13/18 07:23 36.8 C 87 19 168/98 H 96 Laboratory Results Short CBC 09/13/18 Range/Units 05:47 WBC 14.20 H (4.8-10.8) K/uL Hgb 12.3 L (14.0-18.0) g/dL Hct 35.0 L (42-52) % Plt Count 114 L (130-400) K/uL BMP 09/13/18 05:47 Sodium 140 Potassium 3.2 L Chloride 107 Carbon Dioxide 26 BUN 15 Creatinine 0.63 Glucose 118 H Calcium 8.4 L (1) Sepsis Sepsis type: sepsis due to unspecified organism Qualified Code(s): A41.9 - Sepsis, unspecified organism (2) Dementia Dementia type: unspecified type Dementia behavioral disturbance: without behavioral disturbance Qualified Code(s): F03.90 - Unspecified dementia without behavioral disturbance
[2018-09-13] MEDS: TAMSULOSIN HCL 0.4 MG CAP PO SCH (19:48)
[2018-09-13] MEDS: DOCUSATE SODIUM/SENNA 50/8.6MG TAB PO SCH (19:48)
[2018-09-13] MEDS ORDERED: LISINOPRIL 10 MG TAB PO SCH (21:00)
[2018-09-14] MEDS: cloNIDine HCl 0.1 MG TAB PO PRN ×3 (03:20→23:15)
[2018-09-14] MEDS: PIPERACILLIN/TAZOBACTAM 3.375 GM in DEXTROSE 5% 100 ML IV SCH ×3 (03:50→20:37)
[2018-09-14 05:57] LABS: Basophils # (auto) 0.02 K/uL (0-0.2); Basophils % (auto) 0.2 %; Hematocrit (blood only) 34.4 % (42-52); Hemoglobin 12.1 g/dL (14.0-18.0); Immature Granulocytes # (auto) 0.02 K/uL (0.00-0.02); Immature Granulocytes % (auto) 0.2 %; Lymphocytes # (auto) 0.52 K/uL (1.2-3.4); Lymphocytes % (auto) 4.2 %; Mean Corpuscular Hgb Conc 35.2 g/dL (32-36); Mean Corpuscular Volume 95.6 fL (80-100); Mean Platelet Volume 11.6 fL (7.4-10.4); Monocytes # (auto) 1.09 K/uL (0.11-0.59); Monocytes % (auto) 8.8 %; Neutrophils # (auto) 10.26 K/uL (1.4-6.5); Neutrophils % (auto) 82.6 %; Platelet Count 116 K/uL (130-400); RDW Coefficient of Variation 12.9 % (11.5-14.5); White Blood Count 12.41 K/uL (4.8-10.8)
[2018-09-14 06:05] LABS: INR 1.6 (0.9-1.1); Prothrombin Time 15.9 Seconds (9.0-12.0)
[2018-09-14 06:31] LABS: BUN Creatinine Ratio 22.3 (10-20); Calcium 8.6 mg/dl (8.5-10.1); Creatinine Clr Calc Pharmacy 93.1 ml/min; Est GFR (African American) 105.2; Est GFR (Non-African American) 90.7; Potassium 3.3 mmol/L (3.5-5.1)
[2018-09-14] MEDS: DOCUSATE SODIUM 100 MG CAP PO SCH ×2 (07:45→20:44)
[2018-09-14] MEDS: LISINOPRIL 10 MG TAB PO SCH ×2 (07:45→20:43)
[2018-09-14] MEDS: METOPROLOL SUCC 50MG EXT REL TAB PO SCH (07:45)
[2018-09-14] MEDS: CHOLECALCIFEROL 1,000 UNITS TAB PO SCH (07:46)
[2018-09-14] MEDS: ASPIRIN 81 MG CHEW PO SCH (07:46)
--- NOTE | 2018-09-14 08:47 | XRay Report ---
XR chest 1V portable CLINICAL HISTORY: Hypoxia COMPARISON STUDY: 09/11/2018 FINDINGS: The heart is enlarged. There is an asymmetric left greater than right pulmonary edema patte rn. There are no significant pleural effusions.[ IMPRESSION: Cardiomegaly and asymmetric pulmonary edema. Electronically signed by: Wilmer Weinstein M.D. 09/14/2018 8:45 AM
[2018-09-14] MEDS ORDERED: POTASSIUM CHLORIDE 10 MEQ TABCR PO STA (08:49)
[2018-09-14] MEDS ORDERED: FUROSEMIDE 40 MG/4 ML VIAL IV STA ×2 (08:53→17:29)
--- NOTE | 2018-09-14 13:56 | Infectious Disease Progress Nt ---
Date of Service September 14, 2018 Assessment & Plan (1) Sepsis: 77-year-old male with sepsis with probable urinary tract infection in the setting of chronic indwelling Pizarro catheter with encephalopathy. Cultures positive for 2 strains of pseudomonas aeruginosa. Given one isolated quinolone resistant, will need IV continue Zosyn for now, will need 10 days total antibiotic. Will follow. (2) UTI (urinary tract infection): (3) Metabolic encephalopathy: Subjective Patient is here to follow-up for urinary tract infection. Urine culture growing 2 strains of pseudomonas aeruginosa. One isolate is quinolone resistant. Continues to tolerate Zosyn. Review of Systems Review of Systems: All systems reviewed & are unremarkable except as noted in HPI & below Physical Exam Constitutional: WD/WN, vitals as above comfortable; no acute distress Eyes: PERRL, conjunctivae normal, anicteric sclerae ENMT: external ear and nose normal, oropharynx normal Neck: trachea midline, no thyromegaly neck nontender Respiratory: normal respiratory effort, lungs clear to auscultation normal percussion; does not use accessory muscles Cardiovascular: Rate/Rhythm: + irregularly irregular Heart Sounds: normal S1 and normal S2; no gallop, no murmur and no cardiac rub Vessels: normal peripheral pulses; no JVD Gastrointestinal (Abdomen): normal bowel sounds, soft, nontender, no hepatosplenomegaly Musculoskeletal: no cyanosis or clubbing, extremities motor strength 5/5 Spine: thoracic spine normal to inspection and lumbar spine normal to inspection; no cervical spinal tenderness Skin: normal turgor; no rashes Neurologic: patellar DTR's 2+ bilat, sensation intact no focal motor deficits Psychiatric: A+Ox3, euthymic affect Orientation: cooperative Lymphatic: no cervical or axillary lymphadenopathy no inguinal lymphadenopathy Results & Data Vital Signs (Past 12 Hours) Vital Signs Temp Pulse Resp BP Pulse Ox 09/14/18 11:10 36.9 C 62 19 152/97 H 95 09/14/18 09:05 150/84 H 09/14/18 07:53 93 09/14/18 07:52 103 H 22 161/102 H 90 09/14/18 07:05 36.9 C 89 19 162/109 H 90 09/14/18 03:12 36.9 C 70 18 168/93 H 95 Laboratory Results Short CBC 09/14/18 Range/Units 05:42 WBC 12.41 H (4.8-10.8) K/uL Hgb 12.1 L (14.0-18.0) g/dL Hct 34.4 L (42-52) % Plt Count 116 L (130-400) K/uL BMP 09/14/18 05:42 Sodium 139 Potassium 3.3 L Chloride 107 Carbon Dioxide 27 BUN 16 Creatinine 0.73 Glucose 109 H Calcium 8.6 Diagnostic Findings Microbiology 09/13/18 16:15 Stool Shiga Toxin Test - Preliminary 09/13/18 16:15 Stool Stool Culture - Preliminary No Salmonella isolated to date, No Shigella isolated to date, No Campylobacter jejuni isolated to date. 09/11/18 15:36 Urine,Indwelling Cath Urine Culture - Final Pseudomonas aeruginosa Pseudomonas aeruginosa#2 Corynbact.sp not urealyticum 09/11/18 15:55 Blood Blood Culture - Preliminary No growth to date. 09/11/18 15:38 Blood Blood Culture - Preliminary No growth to date. (1) Sepsis Sepsis type: sepsis due to unspecified organism Qualified Code(s): A41.9 - Sepsis, unspecified organism (2) UTI (urinary tract infection) Hematuria presence: without hematuria Urinary tract infection type: site unspecified Qualified Code(s): N39.0 - Urinary tract infection, site not specified
--- NOTE | 2018-09-14 14:28 | Cardiology Progress Note ---
Date of Service September 14, 2018 Assessment & Plan (1) Atrial fibrillation with RVR: Ventricular response is now well controlled on metoprolol succinate at 150 mg daily and digoxin 0.125 mg daily. Would also continue with Coumadin. (2) Elevated troponin: This is likely secondary to a supply demand mismatch realizing his known left ventricle hypertrophy a rapid ventricular response to his atrial fibrillation. (3) Chronic congestive heart failure with left ventricular diastolic dysfunction: The patient now demonstrates hypervolemia. Would consider an additional dose of intravenous Lasix later today.. (4) Essential hypertension: Controlled on current regimen. Subjective The patient is resting comfortably in bed without chest discomfort. Did note some dyspnea overnight. Has improved with intravenous diuresis. Physical Exam Physical Exam: In general this is a well-developed well-nourished male in no acute distress. HEENT exam is negative. Neck is supple with full carotid upstrokes. No obvious bruits. Jugular venous pressure is 10 cm of water at 90 degrees. There is no thyromegaly. Cardiovascular exam reveals an irregularly irregular rhythm with distant heart sounds. A 1/6 basal systolic ejection murmur is noted. No S3. Lungs are clear without rales, rhonchi wheezes. Abdomen is soft without bruits. Extremities reveal intact radial artery pulses bilaterally. Trace to 1+ pretibial edema is noted. Hyperpigmentation changes also noted. Results & Data Vital Signs (Past 12 Hours) Vital Signs Temp Pulse Resp BP Pulse Ox 09/14/18 11:10 36.9 C 62 19 152/97 H 95 09/14/18 09:05 150/84 H 09/14/18 07:53 93 09/14/18 07:52 103 H 22 161/102 H 90 09/14/18 07:05 36.9 C 89 19 162/109 H 90 09/14/18 03:12 36.9 C 70 18 168/93 H 95 Laboratory Results dentures lab technician notes Re controlled atrial fibrillation.
[2018-09-14] MEDS: WARFARIN SOD 5 MG TAB PO SCH (15:15)
[2018-09-14] MEDS: DAPTOmycin 450 MG in SYRINGE 0 ML IV SCH (15:15)
[2018-09-14] MEDS: DIGOXIN 0.125 MG TAB PO SCH (15:17)
[2018-09-14] MEDS ORDERED: WARFARIN SOD 2 MG TAB PO SCH (16:00)
[2018-09-14] MEDS ORDERED: FUROSEMIDE 40 MG/4 ML VIAL IV ONE (17:32)
[2018-09-14] MEDS ORDERED: FUROSEMIDE 40 MG in SYRINGE 0 ML IV STA (17:32)
--- NOTE | 2018-09-14 18:30 | Hospitalist Progress Note ---
Date of Service September 14, 2018 Assessment & Plan (1) Sepsis: Sepsis Complicated UTI Likely due to chronic indwelling catheter CT abdomen pelvis: Shows chronic urine retention, fat infiltration around the bladder, suggestive of cystitis Received IV fluids Urine Culture: 2 strains of pseudomonas aeruginosa Blood Culture: No growth to date Continue IV Zosyn, Daptomycin Appreciate ID recommendations Needs 10 days of IV Abx (2) Complicated UTI (urinary tract infection): Chronic urinary retention, on Pizarro catheter Developed bladder outlet obstruction/Pizarro catheter blockage secondary to large amount of sediment, debris, pus and infected urine/bowel bladder Management as above (3) Chronic indwelling Pizarro catheter: H/O prostatic cancer, chronic bladder outlet obstruction H/O radical prostatectomy Patient was seen by urology team and last admission on 07/2018 Recommend chronic indwelling Pizarro catheter Patient is not a surgical candidate for any other urologic intervention FU Urology as outpatient (4) Atrial fibrillation with RVR: H/O Chronic A. fib Likely due to acute illness, sepsis, dehydration IV Cardizem discontinued Currently rate controlled Continue Metoprolol, Digoxin Continue Coumadin--increased to 5mg today Monitor INR: 1.6 Appreciate Cardiology Input (5) Elevated troponin: Mild elevation of troponin, possible in the setting of A. fib RVR, dehydration, sepsis Likely due to demand ischemia no evidence of ACS ECHO:No LV wall motion abnormality Appreciate Cardiology Input (6) Hypokalemia: Replace and monitor electrolytes as needed (7) Dehydration: Resolved Received IV fluids hold Lasix for now (8) Metabolic encephalopathy: Presents with worsening of confusion, baseline dementia Metabolic encephalopathy Likely due to acute infection CT head: No acute changes Mental status improving Reorient frequently to prevent delirium (9) Dementia: Baseline dementia, presents with worsening of confusion secondary to sepsis/dehydration (10) Chronic congestive heart failure with left ventricular diastolic dysfunction: H/o chronic CHF with diastolic dysfunction, EF 55-60% Presented with dehydration and now is volume overloaded likely due to IV fluids IV Lasix PRN Resume home PO Lasix Appreciate Cardiology help DVT Px: On Coumadin Code Status Full Code [facility]: [facility] Subjective Patient is seen and examined at bedside Noted by RN to be SOB this morning CXR showed pulmonary edema Respiratory status improved with IV Lasix Afebrile today Offers no complaints Blood Cultures: no growth to date Denies chest pain, dizziness, abd pain No family at bedside Review of Systems Review of Systems: All systems reviewed & are unremarkable except as noted in HPI & below Physical Exam Physical Exam: Physical Exam: Vitals signs as noted above General Appearance:Moderately built and nourished, no apparent distress Head: normocephalic, Atraumatic Eyes: normal inspection, EOMI Neck: supple, Trachea midline Respiratory/Chest: Normal breath sounds, +Crackles at bases Cardiovascular: Irregularly Irregular, No murmur Abdomen/GI:Soft, Non tender, Bowel sounds present Extremities/Musculoskelatal:normal inspection, + chronic venous stasis, 2+ B/L LE edema Neurologic/Psych:AA, grossly no focal neurological deficits Skin: normal color, warm Results & Data Vital Signs (Past 12 Hours) Vital Signs Temp Pulse Pulse Resp BP Pulse Ox 09/14/18 16:00 36.7 C 66 20 159/87 H 95 09/14/18 15:17 58 L 09/14/18 11:10 36.9 C 62 19 152/97 H 95 09/14/18 09:05 150/84 H 09/14/18 07:53 93 09/14/18 07:52 103 H 22 161/102 H 90 09/14/18 07:05 36.9 C 89 19 162/109 H 90 Laboratory Results Short CBC 09/14/18 Range/Units 05:42 WBC 12.41 H (4.8-10.8) K/uL Hgb 12.1 L (14.0-18.0) g/dL Hct 34.4 L (42-52) % Plt Count 116 L (130-400) K/uL BMP 09/14/18 05:42 Sodium 139 Potassium 3.3 L Chloride 107 Carbon Dioxide 27 BUN 16 Creatinine 0.73 Glucose 109 H Calcium 8.6 (1) Sepsis Sepsis type: sepsis due to unspecified organism Qualified Code(s): A41.9 - Sepsis, unspecified organism (2) Dementia Dementia type: unspecified type Dementia behavioral disturbance: without behavioral disturbance Qualified Code(s): F03.90 - Unspecified dementia without behavioral disturbance
[2018-09-14] MEDS: TAMSULOSIN HCL 0.4 MG CAP PO SCH (20:44)
[2018-09-14] MEDS: DOCUSATE SODIUM/SENNA 50/8.6MG TAB PO SCH (20:44)
[2018-09-15] MEDS: PIPERACILLIN/TAZOBACTAM 3.375 GM in DEXTROSE 5% 100 ML IV SCH ×3 (03:30→21:38)
[2018-09-15] MEDS: cloNIDine HCl 0.1 MG TAB PO PRN (03:41)
[2018-09-15 06:45] LABS: Basophils # (auto) 0.03 K/uL (0-0.2); Basophils % (auto) 0.3 %; Eosinophils # (auto) 0.74 K/uL (0-0.5); Eosinophils % (auto) 7.3 %; Hematocrit (blood only) 34.4 % (42-52); Hemoglobin 12.4 g/dL (14.0-18.0); Immature Granulocytes # (auto) 0.03 K/uL (0.00-0.02); Immature Granulocytes % (auto) 0.3 %; Lymphocytes # (auto) 0.59 K/uL (1.2-3.4); Lymphocytes % (auto) 5.8 %; Mean Corpuscular Volume 94.8 fL (80-100); Mean Platelet Volume 11.9 fL (7.4-10.4); Monocytes # (auto) 1.11 K/uL (0.11-0.59); Monocytes % (auto) 10.9 %; Neutrophils # (auto) 7.64 K/uL (1.4-6.5); Neutrophils % (auto) 75.4 %; Platelet Count 130 K/uL (130-400); RDW Coefficient of Variation 12.7 % (11.5-14.5); RDW Standard Deviation 44.4 fL (36.4-46.3); Red Blood Count 3.63 M/uL (4.7-6.1); White Blood Count 10.14 K/uL (4.8-10.8)
[2018-09-15 06:54] LABS: Prothrombin Time 19.4 Seconds (9.0-12.0)
[2018-09-15 07:22] LABS: BUN Creatinine Ratio 25.5 (10-20); Calcium 8.5 mg/dl (8.5-10.1); Creatinine Clr Calc Pharmacy 100.8 ml/min; Est GFR (African American) 105.2; Est GFR (Non-African American) 90.7; Magnesium 2.2 mg/dl (1.8-2.4); Potassium 3.2 mmol/L (3.5-5.1)
[2018-09-15] MEDS ORDERED: POTASSIUM CHLORIDE 10 MEQ TABCR PO ONE (08:15)
[2018-09-15] MEDS: DOCUSATE SODIUM 100 MG CAP PO SCH ×2 (08:21→21:38)
[2018-09-15] MEDS: METOPROLOL SUCC 50MG EXT REL TAB PO SCH (08:21)
[2018-09-15] MEDS: ASPIRIN 81 MG CHEW PO SCH (08:21)
[2018-09-15] MEDS: FUROSEMIDE 80 MG TAB PO SCH (08:21)
[2018-09-15] MEDS: LISINOPRIL 10 MG TAB PO SCH ×2 (08:22→21:42)
[2018-09-15] MEDS: CHOLECALCIFEROL 1,000 UNITS TAB PO SCH (08:22)
--- NOTE | 2018-09-15 09:50 | Cardiology Progress Note ---
Date of Service September 15, 2018 Assessment & Plan (1) Chronic congestive heart failure with left ventricular diastolic dysfu nction: Patient remains hypervolemic. Jugular venous pressure elevated and rales noted on exam. Still requires supplemental oxygen. Would suggest intravenous rather than oral diuretics. (2) Atrial fibrillation with RVR: Ventricular response is now well controlled on metoprolol succinate and digoxin. Coumadin being adjusted. (3) Elevated troponin: Likely secondary to a supply demand mismatch realizing his known left ventricle hypertrophy a rapid ventricular response to his atrial fibrillation at the time of his presentation. (4) Essential hypertension: Controlled on current regimen. Subjective Mr. Buckner is resting comfortably in bedside chair without complaints of chest pain or dyspnea. Still on supplemental oxygen. Physical Exam Physical Exam: In general this is a well-developed well-nourished male in no acute distress. HEENT exam is negative. Neck is supple with full carotid upstrokes. No obvious bruits. Jugular venous pressure is 8 cm of water at 90 degrees. There is no thyromegaly. Cardiovascular exam reveals an irregularly irregular rhythm with distant heart sounds. A 1/6 basal systolic ejection murmur is noted. No S3. Lungs note bibasilar millan.. Abdomen is soft without bruits. Extremities reveal intact radial artery pulses bilaterally. 1+ pretibial edema is noted. Hyperpigmentation changes also noted. Results & Data Vital Signs (Past 12 Hours) Vital Signs Temp Pulse Resp BP Pulse Ox 09/15/18 07:04 36.7 C 71 18 144/93 H 94 09/15/18 03:42 37.0 C 87 20 177/90 H 92 09/14/18 23:30 37.1 C 85 18 173/100 H 91 Laboratory Results monitoring and evaluation advisor notes atrial fibrillation with a controlled ventricular response.
--- NOTE | 2018-09-15 14:19 | Infectious Disease Progress Nt ---
Date of Service September 15, 2018 Assessment & Plan (1) Sepsis: 77-year-old male with sepsis with probable urinary tract infection in the setting of chronic indwelling Pizarro catheter with encephalopathy. Cultures positive for 2 strains of pseudomonas aeruginosa. Given one isolated quinolone resistant, will need IV continue Zosyn for now, will need 10 days total antibiotic. Will follow. (2) UTI (urinary tract infection): (3) Metabolic encephalopathy: (4) Pseudomonas aeruginosa infection: Subjective Patient seen in follow-up for Pseudomonas urinary tract infection. Offers no new complaints today. Remains afebrile. Tolerating Zosyn without apparent difficulty. No other new complaints. Review of Systems Review of Systems: All systems reviewed & are unremarkable except as noted in HPI & below Physical Exam Constitutional: WD/WN, vitals as above comfortable; no acute distress Eyes: PERRL, conjunctivae normal, anicteric sclerae ENMT: external ear and nose normal, oropharynx normal Neck: trachea midline, no thyromegaly neck nontender Respiratory: normal respiratory effort, lungs clear to auscultation normal percussion; does not use accessory muscles Cardiovascular: Rate/Rhythm: + irregularly irregular Heart Sounds: normal S1 and normal S2; no gallop, no murmur and no cardiac rub Vessels: normal peripheral pulses; no JVD Gastrointestinal (Abdomen): normal bowel sounds, soft, nontender, no hepatosplenomegaly Musculoskeletal: no cyanosis or clubbing, extremities motor strength 5/5 Spine: thoracic spine normal to inspection and lumbar spine normal to inspection; no cervical spinal tenderness Skin: normal turgor; no rashes Neurologic: patellar DTR's 2+ bilat, sensation intact no focal motor deficits Psychiatric: A+Ox3, euthymic affect Orientation: cooperative Lymphatic: no cervical or axillary lymphadenopathy no inguinal lymphadenopathy Results & Data Vital Signs (Past 12 Hours) Vital Signs Temp Pulse Resp BP BP Pulse Ox 09/15/18 11:44 36.7 C 75 18 160/83 H 96 09/15/18 07:04 36.7 C 71 18 144/93 H 94 09/15/18 03:42 37.0 C 87 20 177/90 H 92 Laboratory Results Short CBC 09/15/18 Range/Units 06:31 WBC 10.14 (4.8-10.8) K/uL Hgb 12.4 L (14.0-18.0) g/dL Hct 34.4 L (42-52) % Plt Count 130 (130-400) K/uL BMP 09/15/18 06:31 Sodium 138 Potassium 3.2 L Chloride 105 Carbon Dioxide 27 BUN 19 H Creatinine 0.73 Glucose 107 H Calcium 8.5 Diagnostic Findings Microbiology 09/13/18 16:15 Stool Shiga Toxin Test - Preliminary 09/13/18 16:15 Stool Stool Culture - Preliminary No Salmonella isolated to date, No Shigella isolated to date, No Campylobacter jejuni isolated to date. 09/11/18 15:36 Urine,Indwelling Cath Urine Culture - Final Pseudomonas aeruginosa Pseudomonas aeruginosa#2 Corynbact.sp not urealyticum 09/11/18 15:55 Blood Blood Culture - Preliminary No growth to date. 09/11/18 15:38 Blood Blood Culture - Preliminary No growth to date. (1) Sepsis Sepsis type: sepsis due to unspecified organism Qualified Code(s): A41.9 - Sepsis, unspecified organism (2) UTI (urinary tract infection) Hematuria presence: without hematuria Urinary tract infection type: site unspecified Qualified Code(s): N39.0 - Urinary tract infection, site not specified
[2018-09-15] MEDS: DIGOXIN 0.125 MG TAB PO SCH (16:09)
[2018-09-15] MEDS: WARFARIN SOD 5 MG TAB PO SCH (16:10)
[2018-09-15] MEDS ORDERED: FUROSEMIDE 40 MG/4 ML VIAL IV STA (17:22)
--- NOTE | 2018-09-15 17:30 | Hospitalist Progress Note ---
Date of Service September 15, 2018 Assessment & Plan (1) Sepsis: Sepsis Complicated UTI Likely due to chronic indwelling catheter CT abdomen pelvis: Shows chronic urine retention, fat infiltration around the bladder, suggestive of cystitis Received IV fluids Urine Culture: 2 strains of pseudomonas aeruginosa Blood Culture: No growth to date Continue IV Zosyn--To complete 10 day course IV Daptomycin discontinued Appreciate ID recommendations Continue Abx (2) Complicated UTI (urinary tract infection): Chronic urinary retention, on Pizarro catheter Developed bladder outlet obstruction/Pizarro catheter blockage secondary to large amount of sediment, debris, pus and infected urine/bowel bladder Management as above (3) Chronic indwelling Pizarro catheter: H/O prostatic cancer, chronic bladder outlet obstruction H/O radical prostatectomy Patient was seen by urology team and last admission on 07/2018 Recommend chronic indwelling Pizarro catheter Patient is not a surgical candidate for any other urologic intervention FU Urology as outpatient (4) Atrial fibrillation with RVR: H/O Chronic A. fib Likely due to acute illness, sepsis, dehydration IV Cardizem discontinued Currently rate controlled Continue Metoprolol, Digoxin Continue Coumadin Monitor INR: 2.0 Appreciate Cardiology Input (5) Elevated troponin: Mild elevation of troponin, possible in the setting of A. fib RVR, dehydration, sepsis Likely due to demand ischemia no evidence of ACS ECHO:No LV wall motion abnormality Appreciate Cardiology Input (6) Hypokalemia: Replace and monitor electrolytes as needed (7) Dehydration: Resolved with IV fluids (8) Metabolic encephalopathy: Presents with worsening of confusion, baseline dementia Metabolic encephalopathy Likely due to acute infection CT head: No acute changes Mental status improving Reorient frequently to prevent delirium (9) Dementia: Baseline dementia, presents with worsening of confusion secondary to sepsis/dehydration (10) Chronic congestive heart failure with left ventricular diastolic dysfunction: H/o chronic CHF with diastolic dysfunction, EF 55-60% Presented with dehydration and now is volume overloaded likely due to IV fluids Continue IV Lasix Appreciate Cardiology help Adjust diuretics as necessary DVT Px: On Coumadin Code Status Full Code Disposition: Resident at [facility] PT OT prior to discharge Subjective Patient is seen and examined at bedside Offers no complaints Appreciate Cardiology Input Will give IV lasix today Denies chest pain, dizziness, abd pain, SOB No family at bedside Review of Systems Review of Systems: All systems reviewed & are unremarkable except as noted in HPI & below Physical Exam Physical Exam: Physical Exam: Vitals signs as noted above General Appearance:Moderately built and nourished, no apparent distress Head: normocephalic, Atraumatic Eyes: normal inspection, EOMI Neck: supple, Trachea midline Respiratory/Chest: Normal breath sounds, +Crackles at bases Cardiovascular: Irregularly Irregular, No murmur Abdomen/GI:Soft, Non tender, Bowel sounds present Extremities/Musculoskelatal:normal inspection, + chronic venous stasis, 2+ B/L LE edema Neurologic/Psych:AA, grossly no focal neurological deficits Skin: normal color, warm Results & Data Vital Signs (Past 12 Hours) Vital Signs Temp Pulse Pulse Resp BP BP Pulse Ox 09/15/18 16:09 68 09/15/18 15:17 36.8 C 73 20 165/90 H 93 09/15/18 11:44 36.7 C 75 18 160/83 H 96 09/15/18 07:04 36.7 C 71 18 144/93 H 94 Laboratory Results Short CBC 09/15/18 Range/Units 06:31 WBC 10.14 (4.8-10.8) K/uL Hgb 12.4 L (14.0-18.0) g/dL Hct 34.4 L (42-52) % Plt Count 130 (130-400) K/uL BMP 09/15/18 06:31 Sodium 138 Potassium 3.2 L Chloride 105 Carbon Dioxide 27 BUN 19 H Creatinine 0.73 Glucose 107 H Calcium 8.5 (1) Sepsis Sepsis type: sepsis due to unspecified organism Qualified Code(s): A41.9 - Sepsis, unspecified organism (2) Dementia Dementia type: unspecified type Dementia behavioral disturbance: without behavioral disturbance Qualified Code(s): F03.90 - Unspecified dementia without behavioral disturbance
[2018-09-15] MEDS: TAMSULOSIN HCL 0.4 MG CAP PO SCH (21:38)
[2018-09-15] MEDS: DOCUSATE SODIUM/SENNA 50/8.6MG TAB PO SCH (21:41)
[2018-09-16] MEDS: PIPERACILLIN/TAZOBACTAM 3.375 GM in DEXTROSE 5% 100 ML IV SCH ×3 (05:53→19:39)
[2018-09-16 06:04] LABS: Basophils # (auto) 0.05 K/uL (0-0.2); Basophils % (auto) 0.5 %; Eosinophils # (auto) 1.07 K/uL (0-0.5); Eosinophils % (auto) 9.9 %; Immature Granulocytes # (auto) 0.05 K/uL (0.00-0.02); Immature Granulocytes % (auto) 0.5 %; Lymphocytes % (auto) 6.5 %; Mean Corpuscular Hgb Conc 35.9 g/dL (32-36); Mean Corpuscular Volume 95.4 fL (80-100); Mean Platelet Volume 11.9 fL (7.4-10.4); Monocytes # (auto) 1.42 K/uL (0.11-0.59); Monocytes % (auto) 13.1 %; Neutrophils # (auto) 7.55 K/uL (1.4-6.5); Neutrophils % (auto) 69.5 %; Platelet Count 177 K/uL (130-400); RDW Coefficient of Variation 12.6 % (11.5-14.5); RDW Standard Deviation 44.2 fL (36.4-46.3); Red Blood Count 4.09 M/uL (4.7-6.1); White Blood Count 10.84 K/uL (4.8-10.8)
[2018-09-16 06:13] LABS: INR 3.1 (0.9-1.1)
[2018-09-16 06:33] LABS: BUN Creatinine Ratio 24.2 (10-20); Calcium 8.5 mg/dl (8.5-10.1); Creatinine Clr Calc Pharmacy 89.4 ml/min; Est GFR (African American) 103.4; Est GFR (Non-African American) 89.2; Potassium 2.9 mmol/L (3.5-5.1)
[2018-09-16] MEDS: DOCUSATE SODIUM 100 MG CAP PO SCH ×2 (07:47→20:41)
[2018-09-16] MEDS: LISINOPRIL 10 MG TAB PO SCH ×2 (07:47→20:41)
[2018-09-16] MEDS: METOPROLOL SUCC 50MG EXT REL TAB PO SCH (07:47)
[2018-09-16] MEDS: ASPIRIN 81 MG CHEW PO SCH (07:48)
[2018-09-16] MEDS ORDERED: POTASSIUM CHLORIDE 10 MEQ TABCR PO STA (07:48)
[2018-09-16] MEDS: CHOLECALCIFEROL 1,000 UNITS TAB PO SCH (07:48)
[2018-09-16] MEDS: FUROSEMIDE 80 MG TAB PO SCH (07:48)
[2018-09-16] MEDS: DIGOXIN 0.125 MG TAB PO SCH (15:37)
[2018-09-16] MEDS: cloNIDine HCl 0.1 MG TAB PO PRN (15:46)
[2018-09-16] MEDS ORDERED: POTASSIUM CHLORIDE 10 MEQ TABCR PO ONE (16:00)
[2018-09-16] MEDS ORDERED: WARFARIN SOD 2 MG TAB PO SCH (16:00)
--- NOTE | 2018-09-16 16:41 | Hospitalist Progress Note ---
Date of Service September 16, 2018 Assessment & Plan (1) Sepsis: Sepsis Complicated UTI Likely due to chronic indwelling catheter CT abdomen pelvis: Shows chronic urine retention, fat infiltration around the bladder, suggestive of cystitis Received IV fluids Urine Culture: 2 strains of pseudomonas aeruginosa Blood Culture: No growth to date Continue IV Zosyn--To complete 10 day course-- Day # 6/10 IV Daptomycin discontinued Appreciate ID recommendations (2) Complicated UTI (urinary tract infection): Chronic urinary retention, on Pizarro catheter Developed bladder outlet obstruction/Pizarro catheter blockage secondary to large amount of sediment, debris, pus and infected urine/bowel bladder Management as above (3) Chronic indwelling Pizarro catheter: H/O prostatic cancer, chronic bladder outlet obstruction H/O radical prostatectomy Patient was seen by urology team and last admission on 07/2018 Recommend chronic indwelling Pizarro catheter Patient is not a surgical candidate for any other urologic intervention FU Urology as outpatient (4) Atrial fibrillation with RVR: H/O Chronic A. fib Likely due to acute illness, sepsis, dehydration IV Cardizem discontinued Currently rate controlled Continue Metoprolol, Digoxin Decrease Coumadin to 2 mg today Monitor INR: 3.1 Appreciate Cardiology Input (5) Elevated troponin: Mild elevation of troponin, possible in the setting of A. fib RVR, dehydration, sepsis Likely due to demand ischemia no evidence of ACS ECHO:No LV wall motion abnormality Appreciate Cardiology Input (6) Hypokalemia: Replace and monitor electrolytes as needed (7) Dehydration: Resolved with IV fluids (8) Metabolic encephalopathy: Presents with worsening of confusion, baseline dementia Metabolic encephalopathy Likely due to acute infection CT head: No acute changes Mental status improving Reorient frequently to prevent delirium (9) Dementia: Baseline dementia, presents with worsening of confusion secondary to sepsis/dehydration (10) Chronic congestive heart failure with left ventricular diastolic dysfunction: H/o chronic CHF with diastolic dysfunction, EF 55-60% Presented with dehydration and now is volume overloaded likely due to IV fluids Continue IV Lasix PRN Continue PO lasix Appreciate Cardiology help Adjust diuretics as necessary DVT Px: On Coumadin Code Status Full Code [facility] Subjective Patient is seen and examined at bedside Saturating in Low 90s on RA Offers no complaints Denies chest pain, dizziness, abd pain, SOB No family at bedside Continue diuresis Review of Systems Review of Systems: All systems reviewed & are unremarkable except as noted in HPI & below Physical Exam Physical Exam: Physical Exam: Vitals signs as noted above General Appearance:Moderately built and nourished, no apparent distress Head: normocephalic, Atraumatic Eyes: normal inspection, EOMI Neck: supple, Trachea midline Respiratory/Chest: Normal breath sounds, CTA Cardiovascular: Irregularly Irregular, No murmur Abdomen/GI:Soft, Non tender, Bowel sounds present Extremities/Musculoskelatal:normal inspection, + chronic venous stasis, 2+ B/L LE edema Neurologic/Psych:AA, grossly no focal neurological deficits Skin: normal color, warm Results & Data Vital Signs (Past 12 Hours) Vital Signs Temp Pulse Pulse Resp BP BP Pulse Ox 09/16/18 15:42 172/97 H 09/16/18 15:37 66 09/16/18 15:11 36.4 C L 76 21 156/108 H 92 09/16/18 10:54 36.8 C 78 19 151/85 H 95 09/16/18 08:00 68 09/16/18 07:05 37.0 C 92 H 19 142/93 H 96 Laboratory Results Short CBC 09/16/18 Range/Units 05:42 WBC 10.84 H (4.8-10.8) K/uL Hgb 14.0 (14.0-18.0) g/dL Hct 39.0 L (42-52) % Plt Count 177 (130-400) K/uL BMP 09/16/18 05:42 Sodium 137 Potassium 2.9 L Chloride 103 Carbon Dioxide 30 BUN 18 Creatinine 0.76 Glucose 105 H Calcium 8.5 (1) Sepsis Sepsis type: sepsis due to unspecified organism Qualified Code(s): A41.9 - Sepsis, unspecified organism (2) Dementia Dementia type: unspecified type Dementia behavioral disturbance: without behavioral disturbance Qualified Code(s): F03.90 - Unspecified dementia without behavioral disturbance
[2018-09-16] MEDS: TAMSULOSIN HCL 0.4 MG CAP PO SCH (20:40)
[2018-09-16] MEDS: DOCUSATE SODIUM/SENNA 50/8.6MG TAB PO SCH (20:40)
[2018-09-17] MEDS: cloNIDine HCl 0.1 MG TAB PO PRN (00:04)
[2018-09-17] MEDS: PIPERACILLIN/TAZOBACTAM 3.375 GM in DEXTROSE 5% 100 ML IV SCH ×3 (03:47→19:56)
[2018-09-17 06:25] LABS: BUN Creatinine Ratio 24.6 (10-20); Calcium 8.8 mg/dl (8.5-10.1); Creatinine Clr Calc Pharmacy 97.1 ml/min; Est GFR (Non-African American) 92.3; Potassium 3.3 mmol/L (3.5-5.1)
[2018-09-17 06:33] LABS: Prothrombin Time 33.5 Seconds (9.0-12.0)
[2018-09-17 06:35] LABS: INR 3.6 (0.9-1.1)
[2018-09-17] MEDS ORDERED: POTASSIUM CHLORIDE 10 MEQ TABCR PO STA (07:30)
[2018-09-17] MEDS: CHOLECALCIFEROL 1,000 UNITS TAB PO SCH (07:38)
[2018-09-17] MEDS: POLYETHYLENE (MIRALAX) 17 GM PACK PO PRN (07:38)
[2018-09-17] MEDS: LISINOPRIL 10 MG TAB PO SCH ×2 (07:38→21:41)
[2018-09-17] MEDS: DOCUSATE SODIUM 100 MG CAP PO SCH ×2 (07:38→21:40)
[2018-09-17] MEDS: METOPROLOL SUCC 50MG EXT REL TAB PO SCH (07:38)
[2018-09-17] MEDS: ASPIRIN 81 MG CHEW PO SCH (07:39)
[2018-09-17] MEDS: FUROSEMIDE 80 MG TAB PO SCH (07:39)
--- NOTE | 2018-09-17 10:49 | Hospitalist Progress Note ---
Date of Service September 17, 2018 Assessment & Plan (1) Sepsis: Sepsis Complicated UTI Likely due to chronic indwelling catheter CT abdomen pelvis: Shows chronic urine retention, fat infiltration around the bladder, suggestive of cystitis Received IV fluids Urine Culture: 2 strains of pseudomonas aeruginosa Blood Culture: No growth to date Continue IV Zosyn--To complete 10 day course-- Day # 7/10 IV Daptomycin discontinued Appreciate ID recommendations Continue Abx (2) Complicated UTI (urinary tract infection): Chronic urinary retention, on Pizarro catheter Developed bladder outlet obstruction/Pizarro catheter blockage secondary to large amount of sediment, debris, pus and infected urine/bowel bladder Management as above (3) Chronic indwelling Pizarro catheter: H/O prostatic cancer, chronic bladder outlet obstruction H/O radical prostatectomy Patient was seen by urology team and last admission on 07/2018 Recommend chronic indwelling Pizarro catheter Patient is not a surgical candidate for any other urologic intervention FU Urology as outpatient (4) Atrial fibrillation with RVR: H/O Chronic A. fib Likely due to acute illness, sepsis, dehydration IV Cardizem discontinued Currently rate controlled Continue Metoprolol, Digoxin Hold Coumadin today Monitor INR: 3.6 Appreciate Cardiology Input No bleeding issues (5) Elevated troponin: Mild elevation of troponin, possible in the setting of A. fib RVR, dehydration, sepsis Likely due to demand ischemia no evidence of ACS ECHO:No LV wall motion abnormality Appreciate Cardiology Input (6) Hypokalemia: Due to diuretics Replace and monitor electrolytes as needed (7) Dehydration: Resolved with IV fluids (8) Metabolic encephalopathy: Presents with worsening of confusion, baseline dementia Metabolic encephalopathy Likely due to acute infection CT head: No acute changes Reorient frequently to prevent delirium Mental status is back to baseline (9) Dementia: Baseline dementia, presents with worsening of confusion secondary to sepsis/dehydration (10) Chronic congestive heart failure with left ventricular diastolic dysfunction: H/o chronic CHF with diastolic dysfunction, EF 55-60% Presented with dehydration and now is volume overloaded likely due to IV fluids Continue IV Lasix PRN Continue PO lasix Appreciate Cardiology help Adjust diuretics as necessary DVT Px: Hold Coumadin Code Status Full Code Disposition: Resident at [facility] PT OT prior to discharge Subjective Patient is seen and examined at bedside Reports constipation Denies nausea, abd pain Saturating in Low 90s on RA Offers no other complaints Denies chest pain, dizziness, abd pain, SOB Review of Systems Review of Systems: All systems reviewed & are unremarkable except as noted in HPI & below Physical Exam Physical Exam: Physical Exam: Vitals signs as noted above General Appearance:Moderately built and nourished, no apparent distress Head: normocephalic, Atraumatic Eyes: normal inspection, EOMI Neck: supple, Trachea midline Respiratory/Chest: Normal breath sounds, CTA Cardiovascular: Irregularly Irregular, No murmur Abdomen/GI:Soft, Non tender, Bowel sounds present Extremities/Musculoskelatal:normal inspection, + chronic venous stasis, 2+ B/L LE edema Neurologic/Psych:AA, grossly no focal neurological deficits Skin: normal color, warm Results & Data Vital Signs (Past 12 Hours) Vital Signs Temp Pulse Pulse Resp BP BP Pulse Ox 09/17/18 08:01 36.5 C 86 18 157/92 H 92 09/17/18 08:00 62 09/17/18 03:41 37.1 C 67 18 164/90 H 93 09/16/18 23:50 36.9 C 74 18 181/78 H 92 09/16/18 23:00 62 Laboratory Results [facility] 09/17/18 05:45 Sodium 139 Potassium 3.3 L Chloride 105 Carbon Dioxide 27 BUN 17 Creatinine 0.70 Glucose 103 H Calcium 8.8 (1) Sepsis Sepsis type: sepsis due to unspecified organism Qualified Code(s): A41.9 - Sepsis, unspecified organism (2) Dementia Dementia type: unspecified type Dementia behavioral disturbance: without behavioral disturbance Qualified Code(s): F03.90 - Unspecified dementia without behavioral disturbance
[2018-09-17] MEDS: DIGOXIN 0.125 MG TAB PO SCH (17:08)
[2018-09-17] MEDS: DOCUSATE SODIUM/SENNA 50/8.6MG TAB PO SCH (21:40)
[2018-09-17] MEDS: TAMSULOSIN HCL 0.4 MG CAP PO SCH (21:41)
[2018-09-18] MEDS: PIPERACILLIN/TAZOBACTAM 3.375 GM in DEXTROSE 5% 100 ML IV SCH ×3 (04:21→20:10)
[2018-09-18 07:29] LABS: INR 3.1 (0.9-1.1); Prothrombin Time 29.1 Seconds (9.0-12.0)
[2018-09-18 07:54] LABS: BUN Creatinine Ratio 19.3 (10-20); Calcium 8.7 mg/dl (8.5-10.1); Creatinine Clr Calc Pharmacy 95.7 ml/min; Est GFR (African American) 106.4; Est GFR (Non-African American) 91.8; Magnesium 2.3 mg/dl (1.8-2.4); Potassium 3.4 mmol/L (3.5-5.1)
[2018-09-18] MEDS: LISINOPRIL 10 MG TAB PO SCH ×2 (08:33→20:10)
[2018-09-18] MEDS: DOCUSATE SODIUM 100 MG CAP PO SCH ×2 (08:33→20:09)
[2018-09-18] MEDS: FUROSEMIDE 80 MG TAB PO SCH (08:33)
[2018-09-18] MEDS: CHOLECALCIFEROL 1,000 UNITS TAB PO SCH (08:33)
[2018-09-18] MEDS: METOPROLOL SUCC 50MG EXT REL TAB PO SCH (08:33)
[2018-09-18] MEDS: ASPIRIN 81 MG CHEW PO SCH (08:33)
[2018-09-18] MEDS ORDERED: POTASSIUM CHLORIDE 10 MEQ TABCR PO STA (08:38)
--- NOTE | 2018-09-18 15:19 | Infectious Disease Progress Nt ---
Date of Service September 18, 2018 Assessment & Plan (1) Sepsis: 77-year-old male with sepsis with probable urinary tract infection in the setting of chronic indwelling Pizarro catheter with encephalopathy. Cultures positive for 2 strains of pseudomonas aeruginosa. Patient will complete 10 days of IV Zosyn. Will follow. (2) UTI (urinary tract infection): (3) Metabolic encephalopathy: (4) Pseudomonas aeruginosa infection: Subjective Patient seen in follow-up for pseudomonal UTI. Appears comfortable, no obvious new complaints. Remains afebrile. Review of Systems Review of Systems: All systems reviewed & are unremarkable except as noted in HPI & below Physical Exam Constitutional: WD/WN, vitals as above comfortable; no acute distress Eyes: PERRL, conjunctivae normal, anicteric sclerae ENMT: external ear and nose normal, oropharynx normal Neck: trachea midline, no thyromegaly neck nontender Respiratory: normal respiratory effort, lungs clear to auscultation normal percussion; does not use accessory muscles Cardiovascular: Rate/Rhythm: + irregularly irregular Heart Sounds: normal S1 and normal S2; no gallop, no murmur and no cardiac rub Vessels: normal peripheral pulses; no JVD Gastrointestinal (Abdomen): normal bowel sounds, soft, nontender, no hepatosplenomegaly Musculoskeletal: no cyanosis or clubbing, extremities motor strength 5/5 Spine: thoracic spine normal to inspection and lumbar spine normal to inspection; no cervical spinal tenderness Skin: normal turgor; no rashes Neurologic: patellar DTR's 2+ bilat, sensation intact no focal motor deficits Psychiatric: A+Ox3, euthymic affect Orientation: cooperative Lymphatic: no cervical or axillary lymphadenopathy no inguinal lymphadenopathy Results & Data Vital Signs (Past 12 Hours) Vital Signs Temp Pulse Resp BP BP Pulse Ox 09/18/18 11:39 97 09/18/18 10:15 138/80 09/18/18 07:30 36.4 C L 69 20 174/96 H 91 09/18/18 06:04 73 160/[address] [facility] 09/18/18 06:45 Sodium 141 Potassium 3.4 L Chloride 106 Carbon Dioxide 27 BUN 14 Creatinine 0.71 Glucose 98 Calcium 8.7 Diagnostic Findings Microbiology 09/11/18 15:55 Blood Blood Culture - Final No growth 09/11/18 15:38 Blood Blood Culture - Final No growth 09/13/18 16:15 Stool Shiga Toxin Test - Final 09/13/18 16:15 Stool Stool Culture - Final No Salmonella isolated, No Shigella isolated, No Campylobacter jejuni isolated. 09/11/18 15:36 Urine,Indwelling Cath Urine Culture - Final Pseudomonas aeruginosa Pseudomonas aeruginosa#2 Corynbact.sp not urealyticum (1) Sepsis Sepsis type: sepsis due to unspecified organism Qualified Code(s): A41.9 - Sepsis, unspecified organism (2) UTI (urinary tract infection) Hematuria presence: without hematuria Urinary tract infection type: site unspecified Qualified Code(s): N39.0 - Urinary tract infection, site not specified
--- OUTSIDE RECORDS SUMMARY | 2018-09-18 15:32 | External Medical Summary | Continuity of Care Document ---
:1940 Author Name Anabella Bull, Provider Address Unavailable Unavailable , Care Team Providers Name Role Phone Chrissy Bull, Sharif Unavailable [email or web address] Sole RANDALL, Emily Unavailable [email or web address] Teresa Bull, [email or web address] [email or web address] GIFFORD Unavailable Unavailable Unavailable Unavailable Unavailable Problems Hiatal hernia (553.3) (K44.9) Diastolic congestive heart failure (428.30) (I50.30) Peripheral artery disease (443.9) (I73.9) Paroxysmal supraventricular tachycardia (427.0) (I47.1) Hypertension (401.9) (I10) Atrial fibrillation, controlled (427.31) (I48.91) Anticoagulant long-term use (V58.61) (Z79.01) Erosive osteoarthritis of wrists, 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) Long-term use of hydroxychloroquine (V58.69) (Z79.899) Chronic venous insufficiency (459.81) (I87.2) Vitamin D deficiency (268.9) (E55.9) History of Clostridium difficile colitis (V12.79) (Z86.19) Status: Resolved Internal hemorrhoids (455.0) (K64.8) Hip arthritis (716.95) (M16.10) Knee pain, bilateral (719.46) (M25.561) Proximal muscle weakness (728.87) (M62.81) Atypical nevi (216.9) (D22.9) Generalized osteoarthritis of multiple sites (715.09) (M15.9 ) Gait disturbance (781.2) (R26.9) OA (osteoarthritis of the spine) (721.90) (M47.9) 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 Refills: 0 Vitamin D3 5000 UNIT Oral Tablet; Take 1 tablet daily Refills: 0 Flomax 0.4 MG Oral Capsule; TAKE 1 CAPSULE Daily Refills: 0 Nystop 946147 UNIT/GM External Powder; USE DIRECTED 15 GM Bottle Refills: 0 Metoprolol Succinate ER 50 MG Oral Table t Extended Release 24 Hour; 1 TABLET DAILY BY MOUTH ALONG W/100 MG 100 Tablet Bottle Refills: 0 Digox 125 MCG Oral Tablet; Take 1 tablet by mouth daily. Jorgito Gómez Start: 07-May-2018 Refills: 0 Lisinopril 10 MG Oral Tablet; TAKE 1 TABLET DAILY BY Jorgito Simms Quantity: 90 Refills: 3 Acetaminophen TABS; 650mg po q 4hr prn mild pain Refills: 0 Metoprolol Succinate ER 100 MG Oral Tabl et Extended Release 24 Hour; take 1 tablet by mouth once daily Jorgito Moore Start: 04-Nov-2015 Quantity: 90 Refills: 3 Warfarin Sodium 5 MG Oral Tablet; TAKE DIRECTED. Scott Moore Quantity: 100 Refills: 5 Warfarin Sodium 2.5 MG Oral Tablet; Take 1 tablet christen y as directed PRAKASH Whipple Start: 05-Jan-2018 Quantity: 90 Refills: 3 Courtney-charline 8.6 MG Oral Tablet; TAKE 1 TABLET BY MOUTH ON CE DAILY FOR CONSTIPATION Refills: 0 Aspirin 81 MG TABS; TAKE 1 TABLET DAILY. Refills: 0 Furosemide 20 MG Oral Tablet; TAKE 1 TABLET BY MOUTH E VERY DAY Jorgito Moore Refills: 0 Procedures History of Hip Replacement Status: Compl eted History of Cataract Surgery Status: Comp leted Immunizations Immunizations not documented Family History Unknown Family Member Family history of Cancer Status: Active Comments: Famil y History Mother Family history of Status: Active Father Family history of Status: Active Social History - Smoking Status Never smoker Plan of Treatment Planned Encounters Appointment; Denys Moore M.D. Start: 13-Feb-2019 10:00 R equest Planned Observations Planned Goals not documented Results No Known Results Results not documented Encounters Appointment; Denys Moore M.D. 02-Aug-2018 11:00 Encounter Diagnosis: Problem not documented Appointment; [facility] 19-Jan-2018 10:50 Encounter Diagnosis: Problem not documented Appointment; Denys Moore M.D. 19-Jan-2018 10:15 Encounter Diagnosis: Problem not documented Appointment; Sharif Lowe M.D. 03-Jan-2018 11:30 Encounter Diagnosis: Problem not documented Appointment; Sandra Ramsay M.D. 02-Aug-2017 14:40 Encounter Diagnosis: Problem not documented Appointment; Denys Moore M.D. 13-Jul-2017 15:45 Encounter Diagnosis: Problem not documented Appointment; Sharif Lowe M.D. 05-Jul-2017 10:45 Encounter Diagnosis: Problem not documented Appointment; Sandra Ramsay M.D. 24-May-2017 10:00 Encounter Diagnosis: Problem not documented Appointment; [facility] 24-May-2017 9:50 Encounter Diagnosis: Problem not documented Appointment; Denys Moore M.D. 11-May-2017 15:45 Encounter Diagnosis: Problem not documented Appointment; [facility] 03-May-2017 10:30 Encounter Diagnosis: Problem not documented Appointment; [facility] 29-Mar-2017 9:10 Encounter Diagnosis: Problem not documented Appointment; Denys Moore M.D. 23-Mar-2017 13:15 Encounter Diagnosis: Problem not documented Appointment; [facility] 10-Mar-2017 9:30 Encounter Diagnosis: Problem not documented Appointment; Sandra Ramsay M.D. 02-Mar-2017 9:40 Encounter Diagnosis: Problem not documented Appointment; [facility] 15-Feb-2017 10:00 Encounter Diagnosis: Problem not documented Appointment; Sandra Ramsay M.D. 31-Jan-2017 14:00 Encounter Diagnosis: Problem not documented Appointment; [facility] 31-Jan-2017 13:40 Encounter Diagnosis: Problem not documented Appointment; [facility] 25-Jan-2017 9:00 Encounter Diagnosis: Problem not documented Appointment; [facility] 11-Jan-2017 8:30 Encounter Diagnosis: Problem not documented Appointment; [facility] 04-Jan-2017 8:40 Encounter Diagnosis: Problem not documented Appointment; [facility] 29-Dec-2016 9:40 Encounter Diagnosis: Problem not documented Appointment; Sharif Lowe M.D. 24-Dec-2016 11:45 Encounter Diagnosis: Problem not documented Appointment; Denys Moore M.D. 21-Dec-2016 10:45 Encounter Diagnosis: Problem not documented Appointment; [facility], [facility] 21-Dec-2016 10:40 Encounter Diagnosis: Problem not documented Appointment; Marli Villalobos PA-C 16-Dec-2016 11:00 Encounter Diagnosis: Problem not documented Appointment; [facility] 14-Dec-2016 9:00 Encounter Diagnosis: Problem not documented Appointment; Sol Abrams PA-C 09-Dec-2016 14:00 Encounter Diagnosis: Problem not documented Appointment; [facility] 09-Dec-2016 9:10 Encounter Diagnosis: Problem not documented Appointment; Steff Pierre PA-C 19-Nov-2016 11:15 Encounter Diagnosis: Problem not documented Appointment; Beverley Allen M.D. 03-Nov-2016 13:00 Encounter Diagnosis: Problem not documented Appointment; Jarred Washington PA-C 28-Oct-2016 15:30 Encounter Diagnosis: Problem not documented Appointment; [facility] 28-Oct-2016 9:00 Encounter Diagnosis: Problem not documented Appointment; [facility] 30-Sep-2016 9:40 Encounter Diagnosis: Problem not documented Appointment; Denys Moore M.D. 13-Feb-2019 10:00 Encounter Diagnosis: Problem not documented
--- NOTE | 2018-09-18 15:44 | Cardiology Progress Note ---
Date of Service September 18, 2018 Assessment & Plan (1) Chronic congestive heart failure with left ventricular diastolic dysfu nction: Patient now euvolemic. He is back on his usual outpatient dose of Lasix. (2) Atrial fibrillation with RVR: Ventricular response now well controlled on metoprolol succinate and digoxin. (3) Elevated troponin: Likely secondary to a supply/demand mismatch realizing his known LVH and a rapid ventricular response to his atrial fibrillation at the time of his presentation. (4) Essential hypertension: Controlled on current regimen. Subjective The patient is resting comfortably in bedside chair without complaints of chest pain, dyspnea, or palpitations. Physical Exam Physical Exam: In general this is a well-developed well-nourished male in no acute distress. HEENT exam is negative. Neck is supple with full carotid upstrokes. No obvious bruits. Jugular venous pressure is flat at 90 degrees. There is no thyromegaly. Cardiovascular exam reveals an irregularly irregular rhythm with distant heart sounds. A 1/6 basal systolic ejection murmur is noted. No S3. Lungs note bibasilar millan.. Abdomen is soft without bruits. Extremities reveal intact radial artery pulses bilaterally. 1+ pretibial edema is noted. Hyperpigmentation changes also noted. Results & Data Vital Signs (Past 12 Hours) Vital Signs Temp Pulse Resp BP BP Pulse Ox 09/18/18 11:39 97 09/18/18 10:15 138/80 09/18/18 07:30 36.4 C L 69 20 174/96 H 91 09/18/18 06:04 73 160/89 H
[2018-09-18] MEDS: DIGOXIN 0.125 MG TAB PO SCH (15:58)
--- NOTE | 2018-09-18 16:45 | Hospitalist Progress Note ---
Date of Service September 18, 2018 Assessment & Plan (1) Sepsis: Sepsis Complicated UTI Likely due to chronic indwelling catheter CT abdomen pelvis: Shows chronic urine retention, fat infiltration around the bladder, suggestive of cystitis Received IV fluids Urine Culture: 2 strains of pseudomonas aeruginosa Blood Culture: No growth to date Continue IV Zosyn--To complete 10 day course-- Day # 8/10 IV Daptomycin discontinued Appreciate ID recommendations Continue Abx to complete the course (2) Complicated UTI (urinary tract infection): Chronic urinary retention, on Pizarro catheter Developed bladder outlet obstruction/Pizarro catheter blockage secondary to large amount of sediment, debris, pus and infected urine/bowel bladder Management as above (3) Chronic indwelling Pizarro catheter: H/O prostatic cancer, chronic bladder outlet obstruction H/O radical prostatectomy Patient was seen by urology team and last admission on 07/2018 Recommend chronic indwelling Pizarro catheter Patient is not a surgical candidate for any other urologic intervention FU Urology as outpatient (4) Atrial fibrillation with RVR: H/O Chronic A. fib Likely due to acute illness, sepsis, dehydration IV Cardizem discontinued Currently rate controlled Continue Metoprolol, Digoxin Hold Coumadin today Monitor INR: 3.1 Appreciate Cardiology Input No bleeding issues (5) Elevated troponin: Mild elevation of troponin, possible in the setting of A. fib RVR, dehydration, sepsis Likely due to demand ischemia no evidence of ACS ECHO:No LV wall motion abnormality Appreciate Cardiology Input (6) Hypokalemia: Due to diuretics Replace and monitor electrolytes as needed (7) Dehydration: Resolved with IV fluids (8) Metabolic encephalopathy: Presents with worsening of confusion, baseline dementia Metabolic encephalopathy Likely due to acute infection CT head: No acute changes Reorient frequently to prevent delirium Mental status is back to baseline (9) Dementia: Baseline dementia, presents with worsening of confusion secondary to sepsis/dehydration (10) Chronic congestive heart failure with left ventricular diastolic dysfunction: H/o chronic CHF with diastolic dysfunction, EF 55-60% Presented with dehydration and now is volume overloaded likely due to IV fluids IV Lasix discontinued Continue PO lasix at home dose Appreciate Cardiology help Volume status now seemed to be at baseline DVT Px: INR supratherapeutic Hold Coumadin Code Status Full [facility] Subjective Patient is seen and examined at bedside Feels better today Offers no complaints Constipation resolved Denies chest pain, dizziness, abd pain, SOB Review of Systems Review of Systems: All systems reviewed & are unremarkable except as noted in HPI & below Physical Exam Physical Exam: Physical Exam: Vitals signs as noted above General Appearance:Moderately built and nourished, no apparent distress Head: normocephalic, Atraumatic Eyes: normal inspection, EOMI Neck: supple, Trachea midline Respiratory/Chest: Normal breath sounds, CTA Cardiovascular: Irregularly Irregular, No murmur Abdomen/GI:Soft, Non tender, Bowel sounds present Extremities/Musculoskelatal:normal inspection, + chronic venous stasis, 2+ B/L LE edema Neurologic/Psych:AA, grossly no focal neurological deficits Skin: normal color, warm Results & Data Vital Signs (Past 12 Hours) Vital Signs Temp Pulse Pulse Pulse Resp BP BP 09/18/18 16:00 36.7 C 80 18 160/89 H 09/18/18 15:58 68 09/18/18 11:39 09/18/18 10:15 138/80 09/18/18 07:30 36.4 C L 69 20 174/96 H 09/18/18 06:04 73 160/89 H Pulse Ox 09/18/18 16:00 93 09/18/18 15:58 09/18/18 11:39 97 09/18/18 10:15 09/18/18 07:30 91 09/18/18 06:04 Laboratory Results BMP 09/18/18 06:45 Sodium 141 Potassium 3.4 L Chloride 106 Carbon Dioxide 27 BUN 14 Creatinine 0.71 Glucose 98 Calcium 8.7 (1) Sepsis Sepsis type: sepsis due to unspecified organism Qualified Code(s): A41.9 - Sepsis, unspecified organism (2) Dementia Dementia type: unspecified type Dementia behavioral disturbance: without behavioral disturbance Qualified Code(s): F03.90 - Unspecified dementia without behavioral disturbance
[2018-09-18] MEDS: DOCUSATE SODIUM/SENNA 50/8.6MG TAB PO SCH (20:09)
[2018-09-18] MEDS: TAMSULOSIN HCL 0.4 MG CAP PO SCH (20:10)
[2018-09-18] MEDS: cloNIDine HCl 0.1 MG TAB PO PRN (23:57)
[2018-09-19] MEDS: PIPERACILLIN/TAZOBACTAM 3.375 GM in DEXTROSE 5% 100 ML IV SCH ×3 (04:07→19:59)
[2018-09-19] MEDS: cloNIDine HCl 0.1 MG TAB PO PRN (04:46)
[2018-09-19 06:57] LABS: INR 2.4 (0.9-1.1); Prothrombin Time 23.5 Seconds (9.0-12.0)
[2018-09-19 07:18] LABS: Calcium 8.5 mg/dl (8.5-10.1); Creatinine Clr Calc Pharmacy 89.4 ml/min; Est GFR (African American) 103.4; Est GFR (Non-African American) 89.2; Potassium 3.4 mmol/L (3.5-5.1)
[2018-09-19] MEDS: FUROSEMIDE 80 MG TAB PO SCH (07:51)
[2018-09-19] MEDS: POTASSIUM CHLORIDE 10 MEQ TABCR PO SCH (07:51)
[2018-09-19] MEDS: CHOLECALCIFEROL 1,000 UNITS TAB PO SCH (07:51)
[2018-09-19] MEDS: LISINOPRIL 10 MG TAB PO SCH ×2 (07:51→20:00)
[2018-09-19] MEDS: METOPROLOL SUCC 50MG EXT REL TAB PO SCH (07:52)
[2018-09-19] MEDS: ASPIRIN 81 MG CHEW PO SCH (07:54)
[2018-09-19] MEDS: DOCUSATE SODIUM 100 MG CAP PO SCH ×2 (07:54→20:01)
--- NOTE | 2018-09-19 09:53 | Cardiology Progress Note ---
Date of Service September 19, 2018 Assessment & Plan (1) Chronic congestive heart failure with left ventricular diastolic dysfu nction: Patient euvolemic on his usual outpatient dose of Lasix. (2) Atrial fibrillation with RVR: Ventricular response now well controlled on metoprolol succinate and digoxin. INR now therapeutic. (3) Elevated troponin: Likely secondary to a supply/demand mismatch secondary to his known LVH and a rapid ventricular response to his atrial fibrillation at the time of his presentation. (4) Essential hypertension: Controlled. Subjective Mr. Buckner is resting comfortably in the bedside chair eating breakfast. Denies chest pain, dyspnea, and palpitations. Physical Exam Physical Exam: In general this is a well-developed well-nourished male in no acute distress. HEENT exam is negative. Neck is supple with full carotid upstrokes. No obvious bruits. Jugular venous pressure is flat at 90 degrees. There is no thyromegaly. Cardiovascular exam reveals an irregularly irregular rhythm with distant heart sounds. A 1/6 basal systolic ejection murmur is noted. No S3. Lungs note bibasilar millan.. Abdomen is soft without bruits. Extremities reveal intact radial artery pulses bilaterally. 1+ pretibial edema is noted. Hyperpigmentation changes also noted. Results & Data Vital Signs (Past 12 Hours) Vital Signs Temp Pulse Pulse Resp BP BP Pulse Ox 09/19/18 07:25 36.5 C 70 18 148/68 H 96 09/19/18 05:31 70 175/82 H 09/19/18 04:45 76 164/75 H 09/19/18 02:26 164/78 H 09/19/18 00:34 57 L 181/79 H 09/18/18 23:55 36.6 C 132 H 20 184/64 H 92 09/18/18 23:38 176/80 H
--- NOTE | 2018-09-19 14:44 | Infectious Disease Progress Nt ---
Date of Service September 19, 2018 Assessment & Plan (1) Sepsis: 77-year-old male with sepsis with probable urinary tract infection in the setting of chronic indwelling Pizarro catheter with encephalopathy. Cultures positive for 2 strains of pseudomonas aeruginosa. Patient will complete 10 days of IV Zosyn. Will follow. (2) UTI (urinary tract infection): (3) Metabolic encephalopathy: (4) Pseudomonas aeruginosa infection: Subjective Mr. Buckner is resting comfortably in the bedside chair eating breakfast. Denies chest pain, dyspnea, and palpitations. Review of Systems Review of Systems: All systems reviewed & are unremarkable except as noted in HPI & below Physical Exam Constitutional: WD/WN, vitals as above comfortable; no acute distress Eyes: PERRL, conjunctivae normal, anicteric sclerae ENMT: external ear and nose normal, oropharynx normal Neck: trachea midline, no thyromegaly neck nontender Respiratory: normal respiratory effort, lungs clear to auscultation normal percussion; does not use accessory muscles Cardiovascular: Rate/Rhythm: + irregularly irregular Heart Sounds: normal S1 and normal S2; no gallop, no murmur and no cardiac rub Vessels: normal peripheral pulses; no JVD Gastrointestinal (Abdomen): normal bowel sounds, soft, nontender, no hepatosplenomegaly Musculoskeletal: no cyanosis or clubbing, extremities motor strength 5/5 Spine: thoracic spine normal to inspection and lumbar spine normal to inspection; no cervical spinal tenderness Skin: normal turgor; no rashes Neurologic: patellar DTR's 2+ bilat, sensation intact no focal motor deficits Psychiatric: A+Ox3, euthymic affect Orientation: cooperative Lymphatic: no cervical or axillary lymphadenopathy no inguinal lymphadenopathy Results & Data Vital Signs (Past 12 Hours) Vital Signs Temp Pulse Pulse Resp BP BP Pulse Ox 09/19/18 07:25 36.5 C 70 18 148/68 H 96 09/19/18 05:31 70 175/82 H 09/19/18 04:45 76 164/75 H Laboratory Results [facility] 09/19/18 06:29 Sodium 141 Potassium 3.4 L Chloride 107 Carbon Dioxide 28 BUN 15 Creatinine 0.76 Glucose 106 H Calcium 8.5 Diagnostic Findings Microbiology 09/11/18 15:55 Blood Blood Culture - Final No growth 09/11/18 15:38 Blood Blood Culture - Final No growth 09/13/18 16:15 Stool Shiga Toxin Test - Final 09/13/18 16:15 Stool Stool Culture - Final No Salmonella isolated, No Shigella isolated, No Campylobacter jejuni isolated. 09/11/18 15:36 Urine,Indwelling Cath Urine Culture - Final Pseudomonas aeruginosa Pseudomonas aeruginosa#2 Corynbact.sp not urealyticum (1) Sepsis Sepsis type: sepsis due to unspecified organism Qualified Code(s): A41.9 - Sepsis, unspecified organism (2) UTI (urinary tract infection) Hematuria presence: without hematuria Urinary tract infection type: site unspecified Qualified Code(s): N39.0 - Urinary tract infection, site not specified
[2018-09-19] MEDS: DIGOXIN 0.125 MG TAB PO SCH (16:01)
[2018-09-19] MEDS: WARFARIN SOD 2.5 MG TAB PO SCH (16:03)
--- NOTE | 2018-09-19 18:31 | Hospitalist Progress Note ---
Date of Service September 19, 2018 Assessment & Plan (1) Sepsis: Sepsis Complicated UTI Likely due to chronic indwelling catheter CT abdomen pelvis: Shows chronic urine retention, fat infiltration around the bladder, suggestive of cystitis Received IV fluids Urine Culture: 2 strains of pseudomonas aeruginosa Blood Culture: No growth to date Continue IV Zosyn--To complete 10 day course-- Day # 9/10 IV Daptomycin discontinued Appreciate ID recommendations Continue Abx to complete 10 day course ID following (2) Complicated UTI (urinary tract infection): Chronic urinary retention, on Pizarro catheter Developed bladder outlet obstruction/Pizarro catheter blockage secondary to large amount of sediment, debris, pus and infected urine/bowel bladder Management as above (3) Chronic indwelling Pizarro catheter: H/O prostatic cancer, chronic bladder outlet obstruction H/O radical prostatectomy Patient was seen by urology team and last admission on 07/2018 Recommend chronic indwelling Pizarro catheter Patient is not a surgical candidate for any other urologic intervention FU Urology as outpatient (4) Atrial fibrillation with RVR: H/O Chronic A. fib Likely due to acute illness, sepsis, dehydration IV Cardizem discontinued Currently rate controlled Continue Metoprolol, Digoxin Resume Coumadin today Monitor INR: 2.4 Appreciate Cardiology Input No bleeding issues (5) Elevated troponin: Mild elevation of troponin, possible in the setting of A. fib RVR, dehydration, sepsis Likely due to demand ischemia no evidence of ACS ECHO:No LV wall motion abnormality Appreciate Cardiology Input (6) Hypokalemia: Due to diuretics Replace and monitor electrolytes as needed (7) Dehydration: Resolved with IV fluids (8) Metabolic encephalopathy: Presents with worsening of confusion, baseline dementia Metabolic encephalopathy Likely due to acute infection CT head: No acute changes Reorient frequently to prevent delirium Mental status is back to baseline (9) Dementia: Baseline dementia, presents with worsening of confusion secondary to sepsis/dehydration (10) Chronic congestive heart failure with left ventricular diastolic dysfunction: H/o chronic CHF with diastolic dysfunction, EF 55-60% Presented with dehydration and now is volume overloaded likely due to IV fluids IV Lasix discontinued Continue PO lasix at home dose Appreciate Cardiology help Volume status is back to baseline DVT Px: INR therapeutic Coumadin resumed today Code Status Full Code Disposition: Resident at personal [facility] Plan to discharge to rehab facility on Thrusday if stable Subjective Patient is seen and examined at bedside Comfortable sitting in chair Offers no complaints Denies chest pain, dizziness, abd pain, SOB Continue IV Abx Review of Systems Review of Systems: All systems reviewed & are unremarkable except as noted in HPI & below Physical Exam Physical Exam: Physical Exam: Vitals signs as noted above General Appearance:Moderately built and nourished, no apparent distress Head: normocephalic, Atraumatic Eyes: normal inspection, EOMI Neck: supple, Trachea midline Respiratory/Chest: Normal breath sounds, CTA Cardiovascular: Irregularly Irregular, No murmur Abdomen/GI:Soft, Non tender, Bowel sounds present Extremities/Musculoskelatal:normal inspection, + chronic venous stasis, 2+ B/L LE edema Neurologic/Psych:AA, grossly no focal neurological deficits Skin: normal color, warm Results & Data Vital Signs (Past 12 Hours) Vital Signs Temp Pulse Pulse Resp BP Pulse Ox 09/19/18 16:16 36.5 C 69 17 144/85 H 94 09/19/18 16:01 62 09/19/18 07:25 36.5 C 70 18 148/68 H 96 Laboratory Results [facility] 09/19/18 06:29 Sodium 141 Potassium 3.4 L Chloride 107 Carbon Dioxide 28 BUN 15 Creatinine 0.76 Glucose 106 H Calcium 8.5 (1) Sepsis Sepsis type: sepsis due to unspecified organism Qualified Code(s): A41.9 - Sepsis, unspecified organism (2) Dementia Dementia type: unspecified type Dementia behavioral disturbance: without behavioral disturbance Qualified Code(s): F03.90 - Unspecified dementia without behavioral disturbance
[2018-09-19] MEDS: TAMSULOSIN HCL 0.4 MG CAP PO SCH (20:00)
[2018-09-20] MEDS: PIPERACILLIN/TAZOBACTAM 3.375 GM in DEXTROSE 5% 100 ML IV SCH ×3 (04:50→20:11)
[2018-09-20] MEDS: cloNIDine HCl 0.1 MG TAB PO PRN (05:39)
[2018-09-20 06:12] LABS: INR 1.8 (0.9-1.1); Prothrombin Time 17.5 Seconds (9.0-12.0)
[2018-09-20 06:25] LABS: BUN Creatinine Ratio 19.6 (10-20); Calcium 9.1 mg/dl (8.5-10.1); Creatinine Clr Calc Pharmacy 68.7 ml/min; Est GFR (Non-African American) 74.2; Potassium 3.5 mmol/L (3.5-5.1)
[2018-09-20] MEDS: CHOLECALCIFEROL 1,000 UNITS TAB PO SCH (08:32)
[2018-09-20] MEDS: FUROSEMIDE 80 MG TAB PO SCH (08:32)
[2018-09-20] MEDS: METOPROLOL SUCC 50MG EXT REL TAB PO SCH (08:32)
[2018-09-20] MEDS: LISINOPRIL 10 MG TAB PO SCH ×2 (08:33→20:12)
[2018-09-20] MEDS: POTASSIUM CHLORIDE 10 MEQ TABCR PO SCH (08:33)
[2018-09-20] MEDS: DOCUSATE SODIUM 100 MG CAP PO SCH ×2 (08:37→20:17)
[2018-09-20] MEDS: ASPIRIN 81 MG CHEW PO SCH (08:37)
[2018-09-20] MEDS: DIGOXIN 0.125 MG TAB PO SCH (16:04)
[2018-09-20] MEDS: WARFARIN SOD 2.5 MG TAB PO SCH (16:04)
--- NOTE | 2018-09-20 17:06 | Hospitalist Progress Note ---
Date of Service September 20, 2018 Assessment & Plan (1) Sepsis: Resolved, presented with sepsis secondary to complicated UTI due to chronic indwelling catheter CT abdomen pelvis: Shows chronic urine retention, fat infiltration around the bladder, suggestive of cystitis Urine Culture: 2 strains of pseudomonas aeruginosa Blood Culture: No growth to date Continue IV Zosyn--To complete 10 day course-- Day # 10 Appreciate ID recommendations Continue Abx to complete 10 day course Plan to discharge to rehab, [facility] tomorrow (2) Complicated UTI (urinary tract infection): Chronic urinary retention, on Pizarro catheter Developed bladder outlet obstruction/Pizarro catheter blockage secondary to large amount of sediment, debris, pus and infected urine/bowel bladder Management as above (3) Chronic indwelling Pizarro catheter: H/O prostatic cancer, chronic bladder outlet obstruction H/O radical prostatectomy Patient was seen by urology team and last admission on 07/2018 Recommend chronic indwelling Pizarro catheter Patient is not a surgical candidate for any other urologic intervention FU Urology as outpatient (4) Atrial fibrillation with RVR: H/O Chronic A. fib Likely due to acute illness, sepsis, dehydration Currently rate controlled Continue Metoprolol, Digoxin Resume Coumadin INR 1.8 Appreciate Cardiology Input No bleeding issues (5) Elevated troponin: Mild elevation of troponin On admission, possible in the setting of A. fib RVR, dehydration, sepsis Likely due to demand ischemia no evidence of ACS /No complaint of angina ECHO:No LV wall motion abnormality Appreciate Cardiology Input (6) Hypokalemia: Due to diuretics Replace and monitor electrolytes as needed (7) Dehydration: Resolved with IV fluids (8) Metabolic encephalopathy: Resolved Presents with worsening of confusion, baseline dementia Metabolic encephalopathy Likely due to acute infection CT head: No acute changes Reorient frequently to prevent delirium Mental status is back to baseline (9) Dementia: Baseline dementia, presents with worsening of confusion secondary to sepsis/dehydration Mental status improved to baseline, very pleasant, oriented to place and person, (10) Chronic congestive heart failure with left ventricular diastolic dysfunction: H/o chronic CHF with diastolic dysfunction, EF 55-60% Presented with dehydration and now is volume overloaded likely due to IV fluids Continue PO lasix at home dose Appreciate Cardiology help Volume status is back to baseline DVT Px: On Coumadin Code Status Full Code Disposition: Referral made to [facility] Plan to discharge to rehab facility Tomorrow if stable Subjective Patient sitting up on chair, appears to be comfortable, answers question appropriately, no evidence of confusion, no agitation, afebrile, vitals stable Denies of any pain or discomfort Physical Exam Constitutional: WD/WN, vitals as above no acute distress Eyes: + anicteric sclerae ENMT: external ear and nose normal, oropharynx normal Neck: trachea midline, no thyromegaly Respiratory: normal respiratory effort, lungs clear to auscultation Gastrointestinal (Abdomen): Inspection/Auscultation: abdomen normal to inspection and normal bowel sounds Percussion/Palpation: abdomen soft; abdomen nontender Neurologic: PERRL, EOMI, accommodation nl, no face palsy, no dysarthria Psychiatric: Orientation: alert, oriented to person and cooperative Results & Data Vital Signs (Past 12 Hours) Vital Signs Temp Pulse Pulse Resp BP BP Pulse Ox 09/20/18 16:04 80 09/20/18 16:00 144/79 H 09/20/18 15:37 36.2 C L 82 21 172/95 H 98 09/20/18 07:34 36.2 C L 60 18 155/69 H 99 09/20/18 05:40 189/92 H (1) Dementia Dementia behavioral disturbance: without behavioral disturbance Dementia type: unspecified type Qualified Code(s): F03.90 - Unspecified dementia without behavioral disturbance (2) Sepsis Sepsis type: sepsis due to unspecified organism Qualified Code(s): A41.9 - Sepsis, unspecified organism
[2018-09-20] MEDS: TAMSULOSIN HCL 0.4 MG CAP PO SCH (20:12)
[2018-09-21] MEDS: cloNIDine HCl 0.1 MG TAB PO PRN (03:43)
[2018-09-21] MEDS: PIPERACILLIN/TAZOBACTAM 3.375 GM in DEXTROSE 5% 100 ML IV SCH (03:56)
[2018-09-21] MEDS: FUROSEMIDE 80 MG TAB PO SCH (08:29)
[2018-09-21] MEDS: CHOLECALCIFEROL 1,000 UNITS TAB PO SCH (08:29)
[2018-09-21] MEDS: POTASSIUM CHLORIDE 10 MEQ TABCR PO SCH (08:29)
[2018-09-21] MEDS: LISINOPRIL 10 MG TAB PO SCH (08:30)
[2018-09-21] MEDS: METOPROLOL SUCC 50MG EXT REL TAB PO SCH (08:30)
[2018-09-21] MEDS: ASPIRIN 81 MG CHEW PO SCH (08:34)
[2018-09-21] MEDS: DOCUSATE SODIUM 100 MG CAP PO SCH (08:34)
[2018-09-21] MEDS: POLYETHYLENE (MIRALAX) 17 GM PACK PO PRN (08:34)
[2018-09-21 08:35] LABS: INR 1.8 (0.9-1.1); Prothrombin Time 17.8 Seconds (9.0-12.0)
--- NOTE | 2018-09-21 09:39 | Infectious Disease Progress Nt ---
Date of Service September 21, 2018 Assessment & Plan (1) Sepsis: 77-year-old male with sepsis with probable urinary tract infection in the setting of chronic indwelling Pizarro catheter with encephalopathy. Cultures positive for 2 strains of pseudomonas aeruginosa. Patient has completed 10 days of IV Zosyn. To follow off antibiotics. (2) UTI (urinary tract infection): (3) Metabolic encephalopathy: (4) Pseudomonas aeruginosa infection: Subjective Patient sitting up on chair, appears to be comfortable, answers question appropriately, no evidence of confusion, no agitation, remains afebrile, . Review of Systems Review of Systems: All systems reviewed & are unremarkable except as noted in HPI & below Physical Exam Constitutional: WD/WN, vitals as above comfortable; no acute distress Eyes: PERRL, conjunctivae normal, anicteric sclerae ENMT: external ear and nose normal, oropharynx normal Neck: trachea midline, no thyromegaly neck nontender Respiratory: normal respiratory effort, lungs clear to auscultation normal percussion; does not use accessory muscles Cardiovascular: Rate/Rhythm: + irregularly irregular Heart Sounds: normal S1 and normal S2; no gallop, no murmur and no cardiac rub Vessels: normal peripheral pulses; no JVD Gastrointestinal (Abdomen): normal bowel sounds, soft, nontender, no hepatosplenomegaly Musculoskeletal: no cyanosis or clubbing, extremities motor strength 5/5 Spine: thoracic spine normal to inspection and lumbar spine normal to inspection; no cervical spinal tenderness Skin: normal turgor; no rashes Neurologic: patellar DTR's 2+ bilat, sensation intact no focal motor deficits Psychiatric: A+Ox3, euthymic affect Orientation: cooperative Lymphatic: no cervical or axillary lymphadenopathy no inguinal lymphadenopathy Results & Data Vital Signs (Past 12 Hours) Vital Signs Temp Pulse Pulse Resp BP BP Pulse Ox 09/21/18 07:08 36.3 C L 65 18 145/70 H 98 09/21/18 03:37 67 176/84 H 09/21/18 00:44 51 L 172/55 H 09/20/18 23:05 36.4 C L 44 L 18 172/61 H 96 Laboratory Results Laboratory Results - last 48 hr 09/20/18 09/20/18 09/21/18 05:32 05:32 08:11 PT 17.5 H 17.8 H INR 1.8 H 1.8 H Sodium 136 Potassium 3.5 Chloride 104 Carbon Dioxide 28 Anion Gap 4.0 BUN 19 H Creatinine 0.99 Est Cr Clr Drug Dosing 68.7 Est GFR ( Amer) 86.0 Est GFR (Non-Af Amer) 74.2 BUN/Creatinine Ratio 19.6 Glucose 96 Calcium 9.1 Diagnostic Findings Microbiology 09/11/18 15:55 Blood Blood Culture - Final No growth 09/11/18 15:38 Blood Blood Culture - Final No growth 09/13/18 16:15 Stool Shiga Toxin Test - Final 09/13/18 16:15 Stool Stool Culture - Final No Salmonella isolated, No Shigella isolated, No Campylobacter jejuni isolated. 09/11/18 15:36 Urine,Indwelling Cath Urine Culture - Final Pseudomonas aeruginosa Pseudomonas aeruginosa#2 Corynbact.sp not urealyticum (1) UTI (urinary tract infection) Hematuria presence: without hematuria Urinary tract infection type: site unspecified Qualified Code(s): N39.0 - Urinary tract infection, site not specified (2) Sepsis Sepsis type: sepsis due to unspecified organism Qualified Code(s): A41.9 - Sepsis, unspecified organism
--- NOTE | 2018-09-21 12:30 | Discharge Summary ---
Date of Service September 21, 2018 Admission HPI Per Admitting Provider This is a 77-year-old male with past medical history of breast cancer, status post prostatectomy, chronic diastolic failure (EF 55-60%, TTE 2016), paroxysmal A. fib on Coumadin, hypertension, peripheral vascular disease, history of endocarditis, history of chronic urinary retention/bladder outlet obstruction and chronic Pizarro catheter Sent from [facility] as patient sustained a's fall earlier Patient is a very poor historian, most of the information obtained from patient's son Mr. You Buckner over phone, As per the son: Patient has not been feeling well for the past few days, had very poor appetite, lack of energy, nursing staff noted poor urine output in the Pizarro bag, with foul-smelling/dark urine. Patient also complained of severe lower abdominal pain/cramps Son was asked to bring the patient to [facility] ER for evaluation this morning. Before Son's arrival to [facility], around 2:30 PM :patient fell, hit his head on TV: Patient was sent to [facility] ER via ambulance In the ER, catheter was found to be blocked, new catheter was placed, large amount of foul-smelling purulent urine was drained Patient reports relief of lower abdominal pain Developed A. fib RVR with heart rate in 140s Given Cardizem 2.5 mg IV x1 Converted to sinus with rate controlled Lab shows WBC 16,000/ hemoglobin 15.4 /hematocrit 42.6, /INR 2.9 /potassium 2.9 /lactic acid elevated 3.5 /troponin 0.055/ pro calcitonin less than 0.05 UA shows cloudy urine with positive urine nitrate leukocyte james H, large amount of bacteria Influenza PCR negative Chest x-ray showed cardiomegaly with mild interstitial pulmonary edema. CT head noncontrast: 1. Chronic small vessel ischemic change. No acute intracranial abnormality no hemorrhage 2. Findings borderline for normal pressure hydrocephalus to the appearance is unchanged compared to several prior CT scan Patient will be admitted to PCU/telemetry, for sepsis secondary to complicated UTI with chronic Pizarro catheter, A. fib RVR Principal Diagnosis Severe sepsis/complicated UTI in the setting of chronic indwelling catheter Discharge Exam Constitutional WD/WN, vitals as above no acute distress Eyes + anicteric sclerae ENMT external ear and nose normal, oropharynx normal Mouth: + lip abnormality (Very dry) and + oral mucosal abnormality (Very dry) Neck trachea midline, no thyromegaly Respiratory normal respiratory effort, lungs clear to auscultation Gastrointestinal (Abdomen) Inspection/Auscultation: abdomen normal to inspection and normal bowel sounds Percussion/Palpation: abdomen soft; abdomen nontender Neurologic PERRL, EOMI, accommodation nl, no face palsy, no dysarthria + focal motor deficit Psychiatric Orientation: alert, oriented to person and cooperative Discharge Data Allergies Allergy/AdvReac Type Severity Reaction Status Date / Time ceftriaxone Allergy Unknown ON [employer] Verified 08/14/18 10:06 [employer] LIST vancomycin Allergy Unknown ON [place] [employer] Verified 08/14/18 10:06 [employer] Consultations 09/11/18 19:08 ED Decision to Admit Stat 09/11/18 19:36 Consult Case Management - Discharge Planning Routine Consult Infectious Diseases Routine 09/12/18 05:50 Consult Cardiology Routine Ordered Studies 09/11/18 15:29 CT abd pelvis IV con only Stat CT head/brain wo con Stat Hospital Course (1) Sepsis: Resolved, presented with sepsis secondary to complicated UTI due to chronic indwelling catheter CT abdomen pelvis: Shows chronic urine retention, fat infiltration around the bladder, suggestive of cystitis Urine Culture: 2 strains of pseudomonas aeruginosa Blood Culture: No growth to date Treated with IV Zosyn--completed total 10 days of IV antibiotic treatment Appreciate ID recommendations Stable to be discharged to rehab, [facility] today (2) Complicated UTI (urinary tract infection): History of chronic urinary retention, on Pizarro catheter Developed bladder outlet obstruction/Pizarro catheter blockage secondary to large amount of sediment, debris, pus and infected urine/bowel bladder Treated adequately with 10 days of IV antibiotic (3) Chronic indwelling Pizarro catheter: H/O prostatic cancer, chronic bladder outlet obstruction H/O radical prostatectomy Patient was seen by urology team and last admission on 07/2018 Recommend chronic indwelling Pizarro catheter Patient is not a surgical candidate for any other urologic intervention FU Urology as outpatient (4) Atrial fibrillation with RVR: H/O Chronic A. fib Likely due to acute illness, sepsis, dehydration Currently rate controlled Continue Metoprolol, Digoxin Appreciate Cardiology Input No bleeding issues Started on Coumadin, INR 1.8, patient is continued with outpatient Coumadin regimen Repeat PT/INR next Tuesday Goal INR 23 Patient will need continued PT INR monitoring as per protocol (5) Elevated troponin: Mild elevation of troponin On admission, possible in the setting of A. fib RVR, dehydration, sepsis Likely due to demand ischemia no evidence of ACS /No complaint of angina ECHO:No LV wall motion abnormality Appreciate Cardiology Input (6) Hypokalemia: Corrected (7) Dehydration: Resolved with IV fluids (8) Metabolic encephalopathy: Resolved Presents with worsening of confusion, baseline dementia Metabolic encephalopathy Likely due to acute infection CT head: No acute changes Reorient frequently to prevent delirium Mental status is back to baseline (9) Dementia: Baseline dementia, presents with worsening of confusion secondary to sepsis/dehydration Mental status improved to baseline, very pleasant, oriented to place and person, (10) Chronic congestive heart failure with left ventricular diastolic dysfunction: H/o chronic CHF with diastolic dysfunction, EF 55-60% Presented with dehydration and now is volume overloaded likely due to IV fluids Continue PO lasix at home dose Appreciate Cardiology help Volume status is back to baseline DVT Px: On Coumadin Code Status Full Code Disposition: Stable to be discharged to [facility] today, son will provide transport Total Time Total Time Spent Total Time Spent (In Minutes): Approximately 45 minutes Total Time Includes: Examination of the Patient, Discharge Planning and Medication Reconciliation Discharge Plan Discharge Items Patient Disposition: Transfer [facility] Reason For Visit: SEPSIS/AFIB RVR Discharge Diagnosis: severe sepsis /complicated UTI in setting of chronic indwelling catheter Discharge Goals: Decrease discomfort, Diagnostic testing and Improve disease control Activity: Resume your previous activity Non-emergency contact: Primary Care Provider Call non-emergency contact if: you have any medication questions Follow-up/Referrals: [employer], [place] [Primary Care Provider] - Diet: Heart Healthy Fluids: 1800ml (7 cups) Diet Texture: Dental soft (bite-sized) Addtl Provider Instructions: lab work : INR on Tuesday09/25/18 Prescriptions: Continued sennosides-docusate sodium [Senna-S] 8.6-50 mg Tablet 2 tab PO QPM RF: 0 warfarin 5 mg tablet 5 mg PO 5XWK RF: 0 warfarin 2.5 mg tablet 2.5 mg PO 2XWK RF: 0 cholecalciferol (vitamin D3) 5,000 unit Tablet 5,000 unit PO QAM RF: 0 docusate sodium 100 mg Capsule 100 mg PO BID RF: 0 acetaminophen [Tylenol] 325 mg Tablet 650 mg PO Q4H PRN (Reason: Fever Or Pain) RF: 0 tamsulosin 0.4 mg Capsule 0.4 mg PO HS 30 Days Qty: 30 RF: 3 lisinopril [Zestril] 10 mg Tablet 10 mg PO BID 30 Days Qty: 60 RF: 3 metoprolol succinate 50 mg Tablet Extended Release 24 Hr 50 mg PO QAM RF: 0 metoprolol succinate 100 mg Tablet Extended Release 24 Hr 100 mg PO QAM RF: 0 digoxin 125 mcg Tablet 0.125 mg PO QAM RF: 0 nystatin [Nystop] 100,000 unit/gram Powder 1 applic TOPICAL BID PRN (Reason: Skin Irritation) RF: 0 furosemide 80 mg tablet 80 mg PO DAILY RF: 0 aspirin 81 mg Tablet,Chewable 81 mg PO QAM RF: 0 Stand-Alone Forms: [facility] Discharge Orders: Discharge Order (Routine); Ordered 09/21/18 Ordered By: Angela Jacques Skilled Items Patient informed of condition?: Yes DNR: No Discharge Level of Care: Skilled Communicable Disease: No Discharge Prognosis: Stable Admission Data Admit Date/Time: 09/11/18 18:27 Attending Provider: Angela Jacques Admit Provider: Angela Jacques Primary Care Provider: Jakob Amaro,[facility], [facility] Other Providers: Angela Jacques ; Aly Castaneda ; Denys Moore ; Chaim Truong Service: Telemetry Other Interventions: Discharge Summary Assessment (RN) Last Done: 09/21/18 11:50
== END 2018-09-21 13:28 | DRG 698 ==
LOC: ED 14:54 → 2E 18:27 → SUATTDRO 18:27 → 2E 19:16 → 4E 09-17 12:15

== ENCOUNTER 2021-04-07 10:34 | Inpatient (IN) ==
--- NOTE | 2021-04-07 10:40 | Emergency Department Note ---
Impression & Plan PAULO (acute kidney injury), Abdominal pain, Ileus, Complicated urinary tract infection, Transaminitis ED Provider Note NAME: ARMEN COX AGE: 80 SEX: M : 1940 ARRIVES VIA: Ambulance INFORMANT: Patient, ED PROVIDER(S): Modesto Lorenzana MD Chief Complaint: Abdominal pain HPI: Patient does present with abdominal pain that has been intermittent in nature coming and going over the last several days. Reportedly per [facility] the patient is not had a bowel movement in the last 3 days. The patient states he is occasionally passing gas and denies any vomiting. Patient states that the pain is intermittently diffuse. Patient denies any falls or trauma. Patient has has been compliant with medications. Patient states he is vaccinated for COVID- 19. Patient denies any prior history of smoking or alcohol use. Patient does have a chronic indwelling Pizarro catheter. Patient does not take anything for pain at home and states that this is gotten progressively worse. Patient reportedly has become more distended over the last several days. Patient did have a urine culture which showed to be positive for gram-negative bacilli. These were virtually pansensitive to antibiotics were identified as Klebsiella pneumonia patient does have chronic indwelling Pizarro. Patient did have blood work completed on April 05 which showed a white count of 12 with a normal hemoglobin and platelet count. The patient's kidney function at that time was creatinine 1.1. Glucose 155. Urinalysis did show positivity for jon kocyte Estrace, whites and bacteria but did have numerous epithelial cells. Also nitrite positive. Covid negative. CT abdomen pelvis showed possible large and small bowel ileus but without any evidence of bowel obstruction. ROS: See HPI for pertinent positives and negatives. A total of 10 systems were reviewed and otherwise negative. Past medical history: See below Surgical history: See below Social history: See below Physical Exam: GENERAL: NAD, wearing a mask, non-toxic. EYE EXAM: Normal conjunctiva. PERRL, no anisocoria and EOM's grossly intact w/o pain. NECK: Supple, no nuchal rigidity, no adenopathy, non-tender. No signs of meningismus. LUNGS: Clear to auscultation. Normal chest wall mechanics. HEART: NSR, no MRG. ABDOMEN: Abdominal distention is noted throughout with discomfort in the upper abdomen, normo-active bowel sounds, no masses, no rebound or guarding. BACK: No CVA TTP. SKIN: No rashes and no bruising. UPPER EXTREMITIES: Upper extremities are grossly normal. LOWER EXTREMITIES: Grossly normal, no edema. NEURO EXAM: A&O x3, cranial nerves II-XII grossly intact, normal speech, moves all 4 extremities on command w/o issue. Differential diagnoses: Appendicitis, testicular torsion, infections, diverticulitis, UTI, obstruction, mesenteric ischemia, aortic pathology, inflammatory bowel disease, renal colic, PUD, pancreatitis, biliary pathology, hernia, volvulus, constipation, as well as other pathologies. Course: Patient was seen and evaluated the bedside. Full history physical exam was performed. Imaging Studies: See Below Cardiac monitoring: An order was placed for continuous cardiac monitoring. The monitor shows a rate of 82 with sinus rhythm. MDM: Patient did show moderate gaseous distention without any obvious transition point. I did speak with the on-call general surgery team Steff Manley PA-C and the patient was evaluated by Dr. Gold. He did not recommend NG tube but may benefit from decompressive colonoscopy. I did speak with the on-call hospitalist Dr. Grajeda as the patient does have PAULO baseline creatinine is 1 and today's greater than 2. Patient was admitted to the medicine service. 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 SIRS (systemic inflammatory response syndrome) Stasis dermatitis of both legs Streptococcal sepsis Family History Other FHx: hypertension Social History Smoking Status: Never smoker Hx Alcohol Use: No Hx Substance Use: No Preferred Language: Mohawk Communication Ability: Effective Visual Impairment: No Limitations Vegetable [employer] Required: No Beliefs That Will Affect Care: None marital status: Current Living Situation: [facility] Feels Safe at Home: Yes Assistive Devices: Walker Allergies Allergies Allergy/AdvReac Type Severity Reaction Status Date / Time ceftriaxone Allergy Unknown ON KALTAG Verified 04/07/21 12:04 HENAGAR'S LIST vancomycin Allergy Unknown ON KALTAG Verified 04/07/21 12:04 [facility]'S LIST Home Meds Home Medications Medication Instructions Recorded Confirmed acetaminophen 325 mg tablet 650 mg PO Q12 04/05/21 04/07/21 (Tylenol) aspirin 81 mg tablet,delayed 81 mg PO QAM 04/05/21 04/07/21 release cholecalciferol (vitamin D3) 50 50 mcg PO HS 04/05/21 04/07/21 mcg (2,000 unit) tablet (Vitamin D3) clonidine HCl 0.1 mg tablet 0.1 mg PO BID 04/05/21 04/07/21 digoxin 125 mcg (0.125 mg) tablet 125 mcg PO QAM 04/05/21 04/07/21 docusate sodium 100 mg tablet 100 mg PO HS 04/05/21 04/07/21 fluticasone propionate 50 1 spray INTRANASAL BID 04/05/21 04/07/21 mcg/actuation nasal spray,suspension furosemide 80 mg tablet 80 mg PO QAM 04/05/21 04/07/21 melatonin 5 mg tablet 5 mg PO HS 04/05/21 04/07/21 metoprolol succinate 50 mg 50 mg PO QAM 04/05/21 04/07/21 tablet,extended release 24 hr ondansetron 4 mg disintegrating 4 mg TRANSLINGUAL Q6 PRN 04/05/21 04/07/21 tablet potassium chloride 20 mEq 20 meq PO BID 04/05/21 04/07/21 tablet,extended release(part/cryst) rivaroxaban 20 mg tablet (Xarelto) 20 mg PO QAM 04/05/21 04/07/21 rosuvastatin 40 mg tablet 40 mg PO HS 04/05/21 04/07/21 spironolactone 25 mg tablet 25 mg PO QAM 04/05/21 04/07/21 metoclopramide HCl 10 mg tablet 10 mg PO QID 04/07/21 04/07/21 multivitamin with minerals 1 tab PO QAM 04/07/21 04/07/21 Results & Data (ED) Vital Signs Vital Signs - 24 hr 04/07/21 10:39 04/07/21 10:48 04/07/21 10:50 Temperature 36.4 C L Temperature Source Oral Pulse Rate 84 89 103 H Pulse Rate from SpO2 Sensor 79 85 Respiratory Rate 18 23 23 Blood Pressure 123/65 Blood Pressure Mean 84 Pulse Oximetry 96 97 96 Oxygen Delivery Method Room Air Sepsis Recent Fever Within 48 Hours No Sepsis New/Unexplained Change in Mental Status No Sepsis Action Taken by Nursing No Action Required 04/07/21 11:00 04/07/21 11:02 04/07/21 11:10 Temperature Temperature Source Pulse Rate 91 H 90 97 H Pulse Rate from SpO2 Sensor 82 76 Respiratory Rate 22 21 Blood Pressure 119/63 Blood Pressure Mean 81 Pulse Oximetry 96 95 97 Oxygen Delivery Method Room Air Room Air Sepsis Recent Fever Within 48 Hours Sepsis New/Unexplained Change in Mental Status Sepsis Action Taken by Nursing 04/07/21 11:20 04/07/21 11:30 04/07/21 11:40 Temperature Temperature Source Pulse Rate 89 94 H 94 H Pulse Rate from SpO2 Sensor 84 90 82 Respiratory Rate 20 19 19 Blood Pressure Blood Pressure Mean Pulse Oximetry 98 92 99 Oxygen Delivery Method Room Air Sepsis Recent Fever Within 48 Hours Sepsis New/Unexplained Change in Mental Status Sepsis Action Taken by Nursing 04/07/21 11:50 04/07/21 12:00 04/07/21 12:10 Temperature Temperature Source Pulse Rate 88 89 99 H Pulse Rate from SpO2 Sensor 85 81 99 H Respiratory Rate 18 19 18 Blood Pressure 114/67 Blood Pressure Mean 82 Pulse Oximetry 99 99 100 Oxygen Delivery Method Sepsis Recent Fever Within 48 Hours Sepsis New/Unexplained Change in Mental Status Sepsis Action Taken by Nursing 04/07/21 12:20 04/07/21 12:30 04/07/21 12:40 Temperature Temperature Source Pulse Rate 92 H 91 H 89 Pulse Rate from SpO2 Sensor 85 84 77 Respiratory Rate 17 18 15 Blood Pressure 140/66 Blood Pressure Mean 90 Pulse Oximetry 100 98 100 Oxygen Delivery Method Room Air Sepsis Recent Fever Within 48 Hours Sepsis New/Unexplained Change in Mental Status Sepsis Action Taken by Nursing 04/07/21 12:50 04/07/21 13:10 04/07/21 13:20 Temperature Temperature Source Pulse Rate 90 88 92 H Pulse Rate from SpO2 Sensor 91 H 82 91 H Respiratory Rate 18 18 19 Blood Pressure Blood Pressure Mean Pulse Oximetry 99 97 97 Oxygen Delivery Method BiPAP BiPAP Sepsis Recent Fever Within 48 Hours Sepsis New/Unexplained Change in Mental Status Sepsis Action Taken by Nursing 04/07/21 13:30 04/07/21 13:40 04/07/21 13:50 Temperature Temperature Source Pulse Rate 93 H 90 94 H Pulse Rate from SpO2 Sensor 73 85 85 Respiratory Rate 20 20 19 Blood Pressure Blood Pressure Mean Pulse Oximetry 97 96 96 Oxygen Delivery Method BiPAP BiPAP BiPAP Sepsis Recent Fever Within 48 Hours Sepsis New/Unexplained Change in Mental Status Sepsis Action Taken by Nursing 04/07/21 14:00 04/07/21 14:10 04/07/21 14:20 Temperature Temperature Source Pulse Rate 90 92 H 93 H Pulse Rate from SpO2 Sensor 90 94 H 91 H Respiratory Rate 19 20 22 Blood Pressure 130/73 Blood Pressure Mean 92 Pulse Oximetry 97 97 97 Oxygen Delivery Method Room Air Sepsis Recent Fever Within 48 Hours Sepsis New/Unexplained Change in Mental Status Sepsis Action Taken by Nursing 04/07/21 14:30 04/07/21 14:40 04/07/21 14:50 Temperature Temperature Source Pulse Rate 98 H 98 H 80 Pulse Rate from SpO2 Sensor 84 86 74 Respiratory Rate 23 19 20 Blood Pressure 142/69 H Blood Pressure Mean 93 Pulse Oximetry 97 96 96 Oxygen Delivery Method Room Air Sepsis Recent Fever Within 48 Hours Sepsis New/Unexplained Change in Mental Status Sepsis Action Taken by [facility] Medications Current Medication List: was personally reviewed by me Laboratory Data Attestation: I reviewed the patient's lab results. Result diagrams: 04/07/21 11:15 04/07/21 11:15 Lab Results 04/07/21 04/07/21 04/07/21 Range/Units 11:00 11:00 11:15 WBC 8.01 (4.8-10.8) K/uL RBC 4.15 L (4.7-6.1) M/uL Hgb 14.2 (14.0-18.0) g/dL Hct 39.8 L (42-52) % MCV 95.9 (80-100) fL MCH 34.2 H (25-34) pg MCHC 35.7 (32-36) g/dL RDW Std Deviation 45.5 (36.4-46.3) fL RDW Coeff of Elmo 13.0 (11.5-14.5) % Plt Count 226 (130-400) K/uL MPV 10.7 H (7.4-10.4) fL Immature Gran % (Auto) 0.6 % Neut % (Auto) 63.0 % Lymph % (Auto) 17.7 % [place] % (Auto) 18.4 % Eos % (Auto) 0.2 % Baso % (Auto) 0.1 % Neut # (Auto) 5.04 (1.4-6.5) K/uL Lymph # (Auto) 1.42 (1.2-3.4) K/uL [place] # (Auto) 1.47 H (0.11-0.59) K/uL Eos # (Auto) 0.02 (0-0.5) K/uL Baso # (Auto) 0.01 (0-0.2) K/uL Immature Gran # (Auto) 0.05 H (0.00-0.02) K/uL Giant Platelets 1+ Echinocytes 1+ Sodium (136-145) mmol/L Potassium (3.5-5.1) mmol/L Chloride (98-107) mmol/L Carbon Dioxide (21-32) mmol/L Anion Gap (3-11) BUN (7-18) mg/dl Creatinine (0.6-1.4) mg/dl Est Cr Clr Drug Dosing ml/min Est GFR ( Amer) ml/min Est GFR (Non-Af Amer) ml/min BUN/Creatinine Ratio (10-20) Glucose (70-99) mg/dl Calcium (8.5-10.1) mg/dl Total Bilirubin (0.2-1) mg/dl AST (15-37) U/L ALT (12-78) U/L Alkaline Phosphatase (45-117) U/L Total Protein (6.4-8.2) gm/dl Albumin (3.4-5.0) gm/dl Globulin (2.5-4.0) gm/dl Albumin/Globulin Ratio (0.9-2) Lipase (73-393) U/L Urine Color Urine Appearance (Clear) Urine pH (4.5-7.5) Ur Specific Dubois (1.000-1.030) Urine Protein (Negative) Urine Glucose (UA) (Negative) Urine Ketones (Negative) Urine Blood (Negative) Urine Nitrite (Negative) Urine Bilirubin (Negative) Urine Urobilinogen (Negative) Ur Leukocyte Esterase (Negative) Urine WBC (Auto) (0-5) /hpf Urine RBC (Auto) (0-4) /hpf U Hyaline Cast (Auto) (0-5) /lpf U Epithel Cells (Auto) (0-5) /lpf Urine Bacteria (Auto) (Negative) Amorphous Sediment (None Prsent) Urine Yeast COVID-19 Eval Order Covid19 at [facility] SARS-CoV-2 (PCR) NEGATIVE (Negative) 04/07/21 04/07/21 Range/Units 11:15 11:35 WBC (4.8-10.8) K/uL RBC (4.7-6.1) M/uL Hgb (14.0-18.0) g/dL Hct (42-52) % MCV (80-100) fL MCH (25-34) pg MCHC (32-36) g/dL RDW Std Deviation (36.4-46.3) fL RDW Coeff of Elmo (11.5-14.5) % Plt Count (130-400) K/uL MPV (7.4-10.4) fL Immature Gran % (Auto) % Neut % (Auto) % Lymph % (Auto) % [place] % (Auto) % Eos % (Auto) % Baso % (Auto) % Neut # (Auto) (1.4-6.5) K/uL Lymph # (Auto) (1.2-3.4) K/uL [place] # (Auto) (0.11-0.59) K/uL Eos # (Auto) (0-0.5) K/uL Baso # (Auto) (0-0.2) K/uL Immature Gran # (Auto) (0.00-0.02) K/uL Giant Platelets Echinocytes Sodium 135 L (136-145) mmol/L Potassium 3.4 L (3.5-5.1) mmol/L Chloride 102 (98-107) mmol/L Carbon Dioxide 21 (21-32) mmol/L Anion Gap 13.0 H (3-11) BUN 65 H (7-18) mg/dl Creatinine 2.60 H (0.6-1.4) mg/dl Est Cr Clr Drug Dosing 29.2 ml/min Est GFR ( Amer) 26.2 ml/min Est GFR (Non-Af Amer) 22.6 ml/min BUN/Creatinine Ratio 24.8 H (10-20) Glucose 186 H (70-99) mg/dl Calcium 9.0 (8.5-10.1) mg/dl Total Bilirubin 0.9 (0.2-1) mg/dl AST 65 H (15-37) U/L ALT 81 H (12-78) U/L Alkaline Phosphatase 74 (45-117) U/L Total Protein 7.3 (6.4-8.2) gm/dl Albumin 2.9 L (3.4-5.0) gm/dl Globulin 4.4 H (2.5-4.0) gm/dl Albumin/Globulin Ratio 0.7 L (0.9-2) Lipase 54 L (73-393) U/L Urine Color Dark Yellow Urine Appearance Turbid A (Clear) Urine pH 5.0 (4.5-7.5) Ur Specific [place]ois 1.024 (1.000-1.030) Urine Protein 2+ H (Negative) Urine Glucose (UA) Negative (Negative) Urine Ketones Trace H (Negative) Urine Blood 3+ H (Negative) Urine Nitrite Negative (Negative) Urine Bilirubin 1+ H (Negative) Urine Urobilinogen Negative (Negative) Ur Leukocyte Esterase 1+ H (Negative) Urine WBC (Auto) >30 H (0-5) /hpf Urine RBC (Auto) 5-10 H (0-4) /hpf U Hyaline Cast (Auto) 1-5 (0-5) /lpf U Epithel Cells (Auto) >30 H (0-5) /lpf Urine Bacteria (Auto) 4+ H (Negative) Amorphous Sediment Present A (None Prsent) Urine Yeast Not Reportable COVID-19 Eval Order SARS-CoV-2 (PCR) (Negative) Administered Medications Discontinued Medications Ampicillin Sodium/Sulbactam Sodium 3,000 mg/ Sodium Chloride 108 mls @ 200 mls/hr IV NOW STA; Protocol Stop: 04/07/21 11:23 Last Infusion: 04/07/21 12:18 Dose: 0 mls/hr Documented by: [id number] Admin: 04/07/21 11:45 Dose: 200 mls/hr Documented by: [id number] Sodium Chloride (Nss 1000ml) 1,000 mls @ 999 mls/hr IV .Q1H1M ONE Stop: 04/07/21 12:56 Last Infusion: 04/07/21 13:03 Dose: 0 mls/hr Documented by: [id number] Admin: 04/07/21 12:02 Dose: 999 mls/hr Documented by: [id number] Morphine Sulfate (Morphine Sulfate 2 Mg/Ml Carp) 2 mg IV NOW STA Stop: 04/07/21 10:48 Last Admin: 04/07/21 11:22 Dose: 2 mg Documented by: [id number] Imaging Data Radiologist's Impression: Abdomen/Pelvis CT 04/07/21 11:56 CT SCAN OF THE ABDOMEN AND PELVIS WITHOUT IV CONTRAST CLINICAL HISTORY: Acute renal insufficiency. Abdominal distention. COMPARISON STUDY: Abdominal CT dated 04/05/2021. TECHNIQUE: CT scan of the abdomen and pelvis is performed from the lung bases to the proximal femora. Images are reviewed in the axial, sagittal, and coronal planes. IV contrast was not administered for this examination due to poor renal function. Note that the examination is significantly suboptimal without oral and IV contrast. There is also motion artifact. A dose lowering technique was utilized adhering to the principles of ALARA. CT DOSE: 1224.72 mGy.cm FINDINGS: Lung bases: The heart is enlarged and without pericardial effusion. The coronary arteries are densely calcified. There is a small hiatal hernia. The lung bases are clear noting bibasilar scarring/atelectasis. Liver: The unenhanced liver is normal in size, contour, and attenuation. There is no intrahepatic biliary ductal dilatation. Gallbladder: Normal as visualized. Spleen: Normal in size and attenuation. Pancreas: The unenhanced pancreas is moderately atrophic and grossly unremarkable. Adrenal glands: Unremarkable. Kidneys: The unenhanced kidneys demonstrate cortical atrophy and are without hydronephrosis. There are no renal calculi identified. A 1.5 cm cyst is again seen in the right lower pole. Abdominal vasculature: The abdominal aorta is normal in course and caliber noting advanced atherosclerotic calcification. Bowel: There is marked gaseous distention of the colon, which measures up to 10 cm in diameter. The colon is dilated to the level of the rectum. No obstructing lesion is seen. Mild wall thickening is suggested in the rectosigmoid. There is also mild distention of the small bowel loops which are fluid-filled. Wall thickening and edema is seen involving the distal/terminal ileum with minimal surrounding infiltration. The proximal small bowel loops are decompressed, with no transition point identified. There is no pneumatosis intestinalis or portal venous gas. The appendix is not visualized. Peritoneum: There is no intraperitoneal free air or abdominal ascites. Lymphadenopathy: None. Pelvic viscera: Evaluation of the pelvis is degraded by streak artifact from a right hip arthroplasty. The bladder is decompressed around a Pizarro catheter and appears circumferentially thick walled. There are small foci of intraluminal gas. The prostate gland is presumed surgically absent. Skeletal structures: The skeletal structures are osteopenic. There is moderate to advanced lumbosacral spondylosis and mild scoliosis. No lytic or blastic lesions are seen. A right hip arthroplasty is in place. Advanced arthritic change is seen in the left hip. There is near-complete bony fusion of the pubic symphysis and sacroiliac joints. A complex chronic-appearing fluid collection overlying the left lateral femur on image #[id number] is partially visualized and unchanged in previous. This measures up to 5.3 x 2.5 cm and may represent a chronic liquefied hematoma. IMPRESSION: 1. There is marked gaseous distention of the colon. This is distended to the level of the rectum, with no transition point identified. Ileus is favored over distal colonic obstruction. 2. The mid to distal small bowel loops are also mildly distended and fluid- filled, again likely representing ileus. Low-grade obstruction is considered less likely. The proximal small bowel loops are decompressed. 3. There is wall thickening seen involving the distal/terminal ileum as well as the rectosigmoid. Correlate clinically for evidence of a nonspecific enterocolitis. 4. No intraperitoneal free air is identified. There is no pneumatosis intestinalis or portal venous gas. 5. Cardiomegaly. 6. The bladder wall appears circumferentially thickened. Correlate with clinical findings and urinalysis. 7. Additional findings as detailed above. ACT 112: Negative or not required by law. Electronically signed by: Jake Maurice M.D. 04/07/2021 1:30 PM Discharge Plan Visit Data Chief Complaint: Abdominal Pain ED Provider: Modesto Lorenzana Discharge Problem: PAULO (acute kidney injury), Abdominal pain, Ileus, Complicated urinary tract infection, Transaminitis Patient Disposition: Admitted As Inpatient Forms Stand Alone Forms: [facility] Prescriptions Prescriptions: No Action clonidine HCl 0.1 mg tablet 0.1 mg PO BID RF: 0 acetaminophen [Tylenol] 325 mg Tablet 650 mg PO Q12 RF: 0 metoprolol succinate 50 mg tablet extended release 24 hr 50 mg PO QAM RF: 0 aspirin [Aspir-Low] 81 mg Tablet,Delayed Release (Dr/Ec) 81 mg PO QAM RF: 0 spironolactone 25 mg tablet 25 mg PO QAM RF: 0 potassium chloride 20 mEq tablet,ER particles/crystals 20 meq PO BID RF: 0 furosemide 80 mg tablet 80 mg PO QAM RF: 0 digoxin 125 mcg (0.125 mg) tablet 125 mcg PO QAM RF: 0 ondansetron 4 mg tablet,disintegrating 4 mg translingual Q6 PRN (Reason: Nausea) RF: 0 fluticasone propionate 50 mcg/actuation spray,suspension 1 spray INTRANASAL BID RF: 0 docusate sodium 100 mg Tablet 100 mg PO HS RF: 0 rosuvastatin 40 mg tablet 40 mg PO HS RF: 0 melatonin 5 mg Tablet 5 mg PO HS RF: 0 cholecalciferol (vitamin D3) [Vitamin D3] 50 mcg (2,000 unit) Tablet 50 mcg PO HS RF: 0 Xarelto 20 mg tablet 20 mg PO QAM RF: 0 multivitamin with minerals Tablet 1 tab PO QAM RF: 0 metoclopramide HCl 10 mg Tablet 10 mg PO QID RF: 0 Referrals Referrals: [facility] [Primary Care Provider] - Discharge Problem: Abdominal pain Qualifiers: Abdominal location: generalized Qualified Code(s): R10.84 - Generalized abdominal pain
[2021-04-07] MEDS ORDERED: MoRPHine SULFATE 2 MG/ML CARP IV STA (10:47)
[2021-04-07] MEDS ORDERED: AMPICILLIN/SULBACTAM SOD 3,000 MG in 0.9 % SODIUM CHLORIDE 100 ML IV STA (10:51)
[2021-04-07 11:26] LABS: Hematocrit (blood only) 39.8 % (42-52); Hemoglobin 14.2 g/dL (14.0-18.0); Mean Corpuscular Hemoglobin 34.2 pg (25-34); Mean Corpuscular Hgb Conc 35.7 g/dL (32-36); Mean Corpuscular Volume 95.9 fL (80-100); Mean Platelet Volume 10.7 fL (7.4-10.4); Platelet Count 226 K/uL (130-400); RDW Standard Deviation 45.5 fL (36.4-46.3); Red Blood Count 4.15 M/uL (4.7-6.1); White Blood Count 8.01 K/uL (4.8-10.8)
[2021-04-07 11:47] LABS: Albumin Level 2.9 gm/dl (3.4-5.0); BUN Creatinine Ratio 24.8 (10-20); Creatinine Clr Calc Pharmacy 29.2 ml/min; Est GFR (African American) 26.2 ml/min; Est GFR (Non-African American) 22.6 ml/min; Potassium 3.4 mmol/L (3.5-5.1)
[2021-04-07 11:49] LABS: Albumin Globulin Ratio 0.7 (0.9-2); Bilirubin,Total 0.9 mg/dl (0.2-1); Globulin 4.4 gm/dl (2.5-4.0); Total Protein 7.3 gm/dl (6.4-8.2)
[2021-04-07 11:50] LABS: Basophils # (auto) 0.01 K/uL (0-0.2); Basophils % (auto) 0.1 %; Echinocytes 1+; Eosinophils # (auto) 0.02 K/uL (0-0.5); Eosinophils % (auto) 0.2 %; Giant Platelets 1+; Immature Granulocytes # (auto) 0.05 K/uL (0.00-0.02); Immature Granulocytes % (auto) 0.6 %; Lymphocytes # (auto) 1.42 K/uL (1.2-3.4); Lymphocytes % (auto) 17.7 %; Monocytes # (auto) 1.47 K/uL (0.11-0.59); Monocytes % (auto) 18.4 %; Neutrophils # (auto) 5.04 K/uL (1.4-6.5)
[2021-04-07 11:56] LABS: Appearance Urine Turbid (Clear); Bacteria Urine Automated 4+ (Negative); Blood Urine 3+ (Negative); Color Urine Dark Yellow; Epithelial Cell Urine Auto >30 /lpf (0-5); Glucose Urine UA Negative (Negative); Ketones Urine Trace (Negative); Leukocyte Esterase Urine 1+ (Negative); Nitrite Urine Negative (Negative); Protein Urine 2+ (Negative); Specific Gravity Urine 1.024 (1.000-1.030); Urobilinogen Urine Negative (Negative); WBC Urine Automated >30 /hpf (0-5)
[2021-04-07] MEDS ORDERED: SODIUM CHLORIDE 0.9% 1000ML 1,000 ML IV ONE (11:56)
[2021-04-07 11:59] LABS: Bilirubin Urine 1+ (Negative)
[2021-04-07 12:17] LABS: Amorphous Sediment Urine Present (None Prsent)
--- NOTE | 2021-04-07 13:32 | CT Scan Report ---
CT SCAN OF THE ABDOMEN AND PELVIS WITHOUT IV CONTRAST CLINICAL HISTORY: Acute renal insufficiency. Abdominal distention. COMPARISON STUDY: Abdominal CT dated 04/05/2021. TECHNIQUE: CT scan of the abdomen and pelvis is performed from the lung bases to the proximal femora. Images are reviewed in the axial, sagittal, and coronal planes. IV contrast was not administered for this examination due to poor renal function. Note that the examination is significantly suboptimal w ithout oral and IV contrast. There is also motion artifact. A dose lowering technique was utilized ad irving to the principles of ALARA. CT DOSE: 1224.72 mGy.cm FINDINGS: Lung bases: The heart is enlarged and without pericardial effusion. The coronary arteries are densely calcified. There is a small hiatal hernia. The lung bases are clear noting bibasilar scarring/atelec tasis. Liver: The unenhanced liver is normal in size, contour, and attenuation. There is no intrahepatic eric iary ductal dilatation. Gallbladder: Normal as visualized. Spleen: Normal in size and attenuation. Pancreas: The unenhanced pancreas is moderately atrophic and grossly unremarkable. Adrenal glands: Unremarkable. Kidneys: The unenhanced kidneys demonstrate cortical atrophy and are without hydronephrosis. There ar e no renal calculi identified. A 1.5 cm cyst is again seen in the right lower pole. Abdominal vasculature: The abdominal aorta is normal in course and caliber noting advanced atheroscle rotic calcification. Bowel: There is marked gaseous distention of the colon, which measures up to 10 cm in diameter. The c olon is dilated to the level of the rectum. No obstructing lesion is seen. Mild wall thickening is carrero ggested in the rectosigmoid. There is also mild distention of the small bowel loops which are fluid-f illed. Wall thickening and edema is seen involving the distal/terminal ileum with minimal surrounding infiltration. The proximal small bowel loops are decompressed, with no transition point identified. There is no pneumatosis intestinalis or portal venous gas. The appendix is not visualized. Peritoneum: There is no intraperitoneal free air or abdominal ascites. Lymphadenopathy: None. Pelvic viscera: Evaluation of the pelvis is degraded by streak artifact from a right hip arthroplasty . The bladder is decompressed around a Pizarro catheter and appears circumferentially thick walled. The re are small foci of intraluminal gas. The prostate gland is presumed surgically absent. Skeletal structures: The skeletal structures are osteopenic. There is moderate to advanced lumbosacra l spondylosis and mild scoliosis. No lytic or blastic lesions are seen. A right hip arthroplasty is i n place. Advanced arthritic change is seen in the left hip. There is near-complete bony fusion of the pubic symphysis and sacroiliac joints. A complex chronic-appearing fluid collection overlying the le ft lateral femur on image #[id number] is partially visualized and unchanged in previous. This measures up t o 5.3 x 2.5 cm and may represent a chronic liquefied hematoma. IMPRESSION: 1. There is marked gaseous distention of the colon. This is distended to the level of the rectum, wit h no transition point identified. Ileus is favored over distal colonic obstruction. 2. The mid to distal small bowel loops are also mildly distended and fluid-filled, again likely repre senting ileus. Low-grade obstruction is considered less likely. The proximal small bowel loops are de compressed. 3. There is wall thickening seen involving the distal/terminal ileum as well as the rectosigmoid. Cor relate clinically for evidence of a nonspecific enterocolitis. 4. No intraperitoneal free air is identified. There is no pneumatosis intestinalis or portal venous g as. 5. Cardiomegaly. 6. The bladder wall appears circumferentially thickened. Correlate with clinical findings and urinaly sis. 7. Additional findings as detailed above. ACT 112: Negative or not required by law. Electronically signed by: Jake Maurice M.D. 04/07/2021 1:30 PM
--- NOTE | 2021-04-07 14:14 | History & Physical Report ---
Date of Service April 07, 2021 Assessment & Plan (1) Colon distention: Plan: Patient is colonic distention to the rectum with some ileus of the small bowel. General surgery has been consulted however will also consult gastroenterology to consider decompression colonoscopy at this point time patient be kept n.p.o. be hydrated with fluid to his acute kidney injury and will reduce oral medications to the bare minimum Patient's colon is dilated almost 10 cm. I did speak personally with Dr. Brayan Gold general surgery who recommended consideration of a rectal tube and to discuss with gastroenterology. I did contact Dr. Pittman who referred us to Dr. Thurman and Dr. Ricardo Diallo with the [facility] I did personally speak to Dr. Thurman who agreed to look at the case. Images are currently being under review (2) Chronic congestive heart failure with left ventricular diastolic dysfunction: Plan: Patient is a history of heart failure preserved ejection fraction, patient typ ically taking furosemide and spironolactone. Last ejection fraction measured was 60 to 65% we will hydrate patient cautiously and look for signs of volume overload (3) Permanent atrial fibrillation: Plan: Patient has history of atrial fibrillation typically on metoprolol digoxin aspirin and Xarelto (4) Complicated UTI (urinary tract infection): Plan: Patient with abnormal urinalysis in the ER outpatient urine culture from 04/05 shows Klebsiella. Patient will be continued on Zosyn therapy based upon sensitivities. Considerations to transition to quinolone for de-escalation will be discussed with pharmacy (5) Hypokalemia: Plan: This will be repleted by intravenous fluids magnesium will also be administered (6) DVT prophylaxis: Plan: SCD for DVT prevention History of Present Illness Primary Care Provider: [facility] Patient presents from [facility] with abdominal pain that has been intermittent over the last several days. Reportedly the patient is not had a bowel movement in the last 3 days. The patient states he is occasionally passing gas and denies any vomiting. Patient does have a chronic indwelling Pizarro catheter and a urine culture from 04/05/21 resulted with Klebsiella. Patient does not take anything for pain and states that this is gotten progressively worse where he cannot get comfortable. Patient has had more abdominal distension over the last several days. CT abdomen pelvis showed shows large bowel distension to the level of the rectum and some small bowel distension without transition point The pt has cameron with history of CKD# . Covid negative. Allergies Allergy/AdvReac Type Severity Reaction Status Date / Time ceftriaxone Allergy Unknown ON [place] Verified 04/07/21 12:04 [facility] vancomycin Allergy Unknown ON [place] Verified 04/07/21 12:04 [facility] Home Medications Medication Instructions Recorded Confirmed Type acetaminophen 325 mg tablet 650 mg PO Q12 04/05/21 04/07/21 History (Tylenol) aspirin 81 mg tablet,delayed 81 mg PO QAM 04/05/21 04/07/21 History release cholecalciferol (vitamin D3) 50 50 mcg PO HS 04/05/21 04/07/21 History mcg (2,000 unit) tablet (Vitamin D3) clonidine HCl 0.1 mg tablet 0.1 mg PO BID 04/05/21 04/07/21 History digoxin 125 mcg (0.125 mg) tablet 125 mcg PO QAM 04/05/21 04/07/21 History docusate sodium 100 mg tablet 100 mg PO HS 04/05/21 04/07/21 History fluticasone propionate 50 1 spray INTRANASAL BID 04/05/21 04/07/21 History mcg/actuation nasal spray,suspension furosemide 80 mg tablet 80 mg PO QAM 04/05/21 04/07/21 History melatonin 5 mg tablet 5 mg PO HS 04/05/21 04/07/21 History metoprolol succinate 50 mg 50 mg PO QAM 04/05/21 04/07/21 History tablet,extended release 24 hr ondansetron 4 mg disintegrating 4 mg TRANSLINGUAL Q6 PRN 04/05/21 04/07/21 History tablet potassium chloride 20 mEq 20 meq PO BID 04/05/21 04/07/21 History tablet,extended release(part/cryst) rivaroxaban 20 mg tablet (Xarelto) 20 mg PO QAM 04/05/21 04/07/21 History rosuvastatin 40 mg tablet 40 mg PO HS 04/05/21 04/07/21 History spironolactone 25 mg tablet 25 mg PO QAM 04/05/21 04/07/21 History metoclopramide HCl 10 mg tablet 10 mg PO QID 04/07/21 04/07/21 History multivitamin with minerals 1 tab PO QAM 04/07/21 04/07/21 History Past Med/Surg History Medical History (Updated 04/07/21 @ 14:13 by Irwin Grajeda MD) Acute on chronic diastolic CHF (congestive heart failure) Aortic valve disorder Cellulitis 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 SIRS (systemic inflammatory response syndrome) Stasis dermatitis of both legs Streptococcal sepsis Family History Other FHx: hypertension Social History Smoking Status: Never smoker Hx Alcohol Use: No Hx Substance Use: No Preferred Language: Lao Communication Ability: Effective Visual Impairment: No Limitations [employer] Required: No Beliefs That Will Affect Care: None marital status: Current Living Situation: Retirement Feels Safe at Home: Yes Assistive Devices: Walker Review of Systems Review of Systems: Mild distress and fatigue no headache, no visual changes no speech or swallowing issues no chest pain, pressure or palpitations no shortness of breath, cough or wheezes no abdominal pain, nausea or vomiting, diarrhea or constipation no dysuria, hematuria or frequency no focal joint pain or swelling no back pain, CVA tenderness or radicular pain no bruising, bleeding or rashes no focal signs of weakness or numbness or altered sensation no complaints of anxiety or depression.. Physical Exam Physical Exam: The patient appeared well nourished and normally developed. Vital signs as documented. Head exam is normocephalic atraumatic Neck is without JVD, thyromegaly, or carotid bruits. Lungs are clear to auscultation, no focal loss of breath sounds Cardiac exam, Rhythm is regular.. No murmurs, rubs or gallops. Abdominal exam reveals normal bowel sounds, soft non tender, no masses Extremities are nonedematous and both pedal pulses are present Neurologic exam is alert and oriented, no focal loss of strength or sensation Skin is without bruises or rashes Psychologically is without concerns for anxiety or depression Results & Data Results & Data ([facility]) Vital Signs (Past 12 Hours) Vital Signs Temp Pulse Resp BP Pulse Ox 04/07/21 13:50 94 H 19 96 04/07/21 13:40 90 20 96 04/07/21 13:30 93 H 20 97 04/07/21 13:20 92 H 19 97 04/07/21 13:10 88 18 97 04/07/21 12:50 90 18 99 04/07/21 12:40 89 15 100 04/07/21 12:30 91 H 18 140/66 98 04/07/21 12:20 92 H 17 100 04/07/21 12:10 99 H 18 100 04/07/21 12:00 89 19 114/67 99 04/07/21 11:50 88 18 99 04/07/21 11:40 94 H 19 99 04/07/21 11:30 94 H 19 92 04/07/21 11:20 89 20 98 04/07/21 11:10 97 H 21 97 04/07/21 11:02 90 22 95 04/07/21 11:00 91 H 21 119/63 96 04/07/21 10:50 103 H 23 96 04/07/21 10:48 89 23 97 04/07/21 10:39 97.5 F L 84 18 123/65 96 PG Care Time/CCT Total # of Minutes Spent Total Time Spent with Patient: Total time spent is greater than 50% in coordination of care (as documented) at patient's floor/unit and/or counseling patient: Coding Level of Care Code 61824 Initial Inpt Care Lvl 2 Diagnoses Chronic congestive heart failure with left ventricular diastolic dysfunction I50.32 Complicated UTI (urinary tract infection) N39.0 Hypokalemia E87.6 Colon distention K63.89 Permanent atrial fibrillation I48.2 DVT prophylaxis Z29.9
--- NOTE | 2021-04-07 15:00 | Surgery Consultation ---
Date of Consultation April 07, 2021 Assessment & Plan (1) Colon distention: 80 year-old male presented to emergency room two days ago with CT scan showing large and small bowel distention and again repeat CT scan today showing colonic distention to level of rectum measuring up to 10 cm with no evidence of distal colonic obstruction favoring colonic ileus. Rectal examination did not show rectal mass or stricture. Abdomen is distended and tender but no peritonitis. Plan: No acute surgical intervention required at this time Given colonic distention would likely not benefit from NGT placement. Would recommend GI consultation for decompression with rectal tube vs colonoscopy. Keep NPO IV fluids pain management as needed Dr. Gold has seen and examined patient and agrees with above. History of Present Illness Reason for Consultation: Ileus abdominal pain Requesting Physician: Dr. Lorenzana Attending Physician: Dr. Grajeda History of Present Illness Arron is a 80 year-old male with history of chronic congestive heart failure, chronic indwelling Pizarro catheter, aortic valve disorder, atrial fibrillation who presented to ED two days ago for abdominal pain and CT scan showed large and small bowel distention consistent with ileus. He presented again to emergency room today due to increasing abdominal pain and distention. Last bowel movement was 3 days ago but very small per patient. Passing some gas but not much. Had a colonoscopy a few years ago and nothing was found. States he though maybe he had cancer because bowel movements were not regular. States he had the colon[place] in [place]. Denies of any rectal bleeding or blood in stools. Allergies Allergy/AdvReac Type Severity Reaction Status Date / Time ceftriaxone Allergy Unknown ON [place] Verified 04/07/21 12:04 [facility] vancomycin Allergy Unknown ON [place] Verified 04/07/21 12:04 [facility] Home Medications Medication Instructions Recorded Confirmed Type acetaminophen 325 mg tablet 650 mg PO Q12 04/05/21 04/07/21 History (Tylenol) aspirin 81 mg tablet,delayed 81 mg PO QAM 04/05/21 04/07/21 History release cholecalciferol (vitamin D3) 50 50 mcg PO HS 04/05/21 04/07/21 History mcg (2,000 unit) tablet (Vitamin D3) clonidine HCl 0.1 mg tablet 0.1 mg PO BID 04/05/21 04/07/21 History digoxin 125 mcg (0.125 mg) tablet 125 mcg PO QAM 04/05/21 04/07/21 History docusate sodium 100 mg tablet 100 mg PO HS 04/05/21 04/07/21 History fluticasone propionate 50 1 spray INTRANASAL BID 04/05/21 04/07/21 History mcg/actuation nasal spray,suspension furosemide 80 mg tablet 80 mg PO QAM 04/05/21 04/07/21 History melatonin 5 mg tablet 5 mg PO HS 04/05/21 04/07/21 History metoprolol succinate 50 mg 50 mg PO QAM 04/05/21 04/07/21 History tablet,extended release 24 hr ondansetron 4 mg disintegrating 4 mg TRANSLINGUAL Q6 PRN 04/05/21 04/07/21 History tablet potassium chloride 20 mEq 20 meq PO BID 04/05/21 04/07/21 History tablet,extended release(part/cryst) rivaroxaban 20 mg tablet (Xarelto) 20 mg PO QAM 04/05/21 04/07/21 History rosuvastatin 40 mg tablet 40 mg PO HS 04/05/21 04/07/21 History spironolactone 25 mg tablet 25 mg PO QAM 04/05/21 04/07/21 History metoclopramide HCl 10 mg tablet 10 mg PO QID 04/07/21 04/07/21 History multivitamin with minerals 1 tab PO QAM 04/07/21 04/07/21 History Patient History Medical History (Updated 04/07/21 @ 14:13 by Irwin Grajeda MD) Acute on chronic diastolic CHF (congestive heart failure) Aortic valve disorder Cellulitis 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 SIRS (systemic inflammatory response syndrome) Stasis dermatitis of both legs Streptococcal sepsis Family History Other FHx: hypertension Social History Smoking Status: Never smoker Hx Alcohol Use: No Hx Substance Use: No Preferred Language: Azeri Communication Ability: Effective Visual Impairment: No Limitations Court Stenographer Required: No Beliefs That Will Affect Care: None marital status: Current Living Situation: Alf Feels Safe at Home: Yes Assistive Devices: Walker Physical Exam Constitutional: + obese; no acute distress and not ill appearing Respiratory: normal respiratory effort; no respiratory distress, no labored breathing and no retractions Gastrointestinal (Abdomen): Inspection/Auscultation: + abdomen distended Percussion/Palpation: + abdomen tender (generalized tenderness) and abdomen soft; no guarding and abdomen not rigid Rectal Exam: normal visual inspection of rectum; no rectal mass, no fecal impaction and no rectal lesions Skin: no rashes, warm and dry Psychiatric: Orientation: alert, oriented x 3 and cooperative Results & Data ([facility]) Vital Signs (Past 12 Hours) Vital Signs Temp Pulse Resp BP Pulse Ox 04/07/21 14:50 80 20 96 04/07/21 14:40 98 H 19 96 04/07/21 14:30 98 H 23 142/69 H 97 04/07/21 14:20 93 H 22 97 04/07/21 14:10 92 H 20 97 04/07/21 14:00 90 19 130/73 97 04/07/21 13:50 94 H 19 96 04/07/21 13:40 90 20 96 04/07/21 13:30 93 H 20 97 04/07/21 13:20 92 H 19 97 04/07/21 13:10 88 18 97 04/07/21 12:50 90 18 99 04/07/21 12:40 89 15 100 04/07/21 12:30 91 H 18 140/66 98 04/07/21 12:20 92 H 17 100 04/07/21 12:10 99 H 18 100 04/07/21 12:00 89 19 114/67 99 04/07/21 11:50 88 18 99 04/07/21 11:40 94 H 19 99 04/07/21 11:30 94 H 19 92 04/07/21 11:20 89 20 98 04/07/21 11:10 97 H 21 97 04/07/21 11:02 90 22 95 04/07/21 11:00 91 H 21 119/63 96 04/07/21 10:50 103 H 23 96 04/07/21 10:48 89 23 97 04/07/21 10:39 36.4 C L 84 18 123/65 96 Laboratory Results 04/07/21 04/07/21 04/07/21 Range/Units 11:35 11:15 11:15 WBC 8.01 (4.8-10.8) K/uL RBC 4.15 L (4.7-6.1) M/uL Hgb 14.2 (14.0-18.0) g/dL Hct 39.8 L (42-52) % MCV 95.9 (80-100) fL MCH 34.2 H (25-34) pg MCHC 35.7 (32-36) g/dL RDW Std Deviation 45.5 (36.4-46.3) fL RDW Coeff of Elmo 13.0 (11.5-14.5) % Plt Count 226 (130-400) K/uL MPV 10.7 H (7.4-10.4) fL Immature Gran % (Auto) 0.6 % Neut % (Auto) 63.0 % Lymph % (Auto) 17.7 % Davison % (Auto) 18.4 % Eos % (Auto) 0.2 % Baso % (Auto) 0.1 % Neut # (Auto) 5.04 (1.4-6.5) K/uL Lymph # (Auto) 1.42 (1.2-3.4) K/uL Davison # (Auto) 1.47 H (0.11-0.59) K/uL Eos # (Auto) 0.02 (0-0.5) K/uL Baso # (Auto) 0.01 (0-0.2) K/uL Immature Gran # (Auto) 0.05 H (0.00-0.02) K/uL Giant Platelets 1+ Echinocytes 1+ Sodium 135 L (136-145) mmol/L Potassium 3.4 L (3.5-5.1) mmol/L Chloride 102 (98-107) mmol/L Carbon Dioxide 21 (21-32) mmol/L Anion Gap 13.0 H (3-11) BUN 65 H (7-18) mg/dl Creatinine 2.60 H (0.6-1.4) mg/dl Est Cr Clr Drug Dosing 29.2 ml/min Est GFR ( Amer) 26.2 ml/min Est GFR (Non-Af Amer) 22.6 ml/min BUN/Creatinine Ratio 24.8 H (10-20) Glucose 186 H (70-99) mg/dl Calcium 9.0 (8.5-10.1) mg/dl Total Bilirubin 0.9 (0.2-1) mg/dl AST 65 H (15-37) U/L ALT 81 H (12-78) U/L Alkaline Phosphatase 74 (45-117) U/L Total Protein 7.3 (6.4-8.2) gm/dl Albumin 2.9 L (3.4-5.0) gm/dl Globulin 4.4 H (2.5-4.0) gm/dl Albumin/Globulin Ratio 0.7 L (0.9-2) Lipase 54 L (73-393) U/L Urine Color Dark Yellow Urine Appearance Turbid A (Clear) Urine pH 5.0 (4.5-7.5) Ur Specific [place] 1.024 (1.000-1.030) Urine Protein 2+ H (Negative) Urine Glucose (UA) Negative (Negative) Urine Ketones Trace H (Negative) Urine Blood 3+ H (Negative) Urine Nitrite Negative (Negative) Urine Bilirubin 1+ H (Negative) Urine Urobilinogen Negative (Negative) Ur Leukocyte Esterase 1+ H (Negative) Urine WBC (Auto) >30 H (0-5) /hpf Urine RBC (Auto) 5-10 H (0-4) /hpf U Hyaline Cast (Auto) 1-5 (0-5) /lpf U Epithel Cells (Auto) >30 H (0-5) /lpf Urine Bacteria (Auto) 4+ H (Negative) Amorphous Sediment Present A (None Prsent) Urine Yeast Not Reportable COVID-19 Eval Order SARS-CoV-2 (PCR) (Negative) 04/07/21 04/07/21 Range/Units 11:00 11:00 WBC (4.8-10.8) K/uL RBC (4.7-6.1) M/uL Hgb (14.0-18.0) g/dL Hct (42-52) % MCV (80-100) fL MCH (25-34) pg MCHC (32-36) g/dL RDW Std Deviation (36.4-46.3) fL RDW Coeff of Elmo (11.5-14.5) % Plt Count (130-400) K/uL MPV (7.4-10.4) fL Immature Gran % (Auto) % Neut % (Auto) % Lymph % (Auto) % Davison % (Auto) % Eos % (Auto) % Baso % (Auto) % Neut # (Auto) (1.4-6.5) K/uL Lymph # (Auto) (1.2-3.4) K/uL Davison # (Auto) (0.11-0.59) K/uL Eos # (Auto) (0-0.5) K/uL Baso # (Auto) (0-0.2) K/uL Immature Gran # (Auto) (0.00-0.02) K/uL Giant Platelets Echinocytes Sodium (136-145) mmol/L Potassium (3.5-5.1) mmol/L Chloride (98-107) mmol/L Carbon Dioxide (21-32) mmol/L Anion Gap (3-11) BUN (7-18) mg/dl Creatinine (0.6-1.4) mg/dl Est Cr Clr Drug Dosing ml/min Est GFR ( Amer) ml/min Est GFR (Non-Af Amer) ml/min BUN/Creatinine Ratio (10-20) Glucose (70-99) mg/dl Calcium (8.5-10.1) mg/dl Total Bilirubin (0.2-1) mg/dl AST (15-37) U/L ALT (12-78) U/L Alkaline Phosphatase (45-117) U/L Total Protein (6.4-8.2) gm/dl Albumin (3.4-5.0) gm/dl Globulin (2.5-4.0) gm/dl Albumin/Globulin Ratio (0.9-2) Lipase (73-393) U/L Urine Color Urine Appearance (Clear) Urine pH (4.5-7.5) Ur Specific [place] (1.000-1.030) Urine Protein (Negative) Urine Glucose (UA) (Negative) Urine Ketones (Negative) Urine Blood (Negative) Urine Nitrite (Negative) Urine Bilirubin (Negative) Urine Urobilinogen (Negative) Ur Leukocyte Esterase (Negative) Urine WBC (Auto) (0-5) /hpf Urine RBC (Auto) (0-4) /hpf U Hyaline Cast (Auto) (0-5) /lpf U Epithel Cells (Auto) (0-5) /lpf Urine Bacteria (Auto) (Negative) Amorphous Sediment (None Prsent) Urine Yeast COVID-19 Eval Order Covid19 at [facility] SARS-CoV-2 (PCR) NEGATIVE (Negative) Diagnostic Findings CT SCAN OF THE ABDOMEN AND PELVIS WITHOUT IV CONTRAST CLINICAL HISTORY: Acute renal insufficiency. Abdominal distention. COMPARISON STUDY: Abdominal CT dated 04/05/2021. TECHNIQUE: CT scan of the abdomen and pelvis is performed from the lung bases to the proximal femora. Images are reviewed in the axial, sagittal, and coronal planes. IV contrast was not administered for this examination due to poor renal function. Note that the examination is significantly suboptimal without oral and IV contrast. There is also motion artifact. A dose lowering technique was utilized adhering to the principles of ALARA. CT DOSE: 1224.72 mGy.cm FINDINGS: Lung bases: The heart is enlarged and without pericardial effusion. The coronary arteries are densely calcified. There is a small hiatal hernia. The lung bases are clear noting bibasilar scarring/atelectasis. Liver: The unenhanced liver is normal in size, contour, and attenuation. There is no intrahepatic biliary ductal dilatation. Gallbladder: Normal as visualized. Spleen: Normal in size and attenuation. Pancreas: The unenhanced pancreas is moderately atrophic and grossly unremarkable. Adrenal glands: Unremarkable. Kidneys: The unenhanced kidneys demonstrate cortical atrophy and are without hydronephrosis. There are no renal calculi identified. A 1.5 cm cyst is again seen in the right lower pole. Abdominal vasculature: The abdominal aorta is normal in course and caliber noting advanced atherosclerotic calcification. Bowel: There is marked gaseous distention of the colon, which measures up to 10 cm in diameter. The colon is dilated to the level of the rectum. No obstructing lesion is seen. Mild wall thickening is suggested in the rectosigmoid. There is also mild distention of the small bowel loops which are fluid-filled. Wall thickening and edema is seen involving the distal/terminal ileum with minimal surrounding infiltration. The proximal small bowel loops are decompressed, with no transition point identified. There is no pneumatosis intestinalis or portal venous gas. The appendix is not visualized. Peritoneum: There is no intraperitoneal free air or abdominal ascites. Lymphadenopathy: None. Pelvic viscera: Evaluation of the pelvis is degraded by streak artifact from a right hip arthroplasty. The bladder is decompressed around a Pizarro catheter and appears circumferentially thick walled. There are small foci of intraluminal gas. The prostate gland is presumed surgically absent. Skeletal structures: The skeletal structures are osteopenic. There is moderate to advanced lumbosacral spondylosis and mild scoliosis. No lytic or blastic lesions are seen. A right hip arthroplasty is in place. Advanced arthritic change is seen in the left hip. There is near-complete bony fusion of the pubic symphysis and sacroiliac joints. A complex chronic-appearing fluid collection overlying the left lateral femur on image #[id number] is partially visualized and unchanged in previous. This measures up to 5.3 x 2.5 cm and may represent a chronic liquefied hematoma. IMPRESSION: 1. There is marked gaseous distention of the colon. This is distended to the level of the rectum, with no transition point identified. Ileus is favored over distal colonic obstruction. 2. The mid to distal small bowel loops are also mildly distended and fluid- filled, again likely representing ileus. Low-grade obstruction is considered less likely. The proximal small bowel loops are decompressed. 3. There is wall thickening seen involving the distal/terminal ileum as well as the rectosigmoid. Correlate clinically for evidence of a nonspecific enterocolitis. 4. No intraperitoneal free air is identified. There is no pneumatosis intestinalis or portal venous gas. 5. Cardiomegaly. 6. The bladder wall appears circumferentially thickened. Correlate with clinical findings and urinalysis. 7. Additional findings as detailed above.
--- NOTE | 2021-04-07 15:30 | Gastrointestinal Consultation ---
Date of Consultation April 07, 2021 History of Present Illness Reason for Consultation: abdominal distention History of Present Illness 80 yo M with mult med issues presents with 3 d h/o constipation, abdominal distention. Pt reports mild intermittent abdominal pain, no nausea or vomiting. He has had very small volume, incomplete BM's recently - last yesterday. He cannot remember passing flatus today. He has been on a liquid diet recently, which he is tolerating without difficulty; at present, he reports mild hunger. He describes progressive distention over the past few weeks. He has a h/o chronic constipation - he reports small volume incomplete BM typically once a week. He is largely bed/chair bound. He is on digoxin, clonidine; he is also on Reglan. Review of imaging shows abd ct on 04/05 showed colonic ileus with cecal diameter 9.5 cm per radiology review. His abd CT today again shows colonic ileus with cecal diameter 9.5 cm per radiology review. No solid stool in rectum on CT. Of note, he had marked colonic distention on CT in July 2018; there are no provider notes associated with this CT. He had L spine imaging which showed colonic distention in October 2018. In the ER. his K is 3.4 and he had no leukocytosis. He received unasyn for a UTI, and morphine 2 mg for abd pain. Labs are also pertinent for creatinine in the 2's, which is above his baseline. VS unremarkable - Afebrile, with pulse 80, BP 142/69 He is sleeping comfortably but rouses easily to voice. He does not appear to be in any pain. Abd: Markedly distended. Decreased BS and tympanic. He has no tenderness anywhere on my exam, even with deep palpation. No rebound or guarding. Rectal: Sphincter tone is normal. He no solid stool on rectal exam, and passes a small amount of liquid stool with passage of my finger. Labs reviewed CT's reviewed. 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 Would defer endoscopic decompression and try medical management first -- will encourage ambulation, give pt dulcolax suppositories, and IV emycin or one odse of IV azithromycin if available. Would ask primary service to please avoid narcotics, and to make sure that K is above 4, Mag above 2. NPO for now, will use NGT overnight to avoid air swallowing; also place rectal tube. Will check dig level. Of note, clonidine can also exacerbate constipation, but may be necessary for BP control - defer to primary srvice. Allergies Allergy/AdvReac Type Severity Reaction Status Date / Time ceftriaxone Allergy Unknown ON ATKA Verified 04/07/21 12:04 WATERLOO'S LIST vancomycin Allergy Unknown ON ATKA Verified 04/07/21 12:04 WATERLOO'S LIST Home Medications Medication Instructions Recorded Confirmed Type acetaminophen 325 mg tablet 650 mg PO Q12 04/05/21 04/07/21 History (Tylenol) aspirin 81 mg tablet,delayed 81 mg PO QAM 04/05/21 04/07/21 History release cholecalciferol (vitamin D3) 50 50 mcg PO HS 04/05/21 04/07/21 History mcg (2,000 unit) tablet (Vitamin D3) clonidine HCl 0.1 mg tablet 0.1 mg PO BID 04/05/21 04/07/21 History digoxin 125 mcg (0.125 mg) tablet 125 mcg PO QAM 04/05/21 04/07/21 History docusate sodium 100 mg tablet 100 mg PO HS 04/05/21 04/07/21 History fluticasone propionate 50 1 spray INTRANASAL BID 04/05/21 04/07/21 History mcg/actuation nasal spray,suspension furosemide 80 mg tablet 80 mg PO QAM 04/05/21 04/07/21 History melatonin 5 mg tablet 5 mg PO HS 04/05/21 04/07/21 History metoprolol succinate 50 mg 50 mg PO QAM 04/05/21 04/07/21 History tablet,extended release 24 hr ondansetron 4 mg disintegrating 4 mg TRANSLINGUAL Q6 PRN 04/05/21 04/07/21 History tablet potassium chloride 20 mEq 20 meq PO BID 04/05/21 04/07/21 History tablet,extended release(part/cryst) rivaroxaban 20 mg tablet (Xarelto) 20 mg PO QAM 04/05/21 04/07/21 History rosuvastatin 40 mg tablet 40 mg PO HS 04/05/21 04/07/21 History spironolactone 25 mg tablet 25 mg PO QAM 04/05/21 04/07/21 History metoclopramide HCl 10 mg tablet 10 mg PO QID 04/07/21 04/07/21 History multivitamin with minerals 1 tab PO QAM 04/07/21 04/07/21 History Patient History Medical History (Updated 04/07/21 @ 15:39 by Modesto Lorenzana MD) Acute on chronic diastolic CHF (congestive heart failure) Aortic valve disorder Cellulitis 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 SIRS (systemic inflammatory response syndrome) Stasis dermatitis of both legs Streptococcal sepsis Family History Other FHx: hypertension Social History Smoking Status: Never smoker Hx Alcohol Use: No Hx Substance Use: No Preferred Language: Irish Communication Ability: Effective Visual Impairment: No Limitations Skate Hop Required: No Beliefs That Will Affect Care: None marital status: Current Living Situation: [facility] Feels Safe at Home: Yes Assistive Devices: Walker Results & Data ([facility]) Vital Signs (Past 12 Hours) Vital Signs Temp Pulse Resp BP Pulse Ox 04/07/21 14:50 80 20 96 04/07/21 14:40 98 H 19 96 04/07/21 14:30 98 H 23 142/69 H 97 04/07/21 14:20 93 H 22 97 04/07/21 14:10 92 H 20 97 04/07/21 14:00 90 19 130/73 97 04/07/21 13:50 94 H 19 96 04/07/21 13:40 90 20 96 04/07/21 13:30 93 H 20 97 04/07/21 13:20 92 H 19 97 04/07/21 13:10 88 18 97 04/07/21 12:50 90 18 99 04/07/21 12:40 89 15 100 04/07/21 12:30 91 H 18 140/66 98 04/07/21 12:20 92 H 17 100 04/07/21 12:10 99 H 18 100 04/07/21 12:00 89 19 114/67 99 04/07/21 11:50 88 18 99 04/07/21 11:40 94 H 19 99 04/07/21 11:30 94 H 19 92 04/07/21 11:20 89 20 98 04/07/21 11:10 97 H 21 97 04/07/21 11:02 90 22 95 04/07/21 11:00 91 H 21 119/63 96 04/07/21 10:50 103 H 23 96 04/07/21 10:48 89 23 97 04/07/21 10:39 36.4 C L 84 18 123/65 96
[2021-04-07] MEDS ORDERED: bisacodyL 10 MG SUPP PR STA (15:48)
[2021-04-07] MEDS ORDERED: AZITHROMYCIN 250 MG in DEXTROSE 5% 250 ML IV STA (16:17)
--- NOTE | 2021-04-07 17:22 | XRay Report ---
KUB HISTORY: verify NG placement COMPARISON: Abdomen and pelvis CT 04/07/2021 FINDINGS: Dilated gas-filled loops of bowel are again noted throughout the abdomen. Nasogastric tube seen within the right mainstem bronchus and terminates in the right lung base. No renal calculi. No ureteral calculi. No pneumoperitoneum or pneumatosis. IMPRESSION: 1. Nasogastric tube is malpositioned and is located within the right mainstem bronchus. This should b e removed. 2. Persistent gaseous distention of the large and small bowel. 3. These findings were discussed with Dr. Lorenzana at 5:20 PM on 04/07/2021 ACT 112: Negative or not required by law. Electronically signed by: Al Madrid M.D. 04/07/2021 5:21 PM
[2021-04-07] MEDS ORDERED: PIPERACILL/TAZOBAC CONSULT ACTIVE PRN (18:23)
[2021-04-07] MEDS ORDERED: METOPROLOL TARTRATE 1 MG/ML VIAL IV PRN (18:23)
[2021-04-07] MEDS ORDERED: ACETAMINOPHEN 1000 MG/100 ML IV IV PRN (18:23)
[2021-04-07] MEDS ORDERED: MAGNESIUM SULFATE / D5W 1 GM/100 ML BAG IV ONE (18:45)
[2021-04-07] MEDS ORDERED: DIGOXIN 500 MCG/2 ML AMP IV SCH (18:45)
[2021-04-07] MEDS ORDERED: PIPERACILLIN/TAZOBACTAM 4.5 GM in DEXTROSE 5% 100 ML IV ONE (19:00)
[2021-04-07] MEDS: METOPROLOL TARTRATE 1 MG/ML VIAL IV SCH (19:33)
[2021-04-07] MEDS: DIGOXIN 125 MCG in SYRINGE 9.5 ML IV SCH (19:33)
[2021-04-07] MEDS: POTASSIUM CHLORIDE 20 MEQ in SODIUM CHLORIDE 0.9% 1000ML 1,000 ML IV SCH (19:33)
[2021-04-07] MEDS: METOCLOPRAMIDE HCL INJ 5 MG/ML 2 ML VIAL IV SCH (19:34)
[2021-04-07] MEDS: HYDROmorphone INJ 0.5 MG/0.5 ML SYR IV PRN (19:35)
[2021-04-07] MEDS ORDERED: bisacodyL 10 MG SUPP PR PRN (21:17)
[2021-04-08] MEDS: PIPERACILLIN/TAZOBACTAM 3.375 GM in DEXTROSE 5% 100 ML IV SCH ×3 (00:10→15:57)
[2021-04-08] MEDS: METOPROLOL TARTRATE 1 MG/ML VIAL IV SCH ×4 (00:11→17:40)
[2021-04-08] MEDS: METOCLOPRAMIDE HCL INJ 5 MG/ML 2 ML VIAL IV SCH ×3 (02:55→19:27)
[2021-04-08] MEDS: POTASSIUM CHLORIDE 20 MEQ in SODIUM CHLORIDE 0.9% 1000ML 1,000 ML IV SCH ×2 (05:40→15:57)
[2021-04-08 06:38] LABS: BUN Creatinine Ratio 32.5 (10-20); Calcium 8.3 mg/dl (8.5-10.1); Creatinine Clr Calc Pharmacy 40.6 ml/min; Est GFR (African American) 38.3 ml/min; Potassium 2.6 mmol/L (3.5-5.1)
[2021-04-08] MEDS ORDERED: bisacodyL 10 MG SUPP PR SCH (09:00)
[2021-04-08] MEDS: POTASSIUM CHLORIDE / WTR 10 MEQ/100 ML PLCT IV SCH ×7 (09:00→23:40)
[2021-04-08] MEDS ORDERED: bisacodyL 10 MG SUPP PR STA (10:42)
--- NOTE | 2021-04-08 10:51 | Surgery Progress Note ---
Date of Service April 08, 2021 Assessment & Plan (1) Colon distention: Plan: 80 year-old male presented to emergency room initially on 04/05/[address] scan showing large and small bowel distention and again repeat CT scan 04/10/21 showing colonic distention to level of rectum measuring up to 10 cm with no evidence of distal colonic obstruction favoring colonic ileus. Rectal examination did not show rectal mass or stricture. Abdomen is distended and tender but no peritonitis. - KUB pending today - afebrile, no leukocytosis - + liquid bowel movements last evening but still moderately distended Plan: No acute surgical intervention required at this time Gi to consider colonoscopy decompression today Keep NPO IV fluids pain management as needed Dr. Gold has seen and examined patient and agrees with above. Admission and Anticipated Discharge Date Admission Date: April 07, 2021 Subjective still having abdominal pain, about the same as yesterday, not worse no nausea or vomiting had liquid bowel movements last evening abdomen still feels bloated Physical Exam Constitutional: no acute distress and not ill appearing Respiratory: normal respiratory effort; no respiratory distress, no labored breathing and no retractions Gastrointestinal (Abdomen): Inspection/Auscultation: abdomen normal to inspection and + abdomen distended (moderate distention); + abnormal bowel sounds Percussion/Palpation: + abdomen tender (generalized upper abdomen) and abdomen soft; no guarding and abdomen not rigid Skin: no rashes, warm and dry Psychiatric: Orientation: alert and cooperative Results & Data ([facility]) Vital Signs (Past 12 Hours) Vital Signs Temp Pulse Pulse Resp BP BP Pulse Ox 04/08/21 07:41 36.4 C L 87 18 113/57 L 95 04/08/21 07:06 36.3 C L 105 H 20 120/67 96 04/08/21 05:40 75 118/67 04/08/21 02:50 36.7 C 83 20 124/69 93 04/08/21 00:34 84 04/08/21 00:11 86 121/81 04/07/21 22:55 36.4 C L 87 20 114/73 94 Laboratory Results 04/08/21 04/08/21 04/07/21 Range/Units 05:22 05:22 18:41 WBC (4.8-10.8) K/uL RBC (4.7-6.1) M/uL Hgb (14.0-18.0) g/dL Hct (42-52) % MCV (80-100) fL MCH (25-34) pg MCHC (32-36) g/dL RDW Std Deviation (36.4-46.3) fL RDW Coeff of Elmo (11.5-14.5) % Plt Count (130-400) K/uL MPV (7.4-10.4) fL Immature Gran % (Auto) % Neut % (Auto) % Lymph % (Auto) % Stearns % (Auto) % Eos % (Auto) % Baso % (Auto) % Neut # (Auto) (1.4-6.5) K/uL Lymph # (Auto) (1.2-3.4) K/uL Stearns # (Auto) (0.11-0.59) K/uL Eos # (Auto) (0-0.5) K/uL Baso # (Auto) (0-0.2) K/uL Immature Gran # (Auto) (0.00-0.02) K/uL Giant Platelets Echinocytes Sodium 137 (136-145) mmol/L Potassium 2.6 L D (3.5-5.1) mmol/L Chloride 105 (98-107) mmol/L Carbon Dioxide 24 (21-32) mmol/L Anion Gap 8.0 (3-11) BUN 62 H (7-18) mg/dl Creatinine 1.90 H D (0.6-1.4) mg/dl Est Cr Clr Drug Dosing 40.6 ml/min Est GFR ( Amer) 38.3 ml/min Est GFR (Non-Af Amer) 33.0 ml/min BUN/Creatinine Ratio 32.5 H (10-20) Glucose 134 H (70-99) mg/dl Calcium 8.3 L (8.5-10.1) mg/dl Magnesium 3.0 H (1.8-2.4) mg/dl Total Bilirubin (0.2-1) mg/dl AST (15-37) U/L ALT (12-78) U/L Alkaline Phosphatase (45-117) U/L Total Protein (6.4-8.2) gm/dl Albumin (3.4-5.0) gm/dl Globulin (2.5-4.0) gm/dl Albumin/Globulin Ratio (0.9-2) Lipase (73-393) U/L Urine Color Urine Appearance (Clear) Urine pH (4.5-7.5) Ur Specific Montgomery (1.000-1.030) Urine Protein (Negative) Urine Glucose (UA) (Negative) Urine Ketones (Negative) Urine Blood (Negative) Urine Nitrite (Negative) Urine Bilirubin (Negative) Urine Urobilinogen (Negative) Ur Leukocyte Esterase (Negative) Urine WBC (Auto) (0-5) /hpf Urine RBC (Auto) (0-4) /hpf U Hyaline Cast (Auto) (0-5) /lpf U Epithel Cells (Auto) (0-5) /lpf Urine Bacteria (Auto) (Negative) Amorphous Sediment (None Prsent) Urine Yeast Digoxin 0.8 0.8 (0.8-2.0) ng/ml COVID-19 Eval Order SARS-CoV-2 (PCR) (Negative) 04/07/21 04/07/21 04/07/21 Range/Units 11:35 11:15 11:15 WBC 8.01 (4.8-10.8) K/uL RBC 4.15 L (4.7-6.1) M/uL Hgb 14.2 (14.0-18.0) g/dL Hct 39.8 L (42-52) % MCV 95.9 (80-100) fL MCH 34.2 H (25-34) pg MCHC 35.7 (32-36) g/dL RDW Std Deviation 45.5 (36.4-46.3) fL RDW Coeff of Elmo 13.0 (11.5-14.5) % Plt Count 226 (130-400) K/uL MPV 10.7 H (7.4-10.4) fL Immature Gran % (Auto) 0.6 % Neut % (Auto) 63.0 % Lymph % (Auto) 17.7 % Stearns % (Auto) 18.4 % Eos % (Auto) 0.2 % Baso % (Auto) 0.1 % Neut # (Auto) 5.04 (1.4-6.5) K/uL Lymph # (Auto) 1.42 (1.2-3.4) K/uL Stearns # (Auto) 1.47 H (0.11-0.59) K/uL Eos # (Auto) 0.02 (0-0.5) K/uL Baso # (Auto) 0.01 (0-0.2) K/uL Immature Gran # (Auto) 0.05 H (0.00-0.02) K/uL Giant Platelets 1+ Echinocytes 1+ Sodium 135 L (136-145) mmol/L Potassium 3.4 L (3.5-5.1) mmol/L Chloride 102 (98-107) mmol/L Carbon Dioxide 21 (21-32) mmol/L Anion Gap 13.0 H (3-11) BUN 65 H (7-18) mg/dl Creatinine 2.60 H (0.6-1.4) mg/dl Est Cr Clr Drug Dosing 29.2 ml/min Est GFR ( Amer) 26.2 ml/min Est GFR (Non-Af Amer) 22.6 ml/min BUN/Creatinine Ratio 24.8 H (10-20) Glucose 186 H (70-99) mg/dl Calcium 9.0 (8.5-10.1) mg/dl Magnesium (1.8-2.4) mg/dl Total Bilirubin 0.9 (0.2-1) mg/dl AST 65 H (15-37) U/L ALT 81 H (12-78) U/L Alkaline Phosphatase 74 (45-117) U/L Total Protein 7.3 (6.4-8.2) gm/dl Albumin 2.9 L (3.4-5.0) gm/dl Globulin 4.4 H (2.5-4.0) gm/dl Albumin/Globulin Ratio 0.7 L (0.9-2) Lipase 54 L (73-393) U/L Urine Color Dark Yellow Urine Appearance Turbid A (Clear) Urine pH 5.0 (4.5-7.5) Ur Specific Montgomery 1.024 (1.000-1.030) Urine Protein 2+ H (Negative) Urine Glucose (UA) Negative (Negative) Urine Ketones Trace H (Negative) Urine Blood 3+ H (Negative) Urine Nitrite Negative (Negative) Urine Bilirubin 1+ H (Negative) Urine Urobilinogen Negative (Negative) Ur Leukocyte Esterase 1+ H (Negative) Urine WBC (Auto) >30 H (0-5) /hpf Urine RBC (Auto) 5-10 H (0-4) /hpf U Hyaline Cast (Auto) 1-5 (0-5) /lpf U Epithel Cells (Auto) >30 H (0-5) /lpf Urine Bacteria (Auto) 4+ H (Negative) Amorphous Sediment Present A (None Prsent) Urine Yeast Not Reportable Digoxin (0.8-2.0) ng/ml COVID-19 Eval Order SARS-CoV-2 (PCR) (Negative) 04/07/21 04/07/21 Range/Units 11:00 11:00 WBC (4.8-10.8) K/uL RBC (4.7-6.1) M/uL Hgb (14.0-18.0) g/dL Hct (42-52) % MCV (80-100) fL MCH (25-34) pg MCHC (32-36) g/dL RDW Std Deviation (36.4-46.3) fL RDW Coeff of Elmo (11.5-14.5) % Plt Count (130-400) K/uL MPV (7.4-10.4) fL Immature Gran % (Auto) % Neut % (Auto) % Lymph % (Auto) % Stearns % (Auto) % Eos % (Auto) % Baso % (Auto) % Neut # (Auto) (1.4-6.5) K/uL Lymph # (Auto) (1.2-3.4) K/uL Stearns # (Auto) (0.11-0.59) K/uL Eos # (Auto) (0-0.5) K/uL Baso # (Auto) (0-0.2) K/uL Immature Gran # (Auto) (0.00-0.02) K/uL Giant Platelets Echinocytes Sodium (136-145) mmol/L Potassium (3.5-5.1) mmol/L Chloride (98-107) mmol/L Carbon Dioxide (21-32) mmol/L Anion Gap (3-11) BUN (7-18) mg/dl Creatinine (0.6-1.4) mg/dl Est Cr Clr Drug Dosing ml/min Est GFR ( Amer) ml/min Est GFR (Non-Af Amer) ml/min BUN/Creatinine Ratio (10-20) Glucose (70-99) mg/dl Calcium (8.5-10.1) mg/dl Magnesium (1.8-2.4) mg/dl Total Bilirubin (0.2-1) mg/dl AST (15-37) U/L ALT (12-78) U/L Alkaline Phosphatase (45-117) U/L Total Protein (6.4-8.2) gm/dl Albumin (3.4-5.0) gm/dl Globulin (2.5-4.0) gm/dl Albumin/Globulin Ratio (0.9-2) Lipase (73-393) U/L Urine Color Urine Appearance (Clear) Urine pH (4.5-7.5) Ur Specific Montgomery (1.000-1.030) Urine Protein (Negative) Urine Glucose (UA) (Negative) Urine Ketones (Negative) Urine Blood (Negative) Urine Nitrite (Negative) Urine Bilirubin (Negative) Urine Urobilinogen (Negative) Ur Leukocyte Esterase (Negative) Urine WBC (Auto) (0-5) /hpf Urine RBC (Auto) (0-4) /hpf U Hyaline Cast (Auto) (0-5) /lpf U Epithel Cells (Auto) (0-5) /lpf Urine Bacteria (Auto) (Negative) Amorphous Sediment (None Prsent) Urine Yeast Digoxin (0.8-2.0) ng/ml COVID-19 Eval Order Covid19 at [facility] SARS-CoV-2 (PCR) NEGATIVE (Negative)
--- NOTE | 2021-04-08 11:32 | XRay Report ---
KUB HISTORY: Abdominal distention. follow up colonic ileus COMPARISON: KUB 04/07/2021. FINDINGS: There is a right total hip arthroplasty. Surgical clips are again noted within the deep pel vis. Dilated gas-filled loops of large and small bowel are again noted throughout the abdomen. Findin gs favor an ileus. The large bowel is distended up to 9.5 cm. No renal calculi. No ureteral calculi. No pneumoperitoneum or pneumatosis. IMPRESSION: Dilated gas-filled loops of large or small bowel are again noted throughout the abdomen suggestive of an ileus. This is similar to the prior study. ACT 112: Negative or not required by law. Electronically signed by: Al Madrid M.D. 04/08/2021 11:30 AM
--- NOTE | 2021-04-08 12:56 | Gastroenterology Progress Note ---
Date of Service April 08, 2021 Assessment & Plan (1) Ileus: Plan: Colonic ileus with acute on chronic colon distention. Passed 3 large loose brown BMs thus far since arrival. Still with significant distention - not worsened but not significantly improved. Second dose of Azithromax 2GM IV to be given this evening. Third Dulcolax suppository to be given this evening. Daily KUB Begin clears. Will continue to follow closely. If worsening will consider colonoscopic decompression. Appreciate surgery input. Admission and Anticipated Discharge Date Admission Date: April 07, 2021 Supervising Physician Co-Signing Physician Notes Attg add: I interviewed and examined pt, review chart and labs. Pt with KUB that is unchanged, but, per nurse, has had 3 large vol BM's this am, and is passing large amounts of gas this afternoon. He denies abd pain, admits to hunger. On exam, he is mildly softer than yesterday, but abd remains markedly distended but non tender. K is low, corrected. A/P: Chronic pseudo-obstruction -- correct lytes, encourage movement, cont laxative regimen with dulcolax suppository BID, Reglan, IV Azithromycin. Subjective 80 yr old male - minimally ambulatory at baseline. Chronic colon distention on imaging since 2019. Admitted yesterday for worsening constipation and tender/distended abdomen. Hypokalemic K 2.6 - receiving K riders. Still with distended, taut abdomen but is passing BMs, 3 loose, substantial BMs, other BMs, just small amts. Tx Dulcolax 2 suppositories thus far. KUB today essentially unchanged since yesterday's CT. Review of Systems Review of Systems: ROS: Gen: + chronic weakness,; No fevers or weight loss Eyes: No eye redness, or pain, no recent vision changes Resp: No SOB, no cough Cardio: No palpitations/irregular beats, no chest pain GI: + abdomen very uncomfortable; + distended : Denies pain on urination Skin: No jaundice, itching or new rashes A total of 12 systems, all others (-) Physical Exam Constitutional: well developed, + ill appearing, + obese and cooperative Eyes: PERRL, conjunctivae normal, anicteric sclerae ENMT: external ear and nose normal, oropharynx normal Neck: trachea midline, no thyromegaly Respiratory: normal respiratory effort, lungs clear to auscultation normal respiratory effort and able to speak in complete sentences; no respiratory distress, no labored breathing, does not use accessory muscles and no cough Cardiovascular: RRR, no murmur, no edema Gastrointestinal (Abdomen): Moderate to marked distention, somewhat taunt. Hypoactive BS. Rectal exam with loose brown fecal material in the rectum. No impaction and no release of flatus with digital exam. Skin: no rashes, warm and dry normal turgor Neurologic: PERRL, EOMI, accommodation nl, no face palsy, no dysarthria awake; not confused Psychiatric: A+Ox3, euthymic affect Orientation: alert, oriented x 3 and cooperative Lymphatic: no cervical or axillary lymphadenopathy Results & Data ([facility]) Vital Signs (Past 12 Hours) Vital Signs Temp Pulse Pulse Resp BP BP Pulse Ox 04/08/21 11:48 36.4 C L 74 22 116/64 94 04/08/21 11:16 87 113/57 L 04/08/21 07:41 36.4 C L 87 18 113/57 L 95 04/08/21 07:06 36.3 C L 105 H 20 120/67 96 04/08/21 05:40 75 118/67 04/08/21 02:50 36.7 C 83 20 124/69 93 Laboratory Results WBC 8, Hb 14, Hct 39, Plts 226, Na 137, K 2.6, Cl 105, CO2 24, BUN 23, Cr 1.16, glucose 166. Diagnostic Findings KUB today: Dilated gas-filled loops of large or small bowel are again noted throughout the abdomen suggestive of an ileus. This is similar to the prior study.
[2021-04-08] MEDS: DIGOXIN 125 MCG in SYRINGE 9.5 ML IV SCH (15:57)
[2021-04-08] MEDS ORDERED: bisacodyL 10 MG SUPP PR ONE (20:00)
--- NOTE | 2021-04-08 20:12 | Hospitalist Progress Note ---
Date of Service April 08, 2021 Assessment & Plan (1) Colon distention: Plan: Patient is colonic distention to the rectum with some ileus of the small bowel. General surgery has been consulted however will also consult gastroenterology to consider decompression colonoscopy at this point time patient be kept n.p.o. be hydrated with fluid to his acute kidney injury and will reduce oral medications to the bare minimum Patient's colon is dilated almost 10 cm. I did speak personally with Dr. Brayan Gold general surgery who recommended consideration of a rectal tube and to discuss with gastroenterology. I did contact Dr. Pittman who referred us to Dr. Thurman and Dr. Ricardo Diallo with the [employer] [facility] I did personally speak to Dr. Thurman who agreed to look at the case. Images are currently being under review On day 2 of hospital stay, imaging shows no significant improvement. Will continue to monitor. Patient though is passing gas and stool. will defer need for colonic decompression to GI (2) Chronic congestive heart failure with left ventricular diastolic dysfunction: Plan: Patient is a history of heart failure preserved ejection fraction, patient typically taking furosemide and spironolactone. Last ejection fraction measured was 60 to 65% we will hydrate patient cautiously and look for signs of volume overload (3) Permanent atrial fibrillation: Plan: Patient has history of atrial fibrillation typically on metoprolol digoxin aspirin and Xarelto (4) Complicated UTI (urinary tract infection): Plan: Patient with abnormal urinalysis in the ER outpatient urine culture from 04/05 shows Klebsiella. Patient will be continued on Zosyn therapy based upon sensitivities. Considerations to transition to quinolone for de-escalation will be discussed with pharmacy (5) Hypokalemia: Plan: This will be repleted by intravenous fluids magnesium will also be administered (6) DVT prophylaxis: Plan: SCD for DVT prevention Admission and Anticipated Discharge Date Admission Date: April 07, 2021 Subjective 80 yo male reports feeling better today. He has had multiple BM. He has no new complaints. Review of Systems Review of Systems: All systems reviewed & are unremarkable except as noted in HPI & below Physical Exam Physical Exam: The patient appeared well nourished and normally developed. Vital signs as documented. Head exam is normocephalic atraumatic Neck is without JVD, thyromegaly, or carotid bruits. Lungs are clear to auscultation, no focal loss of breath sounds Cardiac exam, Rhythm is regular.. No murmurs, rubs or gallops. Abdominal exam reveals normal bowel sounds, soft non tender, no masses Extremities are nonedematous and both pedal pulses are present Neurologic exam is alert and oriented, no focal loss of strength or sensation Skin is without bruises or rashes Psychologically is without concerns for anxiety or depression Results & Data Results & Data ([facility]) Vital Signs (Past 12 Hours) Vital Signs Temp Pulse Pulse Resp BP BP Pulse Ox 04/08/21 18:38 36.7 C 83 20 128/80 95 04/08/21 17:40 87 147/64 H 04/08/21 15:57 87 04/08/21 15:07 36.5 C 75 20 147/64 H 93 04/08/21 11:48 36.4 C L 74 22 116/64 94 04/08/21 11:16 87 113/57 L PG Care Time/CCT Total # of Minutes Spent Total Time Spent with Patient: Total time spent is greater than 50% in coordination of care (as documented) at patient's floor/unit and/or counseling patient: Coding Level of Care Code 97696 Subseq Hosp Care Lvl 2 Diagnoses Colon distention K63.89 Chronic congestive heart failure with left ventricular diastolic dysfunction I50.32 Permanent atrial fibrillation I48.2 Complicated UTI (urinary tract infection) N39.0 Hypokalemia E87.6 DVT prophylaxis Z29.9 Time Spent (min) 25
[2021-04-08] MEDS: bisacodyL 10 MG SUPP PR SCH (20:13)
[2021-04-08] MEDS ORDERED: AZITHROMYCIN 250 MG in DEXTROSE 5% 250 ML IV ONE (20:21)
[2021-04-08 21:15] LABS: BUN Creatinine Ratio 30.3 (10-20); Calcium 7.7 mg/dl (8.5-10.1); Creatinine Clr Calc Pharmacy 42.7 ml/min; Est GFR (African American) 41.4 ml/min; Est GFR (Non-African American) 35.7 ml/min; Potassium 2.7 mmol/L (3.5-5.1)
[2021-04-08] MEDS ORDERED: POTASSIUM CHLORIDE PWD 20 MEQ PACK PO ONE (21:24)
[2021-04-09] MEDS: PIPERACILLIN/TAZOBACTAM 3.375 GM in DEXTROSE 5% 100 ML IV SCH ×3 (00:35→17:23)
[2021-04-09] MEDS: METOPROLOL TARTRATE 1 MG/ML VIAL IV SCH ×5 (00:36→23:54)
[2021-04-09] MEDS: POTASSIUM CHLORIDE / WTR 10 MEQ/100 ML PLCT IV SCH ×8 (00:42→23:11)
[2021-04-09] MEDS: POTASSIUM CHLORIDE 20 MEQ in SODIUM CHLORIDE 0.9% 1000ML 1,000 ML IV SCH ×3 (01:53→20:53)
[2021-04-09] MEDS: METOCLOPRAMIDE HCL INJ 5 MG/ML 2 ML VIAL IV SCH ×3 (03:36→18:01)
[2021-04-09 06:03] LABS: Hematocrit (blood only) 32.5 % (42-52); Hemoglobin 11.6 g/dL (14.0-18.0); Mean Corpuscular Hemoglobin 33.8 pg (25-34); Mean Corpuscular Hgb Conc 35.7 g/dL (32-36); Mean Corpuscular Volume 94.8 fL (80-100); Mean Platelet Volume 10.7 fL (7.4-10.4); Platelet Count 215 K/uL (130-400); RDW Standard Deviation 45.2 fL (36.4-46.3); Red Blood Count 3.43 M/uL (4.7-6.1); White Blood Count 8.54 K/uL (4.8-10.8)
[2021-04-09 06:37] LABS: BUN Creatinine Ratio 31.7 (10-20); Calcium 8.2 mg/dl (8.5-10.1); Creatinine Clr Calc Pharmacy 49.3 ml/min; Est GFR (African American) 49.4 ml/min; Est GFR (Non-African American) 42.6 ml/min; Potassium 2.8 mmol/L (3.5-5.1)
[2021-04-09] MEDS: bisacodyL 10 MG SUPP PR SCH ×2 (08:14→21:05)
--- NOTE | 2021-04-09 09:21 | XRay Report ---
KUB HISTORY: Acute generalized abdominal pain ileus COMPARISON: KUB 04/08/2021 FINDINGS: Dilated air-filled loops of large and small bowel throughout the abdomen and pelvis are red emonstrated and appear stable. Surgical clips of the pelvis No renal calculi. No ureteral calculi. N o pneumoperitoneum or pneumatosis. Degenerative changes of the spine, pelvis and left hip. Right hip arthroplasty Lumbar levoscoliosis. No acute fracture identified. IMPRESSION: Persistent large and small bowel gaseous distention suggestive of ileus.. Findings appear stable from comparison. ACT 112: Negative or not required by law. The above report was generated using voice recognition software. It may contain grammatical, syntax o r spelling errors. Electronically signed by: Isaías Quevedo M.D. 04/09/2021 9:19 AM
--- NOTE | 2021-04-09 09:32 | Surgery Progress Note ---
Date of Service April 09, 2021 Assessment & Plan (1) Colon distention: Plan: 80 year-old male presented to emergency room initially on 04/05/[address] scan showing large and small bowel distention and again repeat CT scan 04/10/21 showing colonic distention to level of rectum measuring up to 10 cm with no evidence of distal colonic obstruction favoring colonic ileus. Rectal examination did not show rectal mass or stricture. Abdomen is distended and tender but no peritonitis. - KUB showing small and large bowel distention , stable compared to priors - afebrile, no leukocytosis - + liquid bowel movements last evening but still moderately distended even more so after clear liquids this am. Plan: No acute surgical intervention required at this time GI on board, will discuss with them colonoscopic decompression as distention not improving and patient still having pain replace potassium IV fluids pain management as needed, limit narcotics Dr. Gold has seen and examined pt, agrees with above. Admission and Anticipated Discharge Date Admission Date: April 07, 2021 Subjective still having abdominal pain, about the same as yesterday and day before having liquid bowel movements but still feels very bloated tolerated clear liquids but no feeling really bloated no chest pain or shortness of breath Physical Exam Constitutional: WD/WN, vitals as above + overweight; no acute distress and not ill appearing Respiratory: normal respiratory effort, + cough and + audible wheezes; no respiratory distress and does not use accessory muscles Auscultation: + diminished lung sounds and + wheezes Gastrointestinal (Abdomen): Inspection/Auscultation: + abdomen distended and + high-pitched sounds Percussion/Palpation: + abdomen tender and + abdomen firm; no guarding, abdomen not rigid and + abdomen not soft Skin: no rashes, warm and dry Psychiatric: Orientation: alert and oriented x 3 Results & Data ([facility]) Vital Signs (Past 12 Hours) Vital Signs Temp Pulse Pulse Resp BP BP Pulse Ox 04/09/21 07:13 36.7 C 80 17 125/72 95 04/09/21 06:15 83 115/55 L 04/09/21 04:00 36.6 C 80 20 125/71 93 04/09/21 01:00 85 04/09/21 00:36 91 H 115/67 04/08/21 23:00 36.5 C 96 H 20 116/67 97 Laboratory Results 04/09/21 04/09/21 04/08/21 Range/Units 05:36 05:36 20:24 WBC 8.54 (4.8-10.8) K/uL RBC 3.43 L (4.7-6.1) M/uL Hgb 11.6 L (14.0-18.0) g/dL Hct 32.5 L (42-52) % MCV 94.8 (80-100) fL MCH 33.8 (25-34) pg MCHC 35.7 (32-36) g/dL RDW Std Deviation 45.2 (36.4-46.3) fL RDW Coeff of Elmo 13.0 (11.5-14.5) % Plt Count 215 (130-400) K/uL MPV 10.7 H (7.4-10.4) fL Sodium 142 142 (136-145) mmol/L Potassium 2.8 L 2.7 L (3.5-5.1) mmol/L Chloride 115 H 113 H (98-107) mmol/L Carbon Dioxide 22 19 L (21-32) mmol/L Anion Gap 5.0 9.0 (3-11) BUN 49 H 54 H (7-18) mg/dl Creatinine 1.54 H 1.78 H (0.6-1.4) mg/dl Est Cr Clr Drug Dosing 49.3 42.7 ml/min Est GFR ( Amer) 49.4 41.4 ml/min Est GFR (Non-Af Amer) 42.6 35.7 ml/min BUN/Creatinine Ratio 31.7 H 30.3 H (10-20) Glucose 137 H 207 H (70-99) mg/dl Calcium 8.2 L 7.7 L (8.5-10.1) mg/dl Magnesium 3.0 H (1.8-2.4) mg/dl Diagnostic Findings KUB HISTORY: Acute generalized abdominal pain ileus COMPARISON: KUB 04/08/2021 FINDINGS: Dilated air-filled loops of large and small bowel throughout the abdomen and pelvis are redemonstrated and appear stable. Surgical clips of the pelvis No renal calculi. No ureteral calculi. No pneumoperitoneum or pneumatosis. Degenerative changes of the spine, pelvis and left hip. Right hip arthroplasty Lumbar levoscoliosis. No acute fracture identified. IMPRESSION: Persistent large and small bowel gaseous distention suggestive of ileus.. Findings appear stable from comparison.
--- NOTE | 2021-04-09 11:59 | Gastroenterology Progress Note ---
Date of Service April 09, 2021 Assessment & Plan (1) Ileus: Plan: Colonic ileus with acute on chronic colon distention. Passing many BMs though distention is not significantly improving. Per pt, "a little better than prior to admission but same as yesterday." Continue with BID Dulcolax suppositories. Will also ask nurses to give a mid day tap water enema followed by a dulcolax suppository. Continue daily KUBs and only liquids po. Will continue to follow closely. If worsening will consider colonoscopic decompression. Appreciate surgery input. I have message the primary hospitalist to ask to give more potassium - currently at 2.8 - should be kept above 4. Also please continue to check Mg daily and maintain in normal range please (currently normal today). Admission and Anticipated Discharge Date Admission Date: April 07, 2021 Supervising Physician Co-Signing Physician Notes Attg add: I interviewed and examined pt, reviewed chart and labs. Pt continues to have moderate to large BM x 2 this am, and additional moderate BM this afternoon. He denies pain to me, but had pain per surgery progress note and grimacing upon palpation of abdomen per nurse -- he received dilaudid x 1 in the afternoon for this. He has had confusion since this afternoon. He received 40 of K for a K of 2.8 this am. VS are sig for mild tachy, normotension, no fever. He ate his entire tray of clear liquids with good apeptite for both lunch and breakfast, per nursing staff. On exam this afternoon, he appeared in no distress but mildly confused. His abdomen is distended and tympanic, with decreased BS, similar to yesterday. He has no tenderness on my exam. Labs show normal WBC, mag 4, k 2.8 this am and 2.8 again this afternoon. A lactate level is 2.3, although it is not clear what prompted this -- I asked resident (Dr. Christopher) to examine pt after this lab was resulted this evening, and was told that abd exam was benign.. A/P: Ileus, likely chronic megacolon -- I still suspect chronic megacolon; his persistent colonic distention despite adequate stool output, good appetite, and benign abdominal exam is suggestive of this. Will continue dulcolax, and place rectal tube. Of note, his marked hypokalemia is likely contributing to his colonic distention -- I discussed need for adequate replacement with hospitalist. Please avoid narcotics, due to confusion and ileus. Due to confusion, will d/c Reglan IV. May consider endoscopic decompression tomorrow, pending clinical course. Subjective 80 yr old male, admitted on 04/07 for abdominal pain and distention. Imaging with ileus. Thus far, tx with dulcolax and azithroymcin (for prokinetic side effect). Passing about 5 moderate sized brown BMs/day with these laxatives. Overall, abd discomfort is improved compared to prior to admission. On exam very similar to yesterday of slightly more distended. Review of Systems Review of Systems: ROS: Gen: + chronic weakness; No fevers or weight loss Eyes: No eye redness, or pain, no recent vision changes Resp: No SOB, no cough Cardio: No palpitations/irregular beats, no chest pain GI: + abdomen very uncomfortable; + distended : Denies pain on urination Skin: No jaundice, itching or new rashes A total of 12 systems, all others (-) Physical Exam Constitutional: well developed, + ill appearing, + obese and cooperative Eyes: PERRL, conjunctivae normal, anicteric sclerae ENMT: external ear and nose normal, oropharynx normal Neck: trachea midline, no thyromegaly Respiratory: normal respiratory effort, lungs clear to auscultation normal respiratory effort and able to speak in complete sentences; no respiratory distress, no labored breathing, does not use accessory muscles and no cough Cardiovascular: RRR, no murmur, no edema Gastrointestinal (Abdomen): Inspection/Auscultation: + abdomen distended (moderate to large distention) and normal bowel sounds (some quiet, infrequent BS present - which is an improvement from prior. ); no high-pitched sounds Skin: no rashes, warm and dry normal turgor Neurologic: PERRL, EOMI, accommodation nl, no face palsy, no dysarthria awake; not confused Psychiatric: A+Ox3, euthymic affect Orientation: alert, oriented x 3 and cooperative Lymphatic: no cervical or axillary lymphadenopathy Results & Data ([facility]) Vital Signs (Past 12 Hours) Vital Signs Temp Pulse Pulse Resp BP BP Pulse Ox 04/09/21 11:04 36.7 C 94 H 19 124/67 94 04/09/21 08:00 105 H 04/09/21 07:13 36.7 C 80 17 125/72 95 04/09/21 06:15 83 115/55 L 04/09/21 04:00 36.6 C 80 20 125/71 93 04/09/21 01:00 85 04/09/21 00:36 91 H 115/67 Laboratory Results WBC 8, Hb 11.6, Hct 32, Plts 215, Na 142, K 2.8, Cl 115, BUN 49, Cr. 1.5 Mg 3. Diagnostic Findings Today's KUB: Persistent large and small bowel gaseous distention suggestive of ileus.. Findings appear stable from comparison.
[2021-04-09] MEDS: HYDROmorphone INJ 0.5 MG/0.5 ML SYR IV PRN (12:06)
[2021-04-09] MEDS ORDERED: METHYLNALTREXONE BROMIDE 12 MG/0.6 ML VIAL SQ ONE (13:36)
[2021-04-09] MEDS ORDERED: bisacodyL 10 MG SUPP PR STA (13:37)
[2021-04-09] MEDS: DIGOXIN 125 MCG in SYRINGE 9.5 ML IV SCH (15:19)
[2021-04-09] MEDS ORDERED: POTASSIUM CHLORIDE 20 MEQ/15 ML UDC PO STA (20:10)
[2021-04-09] MEDS ORDERED: LACTATED RINGER'S 1,000 ML IV SCH (21:30)
--- NOTE | 2021-04-09 21:30 | Hospitalist Progress Note ---
Date of Service April 09, 2021 Assessment & Plan (1) Colon distention: Plan: Patient is colonic distention to the rectum with some ileus of the small bowel. General surgery has been consulted however will also consult gastroenterology to consider decompression colonoscopy at this point time patient be kept n.p.o. be hydrated with fluid to his acute kidney injury and will reduce oral medications to the bare minimum Patient's colon is dilated almost 10 cm. I did speak personally with Dr. Brayan Gold general surgery who recommended consideration of a rectal tube and to discuss with gastroenterology. I did contact Dr. Pittman who referred us to Dr. Thurman and Dr. Ricardo Diallo with the [facility] I did personally speak to Dr. Thurman who agreed to look at the case. Images are currently being under review On day 3 of hospital stay, imaging shows no significant improvement. Will continue to monitor. Patient though is passing gas and stool. will defer need for colonic decompression to GI. will check lactic acidosis. (2) Chronic congestive heart failure with left ventricular diastolic dysfunction: Plan: Patient is a history of heart failure preserved ejection fraction, patient typically taking furosemide and spironolactone. Last ejection fraction measured was 60 to 65% we will hydrate patient cautiously and look for signs of volume overload (3) Permanent atrial fibrillation: Plan: Patient has history of atrial fibrillation typically on metoprolol digoxin aspirin and Xarelto (4) Complicated UTI (urinary tract infection): Plan: Patient with abnormal urinalysis in the ER outpatient urine culture from 04/05 shows Klebsiella. Patient will be continued on Zosyn therapy based upon sensitivities. Considerations to transition to quinolone for de-escalation will be discussed with pharmacy (5) Hypokalemia: Plan: This will be repleted by intravenous fluids magnesium will also be administered. Will continue to replace electrolytes. will recheck in the EVENING. (6) DVT prophylaxis: Plan: SCD for DVT prevention Admission and Anticipated Discharge Date Admission Date: April 07, 2021 Subjective Patient reports no significant improvement. Review of Systems Review of Systems: All systems reviewed & are unremarkable except as noted in HPI & below Physical Exam Physical Exam: The patient appeared well nourished and normally developed. Vital signs as documented. Head exam is normocephalic atraumatic Neck is without JVD, thyromegaly, or carotid bruits. Lungs are clear to auscultation, no focal loss of breath sounds Cardiac exam, Rhythm is regular.. No murmurs, rubs or gallops. Abdominal exam reveals normal bowel sounds, firmer, but depr non tender, no masses Extremities are nonedematous and both pedal pulses are present Neurologic exam is alert and oriented, no focal loss of strength or sensation Skin is without bruises or rashes Psychologically is without concerns for anxiety or depression Results & Data Results & Data ([facility]) Vital Signs (Past 12 Hours) Vital Signs Temp Pulse Pulse Resp BP BP Pulse Ox 04/09/21 19:00 36.3 C L 97 H 18 127/70 96 04/09/21 17:24 104 H 134/77 04/09/21 15:26 104 H 04/09/21 15:22 36.9 C 106 H 19 134/77 95 04/09/21 15:19 94 H 04/09/21 11:54 94 H 124/67 04/09/21 11:04 36.7 C 94 H 19 124/67 94 PG Care Time/CCT Total # of Minutes Spent Total Time Spent with Patient: Total time spent is greater than 50% in coordination of care (as documented) at patient's floor/unit and/or counseling patient: Coding Level of Care Code 03952 Subseq Hosp Care Lvl 2 Diagnoses Colon distention K63.89 Chronic congestive heart failure with left ventricular diastolic dysfunction I50.32 Permanent atrial fibrillation I48.2 Complicated UTI (urinary tract infection) N39.0 Hypokalemia E87.6 DVT prophylaxis Z29.9 Time Spent (min) 25
[2021-04-09] MEDS: POTASSIUM CHLORIDE 40 MEQ in SODIUM CHLORIDE 0.9% 1000ML 1,000 ML IV SCH (22:55)
[2021-04-10] MEDS: PIPERACILLIN/TAZOBACTAM 3.375 GM in DEXTROSE 5% 100 ML IV SCH ×4 (00:02→23:12)
[2021-04-10] MEDS: POTASSIUM CHLORIDE / WTR 10 MEQ/100 ML PLCT IV SCH ×5 (01:10→13:16)
[2021-04-10] MEDS: METOPROLOL TARTRATE 1 MG/ML VIAL IV SCH ×4 (05:47→23:07)
[2021-04-10] MEDS: POTASSIUM CHLORIDE 40 MEQ in SODIUM CHLORIDE 0.9% 1000ML 1,000 ML IV SCH ×2 (06:09→17:46)
[2021-04-10 07:16] LABS: Basophils # (auto) 0.02 K/uL (0-0.2); Basophils % (auto) 0.3 %; Eosinophils # (auto) 0.22 K/uL (0-0.5); Hematocrit (blood only) 33.1 % (42-52); Hemoglobin 11.7 g/dL (14.0-18.0); Immature Granulocytes # (auto) 0.19 K/uL (0.00-0.02); Immature Granulocytes % (auto) 2.6 %; Lymphocytes # (auto) 0.79 K/uL (1.2-3.4); Lymphocytes % (auto) 10.9 %; Mean Corpuscular Hemoglobin 33.7 pg (25-34); Mean Corpuscular Hgb Conc 35.3 g/dL (32-36); Mean Corpuscular Volume 95.4 fL (80-100); Mean Platelet Volume 10.4 fL (7.4-10.4); Monocytes # (auto) 1.14 K/uL (0.11-0.59); Monocytes % (auto) 15.7 %; Neutrophils # (auto) 4.88 K/uL (1.4-6.5); Neutrophils % (auto) 67.5 %; Platelet Count 211 K/uL (130-400); RDW Coefficient of Variation 13.3 % (11.5-14.5); RDW Standard Deviation 46.5 fL (36.4-46.3); Red Blood Count 3.47 M/uL (4.7-6.1); White Blood Count 7.24 K/uL (4.8-10.8)
[2021-04-10 07:55] LABS: Albumin Level 1.9 gm/dl (3.4-5.0); BUN Creatinine Ratio 26.7 (10-20); Calcium 7.7 mg/dl (8.5-10.1); Creatinine Clr Calc Pharmacy 69.3 ml/min; Est GFR (Non-African American) 64.7 ml/min; Magnesium 2.5 mg/dl (1.8-2.4); Potassium 3.1 mmol/L (3.5-5.1)
[2021-04-10 07:57] LABS: Albumin Globulin Ratio 0.5 (0.9-2); Bilirubin,Total 0.6 mg/dl (0.2-1); Globulin 3.6 gm/dl (2.5-4.0); Total Protein 5.5 gm/dl (6.4-8.2)
[2021-04-10] MEDS: bisacodyL 10 MG SUPP PR SCH ×2 (08:28→19:13)
--- NOTE | 2021-04-10 08:51 | Electrocardiogram Report ---
Test Reason : Blood Pressure : / mmHG Vent. Rate : 094 BPM Atrial Rate : 080 BPM P-R Int : 000 ms QRS Dur : 112 ms QT Int : 388 ms P-R-T Axes : 000 -07 153 degrees QTc Int : 485 ms Atrial fibrillation with premature ventricular or aberrantly conducted complexes Incomplete left bundle block Diffuse Nonspecific T wave abnormality Prolonged QT Abnormal ECG When compared with ECG of 05-APR-2021 01:11, Incomplete left bundle block is now Present Confirmed by Reyes Merritt ([id number]) on 04/10/2021 8:51:22 AM Referred By: [facility] Confirmed By:Reyes Merritt
--- NOTE | 2021-04-10 09:36 | Surgery Progress Note ---
Date of Service April 10, 2021 Assessment & Plan (1) Colon distention: Plan: 80 year-old male presented to emergency room initially on 04/05/[address] scan showing large and small bowel distention and again to ER on 04/07/[address] scan showing colonic distention to level of rectum measuring up to 10 cm with no evidence of distal colonic obstruction favoring colonic ileus. Rectal examination did not show rectal mass or stricture. Abdomen is distended and tender but no peritonitis. - KUB showing small and large bowel distention , stable compared to priors - afebrile, no leukocytosis - + liquid stool with rectal tube in place Plan: No acute surgical intervention required at this time replace potassium advancement of diet per GI and medicine team Will monitor patient peripherally, please call with any questions/concerns Dr. Gold has seen and examined patient , agrees with above. Admission and Anticipated Discharge Date Admission Date: April 07, 2021 Subjective upon entering room patient asking if he can get up to pee, aid at other patients bedside advised that he has a catheter in his bladder and to keep it in. Patient confused this morning, unaware he has chronic blair catheter or rectal tube, asking what he should do about getting up to go to bathroom when asked about abdominal pain , states it is still present and not much change states he did not do clear liquids yesterday when seen with DR. Gold for rounding he states he abdominal pain is better and is feeling better Physical Exam Constitutional: + obese and cooperative; no acute distress and not ill appearing Respiratory: normal respiratory effort; no respiratory distress, no labored breathing and no retractions Gastrointestinal (Abdomen): Inspection/Auscultation: + abdomen distended (moderate, improved compared to yesterday) and + hypoactive bowel sounds; + abnormal bowel sounds Percussion/Palpation: abdomen soft; abdomen nontender, no guarding and abdomen not rigid Rectal tube with liquid stool output Skin: no rashes, warm and dry Psychiatric: Orientation: alert; + not oriented x 3 Results & Data ([facility]) Vital Signs (Past 12 Hours) Vital Signs Temp Pulse Pulse Resp BP BP BP 04/10/21 08:00 36.3 C L 62 19 122/60 04/10/21 06:22 78 04/10/21 05:47 92 H 154/69 H 04/10/21 05:46 36.4 C L 92 H 18 154/69 H 04/10/21 03:28 36.4 C L 77 18 137/69 04/10/21 00:00 101 H 04/09/21 23:54 84 131/73 04/09/21 22:48 36.8 C 84 18 131/73 Pulse Ox 04/10/21 08:00 97 04/10/21 06:22 04/10/21 05:47 04/10/21 05:46 94 04/10/21 03:28 95 04/10/21 00:00 04/09/21 23:54 04/09/21 22:48 97 Laboratory Results 04/10/21 04/10/21 04/10/21 Range/Units 06:58 06:58 06:58 WBC (4.8-10.8) K/uL RBC (4.7-6.1) M/uL Hgb (14.0-18.0) g/dL Hct (42-52) % MCV (80-100) fL MCH (25-34) pg MCHC (32-36) g/dL RDW Std Deviation (36.4-46.3) fL RDW Coeff of Elmo (11.5-14.5) % Plt Count (130-400) K/uL MPV (7.4-10.4) fL Immature Gran % (Auto) % Neut % (Auto) % Lymph % (Auto) % Upton % (Auto) % Eos % (Auto) % Baso % (Auto) % Neut # (Auto) (1.4-6.5) K/uL Lymph # (Auto) (1.2-3.4) K/uL Upton # (Auto) (0.11-0.59) K/uL Eos # (Auto) (0-0.5) K/uL Baso # (Auto) (0-0.2) K/uL Immature Gran # (Auto) (0.00-0.02) K/uL ESR (0-20) mm/hr Sodium 145 (136-145) mmol/L Potassium 3.1 L (3.5-5.1) mmol/L Chloride 119 H (98-107) mmol/L Carbon Dioxide 19 L (21-32) mmol/L Anion Gap 8.0 (3-11) BUN 29 H (7-18) mg/dl Creatinine 1.09 (0.6-1.4) mg/dl Est Cr Clr Drug Dosing 69.3 ml/min Est GFR ( Amer) 75.0 ml/min Est GFR (Non-Af Amer) 64.7 ml/min BUN/Creatinine Ratio 26.7 H (10-20) Glucose 104 H (70-99) mg/dl Lactate 1.1 (0.4-2.0) mmol/L Calcium 7.7 L (8.5-10.1) mg/dl Magnesium 2.5 H (1.8-2.4) mg/dl Total Bilirubin 0.6 (0.2-1) mg/dl AST 117 H (15-37) U/L ALT 173 H (12-78) U/L Alkaline Phosphatase 71 (45-117) U/L Total Protein 5.5 L (6.4-8.2) gm/dl Albumin 1.9 L (3.4-5.0) gm/dl Globulin 3.6 (2.5-4.0) gm/dl Albumin/Globulin Ratio 0.5 L (0.9-2) Lipase 384 (73-393) U/L Procalcitonin 0.38 (0-0.5) ng/ml 04/10/21 04/10/21 04/09/21 Range/Units 06:58 06:58 18:09 WBC 7.24 (4.8-10.8) K/uL RBC 3.47 L (4.7-6.1) M/uL Hgb 11.7 L (14.0-18.0) g/dL Hct 33.1 L (42-52) % MCV 95.4 (80-100) fL MCH 33.7 (25-34) pg MCHC 35.3 (32-36) g/dL RDW Std Deviation 46.5 H (36.4-46.3) fL RDW Coeff of Elmo 13.3 (11.5-14.5) % Plt Count 211 (130-400) K/uL MPV 10.4 (7.4-10.4) fL Immature Gran % (Auto) 2.6 % Neut % (Auto) 67.5 % Lymph % (Auto) 10.9 % Upton % (Auto) 15.7 % Eos % (Auto) 3.0 % Baso % (Auto) 0.3 % Neut # (Auto) 4.88 (1.4-6.5) K/uL Lymph # (Auto) 0.79 L (1.2-3.4) K/uL Upton # (Auto) 1.14 H (0.11-0.59) K/uL Eos # (Auto) 0.22 (0-0.5) K/uL Baso # (Auto) 0.02 (0-0.2) K/uL Immature Gran # (Auto) 0.19 H (0.00-0.02) K/uL ESR 22 H (0-20) mm/hr Sodium (136-145) mmol/L Potassium (3.5-5.1) mmol/L Chloride (98-107) mmol/L Carbon Dioxide (21-32) mmol/L Anion Gap (3-11) BUN (7-18) mg/dl Creatinine (0.6-1.4) mg/dl Est Cr Clr Drug Dosing ml/min Est GFR ( Amer) ml/min Est GFR (Non-Af Amer) ml/min BUN/Creatinine Ratio (10-20) Glucose (70-99) mg/dl Lactate 2.3 H* (0.4-2.0) mmol/L Calcium (8.5-10.1) mg/dl Magnesium (1.8-2.4) mg/dl Total Bilirubin (0.2-1) mg/dl AST (15-37) U/L ALT (12-78) U/L Alkaline Phosphatase (45-117) U/L Total Protein (6.4-8.2) gm/dl Albumin (3.4-5.0) gm/dl Globulin (2.5-4.0) gm/dl Albumin/Globulin Ratio (0.9-2) Lipase (73-393) U/L Procalcitonin (0-0.5) ng/ml 04/09/21 Range/Units 18:09 WBC (4.8-10.8) K/uL RBC (4.7-6.1) M/uL Hgb (14.0-18.0) g/dL Hct (42-52) % MCV (80-100) fL MCH (25-34) pg MCHC (32-36) g/dL RDW Std Deviation (36.4-46.3) fL RDW Coeff of Elmo (11.5-14.5) % Plt Count (130-400) K/uL MPV (7.4-10.4) fL Immature Gran % (Auto) % Neut % (Auto) % Lymph % (Auto) % Upton % (Auto) % Eos % (Auto) % Baso % (Auto) % Neut # (Auto) (1.4-6.5) K/uL Lymph # (Auto) (1.2-3.4) K/uL Upton # (Auto) (0.11-0.59) K/uL Eos # (Auto) (0-0.5) K/uL Baso # (Auto) (0-0.2) K/uL Immature Gran # (Auto) (0.00-0.02) K/uL ESR (0-20) mm/hr Sodium (136-145) mmol/L Potassium 2.8 L (3.5-5.1) mmol/L Chloride (98-107) mmol/L Carbon Dioxide (21-32) mmol/L Anion Gap (3-11) BUN (7-18) mg/dl Creatinine (0.6-1.4) mg/dl Est Cr Clr Drug Dosing ml/min Est GFR ( Amer) ml/min Est GFR (Non-Af Amer) ml/min BUN/Creatinine Ratio (10-20) Glucose (70-99) mg/dl Lactate (0.4-2.0) mmol/L Calcium (8.5-10.1) mg/dl Magnesium (1.8-2.4) mg/dl Total Bilirubin (0.2-1) mg/dl AST (15-37) U/L ALT (12-78) U/L Alkaline Phosphatase (45-117) U/L Total Protein (6.4-8.2) gm/dl Albumin (3.4-5.0) gm/dl Globulin (2.5-4.0) gm/dl Albumin/Globulin Ratio (0.9-2) Lipase (73-393) U/L Procalcitonin (0-0.5) ng/ml
--- NOTE | 2021-04-10 09:56 | Ultrasound Report ---
ULTRASOUND RIGHT UPPER QUADRANT ABDOMEN CLINICAL HISTORY: Elevated hepatic transaminases. Right upper quadrant abdominal pain. COMPARISON STUDY: Abdominal CT dated 04/07/2021 TECHNIQUE: Real-time, grayscale, and color flow sonography of the right upper quadrant of the abdomen was performed. Images are reviewed in the transverse and longitudinal planes. FINDINGS: Liver: The liver is normal in size and demonstrates heterogeneously increased echotexture indicating steatosis. There is no intrahepatic biliary ductal dilatation. The main portal vein is patent. Gallbladder: The gallbladder is normal in appearance. No gallstones are identified. There is no gallb ladder wall thickening or pericholecystic fluid. A sonographic Frost's sign is reportedly absent. Th e common bile duct measures up to 0.5 cm in diameter. Pancreas: Visualized portions of the pancreatic head and body are normal in appearance. Right kidney: Survey images of the right kidney demonstrate cortical atrophy. Echotexture is normal. There is no hydronephrosis. Ascites: None. IMPRESSION: 1. Hepatic steatosis. 2. No gallstones are identified. ACT 112: Negative or not required by law. Electronically signed by: Jake Maurice M.D. 04/10/2021 9:55 AM
--- NOTE | 2021-04-10 11:10 | Gastroenterology Progress Note ---
Date of Service April 10, 2021 Assessment & Plan (1) Ileus: Plan: Colonic ileus with acute on chronic colon distention. Passing many BMs though distention is not significantly improving. Per pt, "better today - much better than when arrived." Continue with BID Dulcolax suppositories. Continue daily KUBs and only liquids po. Again - needs even more aggressive K replacement, currently at 3.1 - should be kept above 4. Admission and Anticipated Discharge Date Admission Date: April 07, 2021 Supervising Physician Co-Signing Physician Notes I performed a history and physical examination of the patient today, including specifically on physical exam - soft abdomen. I have discussed the patient's management with the advanced practitioner. Please refer to the nurse practitioner's note for the documented findings and plan of care. Chronic colonic pseudoobstruction. Patient had excessive amounts of BM. KUB today improved, Cecal diameter is 8.5 cm. No indication for endoscopic intervention of decompression. Continue current regimen and correct potassium./ Recall GI if needed. Subjective 80 yr old malae admitted on 04/10 w abdominal pain and distention. Review of imaging shows chronic colon dilation. Multiple large liquid brown BMs. Patient tells me he feels a bit better today - that his stomach seems smaller. Continues with hypokalemia. Getting dulcolax BID scheduled and one dose of Relistor yesterday. New: transaminase elevation 170's. U/s without gallbladder or bile duct abnormalities though fatty liver is present. Review of Systems Review of Systems: ROS: Gen: + minimally ambulatory at baseline. No fevers Eyes: No eye redness, or pain, no recent vision changes Resp: No SOB, no cough Cardio: No palpitations/irregular beats, no chest pain GI: No abdominal pain, no nausea/vomiting : Denies pain on urination Skin: No jaundice, itching or new rashes; + chronic lower leg skin darkening/thinning Physical Exam Constitutional: well developed, + ill appearing, + obese and cooperative Eyes: PERRL, conjunctivae normal, anicteric sclerae ENMT: external ear and nose normal, oropharynx normal Neck: trachea midline, no thyromegaly Respiratory: normal respiratory effort, lungs clear to auscultation normal respiratory effort and able to speak in complete sentences; no respiratory distress, no labored breathing, does not use accessory muscles and no cough Cardiovascular: RRR, no murmur, no edema Gastrointestinal (Abdomen): Inspection/Auscultation: + abdomen distended (moderate to large distention) and normal bowel sounds (some quiet, infrequent BS present - which is an improvement from prior. ); no high-pitched sounds Skin: no rashes, warm and dry normal turgor Neurologic: PERRL, EOMI, accommodation nl, no face palsy, no dysarthria awake; not confused Psychiatric: A+Ox3, euthymic affect Orientation: alert, oriented x 3 and cooperative Lymphatic: no cervical or axillary lymphadenopathy Results & Data ([facility]) Vital Signs (Past 12 Hours) Vital Signs Temp Pulse Pulse Resp BP BP BP 04/10/21 11:03 36.7 C 92 H 17 141/84 H 04/10/21 08:00 36.3 C L 62 19 122/60 04/10/21 06:22 78 04/10/21 05:47 92 H 154/69 H 04/10/21 05:46 36.4 C L 92 H 18 154/69 H 04/10/21 03:28 36.4 C L 77 18 137/69 04/10/21 00:00 101 H 04/09/21 23:54 84 131/73 Pulse Ox 04/10/21 11:03 97 04/10/21 08:00 97 04/10/21 06:22 04/10/21 05:47 04/10/21 05:46 94 04/10/21 03:28 95 04/10/21 00:00 04/09/21 23:54 Laboratory Results WBC 7, Hn 11, Hct 33, Plts 211, Na 145, K 3.1, BUN 29, Cr 1.09, glucose 104 Diagnostic Findings Liver US: 1. Hepatic steatosis. 2. No gallstones are identified.
--- NOTE | 2021-04-10 11:57 | XRay Report ---
XR KUB/Abdomen 1 view CLINICAL HISTORY: bowel distention TECHNIQUE: 1 view of the abdomen was obtained. Comparison: Comparison is made to abdomen radiograph 04/09/2021 FINDINGS: Lung bases are unremarkable. Degenerative changes are seen in the visualized skeleton. Right total hi p arthroplasty is seen. Redemonstration of dilated air-filled loops of large and small bowel, approxi mately unchanged from prior exam. A moderate amount of stool is noted within the large bowel. IMPRESSION: No significant change in diffuse gaseous bowel distention. ACT 112: Negative or not required by law. Electronically signed by: Enoc Gore M.D. 04/10/2021 11:56 AM
[2021-04-10] MEDS: DIGOXIN 125 MCG in SYRINGE 9.5 ML IV SCH (16:19)
--- NOTE | 2021-04-10 20:56 | Hospitalist Progress Note ---
Date of Service April 10, 2021 Assessment & Plan (1) Colon distention: Plan: Patient is colonic distention to the rectum with some ileus of the small bowel. General surgery has been consulted however will also consult gastroenterology to consider decompression colonoscopy at this point time patient be kept n.p.o. be hydrated with fluid to his acute kidney injury and will reduce oral medications to the bare minimum Patient's colon is dilated almost 10 cm. I did speak personally with Dr. Brayan Gold general surgery who recommended consideration of a rectal tube and to discuss with gastroenterology. I did contact Dr. Pittman who referred us to Dr. Thurman and Dr. Ricardo Diallo with the [id number] group I did personally speak to Dr. Thurman who agreed to look at the case. Images are currently being under review On day 4 of hospital stay, imaging shows no significant improvement. Will continue to monitor. Patient though is passing gas and stool. will defer need for colonic decompression to GI. will check lactic acidosis. (2) Chronic congestive heart failure with left ventricular diastolic dysfunction: Plan: Patient is a history of heart failure preserved ejection fraction, patient typically taking furosemide and spironolactone. Last ejection fraction measured was 60 to 65% we will hydrate patient cautiously and look for signs of volume overload (3) Permanent atrial fibrillation: Plan: Patient has history of atrial fibrillation typically on metoprolol digoxin aspirin and Xarelto (4) Complicated UTI (urinary tract infection): Plan: Patient with abnormal urinalysis in the ER outpatient urine culture from 04/05 shows Klebsiella. Patient will be continued on Zosyn therapy based upon sensitivities. Considerations to transition to quinolone for de-escalation will be discussed with pharmacy (5) Hypokalemia: Plan: This will be repleted by intravenous fluids magnesium will also be administered. Will continue to replace electrolytes. will recheck in the EVENING. (6) DVT prophylaxis: Plan: SCD for DVT prevention Admission and Anticipated Discharge Date Admission Date: April 07, 2021 Subjective Patient reports no new symptoms. Review of Systems Review of Systems: All systems reviewed & are unremarkable except as noted in HPI & below Physical Exam Physical Exam: The patient appeared well nourished and normally developed. Vital signs as documented. Head exam is normocephalic atraumatic Neck is without JVD, thyromegaly, or carotid bruits. Lungs are clear to auscultation, no focal loss of breath sounds Cardiac exam, Rhythm is regular.. No murmurs, rubs or gallops. Abdominal exam reveals normal bowel sounds, firm but softer (than yesterday), non tender, no masses Extremities are nonedematous and both pedal pulses are present Neurologic exam is alert and oriented, no focal loss of strength or sensation Skin is without bruises or rashes Psychologically is without concerns for anxiety or depression Results & Data Results & Data ([facility]) Vital Signs (Past 12 Hours) Vital Signs Temp Pulse Pulse Resp BP BP Pulse Ox 04/10/21 19:48 36.8 C 71 20 138/67 96 04/10/21 17:53 82 131/74 04/10/21 17:51 82 131/74 04/10/21 16:19 64 04/10/21 15:28 36.3 C L 81 18 145/76 H 95 04/10/21 14:19 96 H 04/10/21 11:03 36.7 C 92 H 17 141/84 H 97 PG Care Time/CCT Total # of Minutes Spent Total Time Spent with Patient: Total time spent is greater than 50% in coordination of care (as documented) at patient's floor/unit and/or counseling patient: Coding Level of Care Code 98862 Subseq Hosp Care Lvl 2 Diagnoses Colon distention K63.89 Chronic congestive heart failure with left ventricular diastolic dysfunction I50.32 Permanent atrial fibrillation I48.2 Complicated UTI (urinary tract infection) N39.0 Hypokalemia E87.6 DVT prophylaxis Z29.9 Time Spent (min) 25
[2021-04-10] MEDS: ONDANSETRON INJ 2 MG/ML 2 ML VIAL IV PRN (21:40)
[2021-04-10] MEDS ORDERED: PROMETHAZINE HCL 12.5 MG in SODIUM CHLORIDE 0.9% 50 ML IV STA (22:06)
--- NOTE | 2021-04-10 23:09 | CT Scan Report ---
ABDOMEN AND PELVIS CT WITHOUT CONTRAST CT DOSE: 1398.39 mGy.cm HISTORY: Acute generalized abdominal pain with distention increased abdominal distension TECHNIQUE: Multiaxial CT images of the abdomen and pelvis were performed without contrast. A dose lo wering technique was utilized adhering to the principles of ALARA. COMPARISON STUDY: KUB of same day, CT abdomen and pelvis 04/07/2021 FINDINGS: Small layering pleural effusions are new from prior. Moderate cardiomegaly with trace peric ardial effusion. Coronary artery calcifications. Limited study without the use of IV contrast and als o secondary to respiratory motion artifact. Mild subsegmental bibasilar opacities suggest atelectasis . There is no pneumatosis or pneumoperitoneum. The unenhanced spleen, pancreas, adrenal glands, gallb ladder and liver appear unremarkable. Small cyst of the right kidney redemonstrated. Cortical scarring with parenchymal thinning of the int erpolar left kidney. Bilateral renal vascular calcifications. No hydronephrosis. Decompressed urinary bladder with Pizarro catheter. Atherosclerosis of the aorta without aneurysm. No adenopathy. Hyperdense layering material within the proximal stomach is unchanged. Diffuse distention of the larg e bowel with associated air-fluid levels similar to mildly decreased from comparison. There is a rect al tube in place. Mild wall thickening of the transverse colon. A sending colon measures up to 9.4 cm transversely, previously 10 cm. Scattered small bowel air-fluid levels with questioned mild wall thi ckening of the terminal ileum redemonstrated. There is no small bowel obstruction. Unremarkable soft tissues. Gynecomastia. Degenerative changes of the spine, pelvis and left hip. Lumbar levoscoliosis. Right hip total joint arthroplasty. Unchanged probable liquefied hematoma lateral to left hip measuri ng up to 5.4 x 3.1 x 6.6 cm, partially imaged. IMPRESSION: 1. Diffuse gaseous distention of the large bowel with air-fluid levels redemonstrated. The degree of colonic gaseous distention has mildly improved from 04/07/2021 suggestive of colonic ileus with recta l catheter in place. 2. Mild wall thickening of the transverse colon is new from prior possibly secondary to a nonspecific colitis. 3. No evidence of small or large bowel obstruction. 4. Small pleural effusions, new from 04/07/2021. 5. Additional findings as above. ACT 112: Negative or not required by law. The above report was generated using voice recognition software. It may contain grammatical, syntax o r spelling errors. Electronically signed by: Isaías Quevedo M.D. 04/10/2021 11:07 PM
--- NOTE | 2021-04-11 03:10 | Communication Note ---
Date of Service: April 11, 2021 Called to bedside by nursing staff for concern of confusion and altered mental status. Patient earlier this evening was having profound nausea secondary to abdominal pain and distention. CT scan abdomen pelvis demonstrated colonic distention improvement following dignity shield insertion. Patient was given an additional dose of antiemetic with Phenergan which improved nausea as well as some of his abdominal discomfort. Later, called by bedside staff in regards to patient following simple commands but inappropriate early responding to question ing with only verbal response being "yes". Upon my presentation to bedside, patient spontaneously moving all 4 extremities, following simple verbal commands. Alert but not oriented. Nonfocal neurologic examination. Reflexes 2+ in all 4 extremities without hyperreflexia or clonus. No increased tone in all 4 extremities. Verbally responsive to questions but with incongruent answers. No facial asymmetry. Extraocular movements intact. Hearing intact. Examination inconsistent with stroke or thromboembolic process. Additionally, based off above concerned that patient's altered mental status may be secondary to IV Phenergan dose versus electrolyte abnormality. Will check BMP, CBC, mag, Phos. Resident Activity Tracking Resident Involvement: Resident Care Provided Care Provided: Adult [facility]
[2021-04-11 04:01] LABS: Basophils # (auto) 0.04 K/uL (0-0.2); Basophils % (auto) 0.6 %; Eosinophils # (auto) 0.25 K/uL (0-0.5); Eosinophils % (auto) 3.9 %; Hematocrit (blood only) 33.9 % (42-52); Immature Granulocytes # (auto) 0.22 K/uL (0.00-0.02); Immature Granulocytes % (auto) 3.4 %; Lymphocytes # (auto) 1.03 K/uL (1.2-3.4); Lymphocytes % (auto) 15.9 %; Mean Corpuscular Hemoglobin 34.1 pg (25-34); Mean Corpuscular Hgb Conc 35.4 g/dL (32-36); Mean Corpuscular Volume 96.3 fL (80-100); Mean Platelet Volume 10.3 fL (7.4-10.4); Monocytes # (auto) 0.89 K/uL (0.11-0.59); Monocytes % (auto) 13.8 %; Neutrophils # (auto) 4.04 K/uL (1.4-6.5); Neutrophils % (auto) 62.4 %; Platelet Count 217 K/uL (130-400); RDW Coefficient of Variation 13.5 % (11.5-14.5); RDW Standard Deviation 47.4 fL (36.4-46.3); Red Blood Count 3.52 M/uL (4.7-6.1); White Blood Count 6.47 K/uL (4.8-10.8)
[2021-04-11 04:20] LABS: BUN Creatinine Ratio 19.2 (10-20); Calcium 8.3 mg/dl (8.5-10.1); Creatinine Clr Calc Pharmacy 77.1 ml/min; Est GFR (African American) 85.2 ml/min; Est GFR (Non-African American) 73.6 ml/min; Magnesium 2.5 mg/dl (1.8-2.4); Potassium 3.3 mmol/L (3.5-5.1)
[2021-04-11 04:34] LABS: Phosphorus 1.4 mg/dl (2.5-4.9)
[2021-04-11] MEDS ORDERED: POTASSIUM PHOS 3 MMOL/1 ML INFUSION IV STA ×2 (04:38→11:48)
[2021-04-11] MEDS ORDERED: POTASSIUM PHOSPHATE 21 MMOL in SODIUM CHLORIDE 0.9% 500 ML IV ONE (05:00)
[2021-04-11] MEDS: METOPROLOL TARTRATE 1 MG/ML VIAL IV SCH ×3 (05:38→17:29)
[2021-04-11 07:04] LABS: BUN Creatinine Ratio 19.1 (10-20); Calcium 8.3 mg/dl (8.5-10.1); Creatinine Clr Calc Pharmacy 79.7 ml/min; Est GFR (African American) 86.3 ml/min; Est GFR (Non-African American) 74.5 ml/min
[2021-04-11] MEDS: PIPERACILLIN/TAZOBACTAM 3.375 GM in DEXTROSE 5% 100 ML IV SCH ×2 (08:25→16:27)
[2021-04-11] MEDS: bisacodyL 10 MG SUPP PR SCH ×2 (08:28→20:24)
--- NOTE | 2021-04-11 10:37 | XRay Report ---
XR KUB/Abdomen 1 view CLINICAL HISTORY: ileus TECHNIQUE: 1 view of the abdomen was obtained. Comparison: Comparison is made to abdomen one view 04/10/2021 FINDINGS: Lung bases are unremarkable. The osseous structures are grossly unremarkable. Overall stable to minim ally improved appearance of multiple dilated air-filled loops of bowel. IMPRESSION: Overall stable to minimally improved gaseous distention of multiple loops of large and likely small b owel. ACT 112: Negative or not required by law. Electronically signed by: Enoc Gore M.D. 04/11/2021 10:36 AM
[2021-04-11] MEDS ORDERED: MAGNESIUM SULFATE / D5W 1 GM/100 ML BAG IV ONE (12:30)
[2021-04-11 12:35] LABS: BUN Creatinine Ratio 16.7 (10-20); Calcium 7.9 mg/dl (8.5-10.1); Creatinine Clr Calc Pharmacy 75.8 ml/min; Est GFR (African American) 81.2 ml/min; Est GFR (Non-African American) 70.1 ml/min; Magnesium 2.2 mg/dl (1.8-2.4); Potassium 3.2 mmol/L (3.5-5.1)
[2021-04-11 12:37] LABS: Phosphorus 2.2 mg/dl (2.5-4.9)
[2021-04-11] MEDS: DIGOXIN 125 MCG in SYRINGE 9.5 ML IV SCH (16:14)
--- NOTE | 2021-04-11 22:13 | Hospitalist Progress Note ---
Date of Service April 11, 2021 Assessment & Plan (1) Colon distention: Plan: Patient is colonic distention to the rectum with some ileus of the small bowel. General surgery has been consulted however will also consult gastroenterology to consider decompression colonoscopy at this point time patient be kept n.p.o. be hydrated with fluid to his acute kidney injury and will reduce oral medications to the bare minimum Patient's colon is dilated almost 10 cm. I did speak personally with Dr. Brayan Gold general surgery who recommended consideration of a rectal tube and to discuss with gastroenterology. I did contact Dr. Pittman who referred us to Dr. Thurman and Dr. Ricardo Diallo with the [facility] group I did personally speak to Dr. Thurman who agreed to look at the case. Images are currently being under review On 04/11 imaging shows mild improvement. Will continue to monitor. Patient though is passing gas and stool. will defer need for colonic decompression to GI. (2) Chronic congestive heart failure with left ventricular diastolic dysfunction: Plan: Patient is a history of heart failure preserved ejection fraction, patient typically taking furosemide and spironolactone. Last ejection fraction measured was 60 to 65% we will hydrate patient cautiously and look for signs of volume overload (3) Permanent atrial fibrillation: Plan: Patient has history of atrial fibrillation typically on metoprolol digoxin aspirin and Xarelto (4) Complicated UTI (urinary tract infection): Plan: Patient with abnormal urinalysis in the ER outpatient urine culture from 04/05 shows Klebsiella. Patient will be continued on Zosyn therapy based upon sensitivities. Considerations to transition to quinolone for de-escalation will be discussed with pharmacy (5) Hypokalemia: Plan: replaced. (6) DVT prophylaxis: Plan: SCD for DVT prevention Admission and Anticipated Discharge Date Admission Date: April 07, 2021 Subjective Patient reports feeling slightly better. Review of Systems Review of Systems: All systems reviewed & are unremarkable except as noted in HPI & below Physical Exam Physical Exam: The patient appeared well nourished and normally developed. Vital signs as documented. Head exam is normocephalic atraumatic Neck is without JVD, thyromegaly, or carotid bruits. Lungs are clear to auscultation, no focal loss of breath sounds Cardiac exam, Rhythm is regular.. No murmurs, rubs or gallops. Abdominal exam reveals normal bowel sounds, firm but softer (than yesterday), non tender, no masses Extremities are nonedematous and both pedal pulses are present Neurologic exam is alert and oriented, no focal loss of strength or sensation Skin is without bruises or rashes Psychologically is without concerns for anxiety or depression Results & Data Results & Data ([facility]) Vital Signs (Past 12 Hours) Vital Signs Temp Pulse Pulse Resp BP BP Pulse Ox 04/11/21 19:00 36.3 C L 80 20 119/63 98 04/11/21 17:29 90 149/69 H 04/11/21 16:14 68 04/11/21 15:30 36.6 C 68 18 118/74 96 04/11/21 14:20 83 04/11/21 11:32 70 143/70 H 04/11/21 11:27 36.4 C L 70 20 143/70 H 98 PG Care Time/CCT Total # of Minutes Spent Total Time Spent with Patient: Total time spent is greater than 50% in coordination of care (as documented) at patient's floor/unit and/or counseling patient: Coding Level of Care Code 82887 Subseq Hosp Care Lvl 2 Diagnoses Colon distention K63.89 Chronic congestive heart failure with left ventricular diastolic dysfunction I 50.32 Permanent atrial fibrillation I48.2 Complicated UTI (urinary tract infection) N39.0 Hypokalemia E87.6 DVT prophylaxis Z29.9 Time Spent (min) 25
[2021-04-12] MEDS: PIPERACILLIN/TAZOBACTAM 3.375 GM in DEXTROSE 5% 100 ML IV SCH ×4 (01:12→23:40)
[2021-04-12] MEDS: METOPROLOL TARTRATE 1 MG/ML VIAL IV SCH ×5 (01:12→23:42)
[2021-04-12] MEDS: bisacodyL 10 MG SUPP PR SCH ×2 (09:31→20:12)
[2021-04-12] MEDS: DIGOXIN 125 MCG in SYRINGE 9.5 ML IV SCH (16:34)
[2021-04-12] MEDS ORDERED: POTASSIUM PHOS 3 MMOL/1 ML INFUSION IV STA ×2 (17:09→19:17)
--- NOTE | 2021-04-12 17:21 | XRay Report ---
XR chest 1V portable HISTORY: 80 years-old Male SHARP acute shortness of breath COMPARISON: Chest radiograph 04/05/2021 TECHNIQUE: Portable AP view of the chest FINDINGS: The cardiac silhouette is enlarged. Calcified plaque of the thoracic aorta. Pulmonary vascular conges tion. No pneumothorax, large pleural effusion or lobar airspace consolidation. IMPRESSION: Cardiomegaly with pulmonary vascular congestion. ACT 112: Negative or not required by law. The above report was generated using voice recognition software. It may contain grammatical, syntax o r spelling errors. Electronically signed by: Isaías Quevedo M.D. 04/12/2021 5:20 PM
[2021-04-12] MEDS ORDERED: POTASSIUM PHOSPHATE 30 MMOL in SODIUM CHLORIDE 0.9% 500 ML IV ONE (17:45)
[2021-04-12] MEDS: ONDANSETRON INJ 2 MG/ML 2 ML VIAL IV PRN (18:12)
[2021-04-12 18:53] LABS: BUN Creatinine Ratio 13.9 (10-20); Calcium 8.1 mg/dl (8.5-10.1); Creatinine Clr Calc Pharmacy 78.8 ml/min; Est GFR (African American) 85.2 ml/min; Est GFR (Non-African American) 73.6 ml/min; Phosphorus 1.9 mg/dl (2.5-4.9); Potassium 2.5 mmol/L (3.5-5.1)
[2021-04-12] MEDS ORDERED: Nursing to Pharmacy Communication STA (19:04)
[2021-04-12] MEDS ORDERED: ONDANSETRON INJ 2 MG/ML 2 ML VIAL IV STA (21:37)
[2021-04-12] MEDS ORDERED: SIMETHICONE 80 MG CHEW PO ONE (21:45)
--- NOTE | 2021-04-12 22:49 | Hospitalist Progress Note ---
Date of Service April 12, 2021 Assessment & Plan (1) Colon distention: Plan: Chronic colonic pseudoobstruction. Patient is colonic distention to the rectum with some ileus of the small bowel. General surgery has been consulted however will also consult gastroenterology to consider decompression colonoscopy at this point time patient be kept n.p.o. be hydrated with fluid to his acute kidney injury and will reduce oral medications to the bare minimum Patient's colon is dilated almost 10 cm. I did speak personally with Dr. Brayan Gold general surgery who recommended consideration of a rectal tube and to discuss with gastroenterology. I did contact Dr. Pittman who referred us to Dr. Thurman and Dr. Ricardo Diallo with the [facility] group I did personally speak to Dr. Thurman who agreed to look at the case. Images are currently being under review On 04/12 imaging shows mild improvement. continue to aggresively treat hypokalemia and hypophosphatemia. Patient though is passing gas and stool. will defer need for colonic decompression to GI Patient had excessive amounts of BM. KUB today improved, Cecal diameter is 8.5 cm. (2) Chronic congestive heart failure with left ventricular diastolic dysfunction: Plan: Patient is a history of heart failure preserved ejection fraction, patient typically taking furosemide and spironolactone. Last ejection fraction measured was 60 to 65% we will hydrate patient cautiously and look for signs of volume overload (3) Permanent atrial fibrillation: Plan: Patient has history of atrial fibrillation typically on metoprolol digoxin aspirin and Xarelto (4) Complicated UTI (urinary tract infection): Plan: Patient with abnormal urinalysis in the ER outpatient urine culture from 04/05 shows Klebsiella. Patient will be continued on Zosyn therapy based upon sensitivities. Considerations to transition to quinolone for de-escalation will be discussed with pharmacy (5) Hypokalemia: Plan: replaced. (6) DVT prophylaxis: Plan: SCD for DVT prevention (7) UTI (urinary tract infection): Plan: UTI due to chronic blair catheter culture shows pansensitive klebsiella from 04/05 on zosyn as stated above. Admission and Anticipated Discharge Date Admission Date: April 07, 2021 Subjective Patient reports no new symptoms. Review of Systems Review of Systems: All systems reviewed & are unremarkable except as noted in HPI & below Physical Exam 2 Physical Exam: The patient appeared well nourished and normally developed. Vital signs as documented. Head exam is normocephalic atraumatic Neck is without JVD, thyromegaly, or carotid bruits. Lungs are clear to auscultation, no focal loss of breath sounds Cardiac exam, Rhythm is regular.. No murmurs, rubs or gallops. Abdominal exam reveals normal bowel sounds, firm but softer (than yesterday), non tender, no masses Extremities are nonedematous and both pedal pulses are present Neurologic exam is alert and oriented, no focal loss of strength or sensation Skin is without bruises or rashes Psychologically is without concerns for anxiety or depression Results & Data Results & Data ([facility]) Vital Signs (Past 12 Hours) Vital Signs Temp Pulse Pulse Pulse Resp BP BP 04/12/21 19:10 36.9 C 68 20 128/73 04/12/21 18:04 83 159/73 H 04/12/21 16:42 66 152/75 H 04/12/21 16:34 60 04/12/21 15:08 36.5 C 85 17 135/85 04/12/21 14:20 80 04/12/21 12:09 68 122/67 04/12/21 10:51 36.5 C 76 18 135/75 Pulse Ox 04/12/21 19:10 96 04/12/21 18:04 04/12/21 16:42 98 04/12/21 16:34 04/12/21 15:08 94 04/12/21 14:20 04/12/21 12:09 04/12/21 10:51 95 PG Care Time/CCT Total # of Minutes Spent Total Time Spent with Patient: Total time spent is greater than 50% in coordination of care (as documented) at patient's floor/unit and/or counseling patient: Coding Level of Care Code 86118 Subseq Hosp Care Lvl 3 Diagnoses Colon distention K63.89 Chronic congestive heart failure with left ventricular diastolic dysfunction I50.32 Permanent atrial fibrillation I48.2 Complicated UTI (urinary tract infection) N39.0 Hypokalemia E87.6 DVT prophylaxis Z29.9 UTI (urinary tract infection) N39.0 Hematuria presence: without hematuria Urinary tract infection type: site unspecified Time Spent (min) 35 (1) UTI (urinary tract infection) Hematuria presence: without hematuria Urinary tract infection type: site unspecified Qualified Code(s): N39.0 - Urinary tract infection, site not specified
[2021-04-13 01:36] LABS: Hemoglobin 11.4 g/dL (14.0-18.0); Mean Corpuscular Hemoglobin 33.6 pg (25-34); Mean Corpuscular Hgb Conc 35.6 g/dL (32-36); Mean Corpuscular Volume 94.4 fL (80-100); Mean Platelet Volume 9.9 fL (7.4-10.4); Platelet Count 210 K/uL (130-400); RDW Coefficient of Variation 13.2 % (11.5-14.5); RDW Standard Deviation 45.7 fL (36.4-46.3); Red Blood Count 3.39 M/uL (4.7-6.1); White Blood Count 8.87 K/uL (4.8-10.8)
[2021-04-13 01:54] LABS: BUN Creatinine Ratio 16.2 (10-20); Calcium 7.8 mg/dl (8.5-10.1); Creatinine Clr Calc Pharmacy 90.9 ml/min; Est GFR (African American) 96.7 ml/min; Est GFR (Non-African American) 83.5 ml/min; Magnesium 2.1 mg/dl (1.8-2.4); Potassium 2.8 mmol/L (3.5-5.1)
[2021-04-13 01:58] LABS: Phosphorus 3.2 mg/dl (2.5-4.9)
[2021-04-13] MEDS ORDERED: POTASSIUM PHOSPHATE 30 MMOL in SODIUM CHLORIDE 0.9% 500 ML IV ONE (02:00)
[2021-04-13] MEDS: ONDANSETRON INJ 2 MG/ML 2 ML VIAL IV PRN (06:02)
[2021-04-13] MEDS: METOPROLOL TARTRATE 1 MG/ML VIAL IV SCH ×4 (06:04→23:18)
[2021-04-13] MEDS: PIPERACILLIN/TAZOBACTAM 3.375 GM in DEXTROSE 5% 100 ML IV SCH ×3 (08:29→23:17)
[2021-04-13] MEDS: bisacodyL 10 MG SUPP PR SCH ×2 (08:29→19:46)
[2021-04-13] MEDS: POTASSIUM CHLORIDE / WTR 10 MEQ/100 ML PLCT IV SCH ×3 (09:13→13:17)
[2021-04-13] MEDS: POTASSIUM CHLORIDE 20 MEQ/15 ML UDC PO SCH ×3 (09:13→20:40)
[2021-04-13] MEDS: DIGOXIN 125 MCG in SYRINGE 9.5 ML IV SCH (16:02)
--- NOTE | 2021-04-13 18:13 | Hospitalist Progress Note ---
Date of Service April 13, 2021 Assessment & Plan (1) Colon distention: Plan: Chronic colonic pseudoobstruction. - Patient's colon is dilated almost 10 cm. I did speak personally with Dr. Brayan Gold general surgery who recommended consideration of a rectal tube and to discuss with gastroenterology. I did contact Dr. Pittman who referred us to Dr. Thurman and Dr. Ricardo Diallo with the [employer] group I did personally speak to Dr. Thurman who agreed to look at the case. General surgery consulted GI consulted 04/12: Imaging showing mild improvement, aggressively treating hypokalemia and hypophosphatemia, patient passing gas and stool. GI following. 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 will be continued on Zosyn therapy based upon sensitivities. Consider de-escalation to quinolones (5) Hypokalemia: Plan: replaced., Again hypokalemic today IV and oral repletion increased Continue to trend (6) DVT prophylaxis: Plan: SCD for DVT prevention (7) UTI (urinary tract infection): Plan: UTI due to chronic blair catheter culture shows pansensitive klebsiella from 04/05 on zosyn as stated above. Admission and Anticipated Discharge Date Admission Date: April 07, 2021 Subjective Offers minimal spontaneous conversation. Nods appropriately to place/date. No pain, endorses somnolence. Review of Systems Review of Systems: Limited by cognitive status Physical Exam Physical Exam: General: A&Ox3. NAD. Cooperative. HEENT: Atraumatic, normocephalic. Pulm: CTAB A&P. -wheezes, -rales, -rhonchi. Symmetrical chest rise. No increase work of breathing. No respiratory distress. Cardiac: RRR, -mrg. Radial pulses intact and symmetrical. Abdominal: Softly distended. BS present. Results & Data Results & Data ([facility]) Vital Signs (Past 12 Hours) Vital Signs Temp Pulse Pulse Resp BP BP Pulse Ox 04/13/21 16:02 74 04/13/21 14:20 72 04/13/21 12:02 77 142/82 H 04/13/21 10:52 36.8 C 77 16 139/76 95 04/13/21 07:16 36.8 C 75 18 125/74 97 04/13/21 07:00 86 PG Care Time/CCT Total # of Minutes Spent Total Time Spent with Patient: Total time spent is greater than 50% in coordination of care (as documented) at patient's floor/unit and/or counseling patient: Coding Level of Care Code 97909 Subseq Hosp Care Lvl 2 Diagnoses Colon distention K63.89 Chronic congestive heart failure with left ventricular diastolic dysfunction I50.32 Permanent atrial fibrillation I48.2 Complicated UTI (urinary tract infection) N39.0 Hypokalemia E87.6 DVT prophylaxis Z29.9 UTI (urinary tract infection) N39.0 Hematuria presence: without hematuria Urinary tract infection type: site unspecified (1) UTI (urinary tract infection) Hematuria presence: without hematuria Urinary tract infection type: site unspecified Qualified Code(s): N39.0 - Urinary tract infection, site not specified
[2021-04-14] MEDS: METOPROLOL TARTRATE 1 MG/ML VIAL IV SCH ×3 (05:28→18:00)
[2021-04-14] MEDS: PIPERACILLIN/TAZOBACTAM 3.375 GM in DEXTROSE 5% 100 ML IV SCH ×2 (07:47→16:00)
[2021-04-14] MEDS: POTASSIUM CHLORIDE 20 MEQ/15 ML UDC PO SCH ×3 (07:48→21:37)
[2021-04-14] MEDS: bisacodyL 10 MG SUPP PR SCH ×2 (07:48→21:36)
[2021-04-14 09:14] LABS: Basophils # (auto) 0.02 K/uL (0-0.2); Basophils % (auto) 0.2 %; Eosinophils # (auto) 0.21 K/uL (0-0.5); Eosinophils % (auto) 1.8 %; Hematocrit (blood only) 33.7 % (42-52); Hemoglobin 11.9 g/dL (14.0-18.0); Immature Granulocytes # (auto) 0.07 K/uL (0.00-0.02); Immature Granulocytes % (auto) 0.6 %; Lymphocytes # (auto) 0.81 K/uL (1.2-3.4); Lymphocytes % (auto) 6.9 %; Mean Corpuscular Hemoglobin 33.9 pg (25-34); Mean Corpuscular Hgb Conc 35.3 g/dL (32-36); Mean Platelet Volume 10.2 fL (7.4-10.4); Monocytes # (auto) 0.55 K/uL (0.11-0.59); Monocytes % (auto) 4.7 %; Neutrophils # (auto) 10.13 K/uL (1.4-6.5); Neutrophils % (auto) 85.8 %; Platelet Count 205 K/uL (130-400); RDW Coefficient of Variation 13.6 % (11.5-14.5); RDW Standard Deviation 47.1 fL (36.4-46.3); Red Blood Count 3.51 M/uL (4.7-6.1); White Blood Count 11.79 K/uL (4.8-10.8)
[2021-04-14 09:40] LABS: BUN Creatinine Ratio 11.9 (10-20); Calcium 8.4 mg/dl (8.5-10.1); Creatinine Clr Calc Pharmacy 91.1 ml/min; Est GFR (African American) 96.7 ml/min; Est GFR (Non-African American) 83.5 ml/min; Potassium 3.2 mmol/L (3.5-5.1)
--- NOTE | 2021-04-14 10:17 | Hospitalist Progress Note ---
Date of Service April 14, 2021 Assessment & Plan (1) Colon distention: Plan: Chronic colonic pseudoobstruction. - 04/12: "Patient's colon is dilated almost 10 cm. I did speak personally with Dr. Brayan Gold general surgery who recommended consideration of a rectal tube and to discuss with gastroenterology. I did contact Dr. Pittman who referred us to Dr. Thurman and Dr. Ricardo Diallo with the [employer] group I did personally speak to Dr. Thurman who agreed to look at the case. " General surgery consulted. No acute surgical intervention required at time of assessment.replace potassium. advancement of diet per GI and medicine team. Will monitor patient peripherally GI consulted. Continue with BID Dulcolax suppositories. Continue daily KUBs and only liquids po. 04/12: Imaging showing mild improvement, aggressively treating hypokalemia and hypophosphatemia, patient passing gas and stool. GI following. KUB improved with cecal diameter 8.5 cm 04/13: Repeat KUB pending, multiple bowel movements, no acute events per nursing staff - 04/14: Repeat KUB shows interval decompression of dilated air-filled loops, some air-filled loops remain present without evidence of disproportionate dilation or obstruction. New leukocytosis, pt on zosyn as noted below. Afebrile. Repeat CBC in morning, UTI treated as below, patient progressing towards discharge with outpatient GI follow-up. No surgery indicated at this time. 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 Patient completed course of Zosyn while inpatient, no additional antibiotics indicated at this time Follow clinically (5) Hypokalemia: Plan: - K 3.2, continue 40meq KCl PO TID - Mg wnl Continue to trend (6) DVT prophylaxis: Plan: SCD for DVT prevention (7) UTI (urinary tract infection): Plan: -See complicated UTI above Admission and Anticipated Discharge Date Admission Date: April 07, 2021 Subjective Patient gives intermittent grunting answers to questions, offers little spontaneous conversation. Verbalizes his name, does not verbalize date or place. Does not report new symptoms. Denies pain at time of assessment. Review of Systems Review of Systems: Limited by cognitive status/engagement, see subjective Physical Exam Physical Exam: General: Oriented to name, does not verbalize place or date. NAD. Cooperative. HEENT: Atraumatic, normocephalic. Hearing grossly intact, visual acuity grossly intact. Pulm: CTAB A&P. -wheezes, -rales, -rhonchi. Symmetrical chest rise. No increase work of breathing. No respiratory distress. Cardiac: RRR, -mrg. Radial pulses intact and symmetrical. Abdominal: Softly distended. BS present. Results & Data Results & Data ([facility]) Vital Signs (Past 12 Hours) Vital Signs Temp Pulse Pulse Resp BP BP Pulse Ox 04/14/21 04:19 36.9 C 87 20 171/69 H 93 04/14/21 00:51 74 04/13/21 23:18 80 168/77 H 04/13/21 23:05 36.7 C 88 18 168/77 H 96 PG Care Time/CCT Total # of Minutes Spent Total Time Spent with Patient: Total time spent is greater than 50% in coordination of care (as documented) at patient's floor/unit and/or counseling patient: Coding Level of Care Code 57312 Subseq Hosp Care Lvl 2 Diagnoses Colon distention K63.89 Chronic congestive heart failure with left ventricular diastolic dysfunction I50.32 Permanent atrial fibrillation I48.2 Complicated UTI (urinary tract infection) N39.0 Hypokalemia E87.6 DVT prophylaxis Z29.9 UTI (urinary tract infection) N39.0 Hematuria presence: without hematuria Urinary tract infection type: site unspecified (1) UTI (urinary tract infection) Hematuria presence: without hematuria Urinary tract infection type: site unspecified Qualified Code(s): N39.0 - Urinary tract infection, site not specified
--- NOTE | 2021-04-14 10:29 | XRay Report ---
XR KUB/Abdomen 1 view CLINICAL HISTORY: serial imaging colonic pseudoobstruction. COMPARISON STUDY: 04/11/2021 TECHNIQUE: Single view of the abdomen. FINDINGS: Compared to the previous examination, there has been decompression of the air filled, dilated colonic loops. Air-filled loops of small bowel remain present without evidence for disproportionate dilatati on or gross evidence for obstruction. There is no evidence for organomegaly or gross intra-abdominal mass. No abnormal calcifications are seen along the course of the urinary tracts bilaterally. No acut e osseous pathology. IMPRESSION: 1.Interval decompression of dilated air-filled loops of colon. 2. Air-filled loops of small bowel remain present without evidence for disproportionate dilatation or obstruction. ACT 112: Negative or not required by law. Electronically signed by: Crescencio Ye M.D. 04/14/2021 10:28 AM
[2021-04-14] MEDS: THIAMINE HCL 100 MG TAB PO SCH (11:50)
[2021-04-14] MEDS: ONDANSETRON INJ 2 MG/ML 2 ML VIAL IV PRN (12:20)
[2021-04-14] MEDS: DIGOXIN 125 MCG in SYRINGE 9.5 ML IV SCH (16:00)
[2021-04-15] MEDS: METOPROLOL TARTRATE 1 MG/ML VIAL IV SCH ×2 (00:31→05:39)
[2021-04-15] MEDS: PIPERACILLIN/TAZOBACTAM 3.375 GM in DEXTROSE 5% 100 ML IV SCH ×2 (00:48→07:31)
[2021-04-15] MEDS ORDERED: KETOROLAC TROMETHAMINE 15 MG/ML VIAL IV ONE (03:24)
[2021-04-15] MEDS: POTASSIUM CHLORIDE 20 MEQ/15 ML UDC PO SCH ×3 (07:31→20:44)
[2021-04-15] MEDS: ONDANSETRON INJ 2 MG/ML 2 ML VIAL IV PRN (07:31)
[2021-04-15] MEDS: bisacodyL 10 MG SUPP PR SCH ×2 (07:31→20:41)
[2021-04-15] MEDS: THIAMINE HCL 100 MG TAB PO SCH (07:32)
[2021-04-15 07:33] LABS: Basophils # (auto) 0.01 K/uL (0-0.2); Basophils % (auto) 0.1 %; Eosinophils # (auto) 0.26 K/uL (0-0.5); Eosinophils % (auto) 3.7 %; Hematocrit (blood only) 34.1 % (42-52); Hemoglobin 11.8 g/dL (14.0-18.0); Immature Granulocytes # (auto) 0.07 K/uL (0.00-0.02); Lymphocytes # (auto) 1.09 K/uL (1.2-3.4); Lymphocytes % (auto) 15.6 %; Mean Corpuscular Hemoglobin 33.5 pg (25-34); Mean Corpuscular Hgb Conc 34.6 g/dL (32-36); Mean Corpuscular Volume 96.9 fL (80-100); Mean Platelet Volume 10.5 fL (7.4-10.4); Monocytes # (auto) 0.52 K/uL (0.11-0.59); Monocytes % (auto) 7.4 %; Neutrophils # (auto) 5.04 K/uL (1.4-6.5); Neutrophils % (auto) 72.2 %; Platelet Count 173 K/uL (130-400); RDW Coefficient of Variation 13.8 % (11.5-14.5); RDW Standard Deviation 47.5 fL (36.4-46.3); Red Blood Count 3.52 M/uL (4.7-6.1); White Blood Count 6.99 K/uL (4.8-10.8)
[2021-04-15 08:00] LABS: BUN Creatinine Ratio 17.3 (10-20); Calcium 8.1 mg/dl (8.5-10.1); Creatinine Clr Calc Pharmacy 94.6 ml/min; Est GFR (African American) 98.7 ml/min; Est GFR (Non-African American) 85.1 ml/min; Potassium 3.2 mmol/L (3.5-5.1)
[2021-04-15] MEDS: RIVAROXABAN 20 MG TAB PO SCH (09:49)
[2021-04-15] MEDS: METOPROLOL SUCC 50MG EXT REL TAB PO SCH (09:49)
[2021-04-15] MEDS: FUROSEMIDE 80 MG TAB PO SCH (09:49)
--- NOTE | 2021-04-15 09:49 | XRay Report ---
XR chest 1V portable CLINICAL HISTORY: Shortness of breath.. Follow-up pulmonary vascular congestion COMPARISON STUDY: 04/12/2021 TECHNIQUE: 1 view of the chest FINDINGS: Single frontal view of the chest demonstrates the heart size to again be mildly enlarged. Compared to previous examination, mild central vascular congestion is again seen. No peripheral interstitial alfonso ma is identified. There is no evidence for pleural effusion. No alveolar opacities are seen. There is no acute osseous pathology. IMPRESSION: Cardiomegaly with persistent central vascular congestion. ACT 112: Negative or not required by law. Electronically signed by: Crescencio Ye M.D. 04/15/2021 9:48 AM
[2021-04-15] MEDS: SPIRONOLACTONE 25 MG TAB PO SCH (09:50)
[2021-04-15] MEDS: DIGOXIN 0.125 MG TAB PO SCH (09:50)
[2021-04-15] MEDS: POTASSIUM CHLORIDE / WTR 10 MEQ/100 ML PLCT IV SCH ×3 (09:56→12:12)
--- NOTE | 2021-04-15 12:57 | Hospitalist Progress Note ---
Date of Service April 15, 2021 Assessment & Plan (1) Colon distention: Plan: Chronic colonic pseudoobstruction. - 04/12: "Patient's colon is dilated almost 10 cm. I did speak personally with Dr. Brayan oGld general surgery who recommended consideration of a rectal tube and to discuss with gastroenterology. I did contact Dr. Pittman who referred us to Dr. Thurman and Dr. Ricardo Diallo with the [id number] group I did personally speak to Dr. Thurman who agreed to look at the case. " General surgery consulted. No acute surgical intervention required at time of assessment.replace potassium. advancement of diet per GI and medicine team. Will monitor patient peripherally GI consulted. Continue with BID Dulcolax suppositories. Continue daily KUBs and only liquids po. Patient with serial KUB and imaging, KUB progressively improved and with interval decompression of dilated air-filled loops. Some air-filled loops remain present but without disproportionate dilation or obstruction. Rectal tube removed 04/15, remains hypokalemic 3.2, additional repletion ordered. Leukocytosis improved. Antibiotics discontinued P.o. meds able to be resumed Discussed case with [facility] staff. While patient has waxing and waning engagement and is generally only oriented to name, his current level of awareness and activity appears consistent with his normal per discussion with her staff. We will continue to observe with a repeat KUB in the morning following rectal tube removal, progressing towards discharge and is a bed hold at [facility]. (2) Chronic congestive heart failure with left ventricular diastolic dysfunction: Plan: History of heart failure with preserved EF On furosemide and spironolactone [employer] Last EF 60-65% Continue hydration and electrolyte repletion, follow clinically for volume overload (3) Permanent atrial fibrillation: Plan: -Continue metoprolol Continue digoxin Continue aspirin Continue Xarelto (4) Complicated UTI (urinary tract infection): Plan: Patient with abnormal urinalysis in the ER outpatient urine culture from 04/05 shows Klebsiella. Patient completed course of Zosyn while inpatient, no additional antibiotics indicated at this time Follow clinically (5) Hypokalemia: Plan: - K 3.2, repletion ordered - Mg wnl Continue to trend (6) DVT prophylaxis: Plan: SCD for DVT prevention (7) UTI (urinary tract infection): Plan: -See complicated UTI above Admission and Anticipated Discharge Date Admission Date: April 07, 2021 Subjective When seen at the bedside this morning. He is more alert, and while only oriented to name engages more actively in conversation. Denies pain, feels he is at/near his normal baseline. Has some abdominal fullness, but denies pain. Endorses that he feels short of breath at baseline, feels it is a little bit worse laying down. This Review of Systems Review of Systems: All systems reviewed & are unremarkable except as noted in Subjective Physical Exam Physical Exam: General: Oriented to name, does not verbalize place or date. NAD. Cooperative. HEENT: Atraumatic, normocephalic. Hearing grossly intact, visual acuity grossly intact. Pulm: diminished air movement, + bibasilar crackles, - wheezes. Symmetrical chest rise. No increase work of breathing. No respiratory distress. Cardiac: RRR, -mrg. Radial pulses intact and symmetrical. Abdominal: Softly distended. BS present. Results & Data Results & Data ([facility]) Vital Signs (Past 12 Hours) Vital Signs Temp Pulse Pulse Resp BP BP Pulse Ox 04/15/21 11:48 36.6 C 73 18 129/75 92 04/15/21 09:50 65 04/15/21 07:43 36.4 C L 62 18 177/92 H 97 04/15/21 05:39 53 L 04/15/21 04:00 37.0 C 62 18 146/75 H 97 04/15/21 02:10 36.6 C 58 L 18 163/82 H 96 PG Care Time/CCT Total # of Minutes Spent Total Time Spent with Patient: Total time spent is greater than 50% in coordination of care (as documented) at patient's floor/unit and/or counseling patient: Coding Level of Care Code 73773 Subseq Hosp Care Lvl 2 Diagnoses Colon distention K63.89 Chronic congestive heart failure with left ventricular diastolic dysfunction I50.32 Permanent atrial fibrillation I48.2 Complicated UTI (urinary tract infection) N39.0 Hypokalemia E87.6 DVT prophylaxis Z29.9 UTI (urinary tract infection) N39.0 Hematuria presence: without hematuria Urinary tract infection type: site unspecified (1) UTI (urinary tract infection) Hematuria presence: without hematuria Urinary tract infection type: site unspecified Qualified Code(s): N39.0 - Urinary tract infection, site not specified
[2021-04-15] MEDS ORDERED: ACETAMINOPHEN 325 MG TAB PO PRN (12:59)
[2021-04-15] MEDS: ROSUVASTATIN CALCIUM 20 MG TAB PO SCH (20:45)
[2021-04-16 07:11] LABS: Basophils # (auto) 0.01 K/uL (0-0.2); Basophils % (auto) 0.1 %; Eosinophils # (auto) 0.22 K/uL (0-0.5); Eosinophils % (auto) 3.1 %; Hematocrit (blood only) 32.6 % (42-52); Hemoglobin 11.3 g/dL (14.0-18.0); Immature Granulocytes # (auto) 0.04 K/uL (0.00-0.02); Immature Granulocytes % (auto) 0.6 %; Lymphocytes % (auto) 9.8 %; Mean Corpuscular Hemoglobin 33.6 pg (25-34); Mean Corpuscular Hgb Conc 34.7 g/dL (32-36); Mean Platelet Volume 10.2 fL (7.4-10.4); Monocytes # (auto) 0.47 K/uL (0.11-0.59); Monocytes % (auto) 6.6 %; Neutrophils % (auto) 79.8 %; Platelet Count 165 K/uL (130-400); RDW Coefficient of Variation 13.7 % (11.5-14.5); RDW Standard Deviation 47.4 fL (36.4-46.3); Red Blood Count 3.36 M/uL (4.7-6.1); White Blood Count 7.14 K/uL (4.8-10.8)
[2021-04-16] MEDS: DIGOXIN 0.125 MG TAB PO SCH (07:25)
[2021-04-16] MEDS: METOPROLOL SUCC 50MG EXT REL TAB PO SCH (07:26)
[2021-04-16] MEDS: SPIRONOLACTONE 25 MG TAB PO SCH (07:26)
[2021-04-16] MEDS: FUROSEMIDE 80 MG TAB PO SCH (07:26)
[2021-04-16] MEDS: RIVAROXABAN 20 MG TAB PO SCH (07:26)
[2021-04-16] MEDS: THIAMINE HCL 100 MG TAB PO SCH (07:26)
[2021-04-16] MEDS: bisacodyL 10 MG SUPP PR SCH (07:27)
[2021-04-16] MEDS: POTASSIUM CHLORIDE 20 MEQ/15 ML UDC PO SCH ×3 (07:27→20:18)
[2021-04-16 07:45] LABS: Albumin Level 1.8 gm/dl (3.4-5.0); BUN Creatinine Ratio 20.1 (10-20); Calcium 8.3 mg/dl (8.5-10.1); Est GFR (African American) 99.7 ml/min; Potassium 3.2 mmol/L (3.5-5.1)
[2021-04-16 07:47] LABS: Albumin Globulin Ratio 0.5 (0.9-2); Bilirubin,Total 0.6 mg/dl (0.2-1); Globulin 3.8 gm/dl (2.5-4.0); Total Protein 5.6 gm/dl (6.4-8.2)
[2021-04-16] MEDS: POTASSIUM CHLORIDE / WTR 10 MEQ/100 ML PLCT IV SCH ×3 (08:50→10:37)
--- NOTE | 2021-04-16 09:58 | XRay Report ---
KUB CLINICAL HISTORY: serial imaging, decompressed obstruction COMPARISON STUDY: CT of the abdomen and pelvis April 10, 2021. KUB July 15, 2020. FINDINGS: Incidental note is made of a right hip arthroplasty and pelvic surgical clips. There is no evidence for a bowel obstruction. There has been slight increase in caliber of the transverse colon a nd distal descending colon since prior exam of April 14, 2021 however remains markedly improved si nce CT of April 10, 2021. There is no evidence for a bowel obstruction. IMPRESSION: 1. No evidence for a bowel obstruction. 2. Slight increase in caliber of the transverse colon and distal descending colon since CT of Novembe 2020 however this remains markedly improved since CT of April 10, 2021. ACT 112: Negative or not required by law. Electronically signed by: Johnny Trejo M.D. 04/16/2021 9:57 AM
--- NOTE | 2021-04-16 11:41 | Hospitalist Progress Note ---
Date of Service April 16, 2021 Assessment & Plan (1) Colon distention: Plan: Chronic colonic pseudoobstruction. - 04/12: "Patient's colon is dilated almost 10 cm. I did speak personally with Dr. Brayan Gold general surgery who recommended consideration of a rectal tube and to discuss with gastroenterology. I did contact Dr. Pittman who referred us to Dr. Thurman and Dr. Ricardo Diallo with the [employer] group I did personally speak to Dr. Thurman who agreed to look at the case. " General surgery consulted. No acute surgical intervention required at time of assessment.replace potassium. advancement of diet per GI and medicine team. Will monitor patient peripherally GI consulted. Continue with BID Dulcolax suppositories. Continue daily KUBs and only liquids po. Patient with serial KUB and imaging, KUB progressively improved and with interval decompression of dilated air-filled loops. Some air-filled loops remain present but without disproportionate dilation or obstruction. Rectal tube removed 04/15, remains hypokalemic 3.2, additional repletion ordered. Leukocytosis improved. Antibiotics discontinued P.o. meds able to be resumed Discussed case with [facility] staff. While patient has waxing and waning engagement and is generally only oriented to name, his current level of awareness and activity appears consistent with his normal per discussion with her staff. We will continue to observe with a repeat KUB in the morning following rectal tube removal, progressing towards discharge and is a bed hold at [facility]. 04/16: Overall improved today, appears near her cognitive baseline. Repeat KUB following rectal tube removal with slight interval increase in caliber, although improved from CT. Will follow with serial KUB, progressing towards discharge possibly tomorrow if does have progressive distention/KUB is stable. 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 Patient completed course of Zosyn while inpatient, no additional antibiotics indicated at this time Follow clinically (5) Hypokalemia: Plan: - K 3.2, repletion ordered - Mg wnl Continue to trend (6) DVT prophylaxis: Plan: SCD for DVT prevention (7) UTI (urinary tract infection): Plan: -See complicated UTI above Admission and Anticipated Discharge Date Admission Date: April 07, 2021 Subjective Seen at bedside this morning. Feels improved, near baseline. Breathing is improved today, is not having pain in his abdomen today. Feels a little bit more gas in his abdomen, but is having regular bowel movements. Denies nausea/vomiting/constipation today. Denies fever/chills Review of Systems Review of Systems: All systems reviewed & are unremarkable except as noted in Subjective Physical Exam Physical Exam: General: Oriented to name, does not verbalize place or date. NAD. Cooperative. HEENT: Atraumatic, normocephalic. Hearing grossly intact, visual acuity grossly intact. Pulm: diminished air movement, - wheezes. Symmetrical chest rise. No increase work of breathing. No respiratory distress. Cardiac: RRR, -mrg. Radial pulses intact and symmetrical. Abdominal: Softly distended, similar to prior. BS present. Results & Data Results & Data ([facility]) Vital Signs (Past 12 Hours) Vital Signs Temp Pulse Pulse Pulse Resp BP Pulse Ox 04/16/21 07:25 77 04/16/21 07:15 36.3 C L 69 156/80 H 95 04/16/21 02:47 36.4 C L 66 16 128/71 90 04/16/21 02:05 85 PG Care Time/CCT Total # of Minutes Spent Total Time Spent with Patient: Total time spent is greater than 50% in coordination of care (as documented) at patient's floor/unit and/or counseling patient: Coding Level of Care Code 40835 Subseq Hosp Care Lvl 2 Diagnoses Colon distention K63.89 Chronic congestive heart failure with left ventricular diastolic dysfunction I50.32 Permanent atrial fibrillation I48.2 Complicated UTI (urinary tract infection) N39.0 Hypokalemia E87.6 DVT prophylaxis Z29.9 UTI (urinary tract infection) N39.0 Hematuria presence: without hematuria Urinary tract infection type: site unspecified (1) UTI (urinary tract infection) Hematuria presence: without hematuria Urinary tract infection type: site unspecified Qualified Code(s): N39.0 - Urinary tract infection, site not specified
[2021-04-16] MEDS ORDERED: MICONAZOLE NITRATE POWDER 43 GM EXT PRN (16:12)
[2021-04-16] MEDS ORDERED: BUTT PASTE (ZINC OXIDE 16%) 171 APPLN/57 GM JAR EXT PRN (17:17)
[2021-04-16] MEDS: ROSUVASTATIN CALCIUM 20 MG TAB PO SCH (20:18)
[2021-04-17 06:27] LABS: Albumin Globulin Ratio 0.5 (0.9-2); Albumin Level 2.1 gm/dl (3.4-5.0); BUN Creatinine Ratio 21.3 (10-20); Bilirubin,Total 0.5 mg/dl (0.2-1); Calcium 8.5 mg/dl (8.5-10.1); Creatinine Clr Calc Pharmacy 99.8 ml/min; Est GFR (African American) 101.3 ml/min; Est GFR (Non-African American) 87.4 ml/min; Globulin 4.1 gm/dl (2.5-4.0); Total Protein 6.2 gm/dl (6.4-8.2)
--- NOTE | 2021-04-17 07:38 | XRay Report ---
KUB HISTORY: Acute abdominal pain with distention bowel dilation stability COMPARISON: KUB 04/16/2021, CT abdomen and pelvis 04/10/2021 FINDINGS: Gaseous distention of the transverse colon is again noted measuring up to 9.9 cm. Air-fille d mildly prominent loops of small bowel within the central abdomen measure up to 2.6 cm. Surgical cli ps of the central pelvis. No renal calculi. No ureteral calculi. No pneumoperitoneum or pneumatosis. Right hip total joint arthroplasty. Severe left hip osteoarthritis. Lumbar levoscoliosis with multil evel degenerative changes. No fracture. IMPRESSION: 1. Mild gaseous distention of the transverse colon is redemonstrated. Again, this has improved from t he 04/10/2021 CT study. 2. Mildly prominent air-filled loops of small bowel within the central abdomen are likely physiologic . ACT 112: Negative or not required by law. The above report was generated using voice recognition software. It may contain grammatical, syntax o r spelling errors. Electronically signed by: Isaías Quevedo M.D. 04/17/2021 7:37 AM
[2021-04-17] MEDS: METOPROLOL SUCC 50MG EXT REL TAB PO SCH (08:01)
[2021-04-17] MEDS: DIGOXIN 0.125 MG TAB PO SCH (08:01)
[2021-04-17] MEDS: FUROSEMIDE 80 MG TAB PO SCH (08:01)
[2021-04-17] MEDS: THIAMINE HCL 100 MG TAB PO SCH (08:02)
[2021-04-17] MEDS: SPIRONOLACTONE 25 MG TAB PO SCH (08:02)
[2021-04-17] MEDS: RIVAROXABAN 20 MG TAB PO SCH (08:02)
[2021-04-17] MEDS: POTASSIUM CHLORIDE 20 MEQ/15 ML UDC PO SCH ×2 (08:02→13:13)
[2021-04-17 08:23] LABS: Basophils # (auto) 0.02 K/uL (0-0.2); Basophils % (auto) 0.2 %; Eosinophils # (auto) 0.17 K/uL (0-0.5); Hematocrit (blood only) 35.1 % (42-52); Hemoglobin 12.3 g/dL (14.0-18.0); Immature Granulocytes # (auto) 0.02 K/uL (0.00-0.02); Immature Granulocytes % (auto) 0.2 %; Lymphocytes # (auto) 0.77 K/uL (1.2-3.4); Lymphocytes % (auto) 9.1 %; Mean Corpuscular Hemoglobin 34.3 pg (25-34); Mean Corpuscular Volume 97.8 fL (80-100); Mean Platelet Volume 10.7 fL (7.4-10.4); Monocytes # (auto) 0.63 K/uL (0.11-0.59); Monocytes % (auto) 7.4 %; Neutrophils # (auto) 6.89 K/uL (1.4-6.5); Neutrophils % (auto) 81.1 %; Platelet Count 183 K/uL (130-400); RDW Coefficient of Variation 13.7 % (11.5-14.5); Red Blood Count 3.59 M/uL (4.7-6.1)
--- NOTE | 2021-04-17 12:08 | Discharge Summary ---
Date of Service April 17, 2021 Admission HPI Per Admitting Provider Patient presents from [facility] with abdominal pain that has been intermittent over the last several days. Reportedly the patient is not had a bowel movement in the last 3 days. The patient states he is occasionally passing gas and denies any vomiting. Patient does have a chronic indwelling Pizarro catheter and a urine culture from 04/05/21 resulted with Klebsiella. Patient does not take anything for pain and states that this is gotten progressively worse where he cannot get comfortable. Patient has had more abdominal distension over the last several days. CT abdomen pelvis showed shows large bowel distension to the level of the rectum and some small bowel distension without transition point The pt has cameron with history of CKD# . Covid negative. Admission Exam Per Admitting Provider The patient appeared well nourished and normally developed. Vital signs as documented. Head exam is normocephalic atraumatic Neck is without JVD, thyromegaly, or carotid bruits. Lungs are clear to auscultation, no focal loss of breath sounds Cardiac exam, Rhythm is regular.. No murmurs, rubs or gallops. 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 NAD. Cooperative. HEENT: Atraumatic, normocephalic. Hearing grossly intact, visual acuity grossly intact. Pulm: diminished air movement, - wheezes. Symmetrical chest rise. No increase work of breathing. No respiratory distress. Cardiac: RRR, -mrg. Radial pulses intact and symmetrical. Abdominal: Softly distended, similar to prior. BS present Discharge Data Allergies Allergy/AdvReac Type Severity Reaction Status Date / Time ceftriaxone Allergy Unknown ON [place] Verified 04/07/21 12:04 [employer] L[employer] vancomycin Allergy Unknown ON [place] Verified 04/07/21 12:04 [employer] [facility] Consultations 04/07/21 15:11 Consult Gastroenterology Stat 04/07/21 15:37 ED Decision to Admit Stat 04/07/21 18:23 Consult General Surgery Routine Ordered Studies 04/07/21 11:56 CT abd pelvis wo con Stat 04/10/21 08:20 US liver Urgent 04/10/21 22:04 CT abd pelvis wo con Stat Hospital Course (1) Colon distention: Arron is a 80-year-old male with a history of chronic colonic pseudoobstruction who presented with abdominal pain increasing over several days and constipation, was found to have ileus and potential exacerbation of chronic colonic pseudoobstruction. Patient was found to have colonic dilation of nearly 10 cm. Surgery and gastroenterology were both consulted, general surgery recommended a rectal tube and gastroenterology did not recommend surgical intervention. Is made n.p.o., treat as below, and had decompression of his bowel dilation. Rectal tube was removed, and stability was insured with serial KUB x2. Ileus with history of chronic colonic pseudoobstruction. History as above - 04/12: "Patient's colon is dilated almost 10 cm. I did speak personally with Dr. Brayan Gold general surgery who recommended consideration of a rectal tube and to discuss with gastroenterology. I did contact Dr. Pittman who referred us to Dr. Thurman and Dr. Ricardo Diallo with the [employer] group I did personally speak to Dr. Thurman who agreed to look at the case. " General surgery consulted. No acute surgical intervention required at time of assessment.replace potassium. advancement of diet per GI and medicine team. Will monitor patient peripherally GI consulted. Continued with BID Dulcolax suppositories. Continued daily KUBs and only liquids po. Patient clinically decompressed as below, and ultimately these interventions were able to be discontinued. Patient was tolerating diet by time of discharge. Patient with serial KUB and imaging, KUB progressively improved and with interval decompression of dilated air-filled loops. Some air-filled loops remain present but without disproportionate dilation or obstruction. Rectal tube removed 04/15, some physiologic gas increase which remained stable on day of discharge. Discussed case with Center care staff. While patient has waxing and waning engagement and is generally only oriented to name, his current level of awareness and activity appears consistent with his normal per discussion with her staff. We will continue to observe with a repeat KUB in the morning following rectal tube removal, progressing towards discharge and is a bed hold at [facility]. (2) Chronic congestive heart failure with left ventricular diastolic dysfunction: History of heart failure with preserved EF On furosemide and spironolactone [employer] Last EF 60-65% Continue hydration and electrolyte repletion, follow clinically for volume overload (3) Permanent atrial fibrillation: -Continue metoprolol Continue digoxin Continue aspirin Continue Xarelto (4) Complicated UTI (urinary tract infection): Patient with abnormal urinalysis in the ER outpatient urine culture from 04/05 shows Klebsiella. Patient completed course of Zosyn while inpatient, no additional antibiotics indicated at this time Follow clinically (5) Hypokalemia: Patient was hypokalemic likely in the setting of multiple liquid bowel movements during rectal tube and suppositories as above, normalized with repletion. - Mg wnl Continue to trend (6) DVT prophylaxis: SCD for DVT prevention (7) UTI (urinary tract infection): -See complicated UTI above Total Time Total Time Spent Total Time Spent (In Minutes): Total time spent day of discharge including direct patient care, documentation, review labs and images, and coordination of care 35 minutes. Discharge Plan Discharge Items Patient Disposition: Transfer Nursing Home Fac Reason For Visit: COLONIC DISTENSION 10 CM, PAF Discharge Diagnosis: Colonic pseudoobstruction Activity: Resume your previous activity Non-emergency contact: Primary Care Provider Call non-emergency contact if: you have any medication questions, your symptoms worsen, your pain is not controlled, your pain is worsening, your pain is unusual for you, your pain is concerning for you and your rectal temperature is above 100.4 Follow-up/Referrals: [place] [Primary Care Provider] - Diet: Heart Healthy Addtl Attending Provider Instructions: You were seen in the hospital for you were seen in the hospital for colon distention and were found to have pseudoobstruction with dilation. General surgery was consulted as well as GI who did not recommend surgical intervention. You were treated with medical management and a rectal decompression tube, and clinically improved. Your bowels remain decompressed following removal of the rectal tube. Your distention/obstruction resolved, and serial imaging a day later showed stability. You experienced an acute kidney injury and a UTI which were both treated. Your kidney numbers and potassium levels were normal at time of discharge. You were found to have a urinary tract infection during admission. You are treated with antibiotics during admission, and no further antibiotics were indicated at discharge. A followup appointment is being scheduled for you with your PCP at [facility]. You should be seen seen within 1 weeks. You should receive a call to confirm this appointment. If you do not receive a call within 48 hours to confirm this appointment, or need to change this appointment, contact the providers office. If you develop any new or worsening symptoms including fever, chills, sweats, chest pain, chest pressure, difficulty breathing, uncontrolled nausea/vomiting, rash, wheezing, passing out or nearly passing out, bleeding, black/bloody bowel movements, or other new or concerning symptoms please call your primary care physician, or call 911 for re-evaluation in the emergency department if you are very concerned. Pending Studies at Discharge: No Stand-Alone Forms: [facility] Skilled Items Patient informed of condition?: Yes DNR: No Discharge Level of Care: Skilled Communicable Disease: No Discharge Prognosis: Stable Lines: None Urinary Catheter: Yes Medications and DC Order Prescriptions: Continued clonidine HCl 0.1 mg tablet 0.1 mg PO BID RF: 0 acetaminophen [Tylenol] 325 mg Tablet 650 mg PO Q12 RF: 0 metoprolol succinate 50 mg tablet extended release 24 hr 50 mg PO QAM RF: 0 aspirin 81 mg Tablet,Delayed Release (Dr/Ec) 81 mg PO QAM RF: 0 spironolactone 25 mg tablet 25 mg PO QAM RF: 0 potassium chloride 20 mEq tablet,ER particles/crystals 20 meq PO BID RF: 0 furosemide 80 mg tablet 80 mg PO QAM RF: 0 digoxin 125 mcg (0.125 mg) tablet 125 mcg PO QAM RF: 0 ondansetron 4 mg tablet,disintegrating 4 mg translingual Q6 PRN (Reason: Nausea) RF: 0 fluticasone propionate 50 mcg/actuation spray,suspension 1 spray INTRANASAL BID RF: 0 docusate sodium 100 mg Tablet 100 mg PO HS RF: 0 rosuvastatin 40 mg tablet 40 mg PO HS RF: 0 melatonin 5 mg Tablet 5 mg PO HS RF: 0 cholecalciferol (vitamin D3) [Vitamin D3] 50 mcg (2,000 unit) Tablet 50 mcg PO HS RF: 0 Xarelto 20 mg tablet 20 mg PO QAM RF: 0 multivitamin with minerals Tablet 1 tab PO QAM RF: 0 metoclopramide HCl 10 mg Tablet 10 mg PO QID RF: 0 Discharge Orders: Discharge Order (Routine); Ordered 04/17/21 Ordered By: Sharif Aguilar Admission Data Admit Date/Time: 04/07/21 14:56 Attending Provider: Sharif Aguilar Admit Provider: Irwin Grajeda Primary Care Provider: [place] Other Providers: Kwame Thurman ; Irwin Grajeda ; Brayan Gold Other Interventions: Discharge Summary Assessment (RN) Last Done: 04/17/21 13:05 Coding Level of Care Code D/C DAY MANAGEMENT >30 MINS Diagnoses Colon distention K63.89 Chronic congestive heart failure with left ventricular diastolic dysfunction I50.32 Permanent atrial fibrillation I48.2 Complicated UTI (urinary tract infection) N39.0 Hypokalemia E87.6 DVT prophylaxis Z29.9 UTI (urinary tract infection) N39.0 Hematuria presence: without hematuria Urinary tract infection type: site unspecified
== END 2021-04-17 15:30 | DRG 389 ==
LOC: ED 10:34 → 2N 14:56 → SUATTDRO 14:56 → 2N 17:30
DX: K59.89 Other specified functional intestinal disorders; N17.9 Acute kidney failure, unspecified; I48.21 Permanent atrial fibrillation; Y73.2 Prosthetic and other implants, materials and accessory gastroenterology and urology devices associated with adverse incidents; R82.998 Other abnormal findings in urine; B96.1 Klebsiella pneumoniae [K. pneumoniae] as the cause of diseases classified elsewhere; Z79.899 Other long term (current) drug therapy; I50.32 Chronic diastolic (congestive) heart failure; Z88.1 Allergy status to other antibiotic agents; K59.39 Other megacolon; Z79.01 Long term (current) use of anticoagulants; T42.6X5A Adverse effect of other antiepileptic and sedative-hypnotic drugs, initial encounter; T83.511A Infection and inflammatory reaction due to indwelling urethral catheter, initial encounter; E87.6 Hypokalemia; Z79.1 Long term (current) use of non-steroidal anti-inflammatories (NSAID); N39.0 Urinary tract infection, site not specified; Z79.82 Long term (current) use of aspirin; N18.9 Chronic kidney disease, unspecified; Z96.0 Presence of urogenital implants; R41.82 Altered mental status, unspecified; I35.8 Other nonrheumatic aortic valve disorders; E83.39 Other disorders of phosphorus metabolism; K56.7 Ileus, unspecified; Z20.822 Contact with and (suspected) exposure to COVID-19